=== PATIENT | female | born 1945 | race Caucasian/White ===

== ENCOUNTER 2017-05-15 11:07 | Inpatient (IN) | payer MEDICARE, BC ==
[2017-05-15] MEDS ORDERED: NS 0.9% 1000 ML* 1,000 ML IV ONE (12:02)
--- NOTE | 2017-05-15 13:04 | RAD ---
INDICATION: Weakness COMPARISON: April 24, 2016 TECHNIQUE: PA and lateral dual-energy views were obtained. FINDINGS: Bones/Soft Tissues: There are no acute bony findings. With bilateral shoulder arthroplasty Cardiomediastinal: The cardiomediastinal silhouette is normal. Lungs: There are no infiltrates. Pleura: There are no pleural effusions. Other: None IMPRESSION: NO ACTIVE DISEASE.
[2017-05-15] MEDS ORDERED: Ondansetron INJ* 2 MG/ML VIAL IV ONE (13:22)
[2017-05-15 14:12] LABS: Hematocrit 19 % (35-47); Mean Corpuscular HGB Conc 33 g/dl (31-36); Mean Corpuscular Hemoglobin 25 pg (27-31); Mean Corpuscular Volume 76 fL (80-97); Mean Platelet Volume 5 um3 (7.4-10.4); Red Blood Count 2.55 10^6/ul (4.0-5.4); Red Cell Distribution Width 18 % (10.5-15); White Blood Count 6.8 10^3/ul (3.5-10.8)
[2017-05-15 14:14] LABS: Comments Flag Yes
[2017-05-15 14:18] LABS: Hemoglobin 6.4 g/dl (12.0-16.0)
[2017-05-15 14:19] LABS: Add Diff/Slide Review? Slide Review Added
[2017-05-15 14:26] LABS: ALT 22 U/L (7-52); AST 52 U/L (13-39); Albumin 3.8 g/dL (3.2-5.2); Alkaline Phosphatase 43 U/L (34-104); Blood Urea Nitrogen 17 mg/dL (6-24); C Reactive Protein < 1.00 mg/L (< 5.00); CO2 Carbon Dioxide 29 mmol/L (22-32); Calcium 10.5 mg/dL (8.6-10.3); Chloride 75 mmol/L (101-111); EGFR African American 69.9 (>60); EGFR Non-African American 54.3 (>60); Globulin 2.6 g/dL (2-4); Glucose 103 mg/dL (70-100); Lipase 66 U/L (11.0-82.0); Magnesium 1.2 mg/dL (1.9-2.7); Potassium 3.7 mmol/L (3.5-5.0); Total Protein 6.4 g/dL (6.4-8.9); Troponin I 0.01 ng/mL (<0.04)
[2017-05-15 14:30] LABS: Anion Gap 6 mmol/L (2-11); Sodium 110 mmol/L (133-145)
[2017-05-15] MEDS ORDERED: Iodixanol* (CONTRAST) 320 MG/ML 100 ML SDV IV ONE (14:30)
[2017-05-15 14:45] LABS: Hypochromasia 2+; Neutrophil % 83 % (38-83); Polychromasia 1+
[2017-05-15 15:00] LABS: TSH (Thyroid Stimulating Horm) 0.61 mcIU/mL (0.34-5.60)
--- NOTE | 2017-05-15 15:17 | RAD ---
CLINICAL HISTORY: Vomiting and diarrhea COMPARISON: None TECHNIQUE: Noncontrast CT examination of the abdomen and pelvis from the lung bases through the initial tuberosities. FINDINGS: VISUALIZED LUNG BASES: The visualized lung bases are grossly clear. There is no pleural effusion. ABDOMEN AND PELVIS: Evaluation of the solid organs and vasculature is limited without intravenous contrast. The liver, spleen, pancreas and adrenal glands are grossly normal in appearance. The gallbladder is normal. At the upper pole cortex of the left kidney there is a punctate calcification (axial image 24 and coronal image 79). At the lower pole the left kidney there is a fluid density cyst. Otherwise the kidneys are normal in appearance without focal mass, calcification or signs of hydronephrosis. The urinary bladder measures 14.4 x 9.7 cm in the axial plane and approximately 8 cm in cephalocaudal projection yielding an approximate volume of 905 mL. The oral contrast has progressed as far as the rectosigmoid colon. The small and large bowel are not distended.The patient's normal appendix is identified in the right lower quadrant with a small amount of gas in the lumen (axial image 39 and coronal image 53). There are air-fluid levels throughout many of the loops of small bowel but there is no definite wall thickening or pathologic dilatation. There is no gross retroperitoneal or mesenteric lymphadenopathy. The abdominal aorta and iliac arteries are normal in course and diameter. The right hip prosthesis is anatomically aligned. Incidentally noted is extension of an acetabular screw beyond the posterior cortex of the ilium measuring less than 1 cm. There is no acute inflammatory change or signs of bony fracture. The hip prosthesis creates streak artifact which limits evaluation of the soft tissues of the pelvis. There is levoconvex curvature of the lower thoracic and lumbar spine with the apex at the L1 vertebral body. Degenerative changes on the sagittal view include loss of intervertebral disc height, multilevel vacuum disc phenomenon and endplate sclerosis at multiple levels. IMPRESSION: 1. No evidence of acute inflammatory change of the gastrointestinal tract or other findings that would account for the patient's current presentation. 2. Incidentally noted is a right acetabular screw extending beyond the cortex of the posterior ilium. The clinical significance of this is doubtful. 3. The urinary bladder measures a volume of 905 mL. Please correlate to signs and symptoms of neurogenic bladder or urinary bladder outlet obstruction. 4. Additional chronic, degenerative and postsurgical changes described in the body the report.
[2017-05-15 16:31] LABS: Urine Bilirubin Negative (Negative); Urine Glucose Negative (Negative); Urine Nitrite Negative (Negative)
[2017-05-15] MEDS ORDERED: Dextrose 50% Syringe 50 ML* 25 GM/50 ML SYRINGE IV PUSH PRN (17:44)
[2017-05-15 17:57] LABS: BUN/Creatinine Ratio 16.1 (8-20); Calcium 9.1 mg/dL (8.6-10.3); EGFR Non-African American 59.1 (>60); Potassium 3.2 mmol/L (3.5-5.0)
[2017-05-15 18:11] LABS: Iron 54 ug/dL (50-212); Total Iron Binding Capacity 553 mcg/dL (250-450); Transferrin 395 mg/dL (203-362)
[2017-05-15] MEDS ORDERED: NS 0.9% 1000 ML* 1,000 ML IV SCH (18:15)
[2017-05-15 18:31] LABS: Ferritin 47.3 ng/mL (11-307)
[2017-05-15 18:35] LABS: Folate > 20.00 ng/mL (>3.99)
[2017-05-15 18:36] LABS: Vitamin B12 1120 pg/mL (180-914)
[2017-05-15] MEDS ORDERED: traMADol TAB* 50 MG ONE (19:18)
[2017-05-15] MEDS: traMADol TAB* 50 MG PO PRN (19:25)
[2017-05-15] MEDS: Pantoprazole IV* 40 MG IV SCH (20:37)
[2017-05-15] MEDS: Ropinirole TAB* 0.5 MG TAB PO SCH (20:41)
--- NOTE | 2017-05-15 21:57 | HP ---
HISTORY AND PHYSICAL: * ADDENDUM: Mrs. Valerio is a 71-year-old female with history of atrial fibrillation , on anticoagulation with Xarelto, who presented to the hospital after multiple falls and generalized weakness. The patient was noted to have sodium of 110 and hemoglobin of 6.4. She has a history of iron deficiency anemia in the past. The patient is going to be admitted to the hospital, transfused. Her stool Hemoccult is pending at the time of dictation. So far, no obvious source of bleeding was identified. She is likely hypernatremic from dehydration and possible polydipsia. For further details of the patient's presentation and plan, please see history and physical dictated by Lucy Riddle on 05/15/17 with which I agree. [id number]/[facility] #: [id number] [facility]ITAL[facility]
--- NOTE | 2017-05-15 22:03 | ED ---
Joselin Newsome SooYoung, scribed for Kendall Rollins MD on 05/15/17 at 1154 . GI/ HPI - HPI Summary HPI Summary: A 71 y/o F RANDY presents to ED with c/o n/v/d onset 4 weeks ago. Pt states she takes a pill for restless legs syndrome so that she can sleep at night, and 4 weeks ago, her PCP doubled the dose to 2 pills a night. Since that medication change, she's been having n/v/d. Associated sx: decreased oral intake, weakness. Denies abd pain, melena, feeling dehydrated. Pt saw her PCP last week and had a stool sample test, which was negative for C.diff and food poisoning. She saw her PCP again three days ago who recommended she switch to half tablets , but she hasn't because then she cannot sleep. Pt has a secondary c/o LE pain due to a fall last week due to LE numbness. The numbness spontaneously resolved , but she has lingering hip pain, R and L foot pain. Pt is on Xarelto. Pt lives alone. - History of Current Complaint Chief Complaint: EDNauseaVomitDiarrh Time Seen by Provider: 05/15/17 11:42 Stated Complaint: POSSIBLE ALLERGIC REACTION TO MED Hx Obtained From: Patient Onset/Duration: Started Weeks Ago - 4, Still Present Timing: Constant Severity: Mild Current Severity: Mild Pain Intensity: 0 - out of 10 Associated Signs and Symptoms: Positive: Weakness, Other: - pos: decreased oral intake; neg: feeling dehydrated. Negative: Blood w/Stool, Abdominal Pain - Additional Pertinent History Primary Care Physician: [id number] - Allergy/Home Medications Allergies/Adverse Reactions: Allergies Allergy/AdvReac Type Severity Reaction Status Date / Time Tetracycline Allergy RASH, ITCHY Verified 05/15/17 11:34 Morphine AdvReac N/V Verified 05/15/17 11:34 Home Medications: Home Medications Candesartan (NF) [Atacand (NF)] 16 mg PO BID 05/15/17 [History Confirmed ] DULoxetine DR [place]* [Cymbalta CAP*] 60 mg PO DAILY 05/15/17 [History Confirmed ] Diltiazem XR EXTEND Releas(NF) [Cartia XR (NF)] 120 mg PO DAILY 05/15/17 [ History Confirmed 05/15/17] Furosemide TAB* [Lasix TAB*] 20 mg PO DAILY 05/15/17 [History Confirmed 05/15/17 ] Multiple Vitamins W/ Minerals [One Daily Multivitamin Wo] 1 tab PO DAILY [History Confirmed 05/15/17] Pramipexole TAB* [Mirapex TAB*] 0.5 mg PO BID 05/15/17 [History Confirmed ] Rivaroxaban TAB(*) [Xarelto 20 mg] 20 mg PO QPM 05/15/17 [History Confirmed 08/30] PMH/Surg Hx/FS Hx/Imm Hx Previously Healthy: No Endocrine/Hematology History: Reports: Hx Diabetes - TYPE 2 Cardiovascular History: Reports: Hx Hypertension Denies: Hx Angina, Hx Pacemaker/ICD, Other Cardiovascular Problems/Disorders Respiratory History: Denies: Hx Asthma GI History: Denies: Other GI Disorders History: Denies: Hx Renal Disease Musculoskeletal History: Reports: Hx Arthritis - OSTEOARTHRITIS HIPS, SHOULDERS , ELBOWS, TOES, Denies: Other Musculoskeletal History Sensory History: Reports: Hx Cataracts, Hx Contacts or Glasses Denies: Hx Hearing Aid Opthamlomology History: Reports: Hx Cataracts, Hx Contacts or Glasses Psychiatric History: Reports: Hx Depression Denies: Hx Panic Disorder - Surgical History Surgery Procedure, Year, and Place[place] [facility] [place] [facility]. RIGHT [place]OULD[place], 2009, [facility]. [place] [facility] [place], 2010[place] [facility] Hx Anesthesia Reactions: No Infectious Disease History: No Infectious Disease History: Denies: Traveled Outside the [place] in Last 30 Days - Family History Known Family History: Positive: Cardiac Disease, Hypertension, Diabetes - mother - DM - Social History Occupation: Retired Lives: Alone Alcohol Use: None Alcohol Amount: 5 PER WEEK Hx Substance Use: No Substance Use Type: Reports: None Hx Tobacco Use: No Smoking Status (MU): Never Smoked Tobacco Have You Smoked in the Last Year: No Review of Systems Negative: Other - neg: dehydration Positive: Vomiting, Diarrhea, Nausea, Other - pos: decreased oral intake; neg: melena. Negative: Abdominal Pain Positive: Weakness Psychological: Normal All Other Systems Reviewed And Are Negative: Yes Physical Exam - Summary Physical Exam Summary: Rectal: Dark stool on exam. Triage Information Reviewed: Yes Vital Signs On Initial Exam: Initial Vitals Temp Pulse Resp BP Pulse Ox 99.4 F 65 18 123/47 100 05/15/17 11:15 11 11:15 11 11:15 05/15/17 11:15 05/15/17 11:15 Vital Signs Reviewed: Yes Appearance: Positive: Well-Appearing, No Pain Distress Skin: Positive: Warm, Skin Color Reflects Adequate Perfusion, Dry Head/Face: Positive: Normal Head/Face Inspection Eyes: Positive: EOMI, REBEKAH ENT: Positive: Normal ENT inspection - except oral mucosa dry Neck: Positive: Supple, Nontender Respiratory/Lung Sounds: Positive: Clear to Auscultation, Breath Sounds Present Cardiovascular: Positive: RRR, Murmur, Leg Edema Left, Leg Edema Right Abdomen Description: Positive: Nontender, Soft Bowel Sounds: Positive: Hypoactive Musculoskeletal: Positive: Edema Left, Edema Right, Other - Ecchymosis over R iliac crest with tenderness to palpation. Both LE are bandaged. L great toe ecchymosis with tenderness to palpation. R foot tenderness of proximal 5th metatarsal. Neurological: Positive: Normal, Sensory/Motor Intact, Alert, Oriented to Person Place, Time Psychiatric: Positive: Affect/Mood Appropriate - Gurinder Coma Scale Coma Scale Total: 15 Diagnostics - Vital Signs Vital Signs Temp Pulse Resp BP Pulse Ox 05/15/17 11:15 99.4 F 65 18 123/47 100 - Laboratory Lab Results: Lab Results 05/15/17 05/15/17 05/15/17 Range/Units 13:55 13:55 13:55 WBC (3.5-10.8) 10^3/ul RBC (4.0-5.4) 10^6/ul Hgb (12.0-16.0) g/dl Hct (35-47) % MCV (80-97) fL MCH (27-31) pg MCHC (31-36) g/dl RDW (10.5-15) % Plt Count (150-450) 10^3/ul MPV (7.4-10.4) um3 Neut % (Auto) (38-83) % Lymph % (Auto) (25-47) % [place] % (Auto) (1-9) % Eos % (Auto) (0-6) % Baso % (Auto) (0-2) % Absolute Neuts (auto) (1.5-7.7) 10^3/ul Absolute Lymphs (auto) (1.0-4.8) 10^3/ul Absolute Monos (auto) (0-0.8) 10^3/ul Absolute Eos (auto) (0-0.6) 10^3/ul Absolute Basos (auto) (0-0.2) 10^3/ul Absolute Nucleated RBC 10^3/ul Neutrophils % (38-83) % Lymphocytes % (25-47) % Monocytes % (0-13) % Nucleated RBC % Nucleated RBCs/100 WBC (0-0) Normal RBC Morphology Polychromasia Hypochromasia Elliptocytes INR (Anticoag Therapy) 1.10 (0.89-1.11) APTT 32.2 (26.0-36.3) seconds Sodium 110 L* (133-145) mmol/L Potassium 3.7 (3.5-5.0) mmol/L Chloride 75 L (101-111) mmol/L Carbon Dioxide 29 (22-32) mmol/L Anion Gap 6 (2-11) mmol/L BUN 17 (6-24) mg/dL Creatinine 1.00 H (0.51-0.95) mg/dL Est GFR ( Amer) 69.9 (>60) Est GFR (Non-Af Amer) 54.3 (>60) BUN/Creatinine Ratio 17.0 (8-20) Glucose 103 H (70-100) mg/dL Lactic Acid (0.5-2.0) mmol/L Calcium 10.5 H (8.6-10.3) mg/dL Magnesium 1.2 L (1.9-2.7) mg/dL Iron 54 (50-212) ug/dL TIBC 553 H (250-450) mcg/dL % Saturation 10 L (15-55) % Unsat Iron Binding 499 ug/dL Ferritin 47.3 (11-307) ng/mL Total Bilirubin 1.00 (0.2-1.0) mg/dL AST 52 H (13-39) U/L ALT 22 (7-52) U/L Alkaline Phosphatase 43 (34-104) U/L Troponin I 0.01 (<0.04) ng/mL C-Reactive Protein < 1.00 (< 5.00) mg/L B-Natriuretic Peptide 275 H ( - 100) pg/mL Total Protein 6.4 (6.4-8.9) g/dL Albumin 3.8 (3.2-5.2) g/dL Globulin 2.6 (2-4) g/dL Albumin/Globulin Ratio 1.5 (1-3) Lipase 66 (11.0-82.0) U/L Vitamin B12 1120 H (180-914) pg/mL Folate > 20.00 (>3.99) ng/mL TSH 0.61 (0.34-5.60) mcIU/mL Blood Type Antibody Screen Crossmatch 05/15/17 05/15/17 05/15/17 Range/Units 13:55 13:55 13:55 WBC 6.8 (3.5-10.8) 10^3/ul RBC 2.55 L (4.0-5.4) 10^6/ul Hgb 6.4 L* (12.0-16.0) g/dl Hct 19 L (35-47) % MCV 76 L (80-97) fL MCH 25 L (27-31) pg MCHC 33 (31-36) g/dl RDW 18 H (10.5-15) % Plt Count 357 (150-450) 10^3/ul MPV 5 L (7.4-10.4) um3 Neut % (Auto) 77.5 (38-83) % Lymph % (Auto) 12.8 L (25-47) % [place] % (Auto) 7.7 (1-9) % Eos % (Auto) 1.5 (0-6) % Baso % (Auto) 0.5 (0-2) % Absolute Neuts (auto) 5.3 (1.5-7.7) 10^3/ul Absolute Lymphs (auto) 0.9 L (1.0-4.8) 10^3/ul Absolute Monos (auto) 0.5 (0-0.8) 10^3/ul Absolute Eos (auto) 0.1 (0-0.6) 10^3/ul Absolute Basos (auto) 0 (0-0.2) 10^3/ul Absolute Nucleated RBC 0.02 10^3/ul Neutrophils % 83 (38-83) % Lymphocytes % 13 L (25-47) % Monocytes % 4 (0-13) % Nucleated RBC % 0.3 Nucleated RBCs/100 WBC 1 H (0-0) Normal RBC Morphology Not Reportable Polychromasia 1+ Hypochromasia 2+ Elliptocytes 1+ INR (Anticoag Therapy) (0.89-1.11) APTT (26.0-36.3) seconds Sodium (133-145) mmol/L Potassium (3.5-5.0) mmol/L Chloride (101-111) mmol/L Carbon Dioxide (22-32) mmol/L Anion Gap (2-11) mmol/L BUN (6-24) mg/dL Creatinine (0.51-0.95) mg/dL Est GFR ( Amer) (>60) Est GFR (Non-Af Amer) (>60) BUN/Creatinine Ratio (8-20) Glucose (70-100) mg/dL Lactic Acid 1.4 (0.5-2.0) mmol/L Calcium (8.6-10.3) mg/dL Magnesium (1.9-2.7) mg/dL Iron (50-212) ug/dL TIBC (250-450) mcg/dL % Saturation (15-55) % Unsat Iron Binding ug/dL Ferritin (11-307) ng/mL Total Bilirubin (0.2-1.0) mg/dL AST (13-39) U/L ALT (7-52) U/L Alkaline Phosphatase (34-104) U/L Troponin I (<0.04) ng/mL C-Reactive Protein (< 5.00) mg/L B-Natriuretic Peptide ( - 100) pg/mL Total Protein (6.4-8.9) g/dL Albumin (3.2-5.2) g/dL Globulin (2-4) g/dL Albumin/Globulin Ratio (1-3) Lipase (11.0-82.0) U/L Vitamin B12 (180-914) pg/mL Folate (>3.99) ng/mL TSH (0.34-5.60) mcIU/mL Blood Type A Positive Antibody Screen Negative Crossmatch See Detail Result Diagrams: 05/15/17 13:55 05/15/17 17:31 Lab Statement: Any lab studies that have been ordered have been reviewed, and results considered in the medical decision making process. - Radiology CXR Xray Interpretation: No Acute Changes - IMPRESSION: No active dz. ED physician has reviewed this radiology report and agrees. Radiology Interpretation Completed By: Radiologist - CT A/P CT CT Interpretation: Positive (See Comments) - IMPRESSION: 1. No evidence of acute inflammatory change of the gastrointestinal tract or other findings that would account for the patient's current presentation. 2. Incidentally noted is a right acetabular screw extending beyond the cortex of the posterior ilium. The clinical significance of this is doubtful. 3. The urinary bladder measures a volume of 905 mL. Please correlate to signs and symptoms of neurogenic bladder or urinary bladder outlet obstruction. 4. Additional chronic, degenerative and postsurgical changes described in the body the report. ED physician has reviewed this radiology report and agrees. CT Interpretation Completed By: Radiologist - EKG 1307 EKG Rhythm: Atrial Fibrillation - at 59bpm EKG Interpretation: flipped Ts in III and avF EKG Comparison: Other - afib also present in EKG on 01/03/2016 GIGU Course/Dx - Course Course Of Treatment: A 71 y/o F RANDY presents to ED with c/o n/v/d onset 4 weeks ago. Pt states she takes a pill for restless legs syndrome so that she can sleep at night, and 4 weeks ago, her PCP doubled the dose to 2 pills a night. Since that medication change, she's been having n/v/d. Associated sx: decreased oral intake, weakness. Denies abd pain, melena, feeling dehydrated. Pt saw her PCP last week and had a stool sample test, which was negative for C.diff and food poisoning. She saw her PCP again three days ago who recommended she switch to half tablets, but she hasn't because then she cannot sleep. Pt has a secondary c/o LE pain due to a fall last week due to LE numbness. The numbness spontaneously resolved, but she has lingering hip pain, R and L foot pain. Pt is on Xarelto. Pt lives alone. 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
--- NOTE | 2017-05-15 22:05 | CONS ---
ORTHOPEDIC CONSULTATION NOTE: DATE OF CONSULT: 05/15/17 CONSULTING SERVICE: Orthopedics. REQUESTING CONSULT: Hospitalist service. REASON FOR CONSULT: Right hip. CHIEF COMPLAINT: Diarrhea. HISTORY OF PRESENT ILLNESS: This is a 71-year-old woman, who is admitted to the hospitalist service for diarrhea. She reports that she fell a few days ago and is on Xarelto, said she had a bunch of bruising on her right hip. She has been able to bear weight and move the hip without pain. During the workup for her diarrhea, she had a CT of her abdomen and pelvis, which did show a previous hip replacement on the right and screw with protrusion through the cortex, so the hospitalist service requested my consultation with this. In talking with Ms. Valerio, she reports that she had the right hip replacement years ago, has not had any trouble with it and does not have any pain in her groin at this time. PAST MEDICAL HISTORY: Chronic kidney disease, chronic atrial fibrillation, diabetes, and normocytic anemia. PAST SURGICAL HISTORY: Status post hip arthroplasty, shoulder arthroplasty, and elbow arthroplasty. MEDICATIONS: 1. Tylenol. 2. Atenolol. 3. Duloxetine. 4. Diltiazem. 5. Ferrous sulfate. 6. Rivaroxaban. 7. Zofran. ALLERGIES: TETRACYCLINE, MORPHINE. FAMILY HISTORY: Noncontributory. SOCIAL HISTORY: Lives in [place]. recently . REVIEW OF SYSTEMS: As noted above. PHYSICAL EXAMINATION: Temperature is 99.4, pulse rate is 60, respiratory rate 16, O2 saturation 99%, blood pressure 120/53. She is well appearing and in no apparent distress. Alert and oriented x3. Examination of her right lower extremity reveals ecchymosis laterally at the hip. No focal tenderness to palpation in this region. She is able to perform a straight leg raise and I can range her hip without any pain. Negative heel strike. She is able to range her knee as well without any pain. The thigh is soft without any palpable hematoma. No conservative compartment syndrome. Distally, she does have some decreased sensation in her feet per her baseline, but can feel me touching them. Her feet are warm and well perfused with a palpable DP pulse. IMAGING: CT of her pelvis was reviewed by me. It does show well positioned total hip arthroplasty. There is a screw into the acetabulum, which does just perforate through the ileum, this is normal and does not appear concerning. ASSESSMENT AND PLAN: Silvana Valerio is a 71-year-old woman admitted for diarrhea, who did have a fall a few days ago and has developed ecchymosis in the right lateral hip. There is no evidence on exam today problem with the hip replacement and CT scan does show a well positioned hip replacement. The screw in question is of no concern and has been like that for many years in all likelihood, and is normal after that surgery. From an orthopedic standpoint, she can be weightbearing as tolerated and work with physical therapy as needed for day training. [id number]/[facility] #: [id number] MTDD
[2017-05-15] MEDS ORDERED: Atropine 1MG/ML INJ* 1 ML VIAL IV PUSH PRN (22:34)
[2017-05-15] MEDS ORDERED: HYDROmorphone INJ* 1 MG/ML CARPUJECT SYRINGE IV SLOW PU PRN (22:34)
[2017-05-15] MEDS ORDERED: Ropinirole TAB* 0.5 MG TAB PO ONE (22:35)
[2017-05-15] MEDS ORDERED: oxyCODONE TAB* 5 MG TAB ONE (22:41)
[2017-05-15] MEDS: oxyCODONE TAB* 5 MG TAB PO PRN (22:42)
--- NOTE | 2017-05-15 23:11 | HP ---
ATTENDING PHYSICIAN ADDENDUM INCLUDED ON THIS REPORT CC: Dr. Shaw* HOSPITAL MEDICINE HISTORY AND PHYSICAL: DATE OF ADMISSION: 05/15/17 PRIMARY CARE PHYSICIAN: Dr. Shaw. ATTENDING PHYSICIAN: Dr. Kay Brennan * (dictation provided by Lucy Riddle NP ). CHIEF COMPLAINT: Diarrhea with fall and right hip pain. HISTORY OF PRESENT ILLNESS: Ms. Valerio is a 71-year-old female with a past medical history of chronic anemia attributed to iron deficiency, atrial fibrillation on Xarelto, and diabetes, who presents to the hospital today after having a month of diarrhea, now with a fall and right hip pain with difficulty ambulating. Ms. Valerio states that she has been on Mirapex for restless legs syndrome for some time. She felt that her symptoms were poorly controlled and therefore, her Mirapex was increased to 0.5 mg twice daily. This occurred a month ago and since then she has been reporting diarrhea with nausea. She feels that these symptoms are directly related to the Mirapex. She spoke with her primary care physician and the Mirapex was decreased to one-half tab twice daily, but it seems that her restless legs kept her up through the night and therefore, she would back on the full dose tab b.i.d. The patient states she has had large amount of diarrhea initially about a month ago, but overtime this has decreased and she is only having small episodes of incontinence when she passes gas. She denies any blood or dark tarry stool. She has had nausea, but no vomiting. She has been tolerating oral intake, but she has not had a great appetite. She states that she drinks four 16 ounce bottles of water in addition to seltzer daily to try to stay hydrated. Last week, she felt related to some ongoing weakness to her right leg. She has a history of a right hip replacement. She had a significant bruising to the right hip, which she attributed to the fact that she has been on Xarelto. Since then, she has been having a bit more trouble ambulating. Today, she was very weak and therefore, decided to come into the emergency room for evaluation. In the emergency room, Ms. Valerio had labs, which showed a hemoglobin of 6.4, this is [id number] anemia with her last check back in April showing an hemoglobin of 7.4. She has a new hyponatremia with a sodium of 110, last checked in April, it was 129. She is hypomagnesemic with a magnesium of 1.2. She has a CT abdomen and pelvis, which shows urinary retention and question of incidentally noted right acetabular screw extending down the cortex of the posterior ilium. Her vitals are stable and she has a low-grade temperature to 99.4. PAST MEDICAL HISTORY: 1. Anemia attributed to iron deficiency. 2. History of chronic right lower extremity wound, now healing well [facility]. 3. Atrial fibrillation, on Xarelto. 4. History of CKD stage 3. 5. Type 2 diabetes, non-insulin dependent. 6. Restless legs syndrome. MEDICATIONS: 1. Atenolol 100 mg p.o. daily. 2. Candesartan 16 mg p.o. b.i.d. 3. Diltiazem XR 120 mg p.o. daily. 4. Furosemide 20 mg p.o. day. 5. Multivitamin mineral 1 tab p.o. daily. 6. Pramipexole 0.5 mg p.o. b.i.d. 7. Rivaroxaban 20 mg p.o. q.p.m. 8. Metformin 500 mg p.o. b.i.d. 9. Duloxetine DR 60 mg p.o. daily. ALLERGIES: TETRACYCLINE and MORPHINE. FAMILY HISTORY: The patient states that her mom in her mid 80s. Her dad related to emphysema. She has 2 brothers who are alive and well and she has 2 sons, one of which Uli is her healthcare proxy. SOCIAL HISTORY: The patient has never been a smoker. She used to drink occasionally, but has not done so many years. She denies any drug use. REVIEW OF SYSTEMS: A 14-point review of systems was completed with Ms. Valerio and all those not mentioned above were negative. PHYSICAL EXAMINATION GENERAL: Ms. Valerio is sitting up in the bed. She is in no acute distress. VITAL SIGNS: Temperature 99.4, pulse rate 60, respiratory rate 16, O2 saturation 99% on room air, blood pressure 120/53. LUNGS: Clear to auscultation bilaterally. No accessory muscle use and good aeration. HEART : S1 and S2. No murmur, rub, gallop and regular. ABDOMEN: Soft, but there is tenderness along the lower abdomen. EXTREMITIES: No cyanosis. No edema. SKIN: The patient has a large ecchymosis to her right lateral hip. She has a very small 1 inch x 1 cm long ulceration, chronic wound to her right horvath proximally at about the level of the knee. There is no erythema or drainage there. NEURO: She is alert. She is oriented x3. She moves all extremities equally, although there is decreased range of motion on the right hip due to pain. There is no facial asymmetry or focal weakness. Extraocular movements are intact. DIAGNOSTIC STUDIES/LAB DATA: WBC 6.8, hemoglobin 6.4, hematocrit 19, and platelet count 357. MCV is 76. INR 1.10. Sodium 110, potassium 3.7, chloride 75, BUN 17, creatinine 1.00, glucose 103, lactic acid 1.4, magnesium 1.2. Urine shows no evidence of infection. Abdomen and pelvis CT is read as follows: "No evidence of acute inflammatory change of the gastrointestinal tract or other findings that would account for the patient's current presentation." Incidentally noted, there is a right acetabular screw extending beyond the cortex of the posterior ilium. The clinical significance of this is doubtful. The urinary bladder measures a volume of 905 mL. Please correlate to signs and symptoms of neurogenic bladder or urinary bladder outlet obstruction. Chest x-ray is read as follows: "No active disease." EKG is as follows: Atrial fibrillation with a heart rate of about 60, but no evidence of ischemia. ASSESSMENT: Ms. Valerio is a 71-year-old female with a past medical history of diabetes, chronic iron deficiency anemia, atrial fibrillation, on Xarelto and restless legs syndrome, who reports that she had a change to her Mirapex dose, which she associates with the acute onset of nausea and diarrhea, now with a fall at home and difficulty ambulating. In the emergency room, she has been found to have [id number] anemia and new hyponatremia. Our plans are for inpatient admission as expected length of stay to be greater than 2 days for the followin. Anemia. The patient has a low MCV and history of iron deficiency. Despite the fact that she has not seen dark tarry stools or blood in the stools, she does have a positive guaiac and I have consulted with Dr. Koenig, who will be seeing her tomorrow. She has been started on Protonix b.i.d. Plan to recheck her labs in the a.m. I have checked an iron studies, B12 and folate. She will continue with iron supplementation and I have ordered for 2 units of packed red blood cells. Xarelto will be held. 2. Hyponatremia. The patient's sodium is 110 and I suspect that this is secondary to poor intake with high intake of H2O. The patient was started on normal saline in the emergency room. I am checking a repeat sodium level now at 1800 hours. She is asymptomatic. Plan to check neuro q.4 hours and she will have q.6 hours basic metabolic panel. If the sodium is improving at appropriate rate, we will continue with gentle IV fluids with close monitoring of sodium level. If the sodium has worsened, we will consider fluid restriction , salt tabs and/or 3% saline as needed. 3. Urinary retention. The patient's CT scan shows full bladder. She is stating she has discomfort in the lower abdomen, but she does not feel that she needs to urinate and plan to place a [place] now. 4. Hypomagnesemia. Plan to replete magnesium and recheck in the a.m. 5. Right hip pain. The patient does have significant bruising on the right hip. I have consulted with Orthopedic Surgery to evaluate the incidental CT finding of the screw extending beyond the ilium. I have spoken with Dr. Moss who thinks that this is likely unrelated and chronic finding. 6. Atrial fibrillation. Plan to continue Cardizem. We will continue with a low dose of atenolol with hold parameters. Again, we are holding Xarelto due to anemia. 7. Restless legs syndrome. I question whether or not a restless legs symptoms are related to severe iron deficiency. Iron studies are pending. We will continue with iron supplementation. Given the severity of the patient's symptoms, plan to switch her over to Requip to hopefully avoiding nausea and vomiting. Would also provide her with some comfort through the evening while we look to replete iron as well depending on iron studies. 8. Type 2 diabetes. Plan to hold metformin and the patient had blood glucoses q.a.c. with lispro sliding scale. 9. DVT prophylaxis with SCDs only. 10. Code status is full code. 11. Disposition to intensive care unit for hyponatremia with sodium of 110. TIME SPENT: Approximately 60 minutes were spent on the admission of this patient, more than half time spent with the patient at the bedside reviewing the events leading up to this hospitalization, performing the physical examination and reviewing the plan of care. ULCY RIDDLE NP ADDENDUM: Mrs. Valerio is a 71-year-old female with history of atrial fibrillation, on anticoagulation with Xarelto, who presented to the hospital after multiple falls and generalized weakness. The patient was noted to have sodium of 110 and hemoglobin of 6.4. She has a history of iron deficiency anemia in the past. The patient is going to be admitted to the hospital, transfused. Her stool Hemoccult is pending at the time of dictation. So far, no obvious source of bleeding was identified. She is likely hypernatremic from dehydration and possible polydipsia. For further details of the patient's presentation and plan, please see history and physical dictated by Lucy Riddle on 05/15/17 with which I agree. KAY BRENNAN MD [id number]/[facility] #: [id number]/CPS #: [id number] JUANJOSE
[2017-05-16 00:44] LABS: Hematocrit 24 % (35-47); Hemoglobin 8.3 g/dl (12.0-16.0)
[2017-05-16 00:56] LABS: Calcium 8.7 mg/dL (8.6-10.3); EGFR Non-African American 59.1 (>60); Magnesium 1.9 mg/dL (1.9-2.7); Potassium 3.4 mmol/L (3.5-5.0)
[2017-05-16] MEDS: oxyCODONE TAB* 5 MG TAB PO PRN ×3 (02:54→18:38)
[2017-05-16] MEDS: Pantoprazole IV* 40 MG IV SCH ×2 (05:57→17:39)
[2017-05-16 06:20] LABS: Hematocrit 25 % (35-47); Hemoglobin 8.4 g/dl (12.0-16.0); Mean Corpuscular HGB Conc 34 g/dl (31-36); Mean Corpuscular Hemoglobin 27 pg (27-31); Mean Corpuscular Volume 79 fL (80-97); Mean Platelet Volume 6 um3 (7.4-10.4); Red Blood Count 3.15 10^6/ul (4.0-5.4); Red Cell Distribution Width 18 % (10.5-15); White Blood Count 5.5 10^3/ul (3.5-10.8)
[2017-05-16 06:33] LABS: BUN/Creatinine Ratio 13.8 (8-20); Calcium 8.6 mg/dL (8.6-10.3); EGFR African American 82.1 (>60); EGFR Non-African American 63.8 (>60); Magnesium 1.8 mg/dL (1.9-2.7); Potassium 3.5 mmol/L (3.5-5.0)
[2017-05-16] MEDS ORDERED: NS 0.9% 1000 ML* 1,000 ML IV SCH (07:19)
[2017-05-16] MEDS: Insulin LISPRO* 1 UNITS UNIT SUBCUT SCH ×3 (08:46→17:31)
[2017-05-16] MEDS: DULoxetine DR CAP* 60 MG CAP.DR PO SCH (08:53)
[2017-05-16] MEDS ORDERED: Ferrous Sulfate TAB* 325 MG PO SCH (09:00)
[2017-05-16] MEDS ORDERED: Diltiazem CD CAP* 240 MG PO SCH (09:00)
[2017-05-16] MEDS: Atenolol TAB* 25 MG PO SCH (10:03)
[2017-05-16] MEDS ORDERED: Ondansetron INJ* 2 MG/ML VIAL ONE (10:12)
[2017-05-16] MEDS: Ondansetron INJ* 2 MG/ML VIAL IV PRN (10:14)
[2017-05-16] MEDS ORDERED: Dextrose 50% VIAL 50 ml IV PUSH PRN (11:00)
[2017-05-16] MEDS: Sodium Chloride TAB* 1 GM PO SCH ×2 (12:35→21:32)
[2017-05-16 14:37] LABS: Hematocrit 25 % (35-47); Hemoglobin 8.1 g/dl (12.0-16.0); Mean Corpuscular HGB Conc 33 g/dl (31-36); Mean Corpuscular Hemoglobin 26 pg (27-31); Mean Corpuscular Volume 80 fL (80-97); Mean Platelet Volume 6 um3 (7.4-10.4); Red Blood Count 3.12 10^6/ul (4.0-5.4); Red Cell Distribution Width 18 % (10.5-15); White Blood Count 7.1 10^3/ul (3.5-10.8)
[2017-05-16 14:48] LABS: BUN/Creatinine Ratio 14.5 (8-20); Calcium 7.9 mg/dL (8.6-10.3); EGFR African American 86.7 (>60); EGFR Non-African American 67.4 (>60); Potassium 3.5 mmol/L (3.5-5.0)
--- NOTE | 2017-05-16 16:34 | PN ---
Subjective Date of Service: 05/16/17 Interval History: Ms. Valerio continues to report feeling unwell. She has numerous vague complaints but primarily has complained of nausea with one episode of vomiting, a dry mouth , and feeling "like something isn't right." She denies chest pain or SOB. She does continue to have restless legs that cause her significant distress. Objective Active Medications: Atenolol (Tenormin Tab*) 25 mg PO DAILY MODESTA Dextrose (Dextrose 50% Vial 50 Ml*) 12.5 ml IV PUSH .FOR FS < 60 - SS PRN Duloxetine HCl (Cymbalta Cap*) 60 mg PO DAILY MODESTA Ferrous Sulfate (Ferrous Sulfate Tab*) 325 mg PO BID MODESTA Sodium Chloride (Ns 0.9% 1000 Ml*) 1,000 mls @ 125 mls/hr IV PER RATE MODESTA Insulin Human Lispro (Humalog*) 0 units SUBCUT AC MODESTA Ondansetron HCl (Zofran Inj*) 4 mg IV Q6H PRN Pantoprazole Sodium (Protonix Iv*) 40 mg IV Q12H MODESTA Ropinirole HCl (Requip Tab*) 0.5 mg PO BEDTIME MODESTA Sodium Chloride (Sodium Chloride Tab*) 1 gm PO BID MODESTA Tramadol HCl (Ultram*) 50 mg PO Q6H PRN Vital Signs: Temp Pulse Resp BP Pulse Ox 97.7 F 57 21 131/69 100 05/16/17 16:00 05/16/17 16:00 05/16/17 16:00 05/16/17 16:00 05/16/17 16:00 Oxygen Devices in Use Now: None Appearance: Elderly female lying in bed in NAD Eyes: No Scleral Icterus Ears/Nose/Mouth/Throat: Mucous Membranes Moist Neck: Trachea Midline Respiratory: Symmetrical Chest Expansion and Respiratory Effort, Clear to Auscultation Cardiovascular: NL Sounds; No Murmurs; No JVD, No Edema Abdominal: NL Sounds; No Tenderness; No Distention Lymphatic: No Cervical Adenopathy Extremities: No Edema Skin: No Rash or Ulcers Neurological: Alert and Oriented x 3, NL Muscle Strength and Tone Nutrition: Taking PO's Result Diagrams: 05/16/17 14:00 05/16/17 14:00 Additional Lab and Data: . Assess/Plan/Problems-Billing Assessment: Ms. 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 - Patient Problems (1) Hyponatremia Comment: - Improving slowly. - Appears to at least be in part related to SIADH as urine Na is 31. - NaCl tabs started today. Fluid restriction to 1.5L. - No clear etiology for SIADH, chest xray and CT abd/pelvis unremarkable. Checking CT brain. (2) Anemia Comment: - Improved after 2 units PRBC. - In part iron deficiency, continue ferrous sulfate supplemenation. - GUIAC positive. Hold eliquis. GI consult pending though not good candidate for endoscopy at this point with acute illness. (3) Atrial fibrillation Comment: - Continue low dose atenolol, diltiazem on hold due to relative bradycardia (HR briefly dipped into 30s overnight, generally in 60s). - Holding xarelto. (4) Restless leg syndrome Comment: - Continue requip. - Patient attributes decline with nausea and diarrhea to increase in mirapex. (5) Diabetes mellitus Comment: - BGs well controlled. - Hold metformin and continue lispro SSI coverage with meals. (6) Traumatic ulcer of right lower extremity with infection Comment: - Small healing wound to right horvath, continue local wound care. (7) Full code status (8) DVT prophylaxis Comment: - SCDs only given anemia. Status and Disposition: Inpatient with critical illness. May need rehab depending on clinical course.
[2017-05-16] MEDS ORDERED: diPHENhydraMINE PO* 25 MG PO PRN (17:57)
[2017-05-16] MEDS ORDERED: oxyCODONE TAB* 5 MG TAB ONE (18:31)
[2017-05-16 19:00] LABS: BUN/Creatinine Ratio 13.3 (8-20); Calcium 7.9 mg/dL (8.6-10.3); EGFR African American 86.7 (>60); EGFR Non-African American 67.4 (>60); Potassium 3.6 mmol/L (3.5-5.0)
[2017-05-16] MEDS: Ferrous Sulfate TAB* 325 MG PO SCH (21:32)
[2017-05-16] MEDS: traMADol TAB* 50 MG PO PRN (21:32)
[2017-05-16] MEDS: Ropinirole TAB* 0.5 MG TAB PO SCH (21:32)
--- NOTE | 2017-05-16 21:34 | RAD ---
HISTORY: Anemia, hyponatremia, rule out stroke. No other history is provided COMPARISONS: January 03, 2016 TECHNIQUE: Multiple contiguous axial CT scans were obtained of the head without intravenous contrast. FINDINGS: HEMORRHAGE/INFARCT: There is no hemorrhage or acute infarct. MASSES/SHIFT: There is no mass or shift. EXTRA-AXIAL SPACES: There are no extra-axial fluid collections. SULCI AND VENTRICLES: The sulci and ventricles are normal in size and position for the patient's stated age. CEREBRUM: There are no focal parenchymal abnormalities. BRAINSTEM: There are no focal parenchymal abnormalities. CEREBELLUM: There are no focal parenchymal abnormalities. VESSELS: There is calcification of the cavernous segments of the internal carotid arteries bilaterally. PARANASAL SINUSES: The paranasal sinuses are clear. ORBITS: The orbits are unremarkable. BONES AND SOFT TISSUE: No bone or soft tissue abnormalities are noted. OTHER: None IMPRESSION: NO ACUTE INTRACRANIAL PATHOLOGY.
[2017-05-16] MEDS: diPHENhydraMINE LIQ* 12.5 MG/5 ML UDC PO PRN (21:40)
--- NOTE | 2017-05-16 21:49 | CONS ---
GASTROENTEROLOGY CONSULT: DATE OF CONSULT: REFERRING PHYSICIAN: Jensen Shaw, [place], [place] ; Kay Brennan REASON FOR CONSULTATION: Report of diarrhea and presenting with sodium 110 and hemoglobin in the 8s with a low MCV. HISTORY: This 71-year-old woman with longstanding diabetes on metformin, has been feeling weak. She fell at home. She talked about diarrhea and related that to the dose of Mirapex for restless legs syndrome which was doubled a month ago. She states she has not had chronic gastrointestinal symptoms over her lifetime. She is not on any chronic gastrointestinal prescriptions. She has never had an upper endoscopy or colonoscopy. She has been under a considerable stress as her a year ago. She also fell a little over a year ago and has been [facility] over a year and had a graft. PAST MEDICAL HISTORY: 1. Atrial fibrillation - Xarelto per Dr. Etienne the last 2 years - no overt problems. 2. Type 2 diabetes. 3. Chronic renal disease. 4. Restless legs syndrome. 5. Anemia - on iron and no formal investigations available on the record. 6. Anxiety 7. Right Leg Wound - grafted Dr Thakkar SOCIAL HISTORY: in 2016. She has sons in [place] (disabled patient patient care) and [place]. Dr Harmon reportedly her primary since 1989 or longer. Alcohol abuse was described in a [address] Maxwell REVIEW OF SYSTEMS: No history of seizures, CVA, GA, actual syncope, valvular disease, hepatitis, jaundice, hematuria, renal stones. PHYSICAL EXAMINATION: She is a chronically ill-appearing woman, a little pale. She denies any pain at the moment. HEENT Exam is unremarkable. She has no adenopathy. Her lungs are clear. Heart sounds are irregular. The abdomen is soft and nontender. Rectal: Deferred. Extremities show bandage on the right upper horvath. IMPRESSION: This woman with no longstanding history of gastrointestinal problems, has had antibiotics sporadically over the last couple of years. There is however no clinical evidence for Clostridium difficile at the moment and indeed she's not had a stool since admission. Her diarrhea reported over the last month may indeed be related to Mirapex. It could be other self-limited issues. She has been water loading herself. She does not take any sorbitol containing agents. A probably unrelated issue is her iron deficiency anemia with a large hiatal hernia, or gastric antral vascular ectasia a possibility in addition to the usual colon suspects. Once she has her if sodium stabilized and her capability of cooperating with workups can be established, workup can proceed. Further history from her sons will be of interest. It is reassuring that her albumin is 3.8, this is pretty much rules out small bowel disease / malabsorption. [id number]/[facility] #: [id number] [facility]
[2017-05-17] MEDS: Ondansetron INJ* 2 MG/ML VIAL IV PRN ×2 (04:10→15:16)
[2017-05-17 04:28] LABS: Hematocrit 25 % (35-47); Hemoglobin 8.2 g/dl (12.0-16.0); Mean Corpuscular HGB Conc 33 g/dl (31-36); Mean Corpuscular Hemoglobin 27 pg (27-31); Mean Corpuscular Volume 80 fL (80-97); Mean Platelet Volume 6 um3 (7.4-10.4); Red Cell Distribution Width 18 % (10.5-15); White Blood Count 5.9 10^3/ul (3.5-10.8)
[2017-05-17 04:40] LABS: BUN/Creatinine Ratio 12.3 (8-20); Calcium 7.8 mg/dL (8.6-10.3); EGFR African American 89.1 (>60); EGFR Non-African American 69.3 (>60); Potassium 3.5 mmol/L (3.5-5.0)
--- NOTE | 2017-05-17 04:54 | PN ---
Progress Note - Progress Note Date of Service: 05/17/17 Note: Paged by RN For sodium 112 - no significant change. NO neuro changes. Suspect SIADH. Will discuss with day team, central line and hypertonic saline.
[2017-05-17] MEDS: Pantoprazole IV* 40 MG IV SCH ×2 (05:59→18:08)
[2017-05-17] MEDS: oxyCODONE TAB* 5 MG TAB PO PRN ×3 (07:41→18:20)
--- NOTE | 2017-05-17 08:29 | PN ---
Subjective Date of Service: 05/17/17 Interval History: Ms. Valerio reports feeling that her eyes "feel funny" but she denies any changes to her vision or headache. She further denies chest pain, SOB, nausea or abdominal pain thus far today. She is agreeable to getting out of bed to the chair today. Objective Active Medications: Atenolol (Tenormin Tab*) 25 mg PO DAILY MODESTA Dextrose (Dextrose 50% Vial 50 Ml*) 12.5 ml IV PUSH .FOR FS < 60 - SS PRN Diphenhydramine HCl (Benadryl Liq*) 12.5 mg PO Q12H PRN Duloxetine HCl (Cymbalta Cap*) 60 mg PO DAILY MODESTA Ferrous Sulfate (Ferrous Sulfate Tab*) 325 mg PO BID MODESTA Insulin Human Lispro (Humalog*) 0 units SUBCUT AC MODESTA Ondansetron HCl (Zofran Inj*) 4 mg IV Q6H PRN Oxycodone HCl (Roxycodone Tab*) 5 mg PO Q4H PRN Pantoprazole Sodium (Protonix Iv*) 40 mg IV Q12H MODESTA Ropinirole HCl (Requip Tab*) 0.5 mg PO BEDTIME MODESTA Sodium Chloride (Sodium Chloride Tab*) 1 gm PO TID MODESTA Tramadol HCl (Ultram*) 50 mg PO Q6H ID Vital Signs: Temp Pulse Resp BP Pulse Ox 98.2 F 66 14 128/94 100 05/17/17 07:43 05/17/17 08:00 05/17/17 08:00 05/17/17 08:00 05/17/17 08:00 Oxygen Devices in Use Now: None Appearance: Elderly female lying in bed in NAD Eyes: No Scleral Icterus Ears/Nose/Mouth/Throat: Mucous Membranes Moist Neck: NL Appearance and Movements; NL JVP, Trachea Midline Respiratory: Symmetrical Chest Expansion and Respiratory Effort, Clear to Auscultation Cardiovascular: NL Sounds; No Murmurs; No JVD, No Edema Abdominal: NL Sounds; No Tenderness; No Distention Lymphatic: No Cervical Adenopathy Extremities: No Edema Skin: - - Small ulcer to right proximal horvath, no erythema or drainage Neurological: Alert and Oriented x 3, NL Muscle Strength and Tone Nutrition: Taking PO's Result Diagrams: 05/17/17 04:15 05/17/17 04:15 Additional Lab and Data: . Assess/Plan/Problems-Billing Assessment: Ms. 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 - Patient Problems (1) Hyponatremia Comment: - Improving slowly. - Appears to at least be in part related to SIADH as urine Na is 31. - Increase NaCl tabs today. Continue fluid restriction to 1.5L. - No clear etiology for SIADH, chest xray and CT abd/pelvis unremarkable. CT brain negative. (2) Anemia Comment: - Improved after 2 units PRBC. - In part iron deficiency, continue ferrous sulfate supplemenation. - GUIAC positive. Hold eliquis. GI consult appreciated, consider endoscopy when patient recovers from acute illness. (3) Atrial fibrillation Comment: - Continue low dose atenolol, diltiazem on hold due to relative bradycardia (HR briefly dipped into 30s overnight, generally in 60s). - Hold xarelto. (4) Restless leg syndrome Comment: - Continue requip. - Patient attributes decline with nausea and diarrhea to increase in mirapex. (5) Diabetes mellitus Comment: - BGs well controlled. - Hold metformin and continue lispro SSI coverage with meals. (6) Traumatic ulcer of right lower extremity with infection Comment: - Small healing wound to right horvath, continue local wound care. (7) Full code status (8) DVT prophylaxis Comment: - SCDs only given anemia. Status and Disposition: Inpatient with critical illness. May need rehab depending on clinical course.
[2017-05-17] MEDS: Atenolol TAB* 25 MG PO SCH (08:55)
[2017-05-17] MEDS: Insulin LISPRO* 1 UNITS UNIT SUBCUT SCH ×3 (08:59→18:12)
[2017-05-17] MEDS: Ferrous Sulfate TAB* 325 MG PO SCH ×2 (09:02→21:15)
[2017-05-17] MEDS: Sodium Chloride TAB* 1 GM PO SCH ×3 (09:06→21:15)
[2017-05-17] MEDS: DULoxetine DR CAP* 60 MG CAP.DR PO SCH (09:06)
[2017-05-17] MEDS: Heparin VIAL(*) 5000 UNITS/ML VIAL (FIVE THOUSAND) SUBCUT SCH ×2 (12:39→21:16)
[2017-05-17 15:53] LABS: BUN/Creatinine Ratio 9.6 (8-20); Calcium 7.7 mg/dL (8.6-10.3); EGFR African American 86.7 (>60); EGFR Non-African American 67.4 (>60); Potassium 3.4 mmol/L (3.5-5.0)
[2017-05-17] MEDS: Ropinirole TAB* 0.5 MG TAB PO SCH (21:15)
[2017-05-17] MEDS: traMADol TAB* 50 MG PO PRN (22:27)
[2017-05-17] MEDS: diPHENhydraMINE LIQ* 12.5 MG/5 ML UDC PO PRN (22:30)
[2017-05-18] MEDS: CMCS:Melatonin (NF) 3 MG TAB PO SCH ×2 (01:45→21:41)
[2017-05-18] MEDS: oxyCODONE TAB* 5 MG TAB PO PRN ×5 (01:46→21:35)
[2017-05-18] MEDS: Pantoprazole IV* 40 MG IV SCH ×2 (05:40→18:18)
[2017-05-18] MEDS: Heparin VIAL(*) 5000 UNITS/ML VIAL (FIVE THOUSAND) SUBCUT SCH ×3 (05:40→21:35)
[2017-05-18 06:36] LABS: BUN/Creatinine Ratio 7.4 (8-20); Calcium 7.7 mg/dL (8.6-10.3); EGFR African American 89.1 (>60); EGFR Non-African American 69.3 (>60); Potassium 3.5 mmol/L (3.5-5.0)
[2017-05-18] MEDS: Insulin LISPRO* 1 UNITS UNIT SUBCUT SCH ×3 (07:40→17:52)
--- NOTE | 2017-05-18 08:55 | PN ---
Subjective Date of Service: 05/18/17 Interval History: Ms. Valerio reports feeling a bit better today. She is tolerating oral intake well. She feels more motivated today and is looking to get out of bed to chair. She denies chest pain, SOB, nausea, or abdominal pain. Objective Active Medications: Atenolol (Tenormin Tab*) 25 mg PO DAILY [facility] Dextrose (Dextrose 50% Vial 50 Ml*) 12.5 ml IV PUSH .FOR FS < 60 - SS PRN Diphenhydramine HCl (Benadryl Liq*) 12.5 mg PO Q12H PRN Duloxetine HCl (Cymbalta Cap*) 60 mg PO DAILY [facility] Ferrous Sulfate (Ferrous Sulfate Tab*) 325 mg PO BID [facility] Heparin Sodium (Porcine) (Heparin Vial(*)) 5,000 units SUBCUT Q8HR [facility] Insulin Human Lispro (Humalog*) 0 units SUBCUT AC [facility] Melatonin (Melatonin (Nf)) 3 mg PO BEDTIME [facility] Ondansetron HCl (Zofran Inj*) 4 mg IV Q6H PRN Oxycodone HCl (Roxycodone Tab*) 5 mg PO Q4H PRN Pantoprazole Sodium (Protonix Iv*) 40 mg IV Q12H [facility] Ropinirole HCl (Requip Tab*) 0.5 mg PO BEDTIME [facility] Sodium Chloride (Sodium Chloride Tab*) 1 gm PO TID [facility] Tramadol HCl (Ultram*) 50 mg PO Q6H PRN Vital Signs: Temp Pulse Resp BP Pulse Ox 98.3 F 70 16 128/60 100 05/18/17 07:56 05/18/17 07:56 05/18/17 08:00 05/18/17 07:56 05/18/17 07:56 Oxygen Devices in Use Now: None Appearance: Elderly female sitting up in bed in NAD Eyes: No Scleral Icterus Ears/Nose/Mouth/Throat: Mucous Membranes Moist Neck: NL Appearance and Movements; NL JVP, Trachea Midline Respiratory: Symmetrical Chest Expansion and Respiratory Effort, Clear to Auscultation Cardiovascular: NL Sounds; No Murmurs; No JVD, No Edema Abdominal: NL Sounds; No Tenderness; No Distention Lymphatic: No Cervical Adenopathy Extremities: No Edema Skin: No Rash or Ulcers Neurological: Alert and Oriented x 3, NL Muscle Strength and Tone Nutrition: Taking PO's Result Diagrams: 05/17/17 04:15 05/18/17 06:10 Additional Lab and Data: . Assess/Plan/Problems-Billing Assessment: Ms. 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 - Patient Problems (1) Hyponatremia Comment: - Improving slowly, Na 117 today. - Appears to at least be in part related to SIADH as urine Na is 31. - Continue TID NaCl tabs. Continue fluid restriction to 1.5L. - No clear etiology for SIADH, chest xray and CT abd/pelvis unremarkable. CT brain negative. (2) Anemia Comment: - Improved after 2 units PRBC. - In part iron deficiency, continue ferrous sulfate supplemenation. - GUIAC positive. Hold eliquis. GI consult appreciated, consider endoscopy when patient recovers from acute illness. (3) Atrial fibrillation Comment: - Continue low dose atenolol, diltiazem on hold due to relative bradycardia. - Hold xarelto. (4) Restless leg syndrome Comment: - Continue requip. - Patient attributes nausea and diarrhea prior to admission to increase in mirapex, discontinued. (5) Diabetes mellitus Comment: - BGs well controlled. - Hold metformin and continue lispro SSI coverage with meals. (6) Traumatic ulcer of right lower extremity with infection Comment: - Small healing wound to right horvath, continue local wound care. (7) Full code status (8) DVT prophylaxis Comment: - SCDs only given anemia. Status and Disposition: Inpatient with critical illness. May need rehab depending on clinical course.
[2017-05-18] MEDS: Ferrous Sulfate TAB* 325 MG PO SCH ×2 (09:57→20:43)
[2017-05-18] MEDS: Atenolol TAB* 25 MG PO SCH (09:57)
[2017-05-18] MEDS: Sodium Chloride TAB* 1 GM PO SCH ×3 (09:57→20:44)
[2017-05-18] MEDS: DULoxetine DR CAP* 60 MG CAP.DR PO SCH (09:57)
[2017-05-18] MEDS: Ropinirole TAB* 0.5 MG TAB PO SCH (20:43)
[2017-05-19] MEDS: oxyCODONE TAB* 5 MG TAB PO PRN ×5 (01:42→21:12)
[2017-05-19] MEDS: Pantoprazole IV* 40 MG IV SCH ×2 (06:02→16:59)
[2017-05-19] MEDS: Heparin VIAL(*) 5000 UNITS/ML VIAL (FIVE THOUSAND) SUBCUT SCH ×3 (06:02→22:27)
[2017-05-19] MEDS: Ondansetron INJ* 2 MG/ML VIAL IV PRN (06:02)
[2017-05-19 06:32] LABS: Hematocrit 26 % (35-47); Hemoglobin 8.5 g/dl (12.0-16.0); Mean Corpuscular HGB Conc 33 g/dl (31-36); Mean Corpuscular Hemoglobin 26 pg (27-31); Mean Corpuscular Volume 81 fL (80-97); Mean Platelet Volume 6 um3 (7.4-10.4); Red Blood Count 3.24 10^6/ul (4.0-5.4); Red Cell Distribution Width 18 % (10.5-15); White Blood Count 6.2 10^3/ul (3.5-10.8)
[2017-05-19 06:51] LABS: BUN/Creatinine Ratio 7.1 (8-20); Calcium 8.1 mg/dL (8.6-10.3); EGFR African American 85.5 (>60); EGFR Non-African American 66.5 (>60); Potassium 3.6 mmol/L (3.5-5.0)
--- NOTE | 2017-05-19 07:51 | PN ---
Subjective Date of Service: 05/19/17 Interval History: Ms. Valerio states that she is feeling somewhat better today. She feels less foggy. She has gotten up to the bedside commode with stand by assist. She denies chest pain, SOB, nausea, or abdominal pain. Objective Active Medications: Atenolol (Tenormin Tab*) 25 mg PO DAILY [facility] Dextrose (Dextrose 50% Vial 50 Ml*) 12.5 ml IV PUSH .FOR FS < 60 - SS PRN Diphenhydramine HCl (Benadryl Liq*) 12.5 mg PO Q12H PRN Duloxetine HCl (Cymbalta Cap*) 60 mg PO DAILY [facility] Ferrous Sulfate (Ferrous Sulfate Tab*) 325 mg PO BID [facility] Heparin Sodium (Porcine) (Heparin Vial(*)) 5,000 units SUBCUT Q8HR [facility] Insulin Human Lispro (Humalog*) 0 units SUBCUT AC [facility] Melatonin (Melatonin (Nf)) 3 mg PO BEDTIME [facility] Ondansetron HCl (Zofran Inj*) 4 mg IV Q6H PRN Oxycodone HCl (Roxycodone Tab*) 5 mg PO Q4H PRN Pantoprazole Sodium (Protonix Iv*) 40 mg IV Q12H [facility] Ropinirole HCl (Requip Tab*) 0.5 mg PO BEDTIME [facility] Sodium Chloride (Sodium Chloride Tab*) 1 gm PO TID [facility] Tramadol HCl (Ultram*) 50 mg PO Q6H PRN Vital Signs Vital Signs: Temp Pulse Resp BP Pulse Ox 98.6 F 63 18 150/62 100 05/19/17 07:38 05/19/17 07:38 05/19/17 10:02 05/19/17 07:38 05/19/17 07:38 Oxygen Devices in Use Now: None Appearance: Elderly female lying in bed in NAD Eyes: No Scleral Icterus Ears/Nose/Mouth/Throat: Mucous Membranes Moist Neck: Trachea Midline Respiratory: Symmetrical Chest Expansion and Respiratory Effort, Clear to Auscultation Cardiovascular: NL Sounds; No Murmurs; No JVD, No Edema Abdominal: NL Sounds; No Tenderness; No Distention Lymphatic: No Cervical Adenopathy Extremities: No Edema Skin: - - 1.5 cm x .5 cm ulcer to right horvath Neurological: Alert and Oriented x 3, NL Muscle Strength and Tone Nutrition: Taking PO's Result Diagrams: 05/19/17 06:02 05/19/17 06:02 Additional Lab and Data: . Microbiology and Other Data: . Assess/Plan/Problems-Billing Assessment: Ms. 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 - Patient Problems (1) Hyponatremia Comment: - Improving slowly, Na 122 today. - Appears to at least be in part related to SIADH as urine Na is 31. - Continue TID NaCl tabs. Continue fluid restriction to 1.5L. - No clear etiology for SIADH, chest xray and CT abd/pelvis unremarkable. CT brain negative. (2) Anemia Comment: - Improved after 2 units PRBC. - In part related to chronic iron deficiency, continue ferrous sulfate supplemenation. - GUIAC positive. Hold xarelto. GI consult appreciated, consider endoscopy when patient recovers from acute illness. Patient will need to follow up with PCP on discharge. (3) Atrial fibrillation Comment: - Continue low dose atenolol, diltiazem on hold due to relative bradycardia. - Hold xarelto due to anemia with concern for occult GI bleed. No history of stroke. (4) Restless leg syndrome Comment: - Continue requip. - Patient attributes nausea and diarrhea prior to admission to increase in mirapex, discontinued. (5) Diabetes mellitus Comment: - BGs well controlled. - Hold metformin and continue lispro SSI coverage with meals. (6) Traumatic ulcer of right lower extremity with infection Comment: - Small healing wound to right horvath, continue local wound care. - Wound care consulted today. (7) Full code status (8) DVT prophylaxis Comment: - SCDs only given anemia. Status and Disposition: Inpatient with critical illness. May need rehab depending on clinical course.
[2017-05-19] MEDS: Insulin LISPRO* 1 UNITS UNIT SUBCUT SCH ×3 (07:56→16:52)
[2017-05-19] MEDS: Sodium Chloride TAB* 1 GM PO SCH ×3 (08:03→21:13)
[2017-05-19] MEDS: Ferrous Sulfate TAB* 325 MG PO SCH ×2 (08:03→21:12)
[2017-05-19] MEDS: DULoxetine DR CAP* 60 MG CAP.DR PO SCH (08:03)
[2017-05-19] MEDS: Atenolol TAB* 25 MG PO SCH (08:04)
[2017-05-19] MEDS ORDERED: Docusate CAP* 100 MG PO PRN (09:47)
[2017-05-19] MEDS: Senna TAB PO SCH (12:31)
[2017-05-19] MEDS: Ropinirole TAB* 0.5 MG TAB PO SCH (21:12)
[2017-05-19] MEDS: CMCS:Melatonin (NF) 3 MG TAB PO SCH (21:13)
[2017-05-20] MEDS: Pantoprazole IV* 40 MG IV SCH ×2 (06:31→16:49)
[2017-05-20] MEDS: Heparin VIAL(*) 5000 UNITS/ML VIAL (FIVE THOUSAND) SUBCUT SCH ×3 (06:31→21:08)
[2017-05-20] MEDS: Insulin LISPRO* 1 UNITS UNIT SUBCUT SCH ×3 (07:48→16:37)
[2017-05-20 08:04] LABS: Hematocrit 27 % (35-47); Hemoglobin 8.7 g/dl (12.0-16.0)
[2017-05-20] MEDS: Ferrous Sulfate TAB* 325 MG PO SCH ×2 (08:36→21:07)
[2017-05-20] MEDS: Senna TAB PO SCH (08:36)
[2017-05-20] MEDS: Sodium Chloride TAB* 1 GM PO SCH ×3 (08:36→21:06)
[2017-05-20] MEDS: DULoxetine DR CAP* 60 MG CAP.DR PO SCH (08:37)
[2017-05-20] MEDS: Atenolol TAB* 25 MG PO SCH (08:37)
[2017-05-20 12:47] LABS: BUN/Creatinine Ratio 6.9 (8-20); Calcium 8.1 mg/dL (8.6-10.3); EGFR African American 82.1 (>60); EGFR Non-African American 63.8 (>60); Potassium 4.1 mmol/L (3.5-5.0)
--- NOTE | 2017-05-20 15:22 | PN ---
Subjective Date of Service: 05/20/17 Interval History: This is a 71 yo female who presented with c/o diarrhea and weakness found to be anemic and hyponatremic. She has been tranfused 2U PRBCs and treated for SIADH with fluid restriction and Na tabs. Patient's strength has been improving throughout her hospital stay. Stool positive for occult blood, Xarelto held. No obvious melena. Patient reports diarrhea has resolved. Denies abd pain, n/v. No cough or SOB. Objective Active Medications: Atenolol (Tenormin Tab*) 25 mg PO DAILY [facility] Last Admin: 05/20/17 08:37 Dose: 25 mg Dextrose (Dextrose 50% Vial 50 Ml*) 12.5 ml IV PUSH .FOR FS < 60 - SS PRN PRN Reason: FS < 60 Diphenhydramine HCl (Benadryl Liq*) 12.5 mg PO Q12H PRN PRN Reason: ANXIETY Last Admin: 05/17/17 22:30 Dose: 12.5 mg Docusate Sodium (Colace Cap*) 100 mg PO DAILY PRN PRN Reason: CONSTIPATION Duloxetine HCl (Cymbalta Cap*) 60 mg PO DAILY [facility] Last Admin: 05/20/17 08:37 Dose: 60 mg Ferrous Sulfate (Ferrous Sulfate Tab*) 325 mg PO BID [facility] Last Admin: 05/20/17 08:36 Dose: 325 mg Heparin Sodium (Porcine) (Heparin Vial(*)) 5,000 units SUBCUT Q8HR [facility] Last Admin: 05/20/17 12:40 Dose: 5,000 units Insulin Human Lispro (Humalog*) 0 units SUBCUT AC [facility] PRN Reason: Protocol Last Admin: 05/20/17 12:40 Dose: 1 unit Melatonin (Melatonin (Nf)) 3 mg PO BEDTIME [facility] Last Admin: 05/19/17 21:13 Dose: 3 mg Ondansetron HCl (Zofran Inj*) 4 mg IV Q6H PRN PRN Reason: NAUSEA Last Admin: 05/19/17 06:02 Dose: 4 mg Oxycodone HCl (Roxycodone Tab*) 5 mg PO Q4H PRN PRN Reason: PAIN Last Admin: 05/19/17 21:12 Dose: 5 mg Pantoprazole Sodium (Protonix Iv*) 40 mg IV Q12H [facility] Last Admin: 05/20/17 06:31 Dose: 40 mg Ropinirole HCl (Requip Tab*) 0.5 mg PO BEDTIME [facility] Last Admin: 05/19/17 21:12 Dose: 0.5 mg Senna (Senokot Tab*) 1 tab PO DAILY [facility] Last Admin: 05/20/17 08:36 Dose: 1 tab Sodium Chloride (Sodium Chloride Tab*) 1 gm PO TID [facility] Last Admin: 05/20/17 12:41 Dose: 1 gm Tramadol HCl (Ultram*) 50 mg PO Q6H PRN PRN Reason: PAIN Last Admin: 05/17/17 22:27 Dose: 50 mg Vital Signs: Temp Pulse Resp BP Pulse Ox 98.3 F 74 16 126/55 100 05/20/17 11:07 05/20/17 11:07 05/20/17 11:07 05/20/17 11:07 05/20/17 11:07 Oxygen Devices in Use Now: None Appearance: Elderly female in NAD Respiratory: Symmetrical Chest Expansion and Respiratory Effort, Clear to Auscultation Cardiovascular: NL Sounds; No Murmurs; No JVD, RRR Extremities: - - 2+ LE edema Skin: - - R lower leg is wrapped Neurological: Alert and Oriented x 3 Result Diagrams: 05/20/17 07:53 05/20/17 07:48 Additional Lab and Data: . Microbiology and Other Data: . Assess/Plan/Problems-Billing Assessment: Ms. 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 - Patient Problems (1) Hyponatremia Comment: Improving, Na up to 126 mmol/L today Continue TID NaCl tabs. Continue fluid restriction to 1.5L. No clear etiology for SIADH, chest xray and CT abd/pelvis unremarkable. CT brain negative. No obvious medications contributing (2) Anemia Comment: Improved after 2 units PRBC. In part related to chronic iron deficiency, continue ferrous sulfate supplemenation. GUIAC positive. Holding xarelto. GI consult appreciated, will refer for outpt endoscopy following discharge (3) Restless leg syndrome Comment: Continue requip. Patient attributes nausea and diarrhea prior to admission to increase in mirapex , discontinued. (4) Laceration Comment: RLE injury Wound care consult appreciated She is a current wound care patient Recommendation to apply collagen to wound bed and cover in dry gauze with bandage changed q2-3d (5) Atrial fibrillation Comment: Continue low dose atenolol, diltiazem has been held for mild bradycardia, can likely resume at discharge Hold xarelto due to anemia with concern for occult GI bleed. No history of stroke. (6) Diabetes mellitus Comment: BGs relatively well controlled. Hold metformin and continue lispro SSI coverage with meals. (7) Full code status (8) DVT prophylaxis Comment: SCDs only given anemia and suspected GI bleed Status and Disposition: Inpatient. Anticipate likely dc home tomorrow. No rehab needs, doing well with PT/OT
[2017-05-20] MEDS: oxyCODONE TAB* 5 MG TAB PO PRN ×2 (16:49→21:11)
[2017-05-20] MEDS: CMCS:Melatonin (NF) 3 MG TAB PO SCH (21:06)
[2017-05-20] MEDS: Ropinirole TAB* 0.5 MG TAB PO SCH (21:07)
[2017-05-21] MEDS: oxyCODONE TAB* 5 MG TAB PO PRN ×2 (01:35→19:39)
[2017-05-21] MEDS: Pantoprazole IV* 40 MG IV SCH ×2 (05:43→18:26)
[2017-05-21] MEDS: Heparin VIAL(*) 5000 UNITS/ML VIAL (FIVE THOUSAND) SUBCUT SCH ×2 (05:43→14:26)
[2017-05-21] MEDS: diPHENhydraMINE LIQ* 12.5 MG/5 ML UDC PO PRN (05:44)
[2017-05-21 08:42] LABS: BUN/Creatinine Ratio 6.5 (8-20); Calcium 8.4 mg/dL (8.6-10.3); EGFR Non-African American 59.8 (>60); Potassium 3.9 mmol/L (3.5-5.0)
[2017-05-21] MEDS: Ferrous Sulfate TAB* 325 MG PO SCH ×2 (09:00→19:39)
[2017-05-21] MEDS: Atenolol TAB* 25 MG PO SCH (09:00)
[2017-05-21] MEDS: Insulin LISPRO* 1 UNITS UNIT SUBCUT SCH ×3 (09:09→18:32)
[2017-05-21] MEDS ORDERED: Polyethylene Glycol 3350* 17 GM PACKET PO ONE (09:30)
--- NOTE | 2017-05-21 09:30 | PN ---
Subjective Date of Service: 05/21/17 Interval History: Patient reports some nausea and abdominal cramping with bloating. She states she feels constipated. She had difficultly sleeping because of the abdominal discomfort. Denies cough, SOB, abd pain. Objective Active Medications: Atenolol (Tenormin Tab*) 25 mg PO DAILY [facility] Last Admin: 05/20/17 08:37 Dose: 25 mg Dextrose (Dextrose 50% Vial 50 Ml*) 12.5 ml IV PUSH .FOR FS < 60 - SS PRN PRN Reason: FS < 60 Diphenhydramine HCl (Benadryl Liq*) 12.5 mg PO Q12H PRN PRN Reason: ANXIETY Last Admin: 05/21/17 05:44 Dose: 12.5 mg Docusate Sodium (Colace Cap*) 100 mg PO DAILY PRN PRN Reason: CONSTIPATION Duloxetine HCl (Cymbalta Cap*) 60 mg PO DAILY [facility] Last Admin: 05/20/17 08:37 Dose: 60 mg Ferrous Sulfate (Ferrous Sulfate Tab*) 325 mg PO BID [facility] Last Admin: 05/20/17 21:07 Dose: 325 mg Furosemide (Lasix Tab*) 20 mg PO DAILY [facility] Heparin Sodium (Porcine) (Heparin Vial(*)) 5,000 units SUBCUT Q8HR [facility] Last Admin: 05/21/17 05:43 Dose: 5,000 units Insulin Human Lispro (Humalog*) 0 units SUBCUT AC [facility] PRN Reason: Protocol Last Admin: 05/21/17 09:09 Dose: Not Given Melatonin (Melatonin (Nf)) 3 mg PO BEDTIME [facility] Last Admin: 05/20/17 21:06 Dose: 3 mg Ondansetron HCl (Zofran Inj*) 4 mg IV Q6H PRN PRN Reason: NAUSEA Last Admin: 05/19/17 06:02 Dose: 4 mg Oxycodone HCl (Roxycodone Tab*) 5 mg PO Q4H PRN PRN Reason: PAIN Last Admin: 05/21/17 01:35 Dose: 5 mg Pantoprazole Sodium (Protonix Iv*) 40 mg IV Q12H [facility] Last Admin: 05/21/17 05:43 Dose: 40 mg Polyethylene Glycol/Electrolytes (Miralax*) 17 gm PO ONCE ONE Stop: 05/21/17 09:31 Ropinirole HCl (Requip Tab*) 0.5 mg PO BEDTIME [facility] Last Admin: 05/20/17 21:07 Dose: 0.5 mg Senna (Senokot Tab*) 1 tab PO DAILY [facility] Last Admin: 05/20/17 08:36 Dose: 1 tab Sodium Chloride (Sodium Chloride Tab*) 1 gm PO TID [facility] Last Admin: 05/20/17 21:06 Dose: 1 gm Tramadol HCl (Ultram*) 50 mg PO Q6H PRN PRN Reason: PAIN Last Admin: 05/17/17 22:27 Dose: 50 mg Vital Signs: Temp Pulse Resp BP Pulse Ox 98.5 F 70 13 143/64 97 05/21/17 07:31 05/21/17 07:31 05/21/17 07:31 05/21/17 07:31 05/21/17 07:31 Appearance: Mildly uncomfortable appearing elderly female in NAD Respiratory: Symmetrical Chest Expansion and Respiratory Effort, Clear to Auscultation Cardiovascular: - - irregular rhythm, 3/6 murmur Abdominal: NL Sounds; No Tenderness; No Distention Extremities: - - 1+ LE edema Skin: - - R lower leg with a clean dressing in place Neurological: Alert and Oriented x 3 Result Diagrams: 05/20/17 07:53 05/21/17 08:08 Additional Lab and Data: . Microbiology and Other Data: . Assess/Plan/Problems-Billing Assessment: Ms. 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 - Patient Problems (1) Hyponatremia Comment: Improving, Na up to 128 mmol/L today Continue TID NaCl tabs. Continue fluid restriction to 1.5L. No clear etiology for SIADH, chest xray and CT abd/pelvis unremarkable. CT brain negative. No obvious medications contributing (2) Anemia Comment: Improved after 2 units PRBC. In part related to chronic iron deficiency, continue ferrous sulfate supplemenation. GUIAC positive. Holding xarelto. GI consult appreciated, will refer for outpt endoscopy following discharge (3) Restless leg syndrome Comment: Continue requip. Patient attributes nausea and diarrhea prior to admission to increase in mirapex , discontinued. (4) Laceration Comment: RLE injury Wound care consult appreciated She is a current wound care patient Recommendation to apply collagen to wound bed and cover in dry gauze with bandage changed q2-3d (5) Atrial fibrillation Comment: Continue low dose atenolol, diltiazem has been held for mild bradycardia, can likely resume at discharge Hold xarelto due to anemia with concern for occult GI bleed. No history of stroke. (6) Diabetes mellitus Comment: BGs relatively well controlled. Hold metformin and continue lispro SSI coverage with meals. (7) Full code status (8) DVT prophylaxis Comment: SCDs only given anemia and suspected GI bleed Status and Disposition: Inpatient. Anticipate likely dc home tomorrow. No rehab needs, doing well with PT/OT
[2017-05-21] MEDS: Furosemide TAB* 20 MG PO SCH (09:36)
[2017-05-21] MEDS: DULoxetine DR CAP* 60 MG CAP.DR PO SCH (09:36)
[2017-05-21] MEDS: Senna TAB PO SCH (09:36)
[2017-05-21] MEDS: Sodium Chloride TAB* 1 GM PO SCH ×3 (09:36→19:39)
[2017-05-21] MEDS ORDERED: Bisacodyl SUPP* 10 MG SUPP PR ONE (17:07)
[2017-05-21] MEDS: CMCS:Melatonin (NF) 3 MG TAB PO SCH (19:39)
[2017-05-21] MEDS: Ropinirole TAB* 0.5 MG TAB PO SCH (19:39)
[2017-05-22] MEDS: oxyCODONE TAB* 5 MG TAB PO PRN ×3 (01:03→23:24)
[2017-05-22] MEDS: diPHENhydraMINE LIQ* 12.5 MG/5 ML UDC PO PRN ×2 (01:03→23:23)
[2017-05-22] MEDS: traMADol TAB* 50 MG PO PRN ×2 (03:50→20:18)
[2017-05-22] MEDS: Pantoprazole IV* 40 MG IV SCH ×2 (05:35→18:24)
[2017-05-22 07:06] LABS: Hematocrit 27 % (35-47); Hemoglobin 8.8 g/dl (12.0-16.0)
[2017-05-22] MEDS: Insulin LISPRO* 1 UNITS UNIT SUBCUT SCH ×3 (07:53→18:22)
[2017-05-22 08:39] LABS: BUN/Creatinine Ratio 10.1 (8-20); Calcium 8.3 mg/dL (8.6-10.3); EGFR Non-African American 62.2 (>60)
[2017-05-22] MEDS ORDERED: diPHENhydraMINE PO* 25 MG PO ONE (08:43)
[2017-05-22] MEDS ORDERED: Bisacodyl SUPP* 10 MG SUPP PR ONE (08:43)
[2017-05-22] MEDS: Sodium Chloride TAB* 1 GM PO SCH ×3 (10:02→20:18)
[2017-05-22] MEDS: Atenolol TAB* 25 MG PO SCH (10:02)
[2017-05-22] MEDS: DULoxetine DR CAP* 60 MG CAP.DR PO SCH (10:02)
[2017-05-22] MEDS: Furosemide TAB* 20 MG PO SCH (10:03)
[2017-05-22] MEDS: Senna TAB PO SCH (10:03)
[2017-05-22] MEDS: Ferrous Sulfate TAB* 325 MG PO SCH ×2 (10:03→20:19)
--- NOTE | 2017-05-22 16:44 | PN ---
Subjective Date of Service: 05/22/17 Interval History: Patient reports feeling better after having a large BM. No gross blood noted. No n/v. She has been complaining of intermittent knee pain today without new trauma Objective Active Medications: Atenolol (Tenormin Tab*) 25 mg PO DAILY [facility] Last Admin: 05/22/17 10:02 Dose: 25 mg Dextrose (Dextrose 50% Vial 50 Ml*) 12.5 ml IV PUSH .FOR FS < 60 - SS PRN PRN Reason: FS < 60 Diphenhydramine HCl (Benadryl Liq*) 12.5 mg PO Q12H PRN PRN Reason: ANXIETY Last Admin: 05/22/17 01:03 Dose: 12.5 mg Docusate Sodium (Colace Cap*) 100 mg PO DAILY PRN PRN Reason: CONSTIPATION Last Admin: 05/21/17 19:39 Dose: 100 mg Duloxetine HCl (Cymbalta Cap*) 60 mg PO DAILY [facility] Last Admin: 05/22/17 10:02 Dose: 60 mg Ferrous Sulfate (Ferrous Sulfate Tab*) 325 mg PO BID [facility] Last Admin: 05/22/17 10:03 Dose: 325 mg Furosemide (Lasix Tab*) 20 mg PO DAILY [facility] Last Admin: 05/22/17 10:03 Dose: 20 mg Insulin Human Lispro (Humalog*) 0 units SUBCUT AC [facility] PRN Reason: Protocol Last Admin: 05/22/17 12:23 Dose: Not Given Melatonin (Melatonin (Nf)) 3 mg PO BEDTIME [facility] Last Admin: 05/21/17 19:39 Dose: 3 mg Ondansetron HCl (Zofran Inj*) 4 mg IV Q6H PRN PRN Reason: NAUSEA Last Admin: 05/19/17 06:02 Dose: 4 mg Oxycodone HCl (Roxycodone Tab*) 5 mg PO Q4H PRN PRN Reason: PAIN Last Admin: 05/22/17 14:14 Dose: 5 mg Pantoprazole Sodium (Protonix Iv*) 40 mg IV Q12H [facility] Last Admin: 05/22/17 05:35 Dose: 40 mg Polyethylene Glycol/Electrolytes (Miralax*) 17 gm PO ONCE ONE Stop: 05/23/17 10:01 Ropinirole HCl (Requip Tab*) 0.5 mg PO BEDTIME [facility] Last Admin: 05/21/17 19:39 Dose: 0.5 mg Senna (Senokot Tab*) 1 tab PO DAILY [facility] Last Admin: 05/22/17 10:03 Dose: 1 tab Sodium Chloride (Sodium Chloride Tab*) 1 gm PO TID [facility] Last Admin: 05/22/17 14:14 Dose: 1 gm Tramadol HCl (Ultram*) 50 mg PO Q6H PRN PRN Reason: PAIN Last Admin: 05/22/17 03:50 Dose: 50 mg Vital Signs: Temp Pulse Resp BP Pulse Ox 98.7 F 62 20 127/61 96 05/22/17 11:32 05/22/17 11:32 05/22/17 14:14 05/22/17 11:32 05/22/17 11:32 Oxygen Devices in Use Now: None Appearance: Well appearing 71 yo female in NAD Respiratory: Symmetrical Chest Expansion and Respiratory Effort, Clear to Auscultation Cardiovascular: NL Sounds; No Murmurs; No JVD, RRR Abdominal: NL Sounds; No Tenderness; No Distention Extremities: No Edema Skin: No Rash or Ulcers Neurological: Alert and Oriented x 3 Result Diagrams: 05/22/17 06:43 05/22/17 06:43 Additional Lab and Data: . Microbiology and Other Data: . Assess/Plan/Problems-Billing Assessment: Ms. 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 - Patient Problems (1) Hyponatremia Comment: Resolved, 131 mmol/L today Continue TID NaCl tabs. Continue fluid restriction to 1.5L. No clear etiology for SIADH, chest xray and CT abd/pelvis unremarkable. CT brain negative. No obvious medications contributing (2) Anemia Comment: Improved after 2 units PRBC. In part related to chronic iron deficiency, continue ferrous sulfate supplemenation. GUIAC positive. Holding xarelto. GI consult appreciated, will refer for outpt endoscopy following discharge (3) Restless leg syndrome Comment: Continue requip. Patient attributes nausea and diarrhea prior to admission to increase in mirapex , discontinued. (4) Laceration Comment: RLE injury Wound care consult appreciated She is a current wound care patient Recommendation to apply collagen to wound bed and cover in dry gauze with bandage changed q2-3d (5) Atrial fibrillation Comment: Continue low dose atenolol, diltiazem has been held for mild bradycardia, can likely resume at discharge Hold xarelto due to anemia with concern for occult GI bleed. No history of stroke. (6) Diabetes mellitus Comment: BGs relatively well controlled. Hold metformin and continue lispro SSI coverage with meals. (7) Full code status (8) DVT prophylaxis Comment: SCDs only given anemia and suspected GI bleed Status and Disposition: Inpatient. Patient plans to leave tomorrow, her son can pick her up and stay with her for the weekend. Discharge has been prepared.
[2017-05-22] MEDS: Ropinirole TAB* 0.5 MG TAB PO SCH (20:18)
[2017-05-22] MEDS: CMCS:Melatonin (NF) 3 MG TAB PO SCH (20:19)
--- NOTE | 2017-05-23 02:02 | DS ---
CC: Dr. Shaw; Dr. Hernandez * DISCHARGE SUMMARY: DATE OF ADMISSION: 05/15/17 DATE OF DISCHARGE: 05/23/17 PRIMARY CARE PROVIDER: Dr. Shaw. RN PERITONEAL DIALYSIS: Dr. Hernandez. DISCHARGING PROVIDER: LILY Mcelroy SUPERVISING PHYSICIAN: Dr. Vic Yang * (DICTATED BY LILY MCELROY) PRIMARY DISCHARGE DIAGNOSES: 1. Hyponatremia - appears to be secondary to syndrome of inappropriate antidiuretic hormone secretion with good response to sodium tablets and fluid restriction to 1.5 L daily, but of unclear etiology. 2. Anemia - status post transfusion of 2 units of packed red blood cells with suspected slow gastrointestinal bleed requiring outpatient EGD and colonoscopy. 3. Diarrhea - resolved. 4. Chronic right lower extremity wound - continue to follow with [facility] upon discharge. SECONDARY DISCHARGE DIAGNOSES: 1. Restless leg syndrome - her Mirapex has been discontinued in favor of Requip. 2. Atrial fibrillation - appropriately rate controlled. Previously anticoagulated with Xarelto which has been held due to concern for an occult gastrointestinal bleed. 3. Diabetes - Well controlled. DISCHARGE MEDICATIONS: 1. Atenolol 100 mg p.o. daily. 2. Diltiazem 120 mg p.o. daily. 3. Cymbalta 60 mg p.o. daily. 4. Ferrous sulfate 325 mg p.o. daily. 5. Lasix 20 mg p.o. daily. 6. Metformin 500 mg p.o. twice daily. 7. Multivitamin 1 tablet p.o. daily. 8. Requip 0.5 mg p.o. at bedtime. 9. Sodium chloride tablets 1 g p.o. 3 times daily. Medication changes: 1. Start Requip. 2. Start sodium chloride tablets. 3. Stop Mirapex. 4. Stop Xarelto. 5. Stop candesartan. HOSPITAL IMAGIN. CT of the abdomen and pelvis, there are no acute findings apart from an enlarged urinary bladder. 2. Chest x-ray shows no acute disease. 3. CT brain shows no acute disease. HOSPITAL COURSE: This is a 71-year-old female with history of atrial fibrillation who presented to the emergency department after sustaining a fall at home. The patient has been having intermittent diarrhea for approximately 1 month prior to admission and fell with complaints of weakness on her right hip, which had previously been replaced. The patient had equated her diarrhea to an increase in her Mirapex which was prescribed for control of her restless leg syndrome. The medication seemed to be effective in controlling her restless leg syndrome, but after increasing the dose, she noted diarrhea. Initial labs demonstrated both significant hyponatremia and anemia. Her initial hemoglobin was 6.4 g/dL and her initial sodium was 110 mmol/L. The patient was initially transfused 2 units of packed red blood cells with appropriate response in her hemoglobin up to 8.3 g/dL. The patient received normal saline with minimal response in her sodium. Urine study seemed to be more suggestive of SIADH and the patient was started on free water restriction and sodium tablets with a good response to her sodium up to 131 mmol/L at the time of discharge. The patient's diarrhea resolved shortly after admission. Her Mirapex was discontinued and replaced with Requip which also seemed to be effective in controlling her restless legs. In regards to etiology for her SIADH, it was not entirely clear what was driving this. Her ARB was discontinued. She underwent imaging of her chest and brain which showed no obvious masses. Apart from the ARB potentially inducing a hyponatremia, there was no other obvious offending medication that would be inducing SIADH. The patient was evaluated by Orthopedic Surgery regarding her complaints of hip pain and recent fall in the presence of prior arthroplasty. She was seen by surgeon, Dr. Moss, who felt that the prosthesis appeared to be in appropriate positioning. There was no concerns from an orthopedic perspective. She was also seen by Gastroenterology regarding her anemia. Her stool was tested and noted to be positive for occult blood. Dr. Hernandez, school bus aide, evaluated the patient and felt that, seeing as her hemoglobin was stable, he recommended outpatient endoscopy due to her significant hyponatremia that required correction before endoscopy would be indicated. Her Xarelto was stopped during her hospital stay and recommend continuing to hold that until after her endoscopy procedure. DISPOSITION AND FOLLOWUP PLAN: The patient is being discharged to home with the medication changes as outlined above. She was given instructions to repeat a CBC and a basic metabolic panel in approximately 1 week prior to seeing her primary care provider for further review. An appointment has been made on her behalf with her primary care provider for next week as well as with school bus aide, Dr. Hernandez, for approximately 3 weeks from now to schedule upper and lower endoscopy. TIME SPENT: Please note that greater than 30 minutes was spent on this discharge. LILY MCELROY [id number]/[facility] #: [id number] MTDD
[2017-05-23] MEDS: Pantoprazole IV* 40 MG IV SCH (05:29)
[2017-05-23 07:21] LABS: BUN/Creatinine Ratio 10.5 (8-20); Calcium 8.6 mg/dL (8.6-10.3); EGFR African American 83.2 (>60); EGFR Non-African American 64.7 (>60); Potassium 3.9 mmol/L (3.5-5.0)
[2017-05-23] MEDS: Insulin LISPRO* 1 UNITS UNIT SUBCUT SCH ×2 (07:39→12:48)
[2017-05-23] MEDS: Atenolol TAB* 25 MG PO SCH (08:09)
[2017-05-23] MEDS: Ferrous Sulfate TAB* 325 MG PO SCH (08:09)
[2017-05-23] MEDS: Senna TAB PO SCH (08:09)
[2017-05-23] MEDS: Sodium Chloride TAB* 1 GM PO SCH ×2 (08:09→14:06)
[2017-05-23] MEDS: Furosemide TAB* 20 MG PO SCH (08:10)
[2017-05-23] MEDS: DULoxetine DR CAP* 60 MG CAP.DR PO SCH (08:10)
[2017-05-23] MEDS ORDERED: Polyethylene Glycol 3350* 17 GM PACKET PO ONE (10:00)
[2017-05-23 11:57] VITALS: BP 147/82
== END 2017-05-23 16:35 | disposition home health service (06) | DRG 644 ==
LOC: ED 11:07 → MED 15:51 → ICU 18:05 → MED 05-17 11:29
PROVIDERS: ADMIT Internal Medicine; ATTEND Internal Medicine
PROC: 30233N1 Transfusion of Nonautologous Red Blood Cells into Peripheral Vein, Percutaneous Approach (ICD-10-PCS; principal; 2017-05-15)
DX: E22.2 Syndrome of inappropriate secretion of antidiuretic hormone (principal); K92.2 Gastrointestinal hemorrhage, unspecified; I48.91 Unspecified atrial fibrillation; L97.919 Non-pressure chronic ulcer of unspecified part of right lower leg with unspecified severity; E83.42 Hypomagnesemia; E86.0 Dehydration; D50.9 Iron deficiency anemia, unspecified; E11.9 Type 2 diabetes mellitus without complications; F32.9 Major depressive disorder, single episode, unspecified; G25.81 Restless legs syndrome; N18.3 Chronic kidney disease, stage 3 (moderate); Z96.641 Presence of right artificial hip joint; R33.9 Retention of urine, unspecified; M25.551 Pain in right hip; I12.9 Hypertensive chronic kidney disease with stage 1 through stage 4 chronic kidney disease, or unspecified chronic kidney disease; M16.0 Bilateral primary osteoarthritis of hip; M19.022 Primary osteoarthritis, left elbow; Z96.612 Presence of left artificial shoulder joint; Z96.611 Presence of right artificial shoulder joint; Z96.621 Presence of right artificial elbow joint; R00.1 Bradycardia, unspecified; K59.00 Constipation, unspecified; F41.9 Anxiety disorder, unspecified; R19.7 Diarrhea, unspecified; T42.8X5A Adverse effect of antiparkinsonism drugs and other central muscle-tone depressants, initial encounter; Z88.1 Allergy status to other antibiotic agents; Z88.5 Allergy status to narcotic agent; Z83.6 Family history of other diseases of the respiratory system; Z98.41 Cataract extraction status, right eye; Z82.49 Family history of ischemic heart disease and other diseases of the circulatory system; Z83.3 Family history of diabetes mellitus; Z79.84 Long term (current) use of oral hypoglycemic drugs; Y92.9 Unspecified place or not applicable
CPT/HCPCS: 36415; 70450; 71010; 74176; 80048; 80053; 81003; 82270; 82607; 82728; 82746; 83540; 83550; 83605; 83690; 83735; 83880; 83935; 84300; 84443; 84484; 85014; 85018; 85025; 85027; 85610; 85730; 86140; 86850; 86900; 86901; 86922; 87641; 93005; A9270-GY; J1644; J2405; J3475; P9040

== ENCOUNTER 2018-06-11 00:13 | Emergency (ER) | payer MEDICARE, BC ==
--- NOTE | 2018-06-11 00:22 | ED ---
Throat Pain/Nasal Congestion - HPI Summary HPI Summary: This patient is a 72 year old F presenting to [facility] with a chief complaint of constant nosebleed that drips into her throat since just [employer] IN[employer]. Pt says that the last time she had a nosebleed was five years ago because of drinking, which she has stopped. Pt reports that her left nostril started bleeding first. PMHX Diabetes. - History of Current Complaint Chief Complaint: EDEpistaxis Time Seen by Provider: 06/11/18 00:17 Hx Obtained From: Patient Onset/Duration: Sudden Onset, Lasting Minutes Severity: Severe - Allergies/Home Medications Allergies/Adverse Reactions: Allergies Allergy/AdvReac Type Severity Reaction Status Date / Time MS Tetracycline Allergy RASH, ITCHY Verified 05/15/17 11:34 [Tetracycline] MS Morphine [Morphine] AdvReac N/V Verified 05/15/17 11:34 PMH/Surg Hx/FS Hx/Imm Hx Endocrine/Hematology History: Reports: Hx Diabetes - NIDDM, Hx Anemia Cardiovascular History: Reports: Hx Hypertension Denies: Hx Angina, Hx Pacemaker/ICD, Other Cardiovascular Problems/Disorders Respiratory History: Denies: Hx Asthma GI History: Denies: Other GI Disorders History: Denies: Hx Renal Disease Musculoskeletal History: Reports: Hx Arthritis - OSTEOARTHRITIS HIPS, SHOULDERS , ELBOWS, TOES, Denies: Other Musculoskeletal History Sensory History: Reports: Hx Cataracts, Hx Contacts or Glasses Denies: Hx Hearing Aid Opthamlomology History: Reports: Hx Cataracts, Hx Contacts or Glasses Psychiatric History: Reports: Hx Depression Denies: Hx Panic Disorder - Surgical History Surgery Procedure, Year, and Place: RIGHT CATARACT, 2011, [facility] [place]. RIGHT HIP [facility]PLACED, 2007, [facility]. RIGHT SHOULDER, 2009, [facility]. RIGHT ELBOW, [facility] [place] 2009. LEFT SHOULDER, 2010, [facility] Hx Anesthesia Reactions: No - Family History Known Family History: Positive: Cardiac Disease, Hypertension, Diabetes - mother - DM - Social History Alcohol Use: None Alcohol Amount: 5 PER WEEK Hx Substance Use: No Substance Use Type: Reports: None Hx Tobacco Use: No Smoking Status (MU): Never Smoked Tobacco Have You Smoked in the Last Year: No Review of Systems Negative: Fever Positive: Epistaxis All Other Systems Reviewed And Are Negative: Yes Physical Exam - Summary Physical Exam Summary: Appearance: Well-appearing, Well-nourished, lying in bed comfortable Skin: Warm, dry, no obvious rash Eyes: sclera anicteric, no conjunctival pallor ENT: mucous membranes moist. Signs of fresh nose bleeding Neck: deferred Respiratory: No signs of respiratory distress Cardiovascular: Appears well perfused, pulses are nml Abdomen: deferred Musculoskeletal: Moving all 4 extremities without obvious discomfort Neurological: Awake and alert, mentation is normal, speech is fluent and appropriate Psychiatric: affect is normal, does not appear anxious or depressed Triage Information Reviewed: Yes Vital Signs Reviewed: Yes Procedures - Procedure Summary Procedure Summary: The 5.5cm rhinorocket was not working, so it was removed. I then inserted an 8cm Merocel with antibiotic ointment lubrication. Then I instilled with TSA. Diagnostics - Laboratory Result Diagrams: 06/11/18 01:02 06/11/18 01:02 Lab Statement: Any lab studies that have been ordered have been reviewed, and results considered in the medical decision making process. Re-Evaluation - Re-Evaluation First Eval Re-Evaluation Time: 00:40 Comment: Cautery was used to stop the bleeding Second Eval Re-Evaluation Time: 06:20 Comment: The rhinorocket was not improving the bleeding, will perform an additional procedure with guidance from Dr. Eduardo. Third Eval Re-Evaluation Time: 06:38 Change: Improved Comment: The bleeding appears to have stopped. 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 Test results with no significant abnormalities. In the ED course the patient was given Lidocaine and Lorazepam. I initially cauterized her nose but this did not stop the bleeding. We discussed patient care with Dr. Eduardo and they recommended using Mercel 8cm to try to stop the bleeding. Patient will be discharged with follow up from Dr. Roach. The patient is agreeable with this plan. - Diagnoses Provider Diagnoses: Nosebleed - Provider Notifications Discussed Care Of Patient With: Ezequiel Eduardo Time Discussed With Above Provider: 06:15 - use 8cm merocel with antibiotic ointment to try to stop the bleeding Discharge - Discharge Plan Condition: Improved Disposition: HOME Patient Education Materials: Nosebleed (ED) Referrals: Jensen Shaw MD [Primary Care Provider] - Additional Instructions: Contact your doctor today and see if it is ok to go off your blood thinner for the next week or so. The packing will need to stay in until Friday, at which point you should be seen by Dr. Eduardo to have the packing removed. - Attestation Statements Document Initiated by Jeffibnini: Yes Documenting Scribe: Al Denny Provider For Whom Paco is Documenting (Include Credential): Ag Mariano MD Scribe Attestation: I, Al Denny, scribed for Ag Mariano MD on 06/11/18 at 0643. Status of Scribe Document: Ready
[2018-06-11] MEDS: Lidocaine/Epineph/Tetraca SOL* (LET solution) 4 ML BTL TOPICAL ONE ×2 (00:36→06:11)
[2018-06-11 01:08] LABS: ABS Basophils 0.1 10^3/ul (0-0.2); ABS Eosinophils 0.3 10^3/ul (0-0.6); ABS Monocytes 0.7 10^3/ul (0-0.8); ABS Neutrophils 7.5 10^3/ul (1.5-7.7); ABS Nucleated RBC 0 10^3/ul; Eosinophil % 2.9 %; Hematocrit 30 % (35-47); Hemoglobin 9.8 g/dl (12.0-16.0); Lymphocyte % 10.1 %; Mean Corpuscular HGB Conc 32 g/dl (31-36); Mean Corpuscular Hemoglobin 28 pg (27-31); Mean Corpuscular Volume 87 fL (80-97); Mean Platelet Volume 6.8 fL (7.4-10.4); Nucleated Red Blood Cells % 0; Platelet Count 192 10^3/ul (150-450); Red Blood Count 3.46 10^6/ul (4.00-5.40); Red Cell Distribution Width 15 % (10.5-15); White Blood Count 9.5 10^3/ul (3.5-10.8)
--- OUTSIDE RECORDS SUMMARY | 2018-06-11 01:11 | XMS REPORT | Continuity of Care Document ---
:1945 External Reference #:[id number] Author Name Ezequiel Lawrence M.D. Address [address] [place] [address] Care Team Providers Name Role Phone Jensen Shaw MD Primary Care Physician Unavailable Payers Type Date Identification Numbers Payment Provider Subscriber Policy Number: [id number] Medicare - NGS Silvanasulema Valerio PayID: [id number] [address] [place] [address] Policy Number: [id number] [employer] Silvana Opal Teodoro PayID: [id number] [address] [place] [address] Advance Directives Description No Information Available Problems Date Description Provider Status Onset: Essential hypertension Active Onset: Osteoarthritis Active Onset: Anxiety Active Onset: Type 2 diabetes mellitus Active Onset: 11/11/2016 Iron deficiency anemia Ezequiel Lawrence M.D. Active Onset: 11/11/2016 Mild depression Ezequiel Lawrence M.D. Active Onset: 11/11/2016 Other secondary cataract, left eye Ezequiel Lawrence M.D. Active Onset: 11/11/2016 Presence of intraocular lens Ezequiel Lawrence M.D. Active Onset: 12/01/2017 Epiretinal membrane Ezequiel Lawrence M.D. 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 ETOH Use Has consumed alcohol in the past Tobacco Use Start: Unknown Patient has never smoked Recreational Drug Use Denies Drug Use Smoking Status Reviewed: 05/25/18 Patient has never smoked Allergies, Adverse Reactions, Alerts Date Description Reaction Status Severity Comments 11/05/2016 Tetracycline Active 11/05/2016 Morphine Active 11/25/2016 Cipro Active Medications Medication Date Status Form Strength Qnty SIG Indications Ordering Provider Furosemide 00/00/ Active Tablets 20mg Unknown 0000 Xarelto 00/ Active Tablets 20mg Unknown 0000 Atenolol 00/ Active Tablets 50mg Unknown 0000 Metformin HCL / Active Tablets 500mg Unknown 0000 Multi Vitamin 00/ Active Tablets Unknown Daily 0000 Iron 00/ Active Tablets 28mg Unknown 0000 Vitamin C / Active Capsules 500mg 2 tab by Unknown 0000 mouth every day Diltiazem HCL ER / Active Caps ER 120mg Unknown Coated Beads 0000 24HR Ropinirole HCL / Active Tablets 0.5mg take 1 Unknown 0000 tablet by mouth twice a day Cartia XT / Hx Caps ER 120mg Unknown 0000 - 24HR 2017 Pramipexole / Hx Tablets 0.5mg Unknown Dihydrochloride 0000 - 2017 Candesartan / Hx Tablets 32mg Inder, Cilexetil 0000 - Vic 11/28/ P.A. 2018 Immunizations Description No Information Available Vital Signs Date Vital Result Comment 11/25/2016 3:33pm BP Systolic 126 mmHg BP Diastolic 72 mmHg Heart Rate 72 /min Respiratory Rate 15 /min Results Description No Information Available Procedures Date Code Description Status 12/01/2017 11132 Scanning Computerized Opthalmic Diagnostic Posterior Seg Completed Retina 12/01/2017 29571 Est Patient Comprehensive Exam Completed 11/25/2016 46983 Remove Secondary Cataract, Laser (Yag) Completed 11/11/2016 16838 Est Patient Comprehensive Exam Completed 08/18/2014 519 Eyeglass Glass Blowing Lathe Operator Completed 08/17/2014 89042 Extracapsular Cataract Extraction W/Intraocular Lens Completed 08/08/2014 57784 Ophthalmic Biometry Completed 08/08/2014 33627 Remove Secondary Cataract, Laser (Yag) Completed 07/19/2014 98274 Est Patient Comprehensive Exam Completed 04/06/2012 15877 Est Patient Intermediate Exam Completed 09/24/2011 22851 Extracapsular Cataract Extraction W/Intraocular Lens Completed 09/16/2011 77769 Ophthalmic Biometry Completed 09/02/2011 74447 New Patient Comprehensive Exam Completed Encounters Type Date Location Provider Dx Diagnosis Office Visit 08/08/2014 Ezequiel Lawrence, Ezequiel Lawrence, 366.16 Senile Nuclear 1:15p gerardo BURNS M.D. Sclerosis / Cataract 366.53 After Cataract Obscuring Vision 366.53 After Cataract Obscuring Vision Office Visit 09/16/2011 10:00a Ezequiel Almonte, 366.16 Senile Nuclear MD Lawrence pc MD Sclerosis / Cataract 366.16 Senile Nuclear Sclerosis / Cataract Plan of Treatment 05/25/2018 - Ezequiel Lawrence M.D.H35.373 Puckering of macula, bilateralComments :Smoking can increase the risk of developing or worsening any eye related disease, as well as affect your overall health. If you are a smoker, we strongly recommend that you quit.If you are not a smoker, we strongly recommend that you do not start. A Macular Pucker is a wrinkling of the retina tissue. It can cause distortion in your vision. Please call the office if you notice a decrease or new distortion in your vision before then. ~B_IF YOU ARE HAVING TROUBLE SEEING THINGS UP CLOSE, THE BEST THING TO DO IS TO MAKE SURE YOU HAVE VERY GOOD LIGHTING. ~b_Follow up:1 Year Follow Up OCT MAC You can expect to have your eyes dilated at your next visit. If Dr. Lawrence orders any additional testing, it may require extra time. We recommend that you bring sunglasses, as dilation drops often make you light sensitive until they wear off. We always recommend you bring someone to drive you home if you are uncomfortable driving with your eyes dilated. If you have any questions before your next visit, feel free to call our office at .[id number] Type 2 diabetes mellitus with mild nonproliferative diabetic retinopathy without macular edema, bilateralComments:I can detect diabetic changes in your eyes. Proper control of your diabetes is important for the health of your eyes. It is important that you keep all of your follow up appointments. Dr. Lawrence has sent a report to your primary care doctor, letting them know the current status of your retina.Z96.1 Presence of intraocular lensComments:The artificial lens implants in both eyes appear to be stable at this time.
[2018-06-11 01:27] LABS: EGFR Non-African American 61.2 (>60)
[2018-06-11] MEDS ORDERED: LORazepam TAB(*) 1 MG PO ONE (01:43)
[2018-06-11] MEDS ORDERED: Lidocaine/Epineph/Tetraca SOL* (LET solution) 4 ML BTL ONE (06:09)
[2018-06-11] MEDS ORDERED: Tranexamic Acid 1,000 MG/10 ML SDV IV ONE ×2 (06:14→06:15)
[2018-06-11] MEDS ORDERED: Acetaminophen TAB* 325 MG PO ONE (06:56)
--- NOTE | 2018-06-11 08:35 | PN ---
Progress Note - Progress Note Date of Service: 06/11/18 Note: During the discharge of the patient the nurse brought to my attention the patient was not being sent home with any abx. I will call in a rx for Keflex.
[2018-06-11 08:54] VITALS: BP 158/92
== END 2018-06-11 08:53 | disposition home or self-care (01) ==
LOC: ED 00:13
DX: R04.0 Epistaxis (principal); E11.8 Type 2 diabetes mellitus with unspecified complications; D64.9 Anemia, unspecified
CPT/HCPCS: 36415; 80048; 85025; 96374; 99283; A9270-GY

== ENCOUNTER 2018-07-13 10:30 | Inpatient (IN) | payer MEDICARE, BC ==
--- OUTSIDE RECORDS SUMMARY | 2018-07-13 10:53 | XMS REPORT | Continuity of Care Document ---
:1945 External Reference #:[id number] Author Name Monico Forbes MD Address [address] [place] [address] Care Team Providers Name Role Phone Radha Nelson M.D. Care Team Information Wildlife Policy Professional Unavailable Jensen Roach M.D. Primary Care Physician Unavailable Payers Type Date Identification Numbers Payment Provider Subscriber PayID: [id number] [place] [employer] [employer] Silvana Valerio [address] [place] [address] Policy Number: [id number] [facility] Silvana Valerio PayID: [id number] [address] [address] [place] [address] Advance Directives Description No Information Available Problems Date Description Provider Status Onset: 06/12/2018 Essential hypertension Monico Forbes MD Active Onset: 06/12/2018 Bleeding from nose Monico Forbes MD Active Family History Date Family Member(s) Problem(s) Comments General Cancer General Diabetes Social History Type Date Description Comments Sex Unknown Occupation Retired Tobacco Use Start: Unknown Never Smoked Cigarettes Tobacco Use Start: Unknown Never Smoked Cigars Tobacco Use Start: Unknown Never Smoked A Pipe Smokeless Tobacco Never Used Smokeless Tobacco ETOH Use Currently rarely consumes alcohol Allergies, Adverse Reactions, Alerts Date Description Reaction Status Severity Comments 06/12/2018 Tetracycline Active rash 06/12/2018 Morphine Active vomitting 06/12/2018 Adacel Diarrhea Active Medications Medication Date Status Form Strength Qnty SIG Indications Ordering Provider Furosemide Active Tablets 20mg Jensen Prieto M.D. Sulfamethoxaz Active Tablets 800-160mg take 1 Unknown ole/Trimethop 000 tablet by rim DS mouth twice a day Metformin HCL Active Tablets 500mg Jamesiatjoel 000 , Jensen MMilo Xarelto Active Tablets 20mg Unknown 000 Ropinirole Active Tablets 0.5mg take 1 Unknown HCL 000 tablet by mouth every morning and 2 tablets by mouth every evening Atenolol Active Tablets 50mg Unknown 000 Diltiazem HCL Active Caps ER 120mg Unknown ER Coated 000 24HR Beads Ropinirole Active Tablets 1mg Unknown HCL 000 Gentamicin Active Ointment 0.1% Unknown Sulfate 000 Immunizations Description No Information Available Vital Signs Date Vital Result Comment 06/15/2018 10:23am Weight 172.00 lb Weight 78.019 kg 06/12/2018 11:01am Weight 172.00 lb Weight 78.019 kg Results Description No Information Available Procedures Description No Information Available Encounters Type Date Location Provider Dx Diagnosis Office Visit 06/15/2018 10:45a Bob,After 07/14/07 Monico Forbes MD R04.0 Epistaxis Office Visit 06/12/2018 10:15a Bob,After 07/14/07 Monico Forbes MD R04.0 Epistaxis Plan of Treatment 06/15/2018 - Monico Forbes MDR04.0 EpistaxisComments:The pack was removed. There is no active bleeding. The patient will use a moisturizer in the nose.
--- NOTE | 2018-07-13 11:18 | ED ---
Complex/Multi-Sys Presentation - HPI Summary HPI Summary: A 72 y/o female presents to [facility] with a chief complaint of nausea since . She rates her pain as a 0/10. She reports a severe nose bleed on 06/11/18 which made her come to the hospital. Since then she has had nausea, SOB and worsened leg swelling. She has had trouble with movement. She has a Hx of anemia but reports that when she was hospitalized on 06/11/18 she was not given blood because her hemoglobin was high enough. She usually takes Xarelto but stopped taking it after her nose bleed. She has been seeing Dr. Nelson and will see Dr. Etienne on 07/20/18. - History Of Current Complaint Chief Complaint: EDGeneral Time Seen by Provider: 07/13/18 10:37 Hx Obtained From: Patient, Family/Community Development Coordinator Onset/Duration: Sudden Onset, Lasting Weeks, Still Present Timing: Constant, Weeks Severity Currently: Mild Severity Initially: Mild Character: Unable To Describe Aggravating Factor(s): Nothing Alleviating Factor(s): Nothing Associated Signs And Symptoms: Positive: SOB, Edema, Nausea. Negative: Fever - Allergies/Home Medications Allergies/Adverse Reactions: Allergies Allergy/AdvReac Type Severity Reaction Status Date / Time ciprofloxacin AdvReac See Comment Verified 07/13/18 16:27 morphine AdvReac Nausea And Verified 07/13/18 10:33 Vomiting Tetracyclines AdvReac Rash Verified 07/13/18 10:33 Home Medications: Home Medications Acetaminophen [Tylenol Extra Strength] 500 mg PO Q6H PRN 07/13/18 [History Confirmed 07/13/18] Ascorbic Acid TAB* [Vitamin C TAB*] 500 mg PO DAILY 07/13/18 [History Confirmed 07/13/18] Furosemide TAB* [Lasix TAB*] 20 mg PO 1200 07/13/18 [History Confirmed 07/13/18] L.acidoph,Paracasei, B.lactis [Probiotic] 1 each PO DAILY 07/13/18 [History Confirmed 07/13/18] Ropinirole TAB* [Requip TAB*] 1 mg PO BID 07/13/18 [History Confirmed 07/13/18] oxyCODONE TAB* [Roxycodone TAB 5 mg*] 5 mg PO Q6H PRN 07/13/18 [History Confirmed 07/13/18] PMH/Surg Hx/FS Hx/Imm Hx Endocrine/Hematology History: Reports: Hx Diabetes - NIDDM, Hx Anemia Cardiovascular History: Reports: Hx Hypertension Denies: Hx Angina, Hx Pacemaker/ICD, Other Cardiovascular Problems/Disorders Respiratory History: Denies: Hx Asthma GI History: Denies: Other GI Disorders History: Denies: Hx Renal Disease Musculoskeletal History: Reports: Hx Arthritis - OSTEOARTHRITIS HIPS, SHOULDERS , ELBOWS, TOES, Denies: Other Musculoskeletal History Sensory History: Reports: Hx Cataracts, Hx Contacts or Glasses Denies: Hx Hearing Aid Opthamlomology History: Reports: Hx Cataracts, Hx Contacts or Glasses Psychiatric History: Reports: Hx Depression Denies: Hx Panic Disorder - Surgical History Surgery Procedure, Year, and Place: RIGHT CATARACT, 2011, [facility] [place]. RIGHT HIP REPLACED, 2007, [facility]. RIGHT SHOULDER, 2009, [facility]. RIGHT ELBOW, [facility] 2009. LEFT SHOULDER, 2010, [facility] Hx Anesthesia Reactions: No - Immunization History Date of Influenza Vaccine: NO Infectious Disease History: No Infectious Disease History: Denies: Traveled Outside the [place] in Last 30 Days - Family History Known Family History: Positive: Cardiac Disease, Hypertension, Diabetes - mother - DM - Social History Alcohol Use: Occasionally Alcohol Amount: 5 PER WEEK Hx Substance Use: No Substance Use Type: Reports: None Hx Tobacco Use: No Smoking Status (MU): Never Smoked Tobacco Have You Smoked in the Last Year: No Review of Systems Negative: Fever Positive: Shortness Of Breath Positive: Nausea Positive: Edema - legs bilaterally All Other Systems Reviewed And Are Negative: Yes Physical Exam - Summary Physical Exam Summary: Appearance: The patient is well-nourished in no acute distress and in no acute pain. Skin: The skin is warm and dry and skin color reflects adequate perfusion. HEENT: The head is normocephalic and atraumatic. The pupils are equal and reactive. The conjunctivae are clear and without drainage. Nares are patent and without drainage. Mouth reveals moist mucous membranes and the throat is without erythema and exudate. The external ears are intact. The ear canals are patent and without drainage. The tympanic membranes are intact. Neck: The neck is supple with full range of motion and non-tender. There are no carotid bruits. There is no neck vein distension. Respiratory: Chest is non-tender. Lungs are clear to auscultation and breath sounds are symmetrical and equal. Cardiovascular: Harsh, loud systolic ejection murmur. Heart is regular rate and rhythm. Pulses are symmetrical and equal. Abdomen: The abdomen is soft and non-tender. There are normal bowel sounds heard in all four quadrants and there is no organomegaly palpated. Musculoskeletal: There is no back tenderness noted. Extremities are non-tender with full range of motion. There is good capillary refill. Clean dressing on wounds on legs, Pitting edema. Neurological: Patient is alert and oriented to person, place and time. The patient has symmetrical motor strength in all four extremities. Cranial nerves are grossly intact. Deep tendon reflexes are symmetrical and equal in all four extremities. Psychiatric: The patient has an appropriate affect and does not exhibit any anxiety or depression. Triage Information Reviewed: Yes Vital Signs On Initial Exam: Initial Vitals Temp Pulse Resp BP Pulse Ox 98.1 F 65 18 156/88 97 07/13/18 10:31 07/13/18 10:31 07/13/18 10:31 07/13/18 10:31 07/13/18 10:31 Vital Signs Reviewed: Yes Diagnostics - Vital Signs Vital Signs Temp Pulse Resp BP Pulse Ox 07/13/18 10:31 98.1 F 65 18 156/88 97 - Laboratory Result Diagrams: 07/13/18 11:22 07/13/18 11:22 Lab Statement: Any lab studies that have been ordered have been reviewed, and results considered in the medical decision making process. - Radiology CXR Radiology Interpretation Completed By: Radiologist Summary of Radiographic Findings: NO ACTIVE CARDIOPULMONARY DISEASE. ED provider has reviewed this imaging report. - CT CTA Chest/thorax CT Interpretation Completed By: Radiologist Summary of CT Findings: 1. NO PULMONARY ARTERIAL FILLING DEFECT TO SUGGEST PULMONARY EMBOLISM. 2. RIGHT GREATER THAN LEFT BILATERAL PLEURAL EFFUSIONS WITH ASSOCIATED COMPRESSIVE. ATELECTASIS. 3. CARDIOMEGALY. 4. 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 APPEARING DISLOCATION OF THE RIGHT SHOULDER ARTHROPLASTY. 5. HEPATOMEGALY. ED provider has reviewed this imaging report. Re-Evaluation - Re-Evaluation First Eval Re-Evaluation Time: 15:10 Change: Unchanged Comment: She is feeling fine. Complex Multi-Symp Course/Dx Course Of Treatment: Ms. Valerio has been off her anticoagulants for several weeks secondary to a bad nosebleed. For the last week or so she has been waking up nauseated and feeling short of breath. She was noted at the wound clinic where she is a frequent patient to have worsening peripheral edema. On arrival to the emergency department her pulse ox at rest on room air was about 90 or 91%. Her vitals were other fraire stable and she was nontoxic in appearance. Her lungs were clear and she had no JVD. Her workup was unremarkable however she dropped her pulse ox down into the 70s and we tried to ambulate her. A CTA was ordered to rule out a PE given that she is off her anticoagulants although her d -dimer is negative. The hospitalist were asked to evaluate her for admission. - Diagnoses Provider Diagnoses: Respiratory insufficiency - Physician Notifications Discussed Care Of Patient With: Blanca Boogie Time Discussed With Above Provider: 15:10 Instructed by Provider To: Admit As Inpatient - Critical Care Time Critical Care Time: 30-74 min Discharge - Sign-Out/Discharge Documenting (check all that apply): Patient Departure - admit - Discharge Plan Condition: Fair Disposition: ADMITTED TO [facility] - Billing Disposition and Condition Condition: FAIR Disposition: Admitted to [facility] - Attestation Statements Document Initiated by Scribe: Yes Documenting Scribe: Sharif Infante Provider For Whom Scribe is Documenting (Include Credential): Ag Arcos MD Scribe Attestation: ISharif, scribed for Ag Arcos MD on 07/13/18 at 2125. Scribe Documentation Reviewed: Yes Provider Attestation: The documentation as recorded by the Sharif morgan accurately reflects the service I personally performed and the decisions made by me, Ag Arcos MD Status of Scribe Document: Viewed
[2018-07-13 11:37] LABS: Hematocrit 33 % (35-47); Hemoglobin 10.4 g/dl (12.0-16.0); Mean Corpuscular HGB Conc 32 g/dl (31-36); Mean Corpuscular Hemoglobin 28 pg (27-31); Mean Corpuscular Volume 88 fL (80-97); Mean Platelet Volume 6.9 fL (7.4-10.4); Platelet Count 200 10^3/ul (150-450); Red Blood Count 3.71 10^6/ul (4.00-5.40); Red Cell Distribution Width 16 % (10.5-15); White Blood Count 5.6 10^3/ul (3.5-10.8)
[2018-07-13 11:54] LABS: Albumin 4.1 g/dL (3.2-5.2); Albumin/Globulin Ratio 1.4 (1-3); BUN/Creatinine Ratio 20.2 (8-20); C Reactive Protein 2.48 mg/L (<8.01); Calcium 11.7 mg/dL (8.6-10.3); EGFR Non-African American 42.3 (>60); Potassium 3.9 mmol/L (3.5-5.0); Total Bilirubin 0.9 mg/dL (0.2-1.0); Total Protein 7.1 g/dL (6.4-8.9)
[2018-07-13 12:02] LABS: Lymphocytes % 11 %; Monocytes % 9 %; Neutrophil % 71 %
[2018-07-13 12:05] LABS: ABS Basophils 0.11 10^3/ul (0-0.2); ABS Eosinophils 0.39 10^3/ul (0-0.6); ABS Neutrophils 3.97 10^3/ul (1.5-7.7)
[2018-07-13] MEDS ORDERED: Iodixanol* (CONTRAST) 320 MG/ML 100 ML SDV IV ONE (15:13)
[2018-07-13] MEDS ORDERED: Ondansetron INJ* 2 MG/ML VIAL IV PRN (16:54)
[2018-07-13] MEDS ORDERED: Dextrose 50% Syringe 50 ML* 25 GM/50 ML SYRINGE IV PUSH PRN (17:04)
[2018-07-13] MEDS: Ropinirole TAB* 0.5 MG TAB PO SCH (19:43)
[2018-07-13] MEDS: oxyCODONE TAB* 5 MG TAB PO PRN (19:43)
[2018-07-13] MEDS: Furosemide IV* 10 MG/ML 10 ML VIAL (100 MG) IV SCH (19:43)
[2018-07-13] MEDS: Atenolol TAB* 50 MG PO SCH (19:44)
[2018-07-13] MEDS: Omeprazole CAP (NF) 20 MG CAP.DR PO SCH (19:44)
[2018-07-13] MEDS ORDERED: Atenolol TAB* 50 MG PO SCH (21:00)
--- NOTE | 2018-07-13 21:47 | HP ---
CC: Dr. Shaw; Dr. Etienne * HOSPITAL MEDICINE HISTORY AND PHYSICAL: DATE OF ADMISSION: 07/13/18 PRIMARY CARE PHYSICIAN: Dr. Shaw. DINKEY MOTOR OPERATOR: Dr. Etienne. ATTENDING PHYSICIAN: Blanca Dash MD * (dictation provided by Lucy Riddle NP ). CHIEF COMPLAINT: Shortness of breath at night associated with nausea. HISTORY OF PRESENT ILLNESS: Ms. Valerio is a 72-year-old female with a past medical history of chronic lower extremity wounds who follows at the wound clinic as well as atrial fibrillation, hrn-mpjqdbb-eqkidbqta diabetes, and CKD stage III, who presents to the hospital today with concern for nausea at night associated with shortness of breath. Ms. Valerio states that she has been following regularly at the wound clinic. Today, she was assessed and the physician there told her that she "look tired." The patient related to her that she has been having severe nausea each evening associated with having to get up out of bed. The patient states on returning to bed, after the nausea passes, she will be extremely short of breath. The patient states this has been going on for about 4 weeks. She associates it with a bloody nose that she had that was quite severe and required packing in the emergency room. At that time , she had been on anticoagulation for her AFib. She states that she tried to restart anticoagulation shortly after that under the direction of her open developer operator and ENT physician, but immediately had some drops of blood from her nose and stopped it and has been off of it since then. In terms of this nausea and shortness of breath, she states that otherwise she has been tolerating oral intake well She has lower extremity edema. This is a chronic problemf or her but it seems to be getting somewhat worse. She takes diuretics for this. She did have an echocardiogram in May out of concern for this lower extremity edema and she has not had an opportunity to review that with the open developer operator as of yet. She denies any other complaints. She has had no fevers, no cough, no abdominal pain. She states that she has been urinating normally and is having normal bowel movements. In the emergency room, Ms. Valerio had a chest x-ray that showed no acute process. Her labs were unremarkable really given her history, although her BUN and creatinine were slightly elevated at 25 and 1.24 respectively. She was satting about 90% to 91% on room air; however, when she got up to ambulate, her sat went into the 70s on room air. She therefore went for a CTA of the chest and thorax, which showed bilateral pleural effusions. PAST MEDICAL HISTORY: 1. History of anemia. 2. Lower extremity wounds chronically, followed at the wound clinic, well healing. 3. Restless leg syndrome. 4. Atrial fibrillation, not currently on anticoagulation. 5. Njr-oryueqc-gtgadhgwn type 2 diabetes. 6. CKD, stage III. MEDICATIONS: 1. Probiotic 1 cap p.o. daily. 2. Ascorbic acid 500 mg p.o. daily. 3. Ferrous sulfate 325 mg p.o. daily. 4. Diltiazem XR 120 mg p.o. daily. 5. Atenolol 50 mg p.o. t.i.d. 6. Furosemide 40 mg in the morning and 20 mg at noon. 7. Ropinirole 1 mg p.o. b.i.d. 8. Multivitamin mineral 1 tab p.o. daily. 9. Oxycodone 5 mg p.o. q.6 hours p.r.n. 10. Metformin 500 mg p.o. b.i.d. 11. Tylenol p.r.n. ALLERGIES: CIPROFLOXACIN, MORPHINE, and TETRACYCLINE. FAMILY HISTORY: The patient states her mom in her mid 80s. Dad related to emphysema. She had 2 brothers who are alive and well and has 2 sons , one of which, Uli, is her healthcare proxy. SOCIAL HISTORY: No report of alcohol, tobacco, or drug use. The patient lives alone. She states her son is her healthcare proxy. REVIEW OF SYSTEMS: A 14-point review of systems was completed with Ms. Valerio and all those not mentioned above were negative. PHYSICAL EXAMINATION GENERAL: Ms. Valerio is lying in the bed. She is in no acute distress. VITAL SIGNS: Temperature 98.1, pulse rate 59, respiratory rate 18, O2 saturation 95% on room air, blood pressure 151/77. LUNGS: Diminished in the bases, but clear otherwise. HEART: S1, S2. No murmur, rub, or gallop and regular. ABDOMEN: Soft, nontender with bowel sounds positive x4. EXTREMITIES: No cyanosis. NEURO: She is alert. She is oriented x3. She moves all extremities equally. There is no facial asymmetry or focal weakness. Extraocular movements are intact. SKIN: The patient has just had her wounds redressed prior to my examination. The patient is an excellent historian and reports that on her right leg at the top of the anterior horvath, she has about 1 cm healing wound that is healing very well and on the left leg, she has a very tiny, probably 0.5 cm or less, ulceration to the inner aspect of her left ankle that is also healing well with no drainage or erythema. There is +1 edema at this point. LABORATORY DATA/DIAGNOSTIC STUDIES: Sodium 137, potassium 3.9, chloride 100, serum bicarbonate 30, BUN 25, creatinine 1.24, glucose 146. Troponin 0.01. BNP 383. WBC 5.6, hemoglobin 10.4, hematocrit 33, platelet count 200. INR is 1.10. D-dimer is less than 200. The chest x-ray shows no acute process, but chest thorax CTA shows "no pulmonary arterial filling defect to suggest pulmonary embolism, right greater than left bilateral pleural effusions with associated compressive atelectasis, cardiomegaly, status post bilateral shoulder arthroplasty with hardware failure and chronic- appearing dislocation of the right shoulder arthroplasty, hepatomegaly." ASSESSMENT: Ms. Valerio is a 72-year-old female with a past medical history of chronic lower extremity wounds; chronic lower extremity edema; atrial fibrillation, not on anticoagulation; dna-qlvliah-odbsnqcbf diabetes; and CKD, stage III, who presents to the hospital with concern for what appears to be paroxysmal nocturnal dyspnea and new hypoxia with exertion. Our plans are for observation in the hospital for followin. Paroxysmal nocturnal dyspnea and hypoxia. The patient did have a CT today that shows concern for pleural effusions. I spoke with the patient about the likelihood that this is related to pulmonary hypertension and I note that in 2016, she had moderate pulmonary hypertension, but had had severe pulmonary hypertension before that. When I mentioned this to her, she notes that she had just had an echocardiogram outpatient, which I now reviewed and it does confirm that she has severe pulmonary hypertension. I suspect that she has a component of cor pulmonale causing this fluid retention both in her legs and her pulmonary edema, which is responsible for her hypoxia. The patient is on diuretics at home, but we will dose intravenous diuretics here. We will monitor closely her urine output and her electrolytes and kidney function. The patient will likely need oxygen at the time of discharge and this will be arranged by our care planners. The patient would also benefit greatly from followup with Dr. Rome regarding evaluation of her pulmonary hypertension and for consideration of obstructive sleep apnea. 2. Anemia. The patient's anemia is actually better than we have seen here for some time and chronic, normocytic. 3. Chronic kidney disease, stage III. The patient's BUN and creatinine are elevated today. Question whether or not she has poor forward flow causing this. Plan to diurese and monitor closely. 4. Type 2 diabetes. The patient had blood glucoses q.a.c. with lispro sliding scale. We will hold her metformin. 5. Hypertension. The patient's blood pressure is well controlled. Plan to continue her home atenolol and diltiazem with hold parameters given the need for diuretics. 6. Question of nausea at bedtime. I suspect this is a symptom related to her fluid overload. She denies any nausea during the day. She is tolerating oral intake well. I plan to start omeprazole and we will treat the pulmonary hypertension and hope that with improvement in her pulmonary function with resolution of pleural effusions, she will have resolution of this nausea as well. Otherwise, she can follow up with primary care provider. 7. Restless leg. Continue ropinirole. 8. Chronic wounds. The patient will need followup with her wound care team per routine and a consult has been ordered for her if she remains in the hospital to make sure that we are following their dressing instructions. 9. Disposition: To medical. 10. Code status is DNR. TIME SPENT: Approximately 60 minutes were spent on the admission of this patient, more than half of the time was spent with the patient at the bedside reviewing the events leading up to this hospitalization, performing the physical examination and reviewing my plan of care. LUCY RIDDLE NP [id number]/[facility] #: [id number] JUANJOSE
[2018-07-13] MEDS: Heparin VIAL(*) 5000 UNITS/ML VIAL (FIVE THOUSAND) SUBCUT SCH (21:52)
[2018-07-14] MEDS: Acetaminophen TAB* 325 MG PO PRN (00:34)
[2018-07-14] MEDS: oxyCODONE TAB* 5 MG TAB PO PRN ×3 (06:01→20:21)
[2018-07-14] MEDS: Heparin VIAL(*) 5000 UNITS/ML VIAL (FIVE THOUSAND) SUBCUT SCH ×3 (06:01→20:22)
[2018-07-14 06:23] LABS: BUN/Creatinine Ratio 19.7 (8-20); Calcium 11.1 mg/dL (8.6-10.3); EGFR Non-African American 39.3 (>60); Potassium 3.9 mmol/L (3.5-5.0)
[2018-07-14] MEDS: Insulin LISPRO* 1 UNITS UNIT SUBCUT SCH ×3 (07:53→18:11)
[2018-07-14] MEDS ORDERED: Diltiazem XR EXTEND Releas(NF) 240 MG CAP PO SCH (09:00)
[2018-07-14] MEDS: Furosemide IV* 10 MG/ML 10 ML VIAL (100 MG) IV SCH ×2 (09:25→14:29)
[2018-07-14] MEDS: Ascorbic Acid TAB* 500 MG PO SCH (09:26)
[2018-07-14] MEDS: Atenolol TAB* 50 MG PO SCH ×3 (09:26→20:22)
[2018-07-14] MEDS: Ropinirole TAB* 0.5 MG TAB PO SCH ×2 (09:26→20:21)
[2018-07-14] MEDS: Diltiazem CD CAP* 120 MG PO SCH (09:27)
[2018-07-14] MEDS: Omeprazole CAP (NF) 20 MG CAP.DR PO SCH ×2 (09:27→20:21)
[2018-07-14] MEDS: Ferrous Sulfate TAB* 325 MG PO SCH (09:27)
[2018-07-14] MEDS ORDERED: Ondansetron ODT TAB* 4 MG SL PRN (09:44)
[2018-07-14] MEDS: Gabapentin CAP(*) 100 MG PO SCH ×2 (12:10→20:21)
--- NOTE | 2018-07-14 14:45 | PN ---
Subjective Date of Service: 07/14/18 Interval History: Ms. Valerio is feeling better today. She denies any SOB or cough. Remains on 2L NC. She c/o nausea in the AM which she says is chronic for her. Also c/o pain originating in a wound on her medial LLE which shoots up her leg. Pain only occurs when she moves her leg in a certain way. This has been going on for quite some time. She has been told that her ulcer may be over a nerve. She is frustrated about not being able to leave the hospital today. Denies CP, vomiting , dizziness. Family History: Unchanged from Admission Social History: Unchanged from Admission Past Medical History: Unchanged from Admission Objective Active Medications: Acetaminophen (Tylenol Tab*) 650 mg PO Q6H PRN PAIN Ascorbic Acid (Vitamin C Tab*) 500 mg PO DAILY [facility] Atenolol (Tenormin Tab*) 50 mg PO TID [facility] Dextrose (D50w Syringe 50 Ml*) 12.5 gm IV PUSH .FOR FS < 60 - SS PRN FS < 60 Diltiazem HCl (Cardizem Cd Cap*) 120 mg PO DAILY [facility] Ferrous Sulfate (Ferrous Sulfate Tab*) 325 mg PO DAILY [facility] Furosemide (Lasix Iv*) 60 mg IV 0800,1400 [facility] Gabapentin (Neurontin Cap(*)) 100 mg PO BID [facility] Heparin Sodium (Porcine) (Heparin Vial(*)) 5,000 units SUBCUT Q8HR [facility] Insulin Human Lispro (Humalog*) 0 units SUBCUT AC [facility]; Protocol Omeprazole (Prilosec Cap*) 20 mg PO BID [facility] Ondansetron HCl (Zofran Inj*) 4 mg IV Q6H PRN [facility]USEA Ondansetron HCl (Zofran Odt Tab*) 4 mg SL Q6H PRN NAUSEA/VOMITING Oxycodone HCl (Roxycodone Tab*) 5 mg PO Q6H PRN PAIN Ropinirole HCl (Requip Tab*) 1 mg PO BID [facility] Sodium Chloride (Sodium Chloride 0.65% Nasal [place]*) 1 spray BOTH NARES Q4H PRN DISCOMFORT Vital Signs - 8 hr 07/14/18 07/14/18 07/14/18 07:07 08:00 11:33 Temperature 98.3 F 98.4 F Pulse Rate 69 66 Respiratory 20 17 18 Rate Blood Pressure 118/49 131/67 (mmHg) O2 Sat by Pulse 94 93 Oximetry Oxygen Devices in Use Now: Nasal Cannula - 2L Appearance: Elderly female sitting in bed in NAD Eyes: No Scleral Icterus Ears/Nose/Mouth/Throat: Mucous Membranes Moist Neck: NL Appearance and Movements; NL JVP, Trachea Midline Respiratory: Symmetrical Chest Expansion and Respiratory Effort, - - Fine crackles to bilat bases, otherwise diminished throughout Cardiovascular: NL Sounds; No Murmurs; No JVD, - - Irregular rhythm Abdominal: NL Sounds; No Tenderness; No Distention Extremities: - - +1 pitting to bilat thighs Skin: - - Chronic wounds to bilat LE covered in dressings, CDI Neurological: Alert and Oriented x 3 Lines/Tubes/Other Access: Clean, Dry and Intact Peripheral IV Nutrition: Taking PO's Result Diagrams: 07/13/18 11:22 07/14/18 05:30 Assess/Plan/Problems-Billing Assessment: Ms. Valerio is a 72 yo F with PMH of afib, DM2, CKD stage 3, and chronic lower extremity wounds; who presented to the ED with c/o SOB and was found to be hypoxic and with bilateral pleural effusions. - Patient Problems (1) Pleural effusion Code(s): J90 - PLEURAL EFFUSION, NOT ELSEWHERE CLASSIFIED Comment: - CTA shows bilateral pleural effusions, R>L, with associated compressive atelectasis - Hypoxic, requiring 2L NC at rest - Continue lasix IV; will need to increase home lasix at d/c (2) Paroxysmal nocturnal dyspnea Code(s): R06.00 - DYSPNEA, UNSPECIFIED Comment: - Based on history and clinical presentation - Will need home oxygen set up at d/c and f/u with [facility] for sleep study (3) Pulmonary hypertension Code(s): I27.20 - PULMONARY HYPERTENSION, UNSPECIFIED Comment: - Moderate on last echo, but has been severe in the past - Causing pleural effusions - Will need f/u with [facility] (4) Nausea without vomiting Code(s): R11.0 - NAUSEA Comment: - Unclear etiology, but possibly d/t fluid overload - Continue Zofran as this is very effective at relieving symptoms (5) Diabetes mellitus type 2 with complications Code(s): E11.8 - TYPE 2 DIABETES MELLITUS WITH UNSPECIFIED COMPLICATIONS Comment: - BG 120-140s - Hold metformin - Continue lispro SS (6) Chronic ulcer of leg Code(s): L97.909 - NON-PRS CHRONIC ULC UNSP PRT OF UNSP LOW LEG W UNSP SEVERITY Comment: - Follows with Wound Clinic - Dressing changes per pt (7) Acute on chronic kidney failure Code(s): N17.9 - ACUTE KIDNEY FAILURE, UNSPECIFIED; N18.9 - CHRONIC KIDNEY DISEASE, UNSPECIFIED Comment: - Reported to have CKD stage 3, though this is unclear based on prior labs - Secondary to poor forward flow - Unable to give IVF d/t edema and pleural effusions; continue to trend labs (8) Atrial fibrillation Code(s): I48.91 - UNSPECIFIED ATRIAL FIBRILLATION Comment: - She has not been taking Xarelto d/t epistaxis; plans to f/u with outfitter cabin next week to decide if she will restart - Continue atenolol, diltiazem (9) Edema Code(s): R60.9 - EDEMA, UNSPECIFIED Comment: - Pitting in bilat thighs though pt reports edema is improved from baseline - Continue lasix (10) Restless leg syndrome Comment: - Continue Requip (11) Anemia Code(s): D64.9 - ANEMIA, UNSPECIFIED Comment: - Improved from baseline (12) DVT prophylaxis Comment: - Heparin SQ (13) DNR (do not resuscitate) Status and Disposition: Inpatient. Will need home oxygen at discharge. Plan for d/c home tomorrow. Attending: Tarsha Patton
[2018-07-14] MEDS ORDERED: diPHENhydraMINE PO* 25 MG PO ONE (22:18)
[2018-07-14] MEDS ORDERED: oxyCODONE TAB* 5 MG TAB PO PRN (23:17)
[2018-07-15] MEDS: Heparin VIAL(*) 5000 UNITS/ML VIAL (FIVE THOUSAND) SUBCUT SCH ×3 (05:26→22:21)
[2018-07-15] MEDS: Saline NASAL SPRAY 0.65%* BTL BOTH NARES PRN (05:27)
[2018-07-15] MEDS: Furosemide IV* 10 MG/ML 10 ML VIAL (100 MG) IV SCH ×2 (07:18→14:23)
[2018-07-15] MEDS: Ascorbic Acid TAB* 500 MG PO SCH (07:19)
[2018-07-15] MEDS: Diltiazem CD CAP* 120 MG PO SCH (07:19)
[2018-07-15] MEDS: Atenolol TAB* 50 MG PO SCH ×3 (07:19→21:29)
[2018-07-15] MEDS: Ropinirole TAB* 0.5 MG TAB PO SCH ×2 (07:19→20:03)
[2018-07-15] MEDS: Gabapentin CAP(*) 100 MG PO SCH (07:19)
[2018-07-15] MEDS: Omeprazole CAP (NF) 20 MG CAP.DR PO SCH (07:19)
[2018-07-15] MEDS: Ferrous Sulfate TAB* 325 MG PO SCH (07:19)
[2018-07-15] MEDS: Insulin LISPRO* 1 UNITS UNIT SUBCUT SCH ×3 (07:20→16:11)
[2018-07-15 07:57] LABS: Calcium 10.5 mg/dL (8.6-10.3); Potassium 4.1 mmol/L (3.5-5.0)
[2018-07-15 08:02] LABS: BUN/Creatinine Ratio 20.5 (8-20); EGFR Non-African American 31.3 (>60)
--- NOTE | 2018-07-15 14:47 | PN ---
Subjective Date of Service: 07/15/18 Interval History: Ms. Valerio was feeling fine this morning on my exam. She was anxious to return home and offered no complaints. She felt as though her nausea and leg pain were well controlled. She denied CP, SOB, V/D, dizziness. Around 1400, the patient's nurse reported that she was bradycardic and having pauses and was symptomatic. She was noted to have a few pauses on tele, the longest of which was 2.2 seconds, and that was around the time the nurse called to report her symptoms. According to telemetry, she started to become bradycardic in the 50s around 1300. That is also when her pauses started. The patient reported feeling tired and like she could not stay awake, though on my exam she was awake and sitting on the side of the bed, able to hold a conversation. No CP. She reported some dizziness. She denies ever having episodes like this in the past. Family History: Unchanged from Admission Social History: Unchanged from Admission Past Medical History: Unchanged from Admission Objective Active Medications: Acetaminophen (Tylenol Tab*) 650 mg PO Q6H PRN PAIN Ascorbic Acid (Vitamin C Tab*) 500 mg PO DAILY [facility] Atenolol (Tenormin Tab*) 50 mg PO TID [facility] Dextrose (D50w Syringe 50 Ml*) 12.5 gm IV PUSH .FOR FS < 60 - SS PRN FS < 60 Diltiazem HCl (Cardizem Cd Cap*) 120 mg PO DAILY [facility] Ferrous Sulfate (Ferrous Sulfate Tab*) 325 mg PO DAILY [facility] Furosemide (Lasix Iv*) 60 mg IV 0800,1400 [facility] Heparin Sodium (Porcine) (Heparin Vial(*)) 5,000 units SUBCUT Q8HR [facility] Insulin Human Lispro (Humalog*) 0 units SUBCUT AC [facility]; Protocol Ropinirole HCl (Requip Tab*) 1 mg PO BID [facility] Sodium Chloride (Sodium Chloride 0.65% Nasal [place]*) 1 spray BOTH NARES Q4H PRN DISCOMFORT Vital Signs - 8 hr 07/15/18 07/15/18 07/15/18 07:07 07:18 07:19 Temperature Pulse Rate Respiratory 18 18 Rate Blood Pressure 122/74 (mmHg) O2 Sat by Pulse Oximetry 07/15/18 07/15/18 07/15/18 07:21 07:22 07:40 Temperature 98.1 F Pulse Rate 84 Respiratory 18 18 Rate Blood Pressure 119/65 (mmHg) O2 Sat by Pulse Oximetry 07/15/18 07/15/18 07/15/18 08:18 09:00 10:22 Temperature Pulse Rate 84 Respiratory 18 18 Rate Blood Pressure 119/65 (mmHg) O2 Sat by Pulse 96 88 Oximetry 07/15/18 07/15/18 07/15/18 11:51 12:17 14:22 Temperature 99.4 F Pulse Rate 71 68 Respiratory 18 Rate Blood Pressure 106/53 110/68 (mmHg) O2 Sat by Pulse 100 96 97 Oximetry Oxygen Devices in Use Now: Nasal Cannula - 2L Appearance: Elderly female sitting in bed in NAD Eyes: No Scleral Icterus Ears/Nose/Mouth/Throat: Mucous Membranes Moist Neck: NL Appearance and Movements; NL JVP, Trachea Midline Respiratory: Symmetrical Chest Expansion and Respiratory Effort, Clear to Auscultation Cardiovascular: NL Sounds; No Murmurs; No JVD, - - Irregular rhythm Abdominal: NL Sounds; No Tenderness; No Distention Extremities: - - +2 pitting to bilat thighs Skin: - - Wound to BLE dressed, CDI Neurological: Alert and Oriented x 3, NL Sensation Lines/Tubes/Other Access: Clean, Dry and Intact Peripheral IV Nutrition: Taking PO's Result Diagrams: 07/13/18 11:22 07/15/18 05:12 Assess/Plan/Problems-Billing Assessment: Ms. Valerio is a 72 yo F with PMH of afib, DM2, CKD stage 3, and chronic lower extremity wounds; who presented to the ED with c/o SOB and was found to be hypoxic and with bilateral pleural effusions. - Patient Problems (1) Pleural effusion Code(s): J90 - PLEURAL EFFUSION, NOT ELSEWHERE CLASSIFIED Comment: - Etiology unclear, but effusions were noted on CT back in 2016 - CTA shows bilateral pleural effusions, R>L, with associated compressive atelectasis - Hypoxic, requiring 2L NC at rest - Appreciate Pulmonology consult - Continue lasix IV; will need to increase home lasix at d/c (2) Bradycardia Code(s): R00.1 - BRADYCARDIA, UNSPECIFIED Comment: - Down to the 50s, longest pause 2.2 seconds - Symptomatic with dorwsiness and dizziness - Likely medication-related as she has not been bradycardic or had an pauses until today; do not think this represents tachy-[place]ana syndrome - Continue to monitor on tele - Stop gabapentin and oxycodone; these were both started here in the hospital and have the potential to cause bradycardia and drowsiness (3) Paroxysmal nocturnal dyspnea Code(s): R06.00 - DYSPNEA, UNSPECIFIED Comment: - Based on history and clinical presentation - Will need home oxygen set up at d/c and f/u with [facility] for sleep study (4) Acute on chronic kidney failure Code(s): N17.9 - ACUTE KIDNEY FAILURE, UNSPECIFIED; N18.9 - CHRONIC KIDNEY DISEASE, UNSPECIFIED Comment: - Reported to have CKD stage 3, though this is unclear based on prior labs - Secondary to poor forward flow - Unable to give IVF d/t edema and pleural effusions - Creatinine slightly worse today; will decrease furosemide and recheck BMP in the AM (5) Pulmonary hypertension Code(s): I27.20 - PULMONARY HYPERTENSION, UNSPECIFIED Comment: - Moderate on last echo, but has been severe in the past - Will need f/u with [facility] (6) Nausea without vomiting Code(s): R11.0 - NAUSEA Comment: - Unclear etiology, but possibly d/t fluid overload - Continue Zofran (7) Diabetes mellitus type 2 with complications Code(s): E11.8 - TYPE 2 DIABETES MELLITUS WITH UNSPECIFIED COMPLICATIONS Comment: - BG 110-160s - Hold metformin - Continue lispro SS (8) Chronic ulcer of leg Code(s): L97.909 - NON-PRS CHRONIC ULC UNSP PRT OF UNSP LOW LEG W UNSP SEVERITY Comment: - Follows with Wound Clinic - Dressing changes per pt (9) Atrial fibrillation Code(s): I48.91 - UNSPECIFIED ATRIAL FIBRILLATION Comment: - She has not been taking Xarelto d/t epistaxis; plans to f/u with diabetologist next week to decide if she will restart - Continue atenolol, diltiazem (10) Edema Code(s): R60.9 - EDEMA, UNSPECIFIED Comment: - Pitting in bilat thighs though pt reports edema is improved from baseline - Continue lasix (11) Restless leg syndrome Comment: - Continue Requip (12) Anemia Code(s): D64.9 - ANEMIA, UNSPECIFIED Comment: - Improved from baseline (13) DVT prophylaxis Comment: - Heparin SQ (14) DNR (do not resuscitate) Status and Disposition: Inpatient. Will need home oxygen at discharge. Hopeful d/c tomorrow as long as her bradycardia and pauses resolve. Attending: Blanca Boogie
[2018-07-15] MEDS ORDERED: Ondansetron ODT TAB* 4 MG SL PRN (14:53)
[2018-07-15] MEDS: Acetaminophen TAB* 325 MG PO PRN (20:03)
--- NOTE | 2018-07-15 20:36 | CONS ---
PULMONARY CONSULTATION REPORT: DATE OF CONSULT: 07/15/18 CONSULTATION REQUESTED BY: Gia Brunson NP. REASON FOR CONSULT: Evaluation of pleural effusion. HISTORY OF PRESENT ILLNESS: The patient is a 72-year-old female, nonsmoker, with secondhand smoking history with history of chronic lower extremity edema, lymphedema, and nonhealing lower extremity ulcers, diabetes, atrial fibrillation , chronic kidney disease stage 3, who was admitted to the wound clinic for evaluation of worsening shortness of breath associated with nausea especially happening at night. The patient was found to be weak during her routine wound clinic followup. The patient at that time also reported having severe nausea and was having shortness of breath at night. The patient reports this has been going on for the past 4 weeks. The patient also reports significant lower extremity edema. She has been on diuretics. She was initiated on Xarelto for atrial fibrillation and reports nosebleed since that time. The patient reports using humidifier at home and also using nasal saline spray to help with dryness. She does have a history of dry skin and eczema. The patient reports no change in appetite. The patient denies abdominal pain. The patient had echocardiogram in May that did show evidence of tricuspid regurgitation, evidence of pulmonary hypertension, ejection fraction of 55%. She had bubble study in the past that has not revealed any shunting. The patient had chest x- ray that was personally reviewed by me. The patient with evidence of pleural effusion bilaterally with blunting of costophrenic angle on the left side. The patient had CTA of the chest for further evaluation of the shortness of breath. I personally reviewed the images with the patient today - evidence of bilateral pleural effusion, greater on the right compared to the left. No evidence of airspace opacities otherwise in the lungs. Evidence of basal atelectasis secondary to the pleural effusion. The patient was seen and examined at bedside. The patient reports improvement in her breathing. The patient also reports improvement in lower extremity edema with diuresis. The patient reports having issues since she was started on anticoagulation for her atrial fibrillation. She does have history of chronic normocytic anemia at baseline with hemoglobin of 10.4. She has history of diabetes and chronic nonhealing lower extremity bone spur, for which she is following up with wound clinic. She also has chronic lymphedema of the lower extremities. She has chronic renal insufficiency secondary to diabetes. Her calcium is also mildly elevated. Looking back into her previous lab results, she did have evidence of hypercalcemia in December 2015. Subsequently during recent admission, she had normal calcium levels. As per her medications, she does not appear to be on calcium supplementation. She takes ferrous sulfate tablets. The patient was initiated on IV diuresis with Lasix 20 mg b.i.d. with improvement in her shortness of breath symptoms. PAST MEDICAL HISTORY: 1. Atrial fibrillation. 2. Anemia. 3. Chronic lower extremity ulcers. 4. Restless legs. 5. Vup-moqpkjh-alfronzkx diabetes. 6. Chronic kidney disease stage 3. MEDICATIONS: 1. Probiotic. 2. Ascorbic acid. 3. Ferrous sulfate. 4. Diltiazem. 5. Atenolol. 6. Furosemide. 7. Ropinirole. 8. Multivitamin. 9. Oxycodone. 10. Metformin. 11. Tylenol. ALLERGIES: CIPROFLOXACIN, MORPHINE, TETRACYCLINE. FAMILY HISTORY: Mom in mid 80s. Dad from emphysema. Two brothers that are alive and well. SOCIAL HISTORY: Nonsmoker, secondhand smoking exposure. No alcohol or drug abuse. 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 REVIEW OF SYSTEMS: All 14 systems reviewed and as per HPI. PHYSICAL EXAM: The patient in bed, in no apparent distress. Vital Signs: Temperature 98.9; heart rate 63 per minute; O2 sat 99% on 3 L, 95% on 2 L; blood pressure 112/51. HEENT: Pupils equal and reactive to light. Mucous membranes moist. Lungs: Diminished air entry at bases bilaterally. Cardiovascular: S1, S2 present and regular. Abdomen: Soft, nontender, nondistended. Bowel sounds present. Extremities: Edema and chronic skin changes in the extremities bilaterally, dressings applied to the wounds. Neurological: Alert, awake, oriented x3. No focal deficits. DIAGNOSTIC STUDIES/LAB DATA: WBC count 5.6, hemoglobin 10.4, hematocrit 33, platelet count of 200. Sodium 138, potassium 4.1, chloride 98, bicarb 27, BUN 36, creatinine 1.61. Her blood sugar was mildly elevated. Calcium elevated at 10.05. Prior echocardiogram from 2016 as described in the HPI. CTA as described in HPI. IMPRESSION AND RECOMMENDATIONS: 72-year-old female with a history of atrial fibrillation, chronic lower extremity edema, anemia of chronic kidney disease, admitted with worsening shortness of breath especially at night, and orthopnea. 1. The patient with acute congestive heart failure exacerbation. 2. Acute hypoxemic respiratory failure secondary to fluid overload. 3. Bilateral pleural effusions likely secondary to heart failure, also seen in 2016. 4. History of pulmonary hypertension likely secondary to underlying cardiac disease. The patient also with significant tricuspid regurgitation. 5. Suspicion for obstructive sleep apnea. 6. Anemia of chronic kidney disease and elevated calcium concerning for possible myeloma. 7. Chronic lower extremity wound secondary to diabetes. 8. Pleural effusion seemed to be chronic, likely secondary to underlying heart failure. She has chronic lower extremity edema that improved since diuresis. I do not think she needs thoracentesis for her pleural effusion. As they appear to be chronic, would recommend diuresing her and reassess the response. Evaluate further for multiple myeloma. Hypoxemia could also be from anemia and pulmonary hypertension Pulmonary hypertension likely secondary to valvular insufficiency and atrial fibrillation. We will also need to rule out sleep apnea given her body habitus. Titrate O2 as tolerated. Will need to reassess O2 requirement upon discharge. Recommend echocardiogram for evaluation if not done recently. She is a nonsmoker, however with secondhand smoking exposure. No wheezing on auscultation. Will obtain pulmonary function testing as outpatient. Will schedule PFTs and sleep study as outpatient. Thanks for allowing me to participate in the care of your patient. Will follow up with you. [id number]/[facility] #: [id number] JUANJOSE
[2018-07-15] MEDS: traMADol TAB* 50 MG PO PRN (23:30)
[2018-07-16] MEDS: Heparin VIAL(*) 5000 UNITS/ML VIAL (FIVE THOUSAND) SUBCUT SCH ×3 (05:22→21:29)
[2018-07-16 05:36] LABS: BUN/Creatinine Ratio 22.7 (8-20); Calcium 9.8 mg/dL (8.6-10.3); EGFR Non-African American 28.2 (>60); Potassium 3.9 mmol/L (3.5-5.0)
[2018-07-16] MEDS: Insulin LISPRO* 1 UNITS UNIT SUBCUT SCH ×3 (08:27→17:21)
[2018-07-16] MEDS: Furosemide IV* 10 MG/ML 10 ML VIAL (100 MG) IV SCH ×2 (08:34→13:26)
[2018-07-16] MEDS: Ascorbic Acid TAB* 500 MG PO SCH (08:35)
[2018-07-16] MEDS: Ferrous Sulfate TAB* 325 MG PO SCH (08:35)
[2018-07-16] MEDS: Atenolol TAB* 50 MG PO SCH ×3 (08:35→21:26)
[2018-07-16] MEDS: Diltiazem CD CAP* 120 MG PO SCH (08:35)
[2018-07-16] MEDS: Ropinirole TAB* 0.5 MG TAB PO SCH ×2 (08:35→21:26)
[2018-07-16] MEDS: traMADol TAB* 50 MG PO PRN (11:22)
--- NOTE | 2018-07-16 14:35 | PN ---
Subjective Date of Service: 07/16/18 Interval History: Patient seen and examined. Feeling better per patient report, less difficulty breathing, remains on O2, denies chest pain, no fevers or chills. Anxious to be discharged to home. Family History: Unchanged from Admission Social History: Unchanged from Admission Past Medical History: Unchanged from Admission Objective Active Medications: Acetaminophen (Tylenol Tab*) 650 mg PO Q6H PRN PRN Reason: PAIN Last Admin: 07/15/18 20:03 Dose: 650 mg Ascorbic Acid (Vitamin C Tab*) 500 mg PO DAILY [facility] Last Admin: 07/16/18 08:35 Dose: 500 mg Atenolol (Tenormin Tab*) 50 mg PO TID [facility] Last Admin: 07/16/18 13:27 Dose: 50 mg Dextrose (D50w Syringe 50 Ml*) 12.5 gm IV PUSH .FOR FS < 60 - SS PRN PRN Reason: FS < 60 Diltiazem HCl (Cardizem Cd Cap*) 120 mg PO DAILY [facility] Last Admin: 07/16/18 08:35 Dose: 120 mg Ferrous Sulfate (Ferrous Sulfate Tab*) 325 mg PO DAILY [facility] Last Admin: 07/16/18 08:35 Dose: 325 mg Furosemide (Lasix Iv*) 20 mg IV 0800,1400 [facility] Last Admin: 07/16/18 13:26 Dose: 20 mg Heparin Sodium (Porcine) (Heparin Vial(*)) 5,000 units SUBCUT Q8HR [facility] Last Admin: 07/16/18 13:27 Dose: 5,000 units Insulin Human Lispro (Humalog*) 0 units SUBCUT AC [facility]; Protocol Last Admin: 07/16/18 12:16 Dose: 1 units Ondansetron HCl (Zofran Odt Tab*) 4 mg SL Q6H PRN PRN Reason: NAUSEA/VOMITING Ropinirole HCl (Requip Tab*) 1 mg PO BID [facility] Last Admin: 07/16/18 08:35 Dose: 1 mg Sodium Chloride (Sodium Chloride 0.65% Nasal [place]*) 1 spray BOTH NARES Q4H PRN PRN Reason: DISCOMFORT Last Admin: 07/15/18 05:27 Dose: 1 spr Tramadol HCl (Ultram*) 50 mg PO Q12H PRN PRN Reason: PAIN Last Admin: 07/16/18 11:22 Dose: 50 mg Vital Signs - 8 hr 07/16/18 07/16/18 07/16/18 07:39 08:40 11:22 Temperature 98.7 F Pulse Rate 70 Respiratory 16 18 18 Rate Blood Pressure 132/62 (mmHg) O2 Sat by Pulse 100 Oximetry 07/16/18 07/16/18 07/16/18 11:28 12:31 13:26 Temperature 98.9 F Pulse Rate 68 Respiratory 18 18 Rate Blood Pressure 127/58 122/68 (mmHg) O2 Sat by Pulse 96 Oximetry Oxygen Devices in Use Now: Nasal Cannula Appearance: alert, NAD Eyes: No Scleral Icterus, PERRLA Ears/Nose/Mouth/Throat: NL Teeth, Lips, Gums, Mucous Membranes Moist Neck: NL Appearance and Movements; NL JVP, Trachea Midline Respiratory: Symmetrical Chest Expansion and Respiratory Effort, - - diminished bases, no wheeze or rales Cardiovascular: NL Sounds; No Murmurs; No JVD, RRR, - - bipedal edema, at baseline Abdominal: NL Sounds; No Tenderness; No Distention Skin: - - chronic LE wounds, at baseline Neurological: Alert and Oriented x 3, NL Sensation Nutrition: Taking PO's Result Diagrams: 07/13/18 11:22 07/16/18 05:09 Assess/Plan/Problems-Billing Assessment: Ms. Valerio is a 72 yo F with PMH of afib, DM2, CKD stage 3, and chronic lower extremity wounds; who presented to the ED with c/o SOB and was found to be hypoxic and with bilateral pleural effusions. - Patient Problems (1) Pleural effusion Code(s): J90 - PLEURAL EFFUSION, NOT ELSEWHERE CLASSIFIED SNOMED Code(s): 45969224 Comment: - Etiology likely 2/2 acute on chronic diastolic HF, effusions were noted on CT back in 2016 - CTA shows bilateral pleural effusions, R>L, with associated compressive atelectasis - Persistent hypoxemia, requiring 2L NC at rest, wean as tolerated - Pulmonology consult appreciated - Continue lasix IV; will need to increase home lasix at d/c, responding well to diuresis (2) Acute diastolic (congestive) heart failure Code(s): I50.31 - ACUTE DIASTOLIC (CONGESTIVE) HEART FAILURE SNOMED Code(s): 609435671 Comment: - responding to diuresis and O2 - Preserved EF on last ECHO with mild bump in BNP (383) - Continue lasix and BB (3) Pulmonary hypertension Code(s): I27.20 - PULMONARY HYPERTENSION, UNSPECIFIED SNOMED Code(s): 63424676 Comment: - Moderate on last echo, but has been severe in the past - Continue with pulmonology follow up at discharge with Dr. Rome (4) Chronic kidney disease, stage 3 Code(s): N18.3 - CHRONIC KIDNEY DISEASE, STAGE 3 (MODERATE) SNOMED Code(s): 774715419 Comment: - With WALKER, 2/2 pre-renal state from diuresis - Continue to monitor renal function - May need lasix titrated before discharge (5) Chronic ulcer of leg Code(s): L97.909 - NON-PRS CHRONIC ULC UNSP PRT OF UNSP LOW LEG W UNSP SEVERITY SNOMED Code(s): 57114933 Comment: - Follows with Wound Clinic - Dressing changes per home regimen - No evidence of acute infection (6) Diabetes mellitus type 2 with complications Code(s): E11.8 - TYPE 2 DIABETES MELLITUS WITH UNSPECIFIED COMPLICATIONS SNOMED Code(s): 52623398 Comment: - with chronic diabetic ulcers to LE - BG stable - Hold metformin, continue lispro SS (7) Atrial fibrillation Code(s): I48.91 - UNSPECIFIED ATRIAL FIBRILLATION SNOMED Code(s): 32054253 Comment: - Continue atenolol, diltiazem - currently not on AC 2/2 epistaxis, plans to discuss with cardiology as an outpatient (8) Edema Code(s): R60.9 - EDEMA, UNSPECIFIED SNOMED Code(s): 978650478 Comment: - Mod-severe, though pt reports edema is improved from baseline - Continue lasix IV BID (9) Bradycardia Code(s): R00.1 - BRADYCARDIA, UNSPECIFIED SNOMED Code(s): 22442399 Comment: - Down to the 50s, longest pause 2.2 seconds yesterday - Resolved with stopping oxycodone and gabapentin, whoch were started at this admission - Continue tele, PRN tramadol for leg pain (10) DVT prophylaxis Code(s): [id number] - SNOMED Code(s): 605987462 Comment: - Heparin SQ (11) DNR (do not resuscitate) Comment: Status and Disposition: Inpatient. Bed offer at [facility], will DC in AM if no further events this evening.
--- NOTE | 2018-07-16 18:09 | PN ---
Progress Note - Progress Note Date of Service: 07/16/18 - Pulm f/u note Note: Pt seen and examined at bedside. Pt reports feeling better. Is eager to go home Active Medications Generic Name Dose Route Start Last Admin Trade Name Freq PRN Reason Stop Dose Admin Acetaminophen 650 mg 07/13/18 16:51 07/15/18 20:03 Tylenol Tab* PO 650 mg Q6H PRN Administration PAIN Ascorbic Acid 500 mg 07/14/18 09:00 07/16/18 08:35 Vitamin C Tab* PO 500 mg DAILY [facility] Administration Atenolol 50 mg 07/13/18 21:00 07/16/18 13:27 Tenormin Tab* PO 50 mg TID [facility] Administration Dextrose 12.5 gm 07/13/18 17:04 D50w Syringe 50 Ml* IV PUSH .FOR FS < 60 - SS PRN FS < 60 Diltiazem HCl 120 mg 07/14/18 09:00 07/16/18 08:35 Cardizem Cd Cap* PO 120 mg DAILY [facility] Administration Ferrous Sulfate 325 mg 07/14/18 09:00 07/16/18 08:35 Ferrous Sulfate Tab* PO 325 mg DAILY [facility] Administration Furosemide 20 mg 07/16/18 08:00 07/16/18 13:26 Lasix Iv* IV 20 mg 0800,1400 [facility] Administration Heparin Sodium (Porcine) 5,000 units 07/13/18 22:00 07/16/18 13:27 Heparin Vial(*) SUBCUT 5,000 units Q8HR [facility] Administration Insulin Human Lispro 0 units 07/14/18 07:30 07/16/18 17:21 Humalog* SUBCUT 1 units AC [facility] Administration Protocol Ondansetron HCl 4 mg 07/15/18 14:53 Zofran Odt Tab* SL Q6H PRN NAUSEA/VOMITING Ropinirole HCl 1 mg 07/13/18 21:00 07/16/18 08:35 Requip Tab* PO 1 mg BID [facility] Administration Sodium Chloride 1 spray 07/14/18 09:44 07/15/18 05:27 Sodium Chloride 0.65% Nasal [place]* BOTH NARES 1 spr Q4H PRN Administration DISCOMFORT Tramadol HCl 50 mg 07/15/18 23:09 07/16/18 11:22 Ultram* PO 50 mg Q12H PRN Administration PAIN Vital Signs Temp Pulse Resp BP Pulse Ox 97.8 F 68 20 112/64 97 07/16/18 15:32 07/16/18 15:36 07/16/18 15:32 07/16/18 15:36 07/16/18 15:32 O/E: Pt in NAD HEENT: PERRLA, No JVD Lungs: Decreased air entry at bases, R>L CVS: S1, S2+, regular Abd: Soft, BS+ Ext: Chronic LE wounds, dressing in place Neuro: Alert, awake, no focal deficits Laboratory Results - last 24 hr 07/16/18 07/16/18 07/16/18 05:09 05:09 05:09 Sodium 134 L Potassium 3.9 Chloride 97 L Carbon Dioxide 30 Anion Gap 7 BUN 40 H Creatinine 1.76 H Est GFR ( Amer) 34.2 Est GFR (Non-Af Amer) 28.2 BUN/Creatinine Ratio 22.7 H Glucose 110 H POC Glucose (mg/dL) Calcium 9.8 Ionized Calcium 1.33 H PTH Intact < 1.0 L Calcium (PTH Intact) 9.6 07/16/18 07/16/18 07/16/18 08:10 11:17 16:29 Sodium Potassium Chloride Carbon Dioxide Anion Gap BUN Creatinine Est GFR ( Amer) Est GFR (Non-Af Amer) BUN/Creatinine Ratio Glucose POC Glucose (mg/dL) 108 H 160 H 167 H Calcium Ionized Calcium PTH Intact Calcium (PTH Intact) I/R: 72 y o f with A.fib, chronic LE edema and LE wounds a/w worseinbg SOB, cough, was treated for PNA. Pt found to have b/l pl effusions which were also seen on prior scans Pt responded well to diuresis, FIO2 requirements came down SOB improved Pl effusions sec to CHF, chronic renal failure Thoracentesis not required Pt comfortable and in no distress
[2018-07-16] MEDS: Acetaminophen TAB* 325 MG PO PRN (21:26)
[2018-07-16] MEDS: Saline NASAL SPRAY 0.65%* BTL BOTH NARES PRN (23:11)
[2018-07-17] MEDS: Heparin VIAL(*) 5000 UNITS/ML VIAL (FIVE THOUSAND) SUBCUT SCH ×2 (05:28→13:52)
[2018-07-17] MEDS: traMADol TAB* 50 MG PO PRN (05:31)
[2018-07-17] MEDS: Insulin LISPRO* 1 UNITS UNIT SUBCUT SCH ×2 (08:26→12:11)
[2018-07-17] MEDS: Furosemide IV* 10 MG/ML 10 ML VIAL (100 MG) IV SCH ×2 (08:27→13:50)
[2018-07-17] MEDS: Ascorbic Acid TAB* 500 MG PO SCH (08:27)
[2018-07-17] MEDS: Ropinirole TAB* 0.5 MG TAB PO SCH (08:27)
[2018-07-17] MEDS: Diltiazem CD CAP* 120 MG PO SCH (08:27)
[2018-07-17] MEDS: Ferrous Sulfate TAB* 325 MG PO SCH (08:27)
[2018-07-17] MEDS: Atenolol TAB* 50 MG PO SCH ×2 (08:27→13:50)
[2018-07-17] MEDS: Saline NASAL SPRAY 0.65%* BTL BOTH NARES PRN (12:11)
[2018-07-17 12:35] VITALS: BP 112/58
[2018-07-17] MEDS: Acetaminophen TAB* 325 MG PO PRN (13:50)
--- NOTE | 2018-07-17 16:22 | DS ---
CC: Dr. Shaw; Dr. Etienne; Dr. Hayely Rome * DATE OF ADMISSION: 07/13/2018. DATE OF DISCHARGE: 07/17/2018. PRIMARY CARE PHYSICIAN: Dr. Shaw. TRAFFIC SUPERINTENDENT: Dr. Etienne. ATTENDING PHYSICIAN FOR THIS ADMISSION: Dr. Blanca Dash. MY ATTENDING PHYSICIAN FOR TODAY: Dr. Darren George * (dictated by Janet Hernandez NP). HOSPITAL COURSE: Please refer to admission history and physical by Lucy Riddle NP on 07/13/2018. In short, this is a 72-year-old female with a complex past medical history, including chronic lower extremity edema in wounds, atrial fibrillation, diabetes, and CKD stage 3 who presented to the emergency department with a complaint of nausea and with accompanying shortness of breath. The patient states that she has been more short of breath than usual. She understands that she does have some intolerance of exercise and she does have a low endurance, but that it had been creeping up for about four weeks. The patient did have a CT of the chest which showed no PE; however, it did show that she had bilateral pleural effusions with some compressive atelectasis, the right side being worse than the left. She also had some baseline cardiomegaly, some mild hepatomegaly, and no further acute findings. The patient remained short of breath and being oxygen dependent which was new for her. Dr. Rome was consulted from Pulmonology to assess her pleural effusions. As the patient was not able to wean off of oxygen, Dr. Rome's recommendations did not include having a thoracentesis. She felt that her history of acute congestive heart failure was in exacerbation which is causing her pleural effusions. This also seemed to be chronic, likely secondary to heart failure. The patient also had noted pulmonary hypertension and some valvular insufficiency and underlying A-fib. At that time an echocardiogram was recommended and outpatient follow-up for pulmonary function test. The patient did respond to IV Lasix. We continued her beta keshia. Echocardiogram did not show any acute changes versus her last. Kidney function did bump up a little bit secondary to IV diuresis which was expected that she would be in a prerenal state secondary to IV Lasix. Overall, the patient's presentation improved. Her chronic edema had decreased a bit. Her breathing improved. She was stable on room air. Of significant note, she did have a few episodes of bradycardia with a heart rate down into the 50s. She did have a pause of 2.2 seconds which she was asymptomatic with. The patient had been started on Gabapentin and Oxycodone for her leg pain; however, given her bradycardia and some somnolence, they were discontinued. The patient had a prn Tramadol which seemed to help. However, for discharge, given the patient's advance comorbidities, we felt that continuing her even on a light narcotic like Tramadol would not be in her best interest. The patient did have physical therapy examination which recommended short-term rehab. The patient's respiratory status equalized and overall she felt improved. Decision was made to discharge the patient to [facility] for acute short-term rehab and she was transferred to that facility today. DISCHARGE DIAGNOSES: 1. Pleural effusion, acute on chronic. 2. Acute diastolic heart failure on chronic heart failure. 3. Pulmonary hypertension. 4. Chronic kidney disease, stage 3. 5. Chronic leg edema, vascular insufficiency, and leg wounds. 6. Diabetes mellitus, type 2. 7. Atrial fibrillation, not on anticoagulation. 8. Bradycardia now resolved. DISCHARGE MEDICATIONS: 1. Lasix 40 mg in the morning and 20 mg at 12 noon. 2. Probiotic one tablet daily. 3. Vitamin C 500 mg p.o. daily. 4. Ferrous Sulfate 325 mg p.o. daily. 5. Diltiazem XR extended release 120 mg p.o. daily. 6. Atenolol 50 mg p.o. b.i.d. 7. Requip 1 mg p.o. b.i.d. 8. Multivitamin with mineral one tablet daily. 9. Metformin 500 mg p.o. b.i.d. 10. Tylenol 500 mg q.6 hours as needed. 11. Saline spray to both naris q.4 hours as needed. REVIEW OF SYSTEMS DAY OF DISCHARGE: The patient denies any fever, fatigue or chills. No dizziness, no headache, no acute shortness of breath, no chest pain , no nausea, no vomiting, no urinary complaints, and no further constitutional complaints. PHYSICAL EXAMINATION: General: The patient is awake, alert, in no acute distress. Vital Signs currently: Blood pressure 112/58, heart rate 74, respiratory rate 16, O2 saturation 96 percent on 2 liters nasal cannula, temperature 98.4. HEENT: The patient is atraumatic, normocephalic. PERRLA with nonicteric sclerae. Oral mucosa is moist. Tongue is midline. Neck: Supple, nontender. No JVD noted and no carotid bruit auscultated. Cardiovascular: S1, S2 present. Rate is slightly irregular. No murmurs, gallops or rubs noted. Lungs: Clear at the apices bilaterally, diminished at the bases with no appreciable rhonchi or rales noted. Also no wheeze. Abdomen: Soft, nontender, nondistended. Positive bowel sounds all four quadrants. : Deferred. Musculoskeletal: There is no clubbing, no cyanosis, no edema. She has full range of motion. She has some general weakness. Does use an assistive device in the form of a rolling walker. Neurologic: Grossly intact with no focal deficits. She has gross motor and sensation intact. Psychiatric: She is cooperative and appropriate. LABORATORY DATA: WBC 5.6, RBC 3.71, hemoglobin 10.4, hematocrit 33, platelets 200; sodium 134, potassium 3.9, chloride 97, CO2 30, BUN 40, creatinine 1.76, glucose 110, calcium 9.8, BNP 383 which is around her baseline; INR is 1.10. CT as stated above. DISPOSITION: Patient will be discharged to [facility] for short-term rehab. Discharge medications as listed above. The patient was discharged in stable condition. All questions were answered. The patient stated her understanding of her discharge instructions, medications, and follow-ups. DIET: Heart healthy, diabetic as tolerated. ACTIVITY: With assistance as tolerated. FOLLOW-UP: The patient was instructed to follow-up with her primary care provider after she is released from rehab as needed. She can also follow-up with Pulmonology, Dr. Rome, for pulmonary function test as an outpatient. She may also need a sleep study for obstructive sleep apnea. Dr. Etienne from Cardiology as needed. TIME SPENT: In excess of 35 minutes interfacing with the patient and planning discharge. JANET HERNANDEZ NP [id number]/CPS #: [id number] JUANJOSE
== END 2018-07-17 14:15 | DRG 189 ==
LOC: ED 10:30 → MED 16:34 → OBSVTOIN 07-14 16:00 → MED 07-16 16:35
PROVIDERS: ADMIT Internal Medicine; ATTEND Internal Medicine
DX: J96.01 Acute respiratory failure with hypoxia (principal); E89.2 Postprocedural hypoparathyroidism; E78.00 Pure hypercholesterolemia, unspecified; I10 Essential (primary) hypertension; M81.0 Age-related osteoporosis without current pathological fracture; H54.8 Legal blindness, as defined in USA; L30.9 Dermatitis, unspecified; H91.92 Unspecified hearing loss, left ear; M41.84 Other forms of scoliosis, thoracic region; G80.9 Cerebral palsy, unspecified; J40 Bronchitis, not specified as acute or chronic; B34.9 Viral infection, unspecified; R62.50 Unspecified lack of expected normal physiological development in childhood; G40.909 Epilepsy, unspecified, not intractable, without status epilepticus; F03.90 Unspecified dementia, unspecified severity, without behavioral disturbance, psychotic disturbance, mood disturbance, and anxiety; Z86.14 Personal history of Methicillin resistant Staphylococcus aureus infection; Z82.49 Family history of ischemic heart disease and other diseases of the circulatory system; Z95.0 Presence of cardiac pacemaker; Z88.8 Allergy status to other drugs, medicaments and biological substances; Z86.19 Personal history of other infectious and parasitic diseases
CPT/HCPCS: 36415; 71046; 71275; 80048; 80053; 82330; 83605; 83880; 83970; 84484; 85025; 85060; 85379; 85610; 86140; 93005; 99283; A9270-GY; G0378; G8987-GO-CK; G8988-GO-CI; J1644; J1940; J2405; Q9967

== ENCOUNTER 2018-09-14 20:57 | Inpatient (IN) | payer MEDICARE, BC ==
--- NOTE | 2018-09-14 21:22 | ED ---
Lower Extremity - HPI Summary HPI Summary: Patient is a 72 y/o F presenting to ED via EMS with complaints of left "stinging " leg pain in ankle up to knee. She received a hydrocortisone shot this morning at around [address] Nuñez. Patient has wound at left leg as well, states that she is followed by wound doctor for this. She was started on clindamycin a few days ago for cellulitis. Patient reports that pain onset after wound dressing was changed today. She also states that her leg has been "leaking fluid ". PMHx of diabetes. On triage, pain is rated 10/10. Nothing is noted to aggravate/alleviate Sx. Home medications and allergies are reviewed. - History of Current Complaint Chief Complaint: EDExtremityLower Stated Complaint: LEG PAIN Time Seen by Provider: 09/14/18 21:15 Hx Obtained From: Patient Mechanism Of Injury: Other - pain onset after dressing change Onset of Pain: Hours - onset this morning at around 1030, Prior to Arrival Onset/Duration: Hours - onset this morning at around 1030 Severity Currently: Severe - 10/10 Pain Intensity: 10 Pain Scale Used: 0-10 Numeric - 10/10 Timing: Constant, Lasting Hours - onset 1030 this morning Location: Is Discrete @ - left leg Character Of Pain: Sharp - "stinging" Associated Signs And Symptoms: Positive: Other - "leaking fluid" Aggravating Factor(s): Nothing Alleviating Factor(s): Nothing - Allergies/Home Medications Allergies/Adverse Reactions: Allergies Allergy/AdvReac Type Severity Reaction Status Date / Time ciprofloxacin AdvReac See Comment Verified 07/13/18 16:27 morphine AdvReac Nausea And Verified 07/13/18 10:33 Vomiting Tetracyclines AdvReac Rash Verified 07/13/18 10:33 PMH/Surg Hx/FS Hx/Imm Hx Endocrine/Hematology History: Reports: Hx Diabetes - non insulin dependent, Hx Anemia Cardiovascular History: Reports: Hx Hypertension Denies: Hx Angina, Hx Pacemaker/ICD, Other Cardiovascular Problems/Disorders Respiratory History: Denies: Hx Asthma, Other Respiratory Problems/Disorders GI History: Denies: Other GI Disorders History: Denies: Hx Renal Disease Musculoskeletal History: Reports: Hx Arthritis - OSTEOARTHRITIS HIPS, SHOULDERS , ELBOWS, TOES, Denies: Other Musculoskeletal History Sensory History: Reports: Hx Cataracts, Hx Contacts or Glasses Denies: Hx Hearing Aid Opthamlomology History: Reports: Hx Cataracts, Hx Contacts or Glasses Psychiatric History: Reports: Hx Depression Denies: Hx Panic Disorder - Surgical History Surgery Procedure, Year, and Place: [place] [facility] [place] [facility]. RIGHT [place], 2009, [facility]. [place] [facility]. LEFT [place]OULDER, 2010, [facility] Hx Anesthesia Reactions: No - Immunization History Date of Influenza Vaccine: NO Infectious Disease History: No Infectious Disease History: Denies: Traveled Outside the [place] in Last 30 Days - Family History Known Family History: Positive: Cardiac Disease, Hypertension, Diabetes - mother - DM - Social History Alcohol Use: Occasionally Alcohol Amount: 5 PER WEEK Hx Substance Use: No Substance Use Type: Reports: None Hx Tobacco Use: No Smoking Status (MU): Never Smoked Tobacco Have You Smoked in the Last Year: No Review of Systems Negative: Fever - on vitals, temp is 99 F Musculoskeletal: Other - POSITIVE - PAIN AT LEFT LEG FROM ANKLE TO KNEE Skin: Other - POSITIVE - "LEAKING FLUID" FROM LEFT LEG All Other Systems Reviewed And Are Negative: Yes Physical Exam - Summary Physical Exam Summary: VITAL SIGNS: Reviewed. GENERAL: Patient is a well-developed and nourished female who is lying comfortable in the stretcher. Patient is not in any acute respiratory distress. HEAD AND FACE: No signs of trauma. No ecchymosis, hematomas or skull depressions. No sinus tenderness. EYES: PERRLA, EOMI x 2, No injected conjunctiva, no nystagmus. EARS: Hearing grossly intact. Ear canals and tympanic membranes are within normal limits. MOUTH: Oropharynx within normal limits. NECK: Supple, trachea is midline, no adenopathy, no JVD, no carotid bruit, no c- spine tenderness, neck with full ROM. CHEST: Symmetric, no tenderness at palpation LUNGS: Clear to auscultation bilaterally. No wheezing or crackles. CVS: Regular rate and rhythm, S1 and S2 present, no murmurs or gallops appreciated. ABDOMEN: Soft, non-tender. No signs of distention. No rebound no guarding, and no masses palpated. Bowel sounds are normal. EXTREMITIES: FROM in all major joints, no cyanosis or clubbing. NEURO: Alert and oriented x 3. No acute neurological deficits. Speech is normal and follows commands. SKIN: Dry and warm; left leg is warm, tender, swollen, and red, there is a superficial ulcer at the medial aspect of the left leg as well Triage Information Reviewed: Yes Vital Signs On Initial Exam: Initial Vitals Temp Pulse Resp BP Pulse Ox 99.0 F 105 18 157/97 95 09/14/18 21:00 09/14/18 21:00 09/14/18 21:00 09/14/18 21:00 09/14/18 21:00 Vital Signs Reviewed: Yes Diagnostics - Vital Signs Vital Signs Temp Pulse Resp BP Pulse Ox 09/14/18 21:04 108 95 09/14/18 21:03 93 157/97 95 09/14/18 21:00 99.0 F 105 18 157/97 95 - Laboratory Result Diagrams: 09/15/18 05:51 09/15/18 14:56 Lab Statement: Any lab studies that have been ordered have been reviewed, and results considered in the medical decision making process. - EKG 2318 Cardiac Rate: Other Rate - afib with rate of 73 BPM EKG Rhythm: Atrial Fibrillation Summary of EKG Findings: EKG showed afib with rate of 73 BPM, low voltage. Re-Evaluation - Re-Evaluation First Eval Re-Evaluation Time: 22:37 Comment: Potassium 6.1, lactic 2.6 per charge nurse. Lower Extremity Course/Dx - Course Course Of Treatment: Patient is a 72 y/o F presenting to ED via EMS with complaints of left "stinging" leg pain in ankle up to knee. She received a hydrocortisone shot this morning at around [address] Nuñez. Patient has wound at left leg as well, states that she is followed by wound doctor for this. She was started on clindamycin a few days ago for cellulitis. Patient reports that pain onset after wound dressing was changed today. She also states that her leg has been "leaking fluid". PMHx of diabetes. On physical exam, left leg is swollen, tender, red, and warm. At medial aspect of leg, there is a superficial ulcer. Labs showed RBC 2.93, Hgb 8.1, Hct 25, RDW 18, MPV 6.4, INR 1.56, APTT 40.2, sodium 129, potassium 6.1, chloride 96, BUN 88, creatinine 1.85 , BUN/creatinine 47.6, glucose 319, lactic acid 2.6, CRP 4.6, WBC 7.1. During ED course, patient received fluids, Zofran 8 mg, fentanyl 50 mcg, vancomycin HCl 1000 mg in sodium chloride 250 mls @ 166.667 mls/hr IVPB ED ONCE ONE, fluids , sodium bicarbonate 50 ml IV ED ONCE ONE, insulin 10 units IV PUSH ED ONCE, and dextrose 25 gm IV PUSH ED ONCE ONE. Patient's case was discussed with Dr. Us, Dr. Us accepts for admission. EKG showed afib with rate of 73 BPM, low voltage. - Diagnoses Provider Diagnoses: Hyperkalemia, Renal insufficiency, Left leg cellulitis - Physician Notifications Discussed Care Of Patient With: Janna Us Time Discussed With Above Provider: 22:18 Instructed by Provider To: Other - Patient's case was discussed with Dr. Us at 2218, Dr. Us accepts for admission. - Critical Care Time Critical Care Time: 30-74 min - 40 minutes CCT Discharge - Sign-Out/Discharge Documenting (check all that apply): Patient Departure - admit - Discharge Plan Condition: Good Disposition: ADMITTED TO [facility] - Billing Disposition and Condition Condition: GOOD Disposition: Admitted to [facility] - Attestation Statements Document Initiated by Paco: Yes Documenting Jeffibnini: LYNN LANGE Provider For Whom Paco is Documenting (Include Credential): CAROLINA GONZALEZ MD Scribe Attestation: LYNN Newsome, scribed for CAROLINA GONZALEZ MD on 09/15/18 at 2055. Scribe Documentation Reviewed: Yes Provider Attestation: The documentation as recorded by the LYNN morgan accurately reflects the service I personally performed and the decisions made by me, CAROLINA GONZALEZ MD Status of Scribnini Document: Viewed
--- OUTSIDE RECORDS SUMMARY | 2018-09-14 21:33 | XMS REPORT | Continuity of Care Document ---
:1945 External Reference #:[id number] Author Name Lucrecia Malave Care Team Providers Name Role Phone Jensen Shaw MD Primary Care Physician Unavailable Payers Date Identification Numbers Payment Provider Subscriber Policy Number: [id number] Medicare Silvana Popmp PayID: [id number] [address] [place] [address] Expires: 2018 Policy Number: [id number] Medicare Silvana Joseph Valerio PayID: [id number] [address] [place] [address] Policy Number: [id number] [facility] Silvana Popmp PayID: [id number] [address] [place] [address] Advance Directives Description No Information Available Problems Date Description Provider Status Onset: 01/30/2016 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 Tobacco Use Start: Unknown Never Smoked Cigarettes Smoking Status Reviewed: 09/14/18 Never Smoked Cigarettes ETOH Use Denies alcohol use Tobacco Use Start: Unknown Patient has never smoked Recreational Drug Use Denies Drug Use Exercise Type/Frequency Does not exercise Allergies, Adverse Reactions, Alerts Date Description Reaction Status Severity Comments 11/28/2015 Tetracycline Active rash 11/28/2015 Morphine Active vomiting 09/14/2018 Cefdinir vomitting Active Medications Medication Date Status Form Strength Qnty SIG Indications Ordering Provider Mily Active Tablets 15mg 30tab 1 by I48.2 Zehra S. 9 s mouth [place], every N.P. day Atenolol Active Tablets 50mg 1 po tid Unknown 0 Metformin HCL Active Tablets 500mg 1 by Unknown 0 mouth twice a day One Daily 50 Active Tablets 50Plus 1 po qd Unknown Plus 0 Iron Active Tablets 65mg 1 daily Unknown 0 Vitamin C Active Capsules 500mg 1 by Unknown 0 mouth every day Ropinirole HCL Active Tablets 1mg take 1 Unknown 0 tablet twice daily Diltiazem HCL Active Caps ER 120mg take 1 Unknown ER Coated Beads 0 24HR capsule by mouth once daily Acetaminophen Active Tablets 325mg 2 Unknown 0 tablets by mouth every 6 hours as needed for pain/fev er Probiotic Active Capsules 1 by Unknown 0 mouth every day Lasix Active Tablets 20mg 2 tabs Unknown 0 by mouth in the morning and one tab at noon daily Gabapentin Active Capsules 100mg take 1 Unknown 0 capsule by mouth three times a day Cephalexin Active Capsules 500mg take 1 Unknown 0 capsule by mouth three times a day Torsemide Hx Tablets 20mg 90tab Take 1.5 I50.33 Zehra S. 9 - s tab by [place] mouth N.P. 9 daily Oxycodone HCL Hx Tablets 5mg 14tab 1/2-1 L03.116 Dirk 8 - s tab by Joaquin mouth M.D. 9 every 12 hours as needed Keflex Hx Capsules 500mg 30cap take 1 L03.116 Dirk 8 - s tab by Joaquin mouth M.D. 8 three times a day x 10 days Oxycodone-Aceta Hx Tablets 5-325mg 40tab 1 tablet Brandy minophen 6 - s every [place], 4-6hrs LITHOGRAPHIC PRESS OPERATOR 7 prn Bactrim DS Hx Tablets 800-160mg 14tab take 1 S82.034A Zaneb 6 - s tab MD Macrina twice a 6 day for 7 days [place] Hx Tablets 16mg 1 by Unknown 0 - mouth bid 8 Cipro Hx Tablets 250mg 1 po qd Unknown 0 - [address] 60mg 1 by Unknown 0 - Part mouth every 6 day Diltiazem CD Hx Caps ER 120mg 1 by Unknown 0 - 24HR mouth every 6 day Furosemide Hx Tablets 20mg 2 by Unknown 0 - mouth in the 9 morning and 1 tab at noon daily Tramadol HCL Hx Tablets 50mg 1 po qd Unknown 0 - prn for severe 6 pain Xarelto Hx Tablets 20mg 1 by Unknown 0 - mouth once day 9 Oxycodone-Aceta Hx 1 tablet Unknown minophen 0 - every 4-6hrs 6 prn Sulfamethoxazol Hx Tablets 800-160mg 56tab take 1 Unknown e/Trimethoprim 0 - s tablet DS by mouth 6 twice a day Metronidazole Hx Tablets 500mg 56tab take 1 Unknown 0 - s tablet by mouth 6 twice a day Cipro XR Hx Tablets ER 500mg 1 by Unknown 0 - 24HR mouth twice a 7 day Cartia XT Hx Caps ER 120mg 1 by Unknown 0 - 24HR mouth every 8 day Ibuprofen 200 Hx Tablets 200mg 400-600m Unknown 0 - g every Unknown 6 hours as needed for pain. Keflex Hx Capsules 500mg take 1 L03.116 Unknown 0 - tab by mouth 9 four times a day Gentamicin Hx Ointment 0.1% Unknown Sulfate 0 - 9 Sulfamethoxazol Hx Tablets 800-160mg Unknown e/Trimethoprim 0 - DS 9 Cefdinir Hx Capsules 300mg Van Every, 0 - Radha, M.D. 9 Medications Administered in Office Medication Date Status Form Strength Qnty SIG Indications Ordering Provider Depomedrol Administered Injection Dirk Joaquin, 40MG 019 M.D. Depomedrol Administered Injection Dirk Joaquin, 40MG 018 M.D. Immunizations Description No Information Available Vital Signs Date Vital Result Comment 09/14/2018 9:58am Height 67 inches 5'7" Weight 140.00 lb BP Systolic 122 mmHg BP Diastolic 64 mmHg Respiratory Rate 20 /min Body Temperature 97.6 F Pain Level 0 BMI (Body Mass Index) 21.9 kg/m2 07/20/2018 10:43am Height 67 inches 5'7" Weight 167.50 lb with shoes Heart Rate 86 /min BP Systolic Sitting 134 mmHg lue reg cuff BP Diastolic Sitting 86 mmHg lue reg cuff BMI (Body Mass Index) 26.2 kg/m2 03/23/2018 10:33am Height 67 inches 5'7" Weight 140.00 lb Heart Rate 82 /min BP Systolic 112 mmHg BP Diastolic 82 mmHg Respiratory Rate 20 /min Pain Level 0 BMI (Body Mass Index) 21.9 kg/m2 03/11/2018 3:11pm Height 67 inches 5'7" Weight 140.00 lb Heart Rate 74 /min BP Systolic Sitting 140 mmHg Lue reg cuff BP Diastolic Sitting 70 mmHg Lue reg cuff Respiratory Rate 16 /min BMI (Body Mass Index) 21.9 kg/m2 02/25/2018 9:01am Height 67 inches 5'7" Weight 140.00 lb Heart Rate 80 /min BP Systolic 134 mmHg BP Diastolic 70 mmHg Respiratory Rate 20 /min Body Temperature 99.0 F Pain Level 10 BMI (Body Mass Index) 21.9 kg/m2 12/22/2017 9:31am Height 67 inches 5'7" Weight 177.00 lb Heart Rate 68 /min BP Systolic 144 mmHg BP Diastolic 98 mmHg Body Temperature 24.0 F BMI (Body Mass Index) 27.7 kg/m2 Ejection Fraction 55-60% 03-21-2017 04/07/2017 9:15am Height 67 inches 5'7" Weight 157.50 lb with shoes Heart Rate 76 /min BP Systolic Sitting 156 mmHg Lue reg cuff BP Diastolic Sitting 70 mmHg Lue reg cuff Respiratory Rate 17 /min BMI (Body Mass Index) 24.7 kg/m2 Ejection Fraction 55-60% date 03/31/17 ECHO 01/27/2017 11:12am Height 67 inches 5'7" Weight 140.00 lb Respiratory Rate 14 /min Body Temperature 99.1 F Pain Level 0 BMI (Body Mass Index) 21.9 kg/m2 12/23/2016 10:49am Height 67 inches 5'7" Weight 140.00 lb Heart Rate 72 /min BP Systolic 140 mmHg BP Diastolic 65 mmHg Respiratory Rate 16 /min BMI (Body Mass Index) 21.9 kg/m2 12/02/2016 11:05am Height 67 inches 5'7" Weight 140.00 lb Heart Rate 78 /min BP Systolic 160 mmHg BP Diastolic 80 mmHg Pain Level 0 BMI (Body Mass Index) 21.9 kg/m2 11/14/2016 11:01am Height 67 inches 5'7" Weight 150.00 lb Heart Rate 81 /min BP Systolic 154 mmHg BP Diastolic 85 mmHg Body Temperature 97.3 F BMI (Body Mass Index) 23.5 kg/m2 09/30/2016 10:40am Height 67 inches 5'7" Weight 138.25 lb with shoes Heart Rate 76 /min BP Systolic Sitting 148 mmHg LA reg cuff BP Diastolic Sitting 82 mmHg LA reg cuff BMI (Body Mass Index) 21.7 kg/m2 Ejection Fraction 60% - 65% echo 01/04/16 04/29/2016 2:52pm Height 67 inches 5'7" Weight 143.00 lb Heart Rate 85 /min BP Systolic Sitting 150 mmHg BP Diastolic Sitting 98 mmHg Body Temperature 99.0 F O2 % BldC Oximetry 95 % BMI (Body Mass Index) 22.4 kg/m2 04/23/2016 11:29am Heart Rate 80 /min Respiratory Rate 20 /min Body Temperature 99.3 F Pain Level 0 03/21/2016 8:29am Height 67 inches 5'7" Weight 150.00 lb Pain Level 6 BMI (Body Mass Index) 23.5 kg/m2 03/14/2016 8:50am Height 67 inches 5'7" Respiratory Rate 16 /min Pain Level 9 01/30/2016 10:22am Height 67 inches 5'7" Weight 150.50 lb Heart Rate 84 /min BP Systolic Sitting 180 mmHg BP Diastolic Sitting 96 mmHg Respiratory Rate 16 /min Body Temperature 98.9 F BMI (Body Mass Index) 23.6 kg/m2 11/28/2015 12:49pm Height 67 inches 5'7" Weight 178.75 lb with shoes Heart Rate 64 /min BP Systolic 154 mmHg Ra reg cuff BP Diastolic 84 mmHg Ra reg cuff BMI (Body Mass Index) 28.0 kg/m2 Ejection Fraction 60% - 65% 07/26/15 Yamil 06/21/2015 2:39pm Height 67 inches 5'7" Weight 178.25 lb w/ shoes Heart Rate 60 /min BP Systolic Sitting 150 mmHg LA, reg BP Diastolic Sitting 82 mmHg LA, reg BMI (Body Mass Index) 27.9 kg/m2 Results Description No Information Available Procedures Date Code Description Status 09/14/201804973 Inject/Drain Joint/Bursa Major W/O US Completed 07/15/2018 73688 EKG, Interpretation Only Completed 05/18/2018 95515 ECHO Transthoracic, Real-Time 2D With Doppler And Color Completed Flow 05/18/2018 32224 ECHO Transthoracic, Real-Time 2D With Doppler And Color Completed Flow 04/13/2018 76360 Removal Devitalization Tissue Wound Less Than Equal 20 Completed Square CM 02/25/2018 70093 Inject/Drain Joint/Bursa Major W/O US Completed 12/22/2017 09369 EKG Tracing & Interpretation Completed 05/15/2017 06678 EKG, Interpretation Only Completed 04/07/2017 82379 EKG Tracing & Interpretation Completed 03/31/2017 77406 ECHO Transthoracic, Real-Time 2D With Doppler And Color Completed Flow 11/14/2016 01613 Closed trtmt humeral shaft fx Completed 09/30/2016 67546 EKG Tracing & Interpretation Completed 07/18/2016 04988 Removal Devitalization Tissue Wound Less Than Equal 20 Completed Square CM 07/18/2016 71028 Debridement Muscle/Fascia,Epidermis/Dermis/Tissue,1St 20 Completed SQ CM 07/18/2016 84287 Debridement Skin,& sq Tissue Completed 04/24/2016 18377 I&D deep abscess,bursa or hematoma thigh or knee region Completed 04/04/2016 05086 Removal Devitalized Tissue Wound Greater Than 20 Square CM Completed 04/04/2016 73436 Removal Devitalization Tissue Wound Less Than Equal 20 Completed Square CM 03/14/2016 42797 FX Patella Care Completed 01/18/2016 47567 Removal Devitalization Tissue Wound Less Than Equal 20 Completed Square CM 01/04/2016 42135 ECHO Transthorasic Realtime 2D W Doppler & Color Flow Hosp Completed 12/25/2015 48453 EKG, Interpretation Only Completed 11/28/2015 39620 EKG Tracing & Interpretation Completed 11/22/2015 07023 Treadmill Interp/Report Only Completed 11/22/2015 72034 Stress Test Supervsn W/Out I/R Completed 08/09/2015 06899 Treadmill Interp/Report Only Completed 08/09/2015 31807 Stress Test Supervsn W/Out I/R Completed 07/26/2015 95256 Echocardiography, Transesophageal, Real Time W/Image 2D Completed W/W/O M-M 07/26/2015 62407 Pulse Wave/Continuous-Interp.RPT Completed 07/26/2015 44187 Color Flow Doppler/Interp & Reprt Completed 06/30/2015 86752 ECHO Transthoracic, Real-Time 2D With Doppler And Color Completed Flow 06/28/2015 09320 Holter Monitor Review (24 hr)dr review & interp only Completed 06/21/2015 40108 EKG Tracing & Interpretation Completed 09/29/2007 24183 Treadmill Interp/Report Only Completed 09/29/2007 79061 Stress Test Supervsn W/Out I/R Completed 09/29/2007 84329 Stress Test Supervsn W/Out I/R Completed Encounters Type Date Location Provider Dx Diagnosis Office Visit 07/20/2018 [facility] Zehra Storey, I13.0 Hyp hrt & chr kdny 10:30a N.P. 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 I50.23 Acute on chronic systolic (congestive) heart failure I27.20 Pulmonary hypertension, unspecified N18.3 Chronic kidney disease, stage 3 (moderate) R60.9 Edema, unspecified E11.22 Type 2 diabetes mellitus w diabetic chronic kidney disease I48.91 Unspecified atrial fibrillation Office Visit 07/16/2018 10:14a [facility] Hayley I13.0 Hyp hrt & chr [facility] nely Rome dis w hrt Customer Engagement Specialist fail and stg 1-4/unsp chr kdny I50.9 Heart failure, unspecified E11.22 Type 2 diabetes mellitus w diabetic chronic kidney disease N18.3 Chronic kidney disease, stage 3 (moderate) J91.8 Pleural effusion in other conditions classified elsewhere I48.91 Unspecified atrial fibrillation Office Visit 07/16/2018 10:49a [facility] Ev J90 Pleural effusion , Assoc,pc Beto Hernandez, not elsewhere 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 I50.31 Acute diastolic (congestive) heart failure I27.20 Pulmonary hypertension, unspecified E11.22 Type 2 diabetes mellitus w diabetic chronic kidney disease N18.3 Chronic kidney disease, stage 3 (moderate) I48.91 Unspecified atrial fibrillation R60.9 Edema, unspecified R00.1 Bradycardia, unspecified Office Visit 07/15/2018 10:48a [facility] Gia Nannette, J90 Pleural effusion, Assoc,pc LITHOGRAPHIC PRESS OPERATOR not elsewhere 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 classified R00.1 Bradycardia, unspecified R06.00 Dyspnea, unspecified I27.20 Pulmonary hypertension, unspecified R11.0 Nausea E11.8 Type 2 diabetes mellitus with unspecified complications L97.909 Non-prs chronic ulc unsp prt of unsp low leg w unsp severity I48.91 Unspecified atrial fibrillation R60.9 Edema, unspecified G25.81 Restless legs syndrome Office Visit 07/15/2018 12:54p [facility] I13.0 Hyp hrt & chr [facility] nely [place] dis w hrt Customer Engagement Specialist fail and stg 1-4/unsp chr kdny I50.9 Heart failure, unspecified E11.22 Type 2 diabetes mellitus w diabetic chronic kidney disease N18.3 Chronic kidney disease, stage 3 (moderate) J91.8 Pleural effusion in other conditions classified elsewhere I48.91 Unspecified atrial fibrillation 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 D63.1 Anemia in chronic kidney disease Office Visit 07/14/2018 10:48a [facility] Gia Brunson, J90 Pleural effusion, Assoc,pc LITHOGRAPHIC PRESS OPERATOR not elsewhere 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 classified R06.00 Dyspnea, unspecified D64.9 Anemia, unspecified G25.81 Restless legs syndrome I27.20 Pulmonary hypertension, unspecified R11.0 Nausea E11.22 Type 2 diabetes mellitus w diabetic chronic kidney disease N18.3 Chronic kidney disease, stage 3 (moderate) L97.909 Non-prs chronic ulc unsp prt of unsp low leg w unsp severity I48.91 Unspecified atrial fibrillation R60.9 Edema, unspecified Office Visit 07/13/2018 10:48a [facility] Lucy Riddle, R06.00 Dyspnea, Assoc,pc N.P. 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 knee Office Visit 03/11/2018 Chi Jatinder Gamez L97.812 Non-prs chronic ulcer 3:45p [facility] Lauren Mazariegos M.D. oth prt r low leg w fat layer exposed Office Visit 02/25/2018 Orthopedic Frank Nuñez, M17.12 Unilateral primary 9:15a [facility] osteoarthritis, left C.M.A. knee L03.116 Cellulitis of left lower limb Office Visit 12/22/2017 9:40a [facility] Qutaybeh S. I10 Essential Mary Etienne (primary) hypertension I48.2 Chronic atrial fibrillation I34.0 Nonrheumatic mitral (valve) insufficiency I71.9 Aortic aneurysm of unspecified site, without rupture R60.9 Edema, unspecified R94.31 Abnormal electrocardiogram [ECG] [EKG] Office 05/20/2017 [facility] Neto E87.1 Hypo-osmolality and Visit 11:10a Assoc,pc [place], [place] hyponatremia 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 D50.8 Other iron deficiency anemias E11.9 Type 2 diabetes mellitus without complications I10 Essential (primary) hypertension Office Visit 05/17/2017 11:09a [facility] Russ Riddle, D50.8 Other iron Assoc,pc N.P. deficiency 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 anemias E87.1 Hypo-osmolality and hyponatremia E11.9 Type 2 diabetes mellitus without complications I10 Essential (primary) hypertension Office Visit 05/16/2017 [facility] Lucyryanne Riddle, E87.1 Hypo-osmolality and 11:08a Assoc,pc N.P. hyponatremia 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 D50.8 Other iron deficiency anemias E11.9 Type 2 diabetes mellitus without complications I10 Essential (primary) hypertension Office Visit 05/15/2017 [facility] Lucyryanne Riddle, E87.1 Hypo-osmolality and 11:07a Assoc,pc N.P. hyponatremia 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 D50.8 Other iron deficiency anemias E11.9 Type 2 diabetes mellitus without complications I10 Essential (primary) hypertension Office Visit 05/15/2017 Orthopedic Ke Moss, M25.551 Pain in right hip 10:00a [facility] Griffiths Office Visit 04/07/2017 [facility] Niraj CuongJosie I48.2 Chronic atrial 10:00a Cardiology Mary Etienne fibrillation R94.31 Abnormal electrocardiogram [ECG] [EKG] I10 Essential (primary) hypertension I34.0 Nonrheumatic mitral (valve) insufficiency I71.9 Aortic aneurysm of unspecified site, without rupture Office Visit 01/27/2017 11:15a [facility]opedic Frank Nuñez M76.51 Patellar [facility] tendinitis, right C.M.A. knee M76.52 Patellar tendinitis, left knee Office Visit 12/23/2016 10:45a Orthopedic Frank Nuñez, S76.311A Strain [facility] msl/fasc/tnd post C.M.A. grp at [facility] lev, right thigh, init S76.312A Strain of msl/fasc/tnd post grp at [facility] lev, left thigh, init Office Visit 12/17/2016 8:45a W[facility] Care Ehsan Oliveira L97.812 Non-prs chronic [facility] [place], M.D. 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 biceps, right arm, subs Office Visit 11/25/2016 [facility] Care Neema L97.812 Non-prs chronic 4:46p [facility] MARIA EUGENIA Thomas, ulcer oth prt r low RN, GEAR GRINDING MACHINE OPERATOR-BC leg w fat layer exposed E11.622 Type 2 diabetes mellitus with other skin ulcer I87.311 Chronic venous hypertension w ulcer of r low extrem Office Visit 10/21/2016 12:12p Wound Care Neema Thomas, E11.622 Type 2 diabetes [facility] MARIA EUGENIA, RN, GEAR GRINDING MACHINE OPERATOR-BC mellitus with other skin ulcer I87.311 Chronic venous hypertension w ulcer of r low extrem L97.812 Non-prs chronic ulcer oth prt r low leg w fat layer exposed Office Visit 09/30/2016 10:30a [facility] Lucrecia Bliss, I87.311 Chronic venous [place] hypertension w ulcer of r low extrem I48.2 Chronic atrial fibrillation Office Visit 04/29/2016 3:00p [facility] Raymundo Eng L97.812 Non- prs Infectious Mary Platt chronic ulcer Diseases oth prt r low leg w fat layer exposed L03.115 Cellulitis of right lower limb Office Visit 04/26/2016 Surgical Letty S81.801A Unspecified open 8:37a LILY Eden wound, right Customer Engagement Specialist lower leg, initial encounter D64.9 Anemia, unspecified R19.7 Diarrhea, unspecified K92.1 Melena Office Visit 04/26/2016 [facility] Raymundo Eng S81.801A Unspecified open 2:55p For Infectious Mary Platt wound, right Diseases lower leg, initial encounter B96.20 Unsp Escherichia coli as the cause of diseases classd elswhr B97.10 Unsp enterovirus as the cause of diseases classd elswhr I87.2 Venous insufficiency (chronic) (peripheral) Office Visit 04/26/2016 [facility] Alex S81.801A Unspecified open 4:15p Assoc,gerardo Cornejo MD wound, right 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 lower leg, initial encounter D64.9 Anemia, unspecified R19.7 Diarrhea, unspecified Office Visit 04/25/2016 [facility] Letty S81.801A Unspecified open 8:35a [facility] wound, right Customer Engagement Specialist lower leg, initial encounter D64.9 Anemia, unspecified R19.7 Diarrhea, unspecified K92.1 Melena Office Visit 04/25/2016 [facility] Raymundo Eng S81.801A Unspecified open 2:53p For Infectious Mary Platt wound, right Diseases lower leg, initial encounter L03.115 Cellulitis of right lower limb B96.20 Unsp Escherichia coli as the cause of diseases classd elsr B97.10 Unsp enterovirus as the cause of diseases classd elswhr Office Visit 04/25/2016 4:14p [facility] Alex D64.9 Anemia, Assoc,gerardo Cornejo MD unspecified 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 R19.7 Diarrhea, unspecified S81.801A Unspecified open wound, right lower leg, initial encounter K92.1 Melena Office 04/24/2016 [facility] Neto S81.801A Unspecified Visit 4:13p Assgerardo isaac [place] open wound, 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 right lower leg, initial encounter D64.9 Anemia, unspecified R19.7 Diarrhea, unspecified K92.1 Melena Office Visit 04/23/2016 11:00a Orthopedic Camille Schrader, L97.812 Non-prs Services Of Aye BURNS chronic ulcer oth prt r low leg w fat layer exposed S82.034D Nondisp transverse fx r patella, 7thD Office Visit 01/30/2016 10:50a [facility] Micheal Eng L02.612 Cutaneous Infectious Mary Platt abscess of left Diseases foot M86.172 Other acute osteomyelitis, left ankle and foot Office Visit 01/05/2016 2:16p [facility] Miguel Monsalve, R09.02 Hypoxemia Assoc,gerardo Esparza M.D. S29.9xxA Unspecified injury of thorax, initial encounter K74.60 Unspecified cirrhosis of liver E11.59 Type 2 diabetes mellitus with oth circulatory complications Office Visit 01/04/2016 2:15p [facility] Miguel Monsalve, R09.02 Hypoxemia gerardo Taylor 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 Mary S29.9xxA Unspecified injury of thorax, initial encounter K74.60 Unspecified cirrhosis of liver E11.59 Type 2 diabetes mellitus with oth circulatory complications Office Visit 01/03/2016 2:14p [facility] Amanda Bullard, R09.02 Hypoxemia Assocgerardo LITHOGRAPHIC PRESS OPERATOR 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 S29.9xxA Unspecified injury of thorax, initial encounter K74.60 Unspecified cirrhosis of liver E11.59 Type 2 diabetes mellitus with oth circulatory complications Office Visit 12/27/2015 11:53a [facility] Micheal Eng L02.612 Cutaneous Infectious Mary Platt abscess of left Diseases foot M86.171 Other acute osteomyelitis, right ankle and foot I87.2 Venous insufficiency (chronic) (peripheral) Office Visit 12/27/2015 1:48p [facility] Chris Murguia, L08.9 Local infection of gerardo Taylor M.D. the skin and 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 subcutaneous tissue, unsp E11.69 Type 2 diabetes mellitus with other specified complication I48.91 Unspecified atrial fibrillation D50.9 Iron deficiency anemia, unspecified Office Visit 12/26/2015 11:48a [facility] Micheal Eng L02.612 Cutaneous Infectious Himanshu PlattDJosie abscess of left Diseases foot L97.529 Non-pressure chronic ulcer oth prt left foot w unsp severity I87.2 Venous insufficiency (chronic) (peripheral) Office Visit 12/26/2015 1:47p [facility] Chris Murguia, L08.9 Local infection of gerardo Taylor M.D. the skin and 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 subcutaneous tissue, unsp E11.69 Type 2 diabetes mellitus with other specified complication I48.91 Unspecified atrial fibrillation D50.9 Iron deficiency anemia, unspecified Office Visit 12/25/2015 [facility] Sammie Harden L08.9 Local infection 1:46p Assocgerardo NP of the skin and 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 subcutaneous tissue, unsp E11.69 Type 2 diabetes mellitus with other specified complication I48.91 Unspecified atrial fibrillation D50.9 Iron deficiency anemia, unspecified Office Visit 11/28/2015 Herman White I48.2 Chronic atrial 1:00p Cardiology Mary Etienne fibrillation R94.31 Abnormal electrocardiogram [ECG] [EKG] E11.9 Type 2 diabetes mellitus without complications E66.9 Obesity, unspecified I10 Essential (primary) hypertension Q21.1 Atrial septal defect Office 06/21/2015 Herman Hutchins. R94.31 Abnormal Visit 3:00p Cardiology Mary Etienne electrocardiogram [ECG] [EKG] I10 Essential (primary) hypertension E11.9 Type 2 diabetes mellitus without complications E66.9 Obesity, unspecified F10.10 Alcohol abuse, uncomplicated I48.2 Chronic atrial fibrillation R01.1 Cardiac murmur, unspecified Plan of Treatment 09/14/2018 - Frank Nuñez M.D.M17.12 Unilateral primary osteoarthritis, left kneeFollow up:Follow up: As needed Stay active as able with your walker Our dressing can be removed tomorrow and keep that needle site clean. It may turn black and blue
[2018-09-14] MEDS ORDERED: Vancomycin(*) 1,000 MG in NS 0.9% 250 ML* 250 ML IVPB ONE (21:34)
--- OUTSIDE RECORDS SUMMARY | 2018-09-14 21:34 | XMS REPORT | Continuity of Care Document ---
:1945 External Reference #:[id number] Author Name Ehsan Mariscalinne Care Team Providers Name Role Phone Jensen Shaw MD Primary Care Physician Unavailable Payers Type Date Identification Numbers Payment Provider Subscriber Policy Number: [id number] Medicare Silvana Popmp PayID: [id number] [address] [place] [address] Expires: 2018 Policy Number: [id number] Medicare Silvana Popmp PayID: [id number] [address] [place] [address] Policy Number: [id number] [facility] Silvana Valerio PayID: [id number] [address] [place] [address] Advance Directives Description No Information Available Problems Date Description Provider Status Onset: 01/30/2016 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 Tobacco Use Start: Unknown Never Smoked Cigarettes Smoking Status Reviewed: 07/20/18 Never Smoked Cigarettes ETOH Use Denies alcohol use Tobacco Use Start: Unknown Patient has never smoked Recreational Drug Use Denies Drug Use Exercise Type/Frequency Does not exercise Allergies, Adverse Reactions, Alerts Date Description Reaction Status Severity Comments 11/28/2015 Tetracycline Active rash 11/28/2015 Morphine Active vomiting Medications Medication Date Status Form Strength Qnty SIG Indications Ordering Provider Mily 07/20/ Active Tablets 15mg 30tabs 1 by I48.2 Zehra White 2019 mouth Foster, every day N.P. Atenolol / Active Tablets 50mg 1 po tid Unknown 0000 Metformin HCL / Active Tablets 500mg 1 by Unknown 0000 mouth twice a day One Daily 50 / Active Tablets 50Plus 1 po qd Unknown Plus 0000 Iron / Active Tablets 65mg 1 daily Unknown 0000 Vitamin C / Active Capsules 500mg 1 by Unknown 0000 mouth every day Ropinirole HCL / Active Tablets 1mg take 1 Unknown 0000 tablet twice daily Diltiazem HCL / Active Caps ER 120mg take 1 Unknown ER Coated Beads 0000 24HR capsule by mouth once daily Acetaminophen / Active Tablets 325mg 2 tablets Unknown 0000 by mouth every 6 hours as needed for pain/feve r Probiotic / Active Capsules 1 by Unknown 0000 mouth every day Lasix / Active Tablets 20mg 2 tabs by Unknown 0000 mouth in the morning and one tab at noon daily Torsemide 07/20/ Hx Tablets 20mg 90tabs Take 1.5 I50.33 Zehra White 2019 - tab by [place], 07/23/ mouth N.P. 2019 daily Oxycodone HCL 02/25/ Hx Tablets 5mg 14tabs 1/2-1 tab L03.116 Dirk 2017 - by mouth Joaquin, 07/19/ every 12 M.D. 2019 hours as needed Keflex 02/25/ Hx Capsules 500mg 30caps take 1 L03.116 Dirk 2018 - tab by Joaquin, 03/10/ mouth M.D. 2018 three times a day x 10 days Oxycodone-Aceta 03/14/ Hx Tablets 5-325mg 40tabs 1 tablet Brandy minophen 2015 - every Bordoni, 11/11/ 4-6hrs HYDROCHLORIC ACID OPERATOR 2016 prn Bactrim DS 03/14/ Hx Tablets 800-160mg 14tabs take 1 S82.034A Camille 2015 - tab twice MD Macrina 04/29/ a day for 2015 7 days Atacand 00/00/ Hx Tablets 16mg 1 by Unknown 0000 - mouth bid 2017 Cipro 00/00/ Hx Tablets 250mg 1 po qd Unknown 0000 - 2014 Cymbalta 00/ Hx Caps DR 60mg 1 by Unknown 0000 - Part mouth 01/28/ every day 2015 Diltiazem CD / Hx Caps ER 120mg 1 by Unknown 0000 - 24HR mouth 01/07/ every day 2015 Furosemide 00/ Hx Tablets 20mg 2 by Unknown 0000 - mouth in 07/20/ the 2019 morning and 1 tab at noon daily Tramadol HCL / Hx Tablets 50mg 1 po qd Unknown 0000 - prn for 11/25/ severe 2016 pain Xarelto 00/ Hx Tablets 20mg 1 by Unknown 0000 - mouth 07/20/ once day 2018 Oxycodone-Aceta / Hx 1 tablet Unknown minophen 0000 - every 4-6hrs 2016 prn Sulfamethoxazol /00/ Hx Tablets 800-160mg 56tabs take 1 Unknown e/Trimethoprim 0000 - tablet by DS mouth 2015 twice a day Metronidazole 00/ Hx Tablets 500mg 56tabs take 1 Unknown 0000 - tablet by 01/28/ mouth 2015 twice a day Cipro XR 00/ Hx Tablets ER 500mg 1 by Unknown 0000 - 24HR mouth twice a 2016 day Cartia XT 00/ Hx Caps ER 120mg 1 by Unknown 0000 - 24HR mouth every day 2017 Ibuprofen 200 00/ Hx Tablets 200mg 400-600mg Unknown 0000 every 6 hours as needed for pain. Keflex 00/ Hx Capsules 500mg take 1 L03.116 Unknown 0000 - tab by mouth 2018 four times a day Gentamicin /00/ Hx Ointment 0.1% Unknown Sulfate 0000 - 2018 Sulfamethoxazol /00/ Hx Tablets 800-160mg Unknown e/Trimethoprim 0000 - DS 2018 Medications Administered in Office Medication Date Status Form Strength Qnty SIG Indications Ordering Provider Depomedrol Administered Injection Dirk Joaquin, 40MG 018 M.D. Immunizations Description No Information Available Vital Signs Date Vital Result Comment 07/20/2018 10:43am Height 67 inches 5'7" Weight [...] Information Available Procedures Date Code Description Status 05/18/2018 53987 ECHO Transthoracic, Real-Time 2D With Doppler And Color Completed Flow 05/18/2018 17686 ECHO Transthoracic, Real-Time 2D With Doppler And Color Completed Flow 04/13/2018 45130 Removal Devitalization Tissue Wound Less Than Equal 20 Completed Square CM 02/25/2018 28856 Inject/Drain Joint/Bursa Major W/O US Completed 12/22/2017 24054 EKG Tracing & Interpretation Completed 05/15/2017 40445 EKG, Interpretation Only Completed 04/07/2017 33603 EKG Tracing & Interpretation Completed 03/31/2017 18943 ECHO Transthoracic, Real-Time 2D With Doppler And Color Completed Flow 11/14/2016 13947 Closed trtmt humeral shaft fx Completed 09/30/2016 60455 EKG Tracing & Interpretation Completed 07/18/2016 68692 Removal Devitalization Tissue Wound Less Than Equal 20 Completed Square CM 07/18/2016 48520 Debridement Muscle/Fascia,Epidermis/Dermis/Tissue,1St 20 Completed SQ CM 07/18/2016 16628 Debridement Skin,& sq Tissue Completed 04/24/2016 51214 I&D deep abscess,bursa or hematoma thigh or knee region Completed 04/04/2016 84050 Removal Devitalized Tissue Wound Greater Than 20 Square CM Completed 04/04/2016 62759 Removal Devitalization Tissue Wound Less Than Equal 20 Completed Square CM 03/14/2016 56838 FX Patella Care Completed 01/18/2016 88161 Removal Devitalization Tissue Wound Less Than Equal 20 Completed Square CM 01/04/2016 51565 ECHO Transthorasic Realtime 2D W Doppler & Color Flow Hosp Completed 12/25/2015 43406 EKG, Interpretation Only Completed 11/28/2015 92009 EKG Tracing & Interpretation Completed 11/22/2015 10532 Treadmill Interp/Report Only Completed 11/22/2015 23438 Stress Test Supervsn W/Out I/R Completed 08/09/2015 45031 Treadmill Interp/Report Only Completed 08/09/2015 27628 Stress Test Supervsn W/Out I/R Completed 07/26/2015 54357 Echocardiography, Transesophageal, Real Time W/Image 2D Completed W/W/O M-M 07/26/2015 31132 Pulse Wave/Continuous-Interp.RPT Completed 07/26/2015 53642 Color Flow Doppler/Interp & Reprt Completed 06/30/2015 17256 ECHO Transthoracic, Real-Time 2D With Doppler And Color Completed Flow 06/28/2015 82984 Holter Monitor Review (24 hr)dr review & interp only Completed 06/21/2015 52896 EKG Tracing & Interpretation Completed 09/29/2007 19867 Treadmill Interp/Report Only Completed 09/29/2007 64135 Stress Test Supervsn W/Out I/R Completed 09/29/2007 38594 Stress Test Supervsn W/Out I/R Completed Encounters Type Date Location Provider Dx Diagnosis Office Visit 07/20/2018 [facility] Zehra Storey, I13.0 Hyp hrt & chr kdny 10:30a N.P. dis w hrt fail and stg 1-4/unsp chr kdny I50.33 Acute on chronic diastolic (congestive) heart failure I71.9 Aortic aneurysm of unspecified site, without rupture I48.2 Chronic atrial fibrillation N18.9 Chronic kidney disease, unspecified Office Visit 07/17/2018 10:49a [facility] Ev J90 Pleural effusion , Assoc,[facility], not elsewhere 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 HYDROCHLORIC ACID OPERATOR classified I50.23 Acute on chronic systolic (congestive) heart failure I27.20 Pulmonary hypertension, unspecified N18.3 Chronic kidney disease, stage 3 (moderate) R60.9 Edema, unspecified E11.22 Type 2 diabetes mellitus w diabetic chronic kidney disease I48.91 Unspecified atrial fibrillation Office Visit 07/16/2018 10:14a [facility] Hayley I13.0 Hyp hrt & chr [facility] nely Rome dis w hrt Skiver Machine fail and stg 1-4/unsp chr kdny I50.9 Heart failure, unspecified E11.22 Type 2 diabetes mellitus w diabetic chronic kidney disease N18.3 Chronic kidney disease, stage 3 (moderate) J91.8 Pleural effusion in other conditions classified elsewhere I48.91 Unspecified atrial fibrillation [facility] , [facility], not elsewhere 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 HYDROCHLORIC ACID OPERATOR classified I50.31 Acute diastolic (congestive) heart failure I27.20 Pulmonary hypertension, unspecified E11.22 Type 2 diabetes mellitus w diabetic chronic kidney disease N18.3 Chronic kidney disease, stage 3 (moderate) I48.91 Unspecified atrial fibrillation R60.9 Edema, unspecified R00.1 Bradycardia, unspecified Office Visit 07/15/2018 10:48a [facility] Gia Nannette, J90 Pleural effusion, Assoc,pc HYDROCHLORIC ACID OPERATOR not elsewhere 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 classified R00.1 Bradycardia, [...] Of MD nely Rome dis w hrt Skiver Machine fail and stg 1-4/unsp chr nely I50.9 Heart failure, unspecified E11.22 Type 2 diabetes mellitus w diabetic chronic kidney disease N18.3 Chronic kidney disease, stage 3 (moderate) J91.8 Pleural effusion in other conditions classified elsewhere I48.91 Unspecified atrial fibrillation 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 D63.1 Anemia in chronic kidney disease Office Visit 07/14/2018 10:48a [facility] Gia Nannette, J90 Pleural effusion, Assoc,pc HYDROCHLORIC ACID OPERATOR not elsewhere 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 classified R06.00 Dyspnea, unspecified D64.9 Anemia, unspecified G25.81 Restless legs syndrome I27.20 Pulmonary hypertension, unspecified R11.0 Nausea E11.22 Type 2 diabetes mellitus w diabetic chronic kidney disease N18.3 Chronic kidney disease, stage 3 (moderate) L97.909 Non-prs chronic ulc unsp prt of unsp low leg w unsp severity I48.91 Unspecified atrial fibrillation R60.9 Edema, unspecified Office Visit 07/13/2018 10:48a [facility] Lucy Riddle, R06.00 Dyspnea, Assoc,pc N.P. 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 knee Office Visit 03/11/2018 [facility] Bebeto Gamez L97.812 Non-prs chronic ulcer 3:45p Medicine Of Lauren Mazariegos M.D. oth prt r low leg w fat layer exposed Office Visit 02/25/2018 Orthopedic Frank Nuñez, M17.12 Unilateral primary 9:15a [facility] osteoarthritis, left C.M.A. knee L03.116 Cellulitis of left lower limb Office Visit 12/22/2017 9:40a [facility] Qutaybeh S. I10 Essential Mary Etienne (primary) hypertension I48.2 Chronic atrial fibrillation I34.0 Nonrheumatic mitral (valve) insufficiency I71.9 Aortic aneurysm of unspecified site, without rupture R60.9 Edema, unspecified R94.31 Abnormal electrocardiogram [ECG] [EKG] Office 05/20/2017 [facility] Neto E87.1 Hypo-osmolality and Visit 11:10a Assoc,pc LILY Garcia hyponatremia 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 D50.8 Other iron deficiency anemias E11.9 Type 2 diabetes mellitus without complications I10 Essential (primary) hypertension Office Visit 05/17/2017 11:09a [facility] Lucy Riddle D50.8 Other iron Assoc,pc N.P. deficiency 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 anemias E87.1 Hypo-osmolality and hyponatremia E11.9 Type 2 diabetes mellitus without complications I10 Essential (primary) hypertension Office Visit 05/16/2017 [facility] Lucy Riddle E87.1 Hypo-osmolality and 11:08a Assoc,pc N.P. hyponatremia 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 D50.8 Other iron deficiency anemias E11.9 Type 2 diabetes mellitus without complications I10 Essential (primary) hypertension Office Visit 05/15/2017 [facility] Lucy Riddle E87.1 Hypo-osmolality and 11:07a Assoc,pc N.P. hyponatremia 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 D50.8 Other iron deficiency anemias E11.9 Type 2 diabetes mellitus without complications I10 Essential (primary) hypertension Office Visit 05/15/2017 Orthopedic Ke Moss, M25.551 Pain in right hip 10:00a Services Of MD C.M.A. Office Visit 04/07/2017 Herman White I48.2 Chronic atrial 10:00a Cardiology Mary Etienne [...] Of Mary msl/fasc/tnd post C.M.A. grp at [facility], right thigh, init S76.312A Strain of msl/fasc/tnd post grp at [facility], left thigh, init Office Visit 12/17/2016 8:45a Wound Care Ehsan Oliveira L97.812 Non-prs chronic Center AT [facility] Mary Zapata ulcer oth prt r low leg w [...] subs Office Visit 11/25/2016 Wound Care Neema Walters7.812 Non-prs chronic 4:46p Center AT [facility] MARIA EUGENIA Thomas, ulcer oth prt r low RN, JAY-SEFERINO leg w fat layer exposed E11.622 Type 2 diabetes mellitus with other skin ulcer I87.311 Chronic venous hypertension w ulcer of r low extrem Office Visit 10/21/2016 12:12p Wound Care Neema Thomas, E11.622 Type 2 diabetes Center AT [facility] MARIA EUGENIA RN, JAY-SEFERINO mellitus with other skin ulcer I87.311 Chronic venous hypertension w ulcer of r low extrem L97.812 Non-prs chronic ulcer oth prt r low leg w fat layer exposed Office Visit 09/30/2016 10:30a [facility] Lucrecia Bliss, I87.311 Chronic venous PA hypertension w ulcer of r low extrem I48.2 Chronic atrial fibrillation Office Visit 04/29/2016 3:00p [facility] Micheal Eng L97.812 Non- prs Infectious Mary Platt chronic ulcer Diseases oth prt r low leg w fat layer exposed L03.115 Cellulitis of right lower limb Office Visit 04/26/2016 Surgical Letty S81.801A Unspecified open 8:37a [facility] LILY Bledsoe wound, right Skiver Machine lower leg, initial encounter D64.9 Anemia, unspecified R19.7 Diarrhea, unspecified K92.1 Melena Office Visit 04/26/2016 [facility] Raymundo Eng S81.801A Unspecified open 2:55p For Infectious Mary Platt wound, right Diseases lower leg, initial encounter B96.20 Unsp Escherichia coli as the cause of diseases classd elswhr B97.10 Unsp enterovirus as the cause of diseases classd elsr I87.2 Venous insufficiency (chronic) (peripheral) [facility] Unspecified open 4:15p Assoc,gerardo Cornejo MD wound, right 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 lower leg, initial encounter D64.9 Anemia, unspecified R19.7 Diarrhea, unspecified Office Visit 04/25/2016 Surgical Letty S81.801A Unspecified open 8:35a [facility] LILY Bledsoe wound, right Skiver Machine lower leg, initial encounter D64.9 Anemia, unspecified R19.7 Diarrhea, unspecified K92.1 Melena Office Visit 04/25/2016 [facility] Raymundo Eng S81.801A Unspecified open 2:53p For Infectious Mary Platt wound, right Diseases lower leg, initial encounter L03.115 Cellulitis of right lower limb B96.20 Unsp Escherichia coli as the cause of diseases classd elswhr B97.10 Unsp enterovirus as the cause of diseases classd elswhr Office Visit 04/25/2016 4:14p [facility] Alex D64.9 Anemia, Assoc,gerardo Cornejo MD unspecified 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 R19.7 Diarrhea, unspecified S81.801A Unspecified open wound, right lower leg, initial encounter K92.1 Melena Office 04/24/2016 [facility] Neto S81.801A Unspecified Visit 4:13p Assoc,LILY Valdivia open wound, 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 right lower leg, initial encounter D64.9 Anemia, unspecified R19.7 Diarrhea, unspecified K92.1 Melena Office Visit 04/23/2016 11:00a Orthopedic Camille Schrader, L97.812 Non-prs Services Of Aye BURNS chronic ulcer oth prt r low leg w fat layer exposed S82.034D Nondisp transverse fx r patella, 7thD Office Visit 01/30/2016 10:50a [facility] Micheal Eng L02.612 Cutaneous Infectious Mary Platt abscess of left Diseases foot M86.172 Other acute osteomyelitis, left ankle and foot Office [facility]/05[facility]2016 [facility] R09.02 Hypoxemia Assponcho Vilma Hernandez S29.9xxA Unspecified injury of thorax, initial encounter K74.60 Unspecified cirrhosis of liver E11.59 Type 2 diabetes mellitus with oth circulatory complications Office Visit 01/04/2016 2:15p [facility] Miguel Monsalve, R09.02 Hypoxemia gerardo Taylor M.D. S29.9xxA Unspecified injury of thorax, initial encounter K74.60 Unspecified cirrhosis of liver E11.59 Type 2 diabetes mellitus with oth circulatory complications [facility] Hypoxemia Assoc, HYDROCHLORIC ACID OPERATOR 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 S29.9xxA Unspecified injury of thorax, initial encounter K74.60 Unspecified cirrhosis of liver E11.59 Type 2 diabetes mellitus with oth circulatory complications Office Visit 12/27/2015 11:53a [facility] Micheal Eng L02.612 Cutaneous Infectious Mary Platt abscess of left Diseases foot M86.171 Other acute osteomyelitis, right ankle and foot I87.2 Venous insufficiency (chronic) (peripheral) Office Visit 12/27/2015 1:48p [facility] Chris Murguia, L08.9 Local infection of gerardo Taylor M.D. the skin and 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 subcutaneous tissue, unsp E11.69 Type 2 diabetes mellitus with other specified complication I48.91 Unspecified atrial fibrillation D50.9 Iron deficiency anemia, unspecified Office Visit 12/26/2015 11:48a [facility] Raymundo Eng L02.612 Cutaneous Infectious Mary Platt abscess of left Diseases foot L97.529 Non-pressure chronic ulcer oth prt left foot w unsp severity I87.2 Venous insufficiency (chronic) (peripheral) Office Visit 12/26/2015 1:47p [facility] Chris Murguia, L08.9 Local infection of gerardo Taylor M.D. the skin and 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 subcutaneous tissue, unsp E11.69 Type 2 diabetes mellitus with other specified complication I48.91 Unspecified atrial fibrillation D50.9 Iron deficiency anemia, unspecified Office Visit 12/25/2015 [facility] Sammie Harden L08.9 Local infection 1:46p Assgerardo iasac NP of the skin and 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 subcutaneous tissue, unsp E11.69 Type 2 diabetes mellitus with other specified complication I48.91 Unspecified atrial fibrillation D50.9 Iron deficiency anemia, unspecified Office Visit 11/28/2015 [facility] [place] S. I48.2 Chronic atrial 1:00p Baylee Etienne M.D. fibrillation R94.31 Abnormal electrocardiogram [ECG] [EKG] E11.9 Type 2 diabetes mellitus without complications E66.9 Obesity, unspecified I10 Essential (primary) hypertension Q21.1 Atrial septal defect Office 06/21/2015 [facility] Qujean-pierreybeh S. R94.31 Abnormal Visit 3:00p Baylee Etienne M.D. electrocardiogram [ECG] [EKG] I10 Essential (primary) hypertension E11.9 Type 2 diabetes mellitus without complications E66.9 Obesity, unspecified F10.10 Alcohol abuse, uncomplicated I48.2 Chronic atrial fibrillation R01.1 Cardiac murmur, unspecified Plan of Treatment 07/20/2018 - Zehra Storey, N.P.I13.0 Hypertensive heart and chronic kidney disease with heart faiI50.33 and stage 1 through stage 4 chronic kidney disease , or unspeNew Medication:Torsemide 20 mg - Take 1.5 tab by mouth dailyFollow up: OV SF 3-4 weeks OV QSM 6moRecommendations:STOP Lasix Start Torsemide 1.5tabs ( 20mg) daily Repeat lab work in 2 weeks. Check weights daily andcall if > 2- 3lb weight gain.I71.9 d chronic kidney wrpzkmwT32.2 Chronic atrial fibrillationNew Medication:Xarelto 15 mg - 1 by mouth every dayN18.9 Chronic kidney disease, unspecified
[2018-09-14] MEDS ORDERED: NS 0.9% 1000 ML** 1,000 ML IV ONE ×2 (21:35→22:40)
[2018-09-14] MEDS ORDERED: fentaNYL* 50 MCG/ML 2 ML VIAL (100 MCG VIAL) IV SLOW PU ONE (21:35)
[2018-09-14] MEDS ORDERED: Ondansetron INJ* 2 MG/ML VIAL IV ONE (21:36)
[2018-09-14 21:59] LABS: ABS Basophils 0 10^3/ul (0-0.2); ABS Eosinophils 0 10^3/ul (0-0.6); ABS Lymphocytes 0.4 10^3/ul (1.0-4.8); ABS Monocytes 0.1 10^3/ul (0-0.8); ABS Neutrophils 6.7 10^3/ul (1.5-7.7); ABS Nucleated RBC 0 10^3/ul; Eosinophil % 0.1 %; Hematocrit 25 % (35-47); Hemoglobin 8.1 g/dl (12.0-16.0); Mean Corpuscular HGB Conc 32 g/dl (31-36); Mean Corpuscular Hemoglobin 28 pg (27-31); Mean Corpuscular Volume 86 fL (80-97); Mean Platelet Volume 6.4 fL (7.4-10.4); Nucleated Red Blood Cells % 0; Platelet Count 182 10^3/ul (150-450); Red Blood Count 2.93 10^6/ul (4.00-5.40); Red Cell Distribution Width 18 % (10.5-15); White Blood Count 7.1 10^3/ul (3.5-10.8)
[2018-09-14 22:09] LABS: Activated Partial Thrombo Time 40.2 seconds (26.0-36.3); INR 1.56 (0.77-1.02)
[2018-09-14 22:11] LABS: ALT 14 U/L (7-52); AST 29 U/L (13-39); Albumin/Globulin Ratio 1.3 (1-3); Alkaline Phosphatase 75 U/L (34-104); BUN/Creatinine Ratio 47.6 (8-20); Blood Urea Nitrogen 88 mg/dL (6-24); CO2 Carbon Dioxide 23 mmol/L (22-32); Calcium 9.6 mg/dL (8.6-10.3); Chloride 96 mmol/L (101-111); EGFR African American 32.2 (>60); EGFR Non-African American 26.6 (>60); Globulin 3.1 g/dL (2-4); Glucose 319 mg/dL (70-100); Sodium 129 mmol/L (135-145); Total Protein 7.1 g/dL (6.4-8.9)
[2018-09-14 22:36] LABS: Anion Gap 10 mmol/L (2-11); Potassium 6.1 mmol/L (3.5-5.0)
[2018-09-14] MEDS ORDERED: Sodium Bicarbonate 8.4%* 50 ML SYRINGE IV ONE (22:40)
[2018-09-14] MEDS ORDERED: Calcium Gluconate INJ* 1 GM in NS 0.9% 50 ML* 50 ML IVPB ONE (22:40)
[2018-09-14] MEDS ORDERED: Dextrose 50% Syringe 50 ML* 25 GM/50 ML SYRINGE IV PUSH ONE (22:41)
[2018-09-14] MEDS ORDERED: Insulin REGULAR(*) 1 UNITS UNIT IV PUSH ONE (22:41)
[2018-09-14] MEDS ORDERED: NS 0.9% 50 ML* 50 ML ONE (22:57)
[2018-09-14] MEDS ORDERED: Ondansetron INJ* 2 MG/ML VIAL IV PRN (23:51)
[2018-09-14] MEDS ORDERED: Docusate CAP* 100 MG PO PRN (23:51)
[2018-09-14] MEDS ORDERED: Acetaminophen TAB* 325 MG PO PRN (23:51)
[2018-09-14] MEDS ORDERED: Al Hydrox/Mg Hydrox/Simet LIQ* 30 ML UDC PO PRN (23:51)
[2018-09-14] MEDS ORDERED: Senna TAB PO PRN (23:51)
[2018-09-15] MEDS ORDERED: Insulin GLARGINE(*) 1 UNITS UNIT SUBCUT ONE (00:12)
[2018-09-15] MEDS ORDERED: Dextrose 50% Syringe 50 ML* 25 GM/50 ML SYRINGE IV PUSH PRN (00:12)
[2018-09-15] MEDS ORDERED: fentaNYL* 50 MCG/ML 2 ML VIAL (100 MCG VIAL) IV SLOW PU ONE (00:22)
[2018-09-15 00:35] LABS: % Iron Saturation 8 % (15-55); Iron 35 ug/dL (50-212); Total Iron Binding Capacity 458 mcg/dL (250-450); Transferrin 327 mg/dL (203-362)
[2018-09-15 00:55] LABS: Ferritin 44.9 ng/mL (11-307)
[2018-09-15] MEDS ORDERED: Clindamycin CAP* 150 MG PO SCH (01:00)
[2018-09-15] MEDS ORDERED: Atenolol TAB* 50 MG PO SCH ×2 (01:00→04:00)
[2018-09-15 01:33] LABS: Urine Appearance Clear; Urine Bacteria Absent (Absent); Urine Bilirubin Negative (Negative); Urine Blood 1+ (Negative); Urine Color Yellow; Urine Glucose 1+(50 mg/dL) (Negative); Urine Ketones Negative (Negative); Urine Nitrite Negative (Negative); Urine Protein Negative (Negative); Urine Red Blood Cell 2+(6-10/hpf) (Absent); Urine Specific Gravity 1.013 (1.010-1.030); Urine Squamous Epithelial Cell Present (Absent); Urine Urobilinogen Negative (Negative); Urine White Blood Cell Trace(0-5/hpf) (Absent)
--- NOTE | 2018-09-15 01:48 | HP ---
CC: Dr. Jensen Shaw * HISTORY AND PHYSICAL: DATE OF ADMISSION: 09/14/18 TIME OF EVALUATION: 2330 PRIMARY CARE PHYSICIAN: Jensen Shaw MD CHIEF COMPLAINT: Left lower extremity pain. HISTORY OF PRESENT ILLNESS: This is a 72-year-old female with past medical history of atrial fibrillation, on anticoagulation, and chronic lower extremity wounds, on antibiotics, who went into get her left knee injected by Dr. Nuñez. She said it was swollen. He aspirated fluid out. He said it did not appear need to be tested because it was clear, and he also put a steroid injection and her knee felt better. The swelling went down dramatically. Her [facility] nurses that come in 3 times a week came in today. She was noticing some stinging from the honey adhesives were placed on her wounds, so she asked them to replace it. They replaced it with black silver on it. She has never had black adhesive on her wounds before, and shortly thereafter, she developed acute unbearable pain at the site where the black silver was. She is also stated that last week she was on clindamycin and then they switched her over to what sounds like cephalexin and she was having some vomiting episodes last week. They switched her back on to clindamycin and she has been tolerating that okay. She also states that she was taking gabapentin, she started that 4 days ago. She noticed this morning she was dizzy and weak and she did not take her dose. She also states she started eating bananas again; over the past 10 days, she started this new change in her diet. She states normally her sugars are always in the 120s. They have never been as high as 300. She denies any diarrhea. She states she does have black stools, but she takes iron. No fevers, no chills , no chest pain, no shortness of breath, no recent falls. Otherwise review of systems is negative. In the emergency room, the patient had labs and EKG. She was found to be hyperkalemic. She was given vancomycin, 1 L of fluid, sodium bicarb, Zofran, regular insulin, fentanyl, 25 g of D50, and calcium gluconate and referred to the hospitalist service for further evaluation. PAST MEDICAL HISTORY: 1. Atrial fibrillation, on anticoagulation. 2. History of anemia. 3. History of chronic wounds, followed at the wound care clinic, on antibiotics. 4. Restless legs syndrome. 5. Diabetes. 6. CKD, stage 3. 7. History of pulmonary hypertension. 8. Chronic lymphedema. 9. Chronic pleural effusion. MEDICATIONS: Med reconciliation, this needs to be updated. The patient states she takes: 1. Xarelto daily. 2. Clindamycin 150 mg p.o. t.i.d. 3. Diltiazem XR 120 mg daily. 4. Atenolol 50 mg p.o. b.i.d. 5. Metformin b.i.d. 6. Requip as needed. 7. Ferrous sulfate daily. 8. She just stopped the gabapentin as it was causing her to have dizziness and weakness. ALLERGIES: CIPROFLOXACIN, MORPHINE, and TETRACYCLINE. FAMILY HISTORY: Reviewed and noncontributory. SOCIAL HISTORY: The patient lives alone. She is independent of her ADLs. No tobacco, alcohol, or illicit drug use. 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 Her 2 sons are her healthcare proxy. Code status is full code. REVIEW OF SYSTEMS: A 14-point review of systems as mentioned in the HPI, otherwise negative. PHYSICAL EXAMINATION GENERAL: No acute distress, resting comfortably. VITAL SIGNS: Temp is 99, pulse rate is 81, respiratory rate 18, oxygen saturation 94% on room air, and blood pressure 153/97. HEENT: Head normocephalic. Pupils equal and reactive, anicteric. Oropharynx: Mucous membranes moist. NECK: Supple. No lymphadenopathy. RESPIRATORY: Diminished breath sounds. No wheezes, rhonchi, or rales. CARDIAC: Irregular rate and rhythm. Soft systolic murmur heard throughout. ABDOMEN: Soft, nontender, nondistended. EXTREMITIES: The patient with some left lower extremity edema. She has black silver adhesive to 3 of her lower extremity wounds. Once that was removed, her pain improved. She has chronic wounds on her left lower extremity that appear to be healing well. Some mild erythema. Distant pulses. NEUROLOGIC: Alert and oriented x3. No gross focal neurologic deficits. DIAGNOSTIC STUDIES/LAB DATA: White count 7.1, hemoglobin 8.1, hematocrit 25, platelets 182. INR is 1.56. Sodium 129, potassium 6.1, chloride 96, bicarb 23 , BUN 88, creatinine 1.85, glucose 319, lactic acid 2.6, calcium 9.6. CRP is 4.6. EKG shows AFib with no peak T waves. ASSESSMENT: This is a 72-year-old female with past medical history of chronic lower extremity wounds, on antibiotics, who presents to the emergency room with left lower extremity pain, found to have metabolic derangements. 1. Lower extremity pain. Assessment: Her pain seemed to dramatically improved when I removed the black silver adhesive on her lower extremity. I suspect she was developing an adverse reaction of contact dermatitis from the black silver. I do no think that this is a worsening cellulitis. She is already on clindamycin. She does not have a white count. Her CRP is unremarkable. Plan: Patient should have BLACK SILVER ADHESIVE as an allergy and will have wound care evaluate her to recommend further recommendations and continue her on the clindamycin 150 mg p.o. t.i.d. 2. Metabolic derangement. The patient with hyperkalemia and acute on chronic kidney injury. Assessment: I suspect that the patient with her vomiting last week became a little dry. There was also concern for new onset anemia, so she may be volume depleted from this as well. Does not appear to have any medications contributing to her hyperkalemia. She may have been over diuresed in the setting of volume depletion worsening her renal failure. Plan: We will give her gentle fluids overnight. We will hold her Lasix for now, resume when her renal function stabilizes. Give a dose of patiromer. 3. Anemia. Appears to be a drop in her H and H from her prior admission back in 2018, although she does have a history of anemia, but she did have a GI bleed at one point as well. She is on Xarelto. She does have black stools but states they are brown on the inside. Plan: We will Hemoccult her stool and check H and H in the morning. We will hold her Xarelto for now. If her H and H is stable, then we will resume it in the morning. 4. Hyperglycemia. Assessment: Likely related to the steroid injection she received earlier today. We will give her 1 dose of Lantus as she states she normally has well controlled glucose in the 120s and place her on a lispro sliding scale. If she stays for another night and her glucose still remain elevated, consider continuing the Lantus. 5. FEN. We will continue on a diabetic diet. 6. DVT prophylaxis. Patient scores high risk. She took a dose of Xarelto. We will follow up on her cell counts, and if her H and H is stable then recommend resuming her Xarelto in the morning. 7. Code status: Full code. PATIENT TIME: Greater than 50 minutes spent doing this history and physical, more than half the time spent in direct patient contact. [id number]/[facility] #: [id number] JUANJOSE
[2018-09-15] MEDS ORDERED: Patiromer POWDER* 8.4 GM PAK PO ONE (04:00)
[2018-09-15] MEDS ORDERED: oxyCODONE/Acetamin 5/325 MG* TAB PO PRN (04:46)
[2018-09-15] MEDS: Clindamycin CAP* 150 MG PO SCH ×4 (04:48→22:40)
[2018-09-15 07:07] LABS: ABS Basophils 0 10^3/ul (0-0.2); ABS Eosinophils 0 10^3/ul (0-0.6); ABS Lymphocytes 0.6 10^3/ul (1.0-4.8); ABS Monocytes 0.3 10^3/ul (0-0.8); ABS Nucleated RBC 0 10^3/ul; Eosinophil % 0 %; Hematocrit 25 % (35-47); Hemoglobin 8.2 g/dl (12.0-16.0); Mean Corpuscular HGB Conc 32 g/dl (31-36); Mean Corpuscular Hemoglobin 28 pg (27-31); Mean Corpuscular Volume 87 fL (80-97); Mean Platelet Volume 7.5 fL (7.4-10.4); Nucleated Red Blood Cells % 0; Platelet Count 197 10^3/ul (150-450); Red Blood Count 2.91 10^6/ul (4.00-5.40); Red Cell Distribution Width 18 % (10.5-15); White Blood Count 9.9 10^3/ul (3.5-10.8)
[2018-09-15 07:19] LABS: Calcium 9.3 mg/dL (8.6-10.3); Potassium 5.7 mmol/L (3.5-5.0)
[2018-09-15] MEDS: NS 0.9% 1000 ML** 1,000 ML IV SCH ×2 (07:20→16:42)
[2018-09-15 07:24] LABS: BUN/Creatinine Ratio 50.6 (8-20); EGFR African American 39.3 (>60); EGFR Non-African American 32.4 (>60)
[2018-09-15] MEDS: Diltiazem CD CAP* 120 MG PO SCH (09:45)
[2018-09-15] MEDS: Insulin LISPRO* 1 UNITS UNIT SUBCUT SCH ×4 (09:45→17:47)
[2018-09-15] MEDS: Ferrous Sulfate TAB* 325 MG PO SCH (09:45)
[2018-09-15] MEDS ORDERED: oxyCODONE/Acetamin 5/325 MG* TAB ONE (09:51)
[2018-09-15] MEDS: oxyCODONE/Acetamin 5/325 MG* TAB PO PRN ×4 (09:52→22:39)
--- NOTE | 2018-09-15 11:31 | PN ---
Subjective Date of Service: 09/15/18 Interval History: Patient resting in bed on assessment. Reports left lower inner leg pain is intermittent and intense. She reports this has been going since Jun when she was carried out of her house by ems in a sheet due to a nose bleed. Reports pain become more intense prior to presenting to ED when wounds were being dressed. Denies dizziness, nausea, vomiting, cp, palpitations, sob. Received update from nursing that later in the day patient was on room air and oxygenating well. When she was assisted up to commode she was noted to be short of breath and O2 saturation dipped to 80s, therefore, supplemental oxygen reapplied. Objective Active Medications: Acetaminophen (Tylenol Tab*) 650 mg PO Q4H PRN PRN Reason: FEVER/PAIN Al Hydrox/Mg Hydrox/Simethicone (Maalox Plus*) 30 ml PO Q6H PRN PRN Reason: INDIGESTION Atenolol (Tenormin Tab*) 50 mg PO DAILY [facility] Last Admin: 09/15/18 04:48 Dose: 50 mg Clindamycin HCl (Cleocin Cap*) 150 mg PO Q8HR [facility] Last Admin: 09/15/18 05:30 Dose: 150 mg Dextrose (D50w Syringe 50 Ml*) 12.5 gm IV PUSH .FOR FS < 60 - SS PRN PRN Reason: FS < 60 Diltiazem HCl (Cardizem Cd Cap*) 120 mg PO DAILY [facility] Last Admin: 09/15/18 09:45 Dose: 120 mg Docusate Sodium (Colace Cap*) 100 mg PO BID PRN PRN Reason: CONSTIPATION Ferrous Sulfate (Ferrous Sulfate Tab*) 325 mg PO DAILY [facility] Last Admin: 09/15/18 09:45 Dose: 325 mg Sodium Chloride (Ns 0.9% 1000 Ml) 1,000 mls @ 100 mls/hr IV PER RATE [facility] Last Admin: 09/15/18 07:20 Dose: 100 mls/hr Insulin Human Lispro (Humalog*) 0 units [facility]BCUT [facility]; Protocol Last Admin: 09/15/18 09:45 Dose: 2 unit Ondansetron HCl (Zofran Inj*) 4 mg IV Q4H PRN PRN Reason: NAUSEA/VOMITING Oxycodone/Acetaminophen (Percocet 5/325 Tab*) 1 tab PO Q4H PRN PRN Reason: PAIN Last Admin: 09/15/18 09:52 Dose: 1 tab Senna (Senokot Tab*) 1 tab PO BID PRN PRN Reason: CONSTIPATION Vital Signs - 8 hr 09/15/18 09/15/18 09/15/18 04:30 04:35 04:36 Temperature 97.8 F 97.8 F Pulse Rate 78 93 Respiratory 20 20 22 Rate Blood Pressure 148/92 148/92 (mmHg) O2 Sat by Pulse 96 100 Oximetry 09/15/18 09/15/18 09/15/18 05:29 07:45 07:49 Temperature 98.0 F Pulse Rate 78 Respiratory 20 20 20 Rate Blood Pressure 144/98 (mmHg) O2 Sat by Pulse 100 Oximetry 09/15/18 09:52 Temperature Pulse Rate Respiratory 20 Rate Blood Pressure (mmHg) O2 Sat by Pulse Oximetry Oxygen Devices in Use Now: None Appearance: NAD Eyes: No Scleral Icterus Ears/Nose/Mouth/Throat: Clear Oropharnyx, Mucous Membranes Moist Neck: NL Appearance and Movements; NL JVP Respiratory: Symmetrical Chest Expansion and Respiratory Effort, Clear to Auscultation Cardiovascular: NL Sounds; No Murmurs; No JVD, RRR, - - Trace bilateral LE edema Abdominal: NL Sounds; No Tenderness; No Distention Lymphatic: No Cervical Adenopathy Extremities: No Clubbing, Cyanosis Skin: - - Bilateral leg wounds. See wound care note Neurological: Alert and Oriented x 3, NL Muscle Strength and Tone Nutrition: Taking PO's Result Diagrams: 09/15/18 05:51 09/15/18 14:56 Additional Lab and Data: Laboratory Results - last 24 hr 09/14/18 09/14/18 09/14/18 21:40 21:46 21:46 WBC 7.1 RBC 2.93 L Hgb 8.1 L Hct 25 L MCV 86 MCH 28 MCHC 32 RDW 18 H Plt Count 182 MPV 6.4 L Neut % (Auto) 93.7 Lymph % (Auto) 5.0 [place] % (Auto) 1.0 Eos % (Auto) 0.1 Baso % (Auto) 0.2 Absolute Neuts (auto) 6.7 Absolute Lymphs (auto) 0.4 L Absolute Monos (auto) 0.1 Absolute Eos (auto) 0 Absolute Basos (auto) 0 Absolute Nucleated RBC 0 Nucleated RBC % 0 INR (Anticoag Therapy) 1.56 H APTT 40.2 H Sodium Potassium Chloride Carbon Dioxide Anion Gap BUN Creatinine Est GFR ( Amer) Est GFR (Non-Af Amer) BUN/Creatinine Ratio Glucose POC Glucose (mg/dL) Glucose Meter Confirm Lactic Acid Calcium Magnesium Iron TIBC % Saturation Unsat Iron Binding Transferrin Ferritin Total Bilirubin AST ALT Alkaline Phosphatase C-Reactive Protein Total Protein Albumin Globulin Albumin/Globulin Ratio Urine Color Urine Appearance Urine pH Ur Specific Osteen Urine Protein Urine Ketones Urine Blood Urine Nitrate Urine Bilirubin Urine Urobilinogen Ur Leukocyte Esterase Urine WBC (Auto) Urine RBC (Auto) Ur Squamous Epith Cells Urine Bacteria Hyaline Casts Urine Glucose Urine Ascorbic Acid Blood Type A Positive Antibody Screen Negative 09/14/18 09/14/18 09/15/18 21:46 21:46 01:10 WBC RBC Hgb Hct MCV MCH MCHC RDW Plt Count MPV Neut % (Auto) Lymph % (Auto) [place] % (Auto) Eos % (Auto) Baso % (Auto) Absolute Neuts (auto) Absolute Lymphs (auto) Absolute Monos (auto) Absolute Eos (auto) Absolute Basos (auto) Absolute Nucleated RBC Nucleated RBC % INR (Anticoag Therapy) APTT Sodium 129 L Potassium 6.1 H* Chloride 96 L Carbon Dioxide 23 Anion Gap 10 BUN 88 H Creatinine 1.85 H Est GFR ( Amer) 32.2 Est GFR (Non-Af Amer) 26.6 BUN/Creatinine Ratio 47.6 H Glucose 319 H POC Glucose (mg/dL) Glucose Meter Confirm Lactic Acid 2.6 H* Calcium 9.6 Magnesium Iron 35 L TIBC 458 H % Saturation 8 L Unsat Iron Binding < 443 Transferrin 327 Ferritin 44.9 Total Bilirubin 1.00 AST 29 ALT 14 Alkaline Phosphatase 75 C-Reactive Protein 4.60 Total Protein 7.1 Albumin 4.0 Globulin 3.1 Albumin/Globulin Ratio 1.3 Urine Color Yellow Urine Appearance Clear Urine pH 5.0 Ur Specific Osteen 1.013 Urine Protein Negative Urine Ketones Negative Urine Blood 1+ A Urine Nitrate Negative Urine Bilirubin Negative Urine Urobilinogen Negative Ur Leukocyte Esterase Negative Urine WBC (Auto) Trace(0-5/hpf) Urine RBC (Auto) 2+(6-10/hpf) A Ur Squamous Epith Cells Present A Urine Bacteria Absent Hyaline Casts Present A Urine Glucose 1+(50 mg/dl) A Urine Ascorbic Acid * A Blood Type Antibody Screen 09/15/18 09/15/18 09/15/18 02:49 05:51 05:51 WBC 9.9 RBC 2.91 L Hgb 8.2 L Hct 25 L MCV 87 MCH 28 MCHC 32 RDW 18 H Plt Count 197 MPV 7.5 Neut % (Auto) 90.9 Lymph % (Auto) 6.0 [place] % (Auto) 2.8 Eos % (Auto) 0 Baso % (Auto) 0.3 Absolute Neuts (auto) 9.0 H Absolute Lymphs (auto) 0.6 L Absolute Monos (auto) 0.3 Absolute Eos (auto) 0 Absolute Basos (auto) 0 Absolute Nucleated RBC 0 Nucleated RBC % 0 INR (Anticoag Therapy) APTT Sodium 132 L Potassium 5.7 H Chloride 99 L Carbon Dioxide 25 Anion Gap 8 BUN 79 H Creatinine 1.56 H Est GFR ( Amer) 39.3 Est GFR (Non-Af Amer) 32.4 BUN/Creatinine Ratio 50.6 H Glucose 243 H POC Glucose (mg/dL) 280 H Glucose Meter Confirm Lactic Acid Calcium 9.3 Magnesium 2.2 Iron TIBC % Saturation Unsat Iron Binding Transferrin Ferritin Total Bilirubin AST ALT Alkaline Phosphatase C-Reactive Protein Total Protein Albumin Globulin Albumin/Globulin Ratio Urine Color Urine Appearance Urine pH Ur Specific Osteen Urine Protein Urine Ketones Urine Blood Urine Nitrate Urine Bilirubin Urine Urobilinogen Ur Leukocyte Esterase Urine WBC (Auto) Urine RBC (Auto) Ur Squamous Epith Cells Urine Bacteria Hyaline Casts Urine Glucose Urine Ascorbic Acid Blood Type Antibody Screen 09/15/18 09/15/18 09/15/18 07:47 09:52 11:31 WBC RBC Hgb Hct MCV MCH MCHC RDW Plt Count MPV Neut % (Auto) Lymph % (Auto) [place] % (Auto) Eos % (Auto) Baso % (Auto) Absolute Neuts (auto) Absolute Lymphs (auto) Absolute Monos (auto) Absolute Eos (auto) Absolute Basos (auto) Absolute Nucleated RBC Nucleated RBC % INR (Anticoag Therapy) APTT Sodium Potassium Chloride Carbon Dioxide Anion Gap BUN Creatinine Est GFR ( Amer) Est GFR (Non-Af Amer) BUN/Creatinine Ratio Glucose POC Glucose (mg/dL) 259 H 248 H Glucose Meter Confirm Lactic Acid 1.8 Calcium Magnesium Iron TIBC % Saturation Unsat Iron Binding Transferrin Ferritin Total Bilirubin AST ALT Alkaline Phosphatase C-Reactive Protein Total Protein Albumin Globulin Albumin/Globulin Ratio Urine Color Urine Appearance Urine pH Ur Specific Osteen Urine Protein Urine Ketones Urine Blood Urine Nitrate Urine Bilirubin Urine Urobilinogen Ur Leukocyte Esterase Urine WBC (Auto) Urine RBC (Auto) Ur Squamous Epith Cells Urine Bacteria Hyaline Casts Urine Glucose Urine Ascorbic Acid Blood Type Antibody Screen 09/15/18 09/15/18 14:56 17:04 WBC RBC Hgb Hct MCV MCH MCHC RDW Plt Count MPV Neut % (Auto) Lymph % (Auto) [place] % (Auto) Eos % (Auto) Baso % (Auto) Absolute Neuts (auto) Absolute Lymphs (auto) Absolute Monos (auto) Absolute Eos (auto) Absolute Basos (auto) Absolute Nucleated RBC Nucleated RBC % INR (Anticoag Therapy) APTT Sodium 132 L Potassium 5.5 H Chloride 100 L Carbon Dioxide 24 Anion Gap 8 BUN 79 H Creatinine 1.49 H Est GFR ( Amer) 41.4 Est GFR (Non-Af Amer) 34.2 BUN/Creatinine Ratio 53.0 H Glucose 228 H POC Glucose (mg/dL) Glucose Meter Confirm 224 H Lactic Acid Calcium 9.0 Magnesium Iron TIBC % Saturation Unsat Iron Binding Transferrin Ferritin Total Bilirubin AST ALT Alkaline Phosphatase C-Reactive Protein Total Protein Albumin Globulin Albumin/Globulin Ratio Urine Color Urine Appearance Urine pH Ur Specific Osteen Urine Protein Urine Ketones Urine Blood Urine Nitrate Urine Bilirubin Urine Urobilinogen Ur Leukocyte Esterase Urine WBC (Auto) Urine RBC (Auto) Ur Squamous Epith Cells Urine Bacteria Hyaline Casts Urine Glucose Urine Ascorbic Acid Blood Type Antibody Screen Microbiology and Other Data: Microbiology 09/15/18 11:52 Stool Stool Occult Blood ([facility]) - Final Assess/Plan/Problems-Billing Assessment: 72 yr old female with past medial hx of afib, anemia, chronic wounds, restless leg, diabetes, ckd; who presented to the ED with left leg pain, swelling, and metabolic derangement - Patient Problems (1) Chronic ulcer of leg Comment: - Wound clinic recommendations: While pt is in bed with her legs elevated edema is fairly well controlled. At this point suggest applying bacitracin to wound bases daily, cover with bandage or whatever she prefers (2) Hyperkalemia Comment: - 6.1 in ED and received bicarb, reg insulin and calcium - Received one dose of paterimer - Has been trending down with gentle IVF - Afib on monitor (3) Hyperglycemia Comment: - Received steriod injection yesterday outpatient before presenting to ED - On Metformin at home which is held - Cont sliding scale (4) Anemia Comment: - Slightly lower than patients baseline - Positive stool guaic - Symptomatic - GI consult requested - Held Xarelto for now (5) Dark stools Comment: - Reported dark stools on admission but thought it was due to iron - Stool occult positive - GI consult requesting. See info under section "anemia" (6) Chronic kidney disease, stage 3 Comment: - Acute on chronic suspected to be secondary to dehydration - Continue to monitor renal function - Home lasix held currently (7) DVT prophylaxis Comment: - SCDs until Xarelto can be restarted Status and Disposition: Inpatient. D/C home when medically stable Attending: Brennen Monsalve
[2018-09-15 12:46] LABS: Magnesium 2.2 mg/dL (1.9-2.7)
[2018-09-15] MEDS: Bacitracin OINTMENT* 0.5% 0.5 oz TUBE TOPICAL SCH (14:20)
[2018-09-15 15:48] LABS: EGFR African American 41.4 (>60); EGFR Non-African American 34.2 (>60)
[2018-09-15 15:51] LABS: Potassium 5.5 mmol/L (3.5-5.0)
[2018-09-15] MEDS ORDERED: rOPINIRole TAB* 1 MG PO PRN (18:36)
[2018-09-15] MEDS ORDERED: Ropinirole TAB* 0.5 MG TAB PO PRN (18:36)
[2018-09-15] MEDS: Atenolol TAB* 50 MG PO SCH (20:08)
--- NOTE | 2018-09-15 20:32 | CONS ---
GASTROENTEROLOGY CONSULT: DATE: 09/15/18 REFERRING PHYSICIANS: Dr. Jensen Shaw, Dr. Janna Us, Dr. Niraj Etienne. REASON FOR CONSULT: Anemia with heme-positive stool in a woman previously on Xarelto. HISTORY: This 72-year-old woman with longstanding diabetes, followed in the wound clinic for lower extremity wounds predominantly left leg, became more weak and short of breath. She came to the emergency room. Her hemoglobin yesterday was 8.1, which seemed low compared to 10.4 on 07/13/18. Hemoccult was positive and her Xarelto was held. She was on Xarelto 17 months ago when she was an inpatient because of a low sodium. At that time, her stool was negative for blood twice. A GI workup for chronic microcytic anemia was suggested, but she did not want it done and it never took place. She has been on iron since then. In May 2018, she had a painless nosebleed. It became profuse and she came to the emergency room and ended up having packing. She does not believe cauterization was ever accomplished. Xarelto was held for a couple of weeks and cautiously restarted. She states she never sees any blood in the stool. Her bowels are okay. She is not using laxatives. During this admission, she has been hyperkalemic. She says her only wish is to be stabilized and go home. She is getting visiting nurses to treat her leg wounds. She cannot drive currently. PAST MEDICAL HISTORY: 1. Atrial fibrillation - followed by Dr. Etienne. 2. Type 2 diabetes. 3. Chronic renal disease. 4. Restless legs syndrome. 5. Chronic leg wounds. 6. Chronic heart failure - BNP 383, when last measured 07/13/18. 7. Chronic iron deficiency anemia - never fully worked up. 8. Status post complete hysterectomy more than 20 years ago. OUTPATIENT MEDS: Requip 1 mg h.s.; furosemide 40 a.m., 20 at noon; diltiazem 120 q.a.m.; atenolol 50 two or three times a day. On hold is Xarelto and multiple supplements. SOCIAL HISTORY: She lives alone and cannot drive because of her leg wounds. Dr. Shaw is her primary. There is no known history of alcohol abuse. REVIEW OF SYSTEMS: No history of CA, syncope, seizures, TIA, CVA, gastrointestinal abdominal surgery, hepatitis, jaundice, chronic nosebleeds. PHYSICAL EXAM: She is a pale, very talkative elderly woman, in no overt distress. At this time, afebrile, pulse 78 and irregular, blood pressure 126/ 60. HEENT exam shows no icterus. She has no adenopathy. Breath sounds are intact bilaterally. There are a few rales at both bases. Heart sounds are irregular. The abdomen is rounded, consistent with age with normal bowel sounds , soft, and nontender. Stool specimen was positive for occult blood today noon. IMPRESSION: This 72-year-old woman with diabetes and fairly significant chronic renal disease has a history of atrial fibrillation, is on Xarelto. She has had an iron deficiency pattern over the last couple of years, although while on iron now intriguingly, her CBC is less microcytic. There is probably a mixed picture where her iron is being repleted and yet her renal function is diminished. An erythropoietin level could be helpful. She was anemic when heme negative a year and a half ago while taking Xarelto. A complete workup would be useful though really burdensome for her. Upper endoscopy and observing her course while off Xarelto for a period of time may give us some information and find out what her social supports are. A colonoscopy under these circumstances is not going to be easy and the ability to base treatment decisions based on the results is in question. Her social situation was tenuous a year and a half ago when she was seen and seeing her today alone has not changed that perception. [id number]/[facility] #: [id number] JUANJOSE
[2018-09-15] MEDS ORDERED: rOPINIRole TAB* 1 MG PO SCH (21:00)
[2018-09-16] MEDS: oxyCODONE/Acetamin 5/325 MG* TAB PO PRN ×4 (03:01→21:45)
[2018-09-16] MEDS: NS 0.9% 1000 ML** 1,000 ML IV SCH ×2 (03:02→15:01)
[2018-09-16] MEDS: Clindamycin CAP* 150 MG PO SCH ×3 (06:14→21:45)
[2018-09-16 06:36] LABS: ABS Basophils 0.1 10^3/ul (0-0.2); ABS Eosinophils 0.1 10^3/ul (0-0.6); ABS Monocytes 0.8 10^3/ul (0-0.8); ABS Neutrophils 7.3 10^3/ul (1.5-7.7); ABS Nucleated RBC 0 10^3/ul; Eosinophil % 1.3 %; Hematocrit 24 % (35-47); Hemoglobin 7.8 g/dl (12.0-16.0); Lymphocyte % 10.8 %; Mean Corpuscular HGB Conc 32 g/dl (31-36); Mean Corpuscular Hemoglobin 28 pg (27-31); Mean Corpuscular Volume 88 fL (80-97); Mean Platelet Volume 6.3 fL (7.4-10.4); Nucleated Red Blood Cells % 0.2; Platelet Count 199 10^3/ul (150-450); Red Blood Count 2.79 10^6/ul (4.00-5.40); Red Cell Distribution Width 18 % (10.5-15); White Blood Count 9.2 10^3/ul (3.5-10.8)
[2018-09-16 06:55] LABS: BUN/Creatinine Ratio 50.7 (8-20); Calcium 8.8 mg/dL (8.6-10.3); EGFR African American 44.5 (>60); EGFR Non-African American 36.8 (>60); Potassium 5.3 mmol/L (3.5-5.0)
[2018-09-16] MEDS: Ferrous Sulfate TAB* 325 MG PO SCH (08:53)
[2018-09-16] MEDS: Diltiazem CD CAP* 120 MG PO SCH (08:53)
[2018-09-16] MEDS: Atenolol TAB* 50 MG PO SCH ×3 (08:53→20:22)
[2018-09-16] MEDS: Insulin LISPRO* 1 UNITS UNIT SUBCUT SCH ×3 (08:54→17:49)
[2018-09-16] MEDS: Bacitracin OINTMENT* 0.5% 0.5 oz TUBE TOPICAL SCH (12:19)
--- NOTE | 2018-09-16 14:15 | CONSULT ---
Subjective Date of Service: 09/16/18 Interval History: Ms. Valerio is a 72 yo female with PMH significant for Afib on anticoagulation, DM , CKD-3, pulmonary HTN, RLS, and chronic LE wounds. Ms. Valerio presented to the emergency room with concerns for LE pain after having a dressing change. She had been being treated outpatient with Clindaymycin for a LE cellulitis. She is also being followed by orthopedics and recently has a knee aspiration and steroid injection. There was concern for developing an adverse reaction from the dressings. She has been following with the [facility] for her chronic LE wounds. Patient seen and examined at bedside. Family History: Unchanged from Admission Social History: Unchanged from Admission Past Medical History: Unchanged from Admission Review of Systems - Measurements Intake and Output: Intake and Output Last 24 Hours 09/14/18 09/15/18 09/16/18 09/17/18 06:59 06:59 06:59 06:59 Intake Total 0 2436 2314 Output Total 0 1350 Balance 0 1086 2314 Weight 196 lb Intake: IV Fluids 1216 1805 NS (0.9%) 300 1805 Oral 0 1220 200 Packed Cells 309 Output: Urine 0 1350 Other: Estimated Void Medium # Voids 1 - Review of Systems Constitutional Symptoms: Negative: Fever, Other - Chills Dermatology: Positive: Other - Ulcers to bilateral LEs Musculoskeletal: Positive: Other - Burning pain in the legs Objective Active Medications: Acetaminophen (Tylenol Tab*) 650 mg PO Q4H PRN Reason: FEVER/PAIN Al Hydrox/Mg Hydrox/Simethicone (Maalox Plus*) 30 ml PO Q6H PRN Reason: INDIGESTION Atenolol (Tenormin Tab*) 50 mg PO TID [facility] Bacitracin (Bacitracin Ointment*) 1 applic TOPICAL DAILY [facility] Clindamycin HCl (Cleocin Cap*) 150 mg PO Q8HR [facility] Dextrose (D50w Syringe 50 Ml*) 12.5 gm IV PUSH .FOR FS < 60 - SS PRN Reason: FS < 60 Diltiazem HCl (Cardizem Cd Cap*) 120 mg PO DAILY [facility] Docusate Sodium (Colace Cap*) 100 mg PO BID PRN Reason: CONSTIPATION Ferrous Sulfate (Ferrous Sulfate Tab*) 325 mg PO DAILY [facility] Sodium Chloride (Ns 0.9% 1000 Ml) 1,000 mls @ 100 mls/hr IV PER RATE [facility] Insulin Human Lispro (Humalog*) 0 units SUBCUT AC [facility]; Protocol Ondansetron HCl (Zofran Inj*) 4 mg IV Q4H PRN Reason: NAUSEA/VOMITING Oxycodone/Acetaminophen (Percocet 5/325 Tab*) 1 tab PO Q4H PRN Reason: PAIN Ropinirole HCl (Requip Tab*) 0.5 mg PO DAILY PRN Reason: SPASMS Ropinirole HCl (Requip Tab*) 1 mg PO BEDTIME PRN Reason: SPASMS Senna (Senokot Tab*) 1 tab PO BID PRN Reason: CONSTIPATION Vital Signs - 8 hr 09/16/18 09/16/18 09/16/18 07:45 08:00 08:53 Temperature 97.4 F Pulse Rate 94 Respiratory 18 20 22 Rate Blood Pressure 130/58 (mmHg) O2 Sat by Pulse 95 96 Oximetry 09/16/18 09/16/18 09/16/18 10:24 11:00 11:41 Temperature 98.0 F Pulse Rate 81 92 Respiratory 19 20 20 Rate Blood Pressure 129/75 135/69 (mmHg) O2 Sat by Pulse 94 96 Oximetry 09/16/18 13:39 Temperature Pulse Rate Respiratory 20 Rate Blood Pressure (mmHg) O2 Sat by Pulse Oximetry Oxygen Devices in Use Now: Nasal Cannula Appearance: NAD, laying in bed Ears/Nose/Mouth/Throat: Mucous Membranes Moist Skin: - - See skin note below Neurological: Alert and Oriented x 3 Nutrition: Taking PO's Result Diagrams: 09/16/18 17:32 09/19/18 13:24 Additional Lab and Data: Laboratory Tests 09/14/18 21:46 Albumin 4.0 Microbiology and Other Data: Microbiology 09/15/18 11:52 Stool Stool Occult Blood (GRAHAM) - Final Skin Deviation Note - Skin Deviation Findings Left medial leg ulcer - 4.5 cm x 2.5 cm x 0.1 cm and 1 cm x 1 cm x 0.1 cm. The wound bases have yellow slough. The surrounding skin with mild erythema. There is dry flaky skin to the leg. Right lateral LE ulcer - 3.5 cm x 1.5 cm x 0.2 cm. The wound base with yellow slough. No redness to the surrounding skin. There is some dry flaky skin to the leg. Assessment/Plan: Ms. Valerio is a 72 yo female with PMH significant for Afib on anticoagulation, DM , CKD-3, pulmonary HTN, RLS, and chronic LE wounds. Ms. Valerio presented to the emergency room with concerns for LE pain after having a dressing change. She had been being treated outpatient with Clindaymycin for a cellulitis. She was also being followed by orthopedics and recently has a knee aspiration and steroid injection. There was concern for developing an adverse reaction from the dressings. 1. Bilateral LE ulcers. [facility] patient, followed for the past 2 years with revolving ulcerations to lower legs. Unable to tolerate much compression in the past according to the Wound Clinic. According to the Wound Clinic the right leg ulcer started as a traumatic injury 2 years ago, which she has re- injured several times when she has fallen.04/2017: Right LE MRI without evidence of osteomyelitis. 01/2018 - Normal bilateral LE ABIs. Reported " reaction to silver and honey dressing products" on admission, however on exam pt continues to have discomfort in her legs once these dressings were removed. : Left leg venous doppler study: Mild subcutaneous edema, no DVT. Edema is controlled with patient in bed with her legs elevated. Recommend applying bacitracin to wound bases daily, cover with dry bandage. She should resume following with the Wound Center at discharge 2. Diabetes Mellitus. Maintain good glycemic control to allow for wound healing. 3. Diet. Consistent carb diet. 4. Code Status. Full Code. 5. Disposition. Inpatient. Disposition per primary medicine team. TIME SPENT: Time for this wound consultation was 25 minutes, and 15 minutes was spent with the patient discussing past medical history; assessing, measuring and photographing the wounds. Wound Problem/Plan Is Patient a Wound Clinic Patient: Yes - Follows with Dr. Nelson Current Treatment: Right LE - Black Silver and dry dressing. Left LE - Honey gel, adaptic, and dry dresssing Attending: Alexandria Storey
[2018-09-16 18:03] LABS: Hematocrit 28 % (35-47); Hemoglobin 8.9 g/dl (12.0-16.0)
--- NOTE | 2018-09-16 18:43 | PN ---
Subjective Date of Service: 09/16/18 Interval History: Patient seen and examined. No acute overnight events. However, patient endorses dizziness and difficulty moved her RLE. Symptoms passed in <4 minutes. Denies SOB, no chest pain, no headache, no further complaints. Family History: Unchanged from Admission Social History: Unchanged from Admission Past Medical History: Unchanged from Admission Objective Active Medications: Acetaminophen (Tylenol Tab*) 650 mg PO Q4H PRN PRN Reason: FEVER/PAIN Al Hydrox/Mg Hydrox/Simethicone (Maalox Plus*) 30 ml PO Q6H PRN PRN Reason: INDIGESTION Atenolol (Tenormin Tab*) 50 mg PO TID [facility] Last Admin: 09/16/18 13:39 Dose: 50 mg Bacitracin (Bacitracin Ointment*) 1 applic TOPICAL DAILY [facility] Last Admin: 09/16/18 12:19 Dose: 1 applic Clindamycin HCl (Cleocin Cap*) 150 mg PO Q8HR [facility] Last Admin: 09/16/18 13:39 Dose: 150 mg Dextrose (D50w Syringe 50 Ml*) 12.5 gm IV PUSH .FOR FS < 60 - SS PRN PRN Reason: FS < 60 Diltiazem HCl (Cardizem Cd Cap*) 120 mg PO DAILY [facility] Last Admin: 09/16/18 08:53 Dose: 120 mg Docusate Sodium (Colace Cap*) 100 mg PO BID PRN PRN Reason: CONSTIPATION Ferrous Sulfate (Ferrous Sulfate Tab*) 325 mg PO DAILY [facility] Last Admin: 09/16/18 08:53 Dose: 325 mg Sodium Chloride (Ns 0.9% 1000 Ml) 1,000 mls @ 100 mls/hr IV PER RATE [facility] Last Admin: 09/16/18 15:01 Dose: 100 mls/hr Insulin Human Lispro (Humalog*) 0 units SUBCUT AC [facility]; Protocol Last Admin: 09/16/18 17:49 Dose: 2 units Ondansetron HCl (Zofran Inj*) 4 mg IV Q4H PRN PRN Reason: NAUSEA/VOMITING Oxycodone/Acetaminophen (Percocet 5/325 Tab*) 1 tab PO Q4H PRN PRN Reason: PAIN Last Admin: 09/16/18 13:39 Dose: 1 tab Ropinirole HCl (Requip Tab*) 0.5 mg PO DAILY PRN PRN Reason: SPASMS Ropinirole HCl (Requip Tab*) 1 mg PO BEDTIME PRN PRN Reason: SPASMS Senna (Senokot Tab*) 1 tab PO BID PRN PRN Reason: CONSTIPATION Vital Signs - 8 hr 09/16/18 09/16/18 09/16/18 11:00 11:41 12:23 Temperature 98.9 F Pulse Rate 92 78 Respiratory 20 20 21 Rate Blood Pressure 135/69 127/66 (mmHg) O2 Sat by Pulse 96 Oximetry 09/16/18 09/16/18 09/16/18 13:39 13:46 15:10 Temperature 98.8 F Pulse Rate 80 Respiratory 20 22 24 Rate Blood Pressure 116/53 (mmHg) O2 Sat by Pulse 92 Oximetry Oxygen Devices in Use Now: Nasal Cannula Appearance: alert, NAD Eyes: No Scleral Icterus, PERRLA Ears/Nose/Mouth/Throat: NL Teeth, Lips, Gums, Mucous Membranes Moist Neck: NL Appearance and Movements; NL JVP, Trachea Midline Respiratory: Symmetrical Chest Expansion and Respiratory Effort, Clear to Auscultation Cardiovascular: NL Sounds; No Murmurs; No JVD, No Edema Abdominal: NL Sounds; No Tenderness; No Distention Extremities: No Edema, No Clubbing, Cyanosis Skin: No Rash or Ulcers Neurological: Alert and Oriented x 3 Nutrition: Taking PO's Result Diagrams: 09/16/18 17:32 09/16/18 06:21 Additional Lab and Data: Laboratory Tests 09/14/18 21:46 Albumin 4.0 Microbiology and Other Data: Microbiology 09/15/18 11:52 Stool Stool Occult Blood (GRAHAM) - Final Diagnostic Imaging: Patient Name: SHONDA ISIDRO Medical Record#: [id number] Ordering Physician: Ev Hernandez NP Acct.#: [id number] : 1945 Age: 72 Sex: F Location: [address] [place] [address] MEDICAL/TELEMETRY Exam Date: 09/16/181458 ADM Status: ADM IN Order Information: CT BRAIN WO Accession Number: [id number] CPT: 91642 INDICATION: Dizziness. COMPARISON: Comparison is made with a prior CT of the brain from May 16, 2017. TECHNIQUE: Contiguous axial sections of the brain were obtained from the skull base to the vertex without contrast. FINDINGS: The ventricles, cisterns and sulci are enlarged consistent with diffuse atrophy. No significant focal abnormality or mass effect is seen. There is no evidence for hemorrhage. No significant focal osseous abnormality is seen. The visualized portion of the paranasal sinuses and mastoid air cells appear clear. IMPRESSION: NO EVIDENCE FOR ACUTE INTRACRANIAL ABNORMALITY. Assess/Plan/Problems-Billing Assessment: 72 yr old female with past medial hx of afib, anemia, chronic wounds, restless leg, diabetes, ckd; who presented to the ED with left leg pain, swelling, and metabolic derangement with guaic positive stool. - Patient Problems (1) Anemia Code(s): D64.9 - ANEMIA, UNSPECIFIED SNOMED Code(s): 012248485 Comment: - Slightly lower than patients baseline - Positive stool guaic - Symptomatic, requiring O2 - GI consult requested however patient has declined intervention in the past - Hold xarelto - Transfuse 1 unit PRBCs given cardiac hx (2) Atrial fibrillation Code(s): I48.91 - UNSPECIFIED ATRIAL FIBRILLATION SNOMED Code(s): 70039425 Comment: - Continue atenolol, diltiazem - Hx of epistaxis on xarelto, now with low H&H and guaic pos stool - AC needs follow up re: benefit vs risk (3) Dark stools Code(s): R19.5 - OTHER FECAL ABNORMALITIES SNOMED Code(s): 64269167 Comment: - Reported dark stools on admission but thought it was due to iron - Stool occult positive - Needs scope, but patient has declined to follow up with this in the past - Will discuss with GI tomorrow (4) Diabetes mellitus Code(s): E11.9 - TYPE 2 DIABETES MELLITUS WITHOUT COMPLICATIONS SNOMED Code(s) : 94858029 Comment: - BGs with good control - Continue SSI coverage with glargine daily (5) Chronic ulcer of leg Code(s): L97.909 - NON-PRS CHRONIC ULC UNSP PRT OF UNSP LOW LEG W UNSP SEVERITY SNOMED Code(s): 09694140 Comment: - Would consult STAFF TOXICOLOGIST in for evaluation - Please see local wound care recs (6) Hyperkalemia Code(s): E87.5 - HYPERKALEMIA SNOMED Code(s): 67565756 Comment: - 6.1 in ED and received bicarb, reg insulin and calcium - Received one dose of paterimer - Has been trending down with gentle IVF - Resolved (7) DVT prophylaxis Code(s): JVO3046 - SNOMED Code(s): 334850043 Comment: - ambulate, SCDs if tolerated (8) Full code status Code(s): Z78.9 - OTHER SPECIFIED HEALTH STATUS SNOMED Code(s): 433074635 Status and Disposition: Inpatient. D/C home when medically stable.
[2018-09-17] MEDS: Ropinirole TAB* 0.5 MG TAB PO PRN ×2 (00:25→20:28)
[2018-09-17] MEDS: NS 0.9% 1000 ML** 1,000 ML IV SCH ×2 (01:21→13:19)
[2018-09-17] MEDS: Clindamycin CAP* 150 MG PO SCH ×3 (05:37→22:01)
[2018-09-17] MEDS: Insulin LISPRO* 1 UNITS UNIT SUBCUT SCH ×3 (08:12→17:26)
[2018-09-17] MEDS: Bacitracin OINTMENT* 0.5% 0.5 oz TUBE TOPICAL SCH (08:12)
[2018-09-17] MEDS: oxyCODONE/Acetamin 5/325 MG* TAB PO PRN ×3 (08:13→20:24)
[2018-09-17] MEDS: Ferrous Sulfate TAB* 325 MG PO SCH (08:13)
[2018-09-17] MEDS: Atenolol TAB* 50 MG PO SCH ×3 (08:13→20:24)
[2018-09-17] MEDS: Diltiazem CD CAP* 120 MG PO SCH (08:14)
--- NOTE | 2018-09-17 17:10 | PN ---
Subjective Date of Service: 09/17/18 Interval History: Patient seen and examined. States she is winded when walking, required O2 today for desaturations to 87% with ambulation. CXR ordered, denies chest pain, no acute dyspnea. No fever or chills. Family History: Unchanged from Admission Social History: Unchanged from Admission Past Medical History: Unchanged from Admission Objective Active Medications: Acetaminophen (Tylenol Tab*) 650 mg PO Q4H PRN PRN Reason: FEVER/PAIN Al Hydrox/Mg Hydrox/Simethicone (Maalox Plus*) 30 ml PO Q6H PRN PRN Reason: INDIGESTION Atenolol (Tenormin Tab*) 50 mg PO TID [facility] Last Admin: 09/17/18 13:17 Dose: 50 mg Bacitracin (Bacitracin Ointment*) 1 applic TOPICAL DAILY [facility] Last Admin: 09/17/18 08:12 Dose: 1 applic Clindamycin HCl (Cleocin Cap*) 150 mg PO Q8HR [facility] Last Admin: 09/17/18 13:17 Dose: 150 mg Dextrose (D50w Syringe 50 Ml*) 12.5 gm IV PUSH .FOR FS < 60 - SS PRN PRN Reason: FS < 60 Diltiazem HCl (Cardizem Cd Cap*) 120 mg PO DAILY [facility] Last Admin: 09/17/18 08:14 Dose: 120 mg Docusate Sodium (Colace Cap*) 100 mg PO BID PRN PRN Reason: CONSTIPATION Ferrous Sulfate (Ferrous Sulfate Tab*) 325 mg PO DAILY [facility] Last Admin: 09/17/18 08:13 Dose: 325 mg Sodium Chloride (Ns 0.9% 1000 Ml) 1,000 mls @ 100 mls/hr IV PER RATE [facility] Last Admin: 09/17/18 13:19 Dose: 100 mls/hr Insulin Human Lispro (Humalog*) 0 units SUBCUT AC [facility]; Protocol Last Admin: 09/17/18 13:17 Dose: 3 units Ondansetron HCl (Zofran Inj*) 4 mg IV Q4H PRN PRN Reason: NAUSEA/VOMITING Oxycodone/Acetaminophen (Percocet 5/325 Tab*) 1 tab PO Q4H PRN PRN Reason: PAIN Last Admin: 09/17/18 13:17 Dose: 1 tab Ropinirole HCl (Requip Tab*) 0.5 mg PO DAILY PRN PRN Reason: SPASMS Ropinirole HCl (Requip Tab*) 1 mg PO BEDTIME PRN PRN Reason: SPASMS Last Admin: 09/17/18 00:25 Dose: 1 mg Senna (Senokot Tab*) 1 tab PO BID PRN PRN Reason: CONSTIPATION Vital Signs - 8 hr 09/17/18 09/17/18 09/17/18 10:58 11:42 13:17 Temperature 98.2 F Pulse Rate 77 Respiratory 18 16 18 Rate Blood Pressure 112/68 (mmHg) O2 Sat by Pulse 96 Oximetry 09/17/18 09/17/18 15:20 15:36 Temperature 97.9 F Pulse Rate 61 Respiratory 14 18 Rate Blood Pressure 126/67 (mmHg) O2 Sat by Pulse 95 Oximetry Oxygen Devices in Use Now: Nasal Cannula Appearance: alert, NAD Eyes: No Scleral Icterus, PERRLA Ears/Nose/Mouth/Throat: NL Teeth, Lips, Gums, Mucous Membranes Moist Neck: NL Appearance and Movements; NL JVP, Trachea Midline Respiratory: Symmetrical Chest Expansion and Respiratory Effort, - - diminshed bases Cardiovascular: NL Sounds; No Murmurs; No JVD, - Abdominal: NL Sounds; No Tenderness; No Distention Extremities: No Clubbing, Cyanosis, - - chronic LE wounds, dressings CDI Neurological: Alert and Oriented x 3, NL Sensation, - - general weakness, unsteady gait Nutrition: Taking PO's Result Diagrams: 09/16/18 17:32 09/16/18 06:21 Additional Lab and Data: Laboratory Tests 09/14/18 21:46 Albumin 4.0 Microbiology and Other Data: Microbiology 09/15/18 11:52 Stool Stool Occult Blood (GRAHAM) - Final Diagnostic Imaging: Patient Name: SHONDA ISIDRO Medical Record#: [id number] Ordering Physician: Ev Hernandez NP Acct.#: [id number] : 1945 Age: 72 Sex: F Location: [address] [place] [address] - MEDICAL/TELEMETRY Exam Date: 09/16/181458 ADM Status: ADM IN Order Information: CT BRAIN WO Accession Number: [id number] CPT: 20227 INDICATION: Dizziness. COMPARISON: Comparison is made with a prior CT of the brain from May 16, 2017. TECHNIQUE: Contiguous axial sections of the brain were obtained from the skull base to the vertex without contrast. FINDINGS: The ventricles, cisterns and sulci are enlarged consistent with diffuse atrophy. No significant focal abnormality or mass effect is seen. There is no evidence for hemorrhage. No significant focal osseous abnormality is seen. The visualized portion of the paranasal sinuses and mastoid air cells appear clear. IMPRESSION: NO EVIDENCE FOR ACUTE INTRACRANIAL ABNORMALITY. Assess/Plan/Problems-Billing Assessment: 72 yr old female with past medial hx of afib, anemia, chronic wounds, restless leg, diabetes, ckd; who presented to the ED with left leg pain, swelling, and metabolic derangement with guaic positive stool. - Patient Problems (1) Anemia Code(s): D64.9 - ANEMIA, UNSPECIFIED SNOMED Code(s): 948982325 Comment: - Slightly lower than patients baseline with new O2 requirement - Positive stool guaic - GI consult requested however patient has declined intervention in the past - Hold xarelto - s/p 1 unit PRBCs, remains O2 dependent with desaturations (2) Atrial fibrillation Code(s): I48.91 - UNSPECIFIED ATRIAL FIBRILLATION SNOMED Code(s): 66986312 Comment: - Continue atenolol, diltiazem - Hx of epistaxis on xarelto, now with low H&H and guaic pos stool - AC needs follow up re: benefit vs risk (3) Dark stools Code(s): R19.5 - OTHER FECAL ABNORMALITIES SNOMED Code(s): 68093116 Comment: - Reported dark stools on admission but thought it was due to iron - Stool occult positive - Needs scope, but patient has declined to follow up with this in the past - Hold xarelto (4) Diabetes mellitus Code(s): E11.9 - TYPE 2 DIABETES MELLITUS WITHOUT COMPLICATIONS SNOMED Code(s) : 73176987 Comment: - BGs with good control - Continue SSI coverage with glargine daily (5) Hypoxia Code(s): R09.02 - HYPOXEMIA SNOMED Code(s): 615914112 Comment: - Chest xray with hazy changes at bases, does not appear to be consolidation, atelectasis vs stigmata of COPD - Pulmonary toilet with IS - Ambulate as tolerated - Wean O2 as tolerated - Pending ECHO to eval for failure/LV function and valves (6) Chronic ulcer of leg Code(s): L97.909 - NON-PRS CHRONIC ULC UNSP PRT OF UNSP LOW LEG W UNSP SEVERITY SNOMED Code(s): 55761810 Comment: - Would consult CONTRACT ASSISTANT in for evaluation - Please see local wound care recs (7) Hyperkalemia Code(s): E87.5 - HYPERKALEMIA SNOMED Code(s): 15519842 Comment: - 6.1 in ED and received bicarb, reg insulin and calcium - Received one dose of paterimer - Has been trending down with gentle IVF - Resolved (8) DVT prophylaxis Code(s): KEC9440 - SNOMED Code(s): 254793188 Comment: - ambulate, SCDs if tolerated (9) Full code status Code(s): Z78.9 - OTHER SPECIFIED HEALTH STATUS SNOMED Code(s): 805551718 Status and Disposition: Inpatient. D/C home when medically stable if no acute PT needs noted. likely in AM after ECHO.
[2018-09-18] MEDS: oxyCODONE/Acetamin 5/325 MG* TAB PO PRN ×4 (03:01→21:11)
[2018-09-18] MEDS ORDERED: oxyCODONE TAB* 5 MG TAB PO ONE (04:37)
[2018-09-18] MEDS: Clindamycin CAP* 150 MG PO SCH ×3 (05:27→21:06)
[2018-09-18] MEDS: Atenolol TAB* 50 MG PO SCH ×3 (08:51→21:05)
[2018-09-18] MEDS: Diltiazem CD CAP* 120 MG PO SCH (08:51)
[2018-09-18] MEDS: Ferrous Sulfate TAB* 325 MG PO SCH (08:51)
[2018-09-18] MEDS: Insulin LISPRO* 1 UNITS UNIT SUBCUT SCH ×3 (08:52→18:00)
[2018-09-18] MEDS: Bacitracin OINTMENT* 0.5% 0.5 oz TUBE TOPICAL SCH (09:00)
--- NOTE | 2018-09-18 09:27 | ECHO ---
Patient: SHONDA ISIDRO [facility] Rec#: [id number] : 1945 Date: 09/18/2018 Age: 72y Height: 172.7 cm / 68.0 in Weight: 89.1 kg / 196.4 lbs Sex: F BSA: 2.03 Room#: [facility] Admit Date#: 09/15/2018 Type: Inpatient Referring: Harper Nina Reading: Casper Shane MD Visual Basic Programmer: Sammie Raman RDCS CC: Niraj Etienne MD CC: Jensen Shaw MD Transthoracic Echocardiogram Indication: Shortness of breath BP: 129/50 HR: 103 Rhythm: A-Fib Findings History: A-fib, DM, HTN, former ETOH use. Technical Comments: The study quality is fair. Completed at 0845. Left Ventricle: The left ventricular chamber size is normal. There is no left ventricular hypertrophy. There is normal left ventricular systolic function. The estimated ejection fraction is greater than 65%. There is septal flattening of the interventricular septum consistent with right ventricular volume or pressure overload. The assessment of diastolic function is non-diagnostic. Left Atrium: The left atrium is moderately dilated. Right Ventricle: Moderator Band present. The right ventricle is mild to moderately dilated. The right ventricle wall thickness is moderately increased.RV 8-9 mm in the subcostal. The right ventricular global systolic function is mildly to moderately reduced. Right Atrium: The right atrium is moderate to severely dilated. Aortic Valve: The aortic valve is trileaflet. The aortic valve leaflets are mildly thickened. There is a trace of aortic regurgitation. There is no evidence of aortic stenosis. Mitral Valve: The mitral valve leaflets are mildly thickened. There is mild mitral regurgitation. There is no evidence of mitral stenosis. Tricuspid Valve: The tricuspid valve leaflets are mildly thickened. There is moderate to severe tricuspid regurgitation. The right ventricular systolic pressure is estimated at 70 mmHg. There is evidence of severe pulmonary hypertension. There is no tricuspid stenosis. Pulmonic Valve: The pulmonic valve appears normal. There is a trace pulmonic regurgitation. There is no pulmonic stenosis. Pericardium: There is no significant pericardial effusion. A pericardial fat pad is visualized. A left pleural effusion is present. Aorta: There is no dilatation of the ascending aorta. There is no dilatation of the aortic arch. The aortic root is normal in size. Pulmonary Artery: The main pulmonary artery appears normal. Venous: The inferior vena cava is dilated. There is less than 50% respiratory change in the inferior vena cava dimension. Conclusions The estimated ejection fraction is greater than 65%. There is septal flattening of the interventricular septum consistent with right ventricular volume or pressure overload. The left atrium is moderately dilated. The right ventricle is mild to moderately dilated. The right ventricular global systolic function is mildly to moderately reduced. The right ventricle wall thickness is moderately increased. The right atrium is moderate to severely dilated. The aortic valve leaflets are mildly thickened. There is a trace of aortic regurgitation. There is mild mitral regurgitation. There is moderate to severe tricuspid regurgitation. A left pleural effusion is present. There is less than 50% respiratory change in the inferior vena cava dimension. The inferior vena cava is dilated. The right ventricular systolic pressure is estimated at 70 mmHg. There is evidence of severe pulmonary hypertension. The PASP has increased from 49 mmhg on 01/04/16 to 70 mmhg now but is similar to the pasp of 68 noted 05/2018. The 2018 reports a PFO and the 2016 study quotes a DANIELLE that reported an ASD.The ASD was not confirmed on this study. Consider chronic cor pulmonale or pulmonary hypertension related to an intracardiac shunt. Measurements Name Value Normal Range RVIDd (AP) 2D 3 cm (0.9 - 2.6) RVDdMajor (2D) 4.9 cm (2.2 - 4.4) RAd ISD 4CH 6.9 cm (3.4 - 4.9) RA (A4C)W 6.6 cm (2.9 - 4.6) IVSd (2D) 1 cm (0.6 - 1) LVPWd (2D) 0.9 cm (0.6 - 1) LVIDd (2D) 4.1 cm (3.6 - 5.4) LVIDs (2D) 3.2 cm - LV FS (2D) 22 % (25 - 45) Aortic Annulus 1.9 cm (1.4 - 2.6) Ao root diameter (2D) 2.8 cm (2.1 - 3.5) Ascending Ao 3.3 cm (2.1 - 3.4) Aortic arch 2.4 cm (1.8 - 3.4) LA dimension (AP) 2D 4.7 cm (2.3 - 3.8) LAd ISD 4CH 6.7 cm (2.9 - 5.3) LA ISD 4CH W 4.1 cm (2.5 - 4.5) Name Value Normal Range LA ESV BP (A/L) index 37 ml/m2 - Name Value Normal Range MV E-wave Vmax 1.2 m/sec - MV deceleration time 188 msec - LV septal e' Vmax 0.11 m/sec - LV lateral e' Vmax 0.13 m/sec - LV E:e' septal ratio 11 ratio - LV E:e' lateral ratio 9.2 ratio - Name Value Normal Range AV Vmax 1.3 m/sec - AV VTI 26 cm - AV peak gradient 7 mmHg - AV mean gradient 3 mmHg - LVOT diameter 2 cm - LVOT Vmax 0.9 m/sec - LVOT VTI 17 cm - LVOT peak gradient 3 mmHg - LVOT mean gradient 2 mmHg - GERHARD Vmax 0.5 m/sec - Name Value Normal Range TR Vmax 3.7 m/sec - TR peak gradient 55 mmHg - RAP 15 mmHg - RVSP 70 mmHg - IVC diameter 2.5 cm - Name Value Normal Range PV Vmax 0.8 m/sec - PV peak gradient 2 mmHg -
[2018-09-18] MEDS: Gabapentin CAP(*) 100 MG PO SCH ×2 (12:28→21:06)
--- NOTE | 2018-09-18 14:04 | PN ---
Subjective Date of Service: 09/18/18 Interval History: Patient seen and examined. Still not able to come off oxygen. Desaturations noted on room air. Discussed ECHO findings. Denies chest pain, no abdominal pain , no fevers or chills, exhibits improved endurance on O2 with no acute SOB. States leg pain increased last 24 hours. Family History: Unchanged from Admission Social History: Unchanged from Admission Past Medical History: Unchanged from Admission Objective Active Medications: Acetaminophen (Tylenol Tab*) 650 mg PO Q4H PRN PRN Reason: FEVER/PAIN Al Hydrox/Mg Hydrox/Simethicone (Maalox Plus*) 30 ml PO Q6H PRN PRN Reason: INDIGESTION Atenolol (Tenormin Tab*) 50 mg PO TID [facility] Last Admin: 09/18/18 13:30 Dose: 50 mg Bacitracin (Bacitracin Ointment*) 1 applic TOPICAL DAILY [facility] Last Admin: 09/18/18 09:00 Dose: 1 applic Clindamycin HCl (Cleocin Cap*) 150 mg PO Q8HR [facility] Last Admin: 09/18/18 13:30 Dose: 150 mg Dextrose (D50w Syringe 50 Ml*) 12.5 gm IV PUSH .FOR FS < 60 - SS PRN PRN Reason: FS < 60 Diltiazem HCl (Cardizem Cd Cap*) 120 mg PO DAILY [facility] Last Admin: 09/18/18 08:51 Dose: 120 mg Docusate Sodium (Colace Cap*) 100 mg PO BID PRN PRN Reason: CONSTIPATION Ferrous Sulfate (Ferrous Sulfate Tab*) 325 mg PO DAILY [facility] Last Admin: 09/18/18 08:51 Dose: 325 mg Gabapentin (Neurontin Cap(*)) 100 mg PO BID [facility] Last Admin: 09/18/18 12:28 Dose: 100 mg Insulin Human Lispro (Humalog*) 0 units SUBCUT [facility]; Protocol Last Admin: 09/18/18 12:27 Dose: 1 units Ondansetron HCl (Zofran Inj*) 4 mg IV Q4H PRN PRN Reason: NAUSEA/VOMITING Oxycodone/Acetaminophen (Percocet 5/325 Tab*) 1 tab PO Q4H PRN PRN Reason: PAIN Last Admin: 09/18/18 13:31 Dose: 1 tab Ropinirole HCl (Requip Tab*) 0.5 mg PO DAILY PRN PRN Reason: SPASMS Last Admin: 09/18/18 03:00 Dose: 0.5 mg Ropinirole HCl (Requip Tab*) 1 mg PO BEDTIME PRN PRN Reason: SPASMS Last Admin: 09/17/18 20:28 Dose: 1 mg Senna (Senokot Tab*) 1 tab PO BID PRN PRN Reason: CONSTIPATION Vital Signs - 8 hr 09/18/18 09/18/18 09/18/18 07:52 08:00 08:45 Temperature 96.4 F Pulse Rate 97 Respiratory 16 18 20 Rate Blood Pressure 134/70 (mmHg) O2 Sat by Pulse 98 96 Oximetry 09/18/18 09/18/18 09/18/18 08:51 11:20 11:53 Temperature Pulse Rate Respiratory 22 18 Rate Blood Pressure (mmHg) O2 Sat by Pulse 86 Oximetry 09/18/18 09/18/18 12:28 13:31 Temperature Pulse Rate Respiratory 18 18 Rate Blood Pressure (mmHg) O2 Sat by Pulse Oximetry Oxygen Devices in Use Now: Nasal Cannula Appearance: alert, NAD Eyes: No Scleral Icterus, PERRLA Ears/Nose/Mouth/Throat: NL Teeth, Lips, Gums, Mucous Membranes Moist Neck: NL Appearance and Movements; NL JVP, Trachea Midline Respiratory: Symmetrical Chest Expansion and Respiratory Effort, Clear to Auscultation, - - diminshed bases Cardiovascular: RRR, No Edema Abdominal: NL Sounds; No Tenderness; No Distention Extremities: No Edema, No Clubbing, Cyanosis Skin: No Rash or Ulcers Neurological: Alert and Oriented x 3, NL Sensation, - - general weakness LE 2/2 pain Nutrition: Taking PO's Result Diagrams: 09/16/18 17:32 09/16/18 06:21 Additional Lab and Data: Laboratory Tests 09/14/18 21:46 Albumin 4.0 Microbiology and Other Data: Microbiology 09/15/18 11:52 Stool Stool Occult Blood ([facility]) - Final Diagnostic Imaging: Patient Name: SHONDA ISIDRO Medical Record#: [id number] Ordering Physician: Ev Hernandez NP Acct.#: [id number] : 1945 Age: 72 Sex: F Location: [address] [place] [address] - MEDICAL/TELEMETRY Exam Date: 09/16/181458 ADM Status: ADM IN Order Information: CT BRAIN WO Accession Number: [id number] CPT: 32984 INDICATION: Dizziness. COMPARISON: Comparison is made with a prior CT of the brain from May 16, 2017. TECHNIQUE: Contiguous axial sections of the brain were obtained from the skull base to the vertex without contrast. FINDINGS: The ventricles, cisterns and sulci are enlarged consistent with diffuse atrophy. No significant focal abnormality or mass effect is seen. There is no evidence for hemorrhage. No significant focal osseous abnormality is seen. The visualized portion of the paranasal sinuses and mastoid air cells appear clear. IMPRESSION: NO EVIDENCE FOR ACUTE INTRACRANIAL ABNORMALITY. Assess/Plan/Problems-Billing Assessment: 72 yr old female with past medial hx of afib, anemia, chronic wounds, restless leg, diabetes, ckd; who presented to the ED with left leg pain, swelling, and metabolic derangement - Patient Problems (1) Anemia Code(s): D64.9 - ANEMIA, UNSPECIFIED SNOMED Code(s): 064764685 Comment: - Slightly lower than patients baseline with new O2 requirement - Positive stool guaic - GI consult requested however patient has declined intervention (also declined to follow up outpatient with GI) - Hold xarelto, patient has appointment with her flight deck officer on Friday, should discuss outpatient GI workup and utility of restarting xarelto with cardiology - s/p 1 unit PRBCs, remains O2 dependent with desaturations (2) Atrial fibrillation Code(s): I48.91 - UNSPECIFIED ATRIAL FIBRILLATION SNOMED Code(s): 76661136 Comment: - Continue atenolol, diltiazem - Hx of epistaxis on xarelto, now with low H&H and guaic pos stool - AC needs follow up re: benefit vs risk as above (3) Diabetes mellitus Code(s): E11.9 - TYPE 2 DIABETES MELLITUS WITHOUT COMPLICATIONS SNOMED Code(s) : 44553562 Comment: - BGs with good control - Continue SSI coverage with glargine daily (4) Hypoxia Code(s): R09.02 - HYPOXEMIA SNOMED Code(s): 062669100 Comment: - Chest xray with hazy changes at bases, does not appear to be consolidation, atelectasis vs stigmata of COPD - Cardiac ECHO as above, RV overload/cor pulmonale and possible pulmonary HTN - Continue IS, ambulate and home O2 - Ambulate as tolerated - Wean O2 as tolerated - Pending ECHO to eval for failure/LV function and valves (5) Chronic ulcer of leg Code(s): L97.909 - NON-PRS CHRONIC ULC UNSP PRT OF UNSP LOW LEG W UNSP SEVERITY SNOMED Code(s): 18094029 Comment: - Would consult WE[employer] COMMUNICATIONS SPECIALIST in for evaluation - Please see local wound care recs (6) Hyperkalemia Code(s): E87.5 - HYPERKALEMIA SNOMED Code(s): 86192137 Comment: - 6.1 in ED and received bicarb, reg insulin and calcium - Received one dose of paterimer - Recheck BMP today (7) DVT prophylaxis Code(s): LRR5734 - SNOMED Code(s): 809027669 Comment: - ambulate, SCDs if tolerated (8) Full code status Code(s): Z78.9 - OTHER SPECIFIED HEALTH STATUS SNOMED Code(s): 297854450 Status and Disposition: Inpatient. D/C home today if O2 can be arranged. Coordinated with case mgmt.
[2018-09-18 16:07] LABS: BUN/Creatinine Ratio 39.6 (8-20); Calcium 8.8 mg/dL (8.6-10.3); EGFR African American 61.3 (>60); EGFR Non-African American 50.7 (>60)
[2018-09-18 16:08] LABS: Potassium 5.1 mmol/L (3.5-5.0)
[2018-09-18] MEDS: Ropinirole TAB* 0.5 MG TAB PO PRN (21:38)
[2018-09-19] MEDS: oxyCODONE/Acetamin 5/325 MG* TAB PO PRN ×3 (03:10→15:45)
[2018-09-19] MEDS: Clindamycin CAP* 150 MG PO SCH ×2 (07:42→13:04)
[2018-09-19] MEDS: Insulin LISPRO* 1 UNITS UNIT SUBCUT SCH ×2 (08:32→12:05)
[2018-09-19] MEDS: Ferrous Sulfate TAB* 325 MG PO SCH (08:33)
[2018-09-19] MEDS: Atenolol TAB* 50 MG PO SCH ×2 (08:33→13:04)
[2018-09-19] MEDS: Diltiazem CD CAP* 120 MG PO SCH (08:33)
[2018-09-19] MEDS: Gabapentin CAP(*) 100 MG PO SCH (08:33)
[2018-09-19] MEDS: Bacitracin OINTMENT* 0.5% 0.5 oz TUBE TOPICAL SCH (08:44)
[2018-09-19 12:27] VITALS: BP 125/60
[2018-09-19 13:49] LABS: BUN/Creatinine Ratio 31.6 (8-20); Calcium 8.8 mg/dL (8.6-10.3); EGFR African American 54.7 (>60); EGFR Non-African American 45.2 (>60)
[2018-09-19 13:50] LABS: Potassium 5.2 mmol/L (3.5-5.0)
[2018-09-19] MEDS ORDERED: Patiromer POWDER* 8.4 GM PAK PO SCH (15:00)
--- NOTE | 2018-09-20 06:37 | DS ---
CC: Dr. Shaw; Dr. Etienne * DISCHARGE SUMMARY: DATE OF ADMISSION: 09/15/18 DATE OF DISCHARGE: 09/19/18 PRIMARY CARE PROVIDER: Dr. Shaw. VP PUBLIC RELATIONS: Dr. Etienne. MY ATTENDING: Dr. Twila Wright.* (DICTATED BY JANET ESPOSITO NP) HOSPITAL COURSE: Please refer to admitting H and P on 09/15/[address] Us. However, in short, this is a 72-year-old female patient, who was quite debilitated, who lives at home and has in-home care, however, the patient came to the emergency department after seeing Dr. Nuñez for her knee pain. She had some fluid aspirated. However, she felt that her lower extremities continued to have pain. She does have chronic wounds on the lower extremities. She felt that her skin was getting worse and then she was concerned she was having a reaction to the topical applications that we are using for her wound care. She had also been started on a short course of antibiotics and then started vomiting. Ultimately, this culminated in the patient feeling dizzy and weak, and also admitted to dietary indiscretion. The patient is supposed to have low- sodium and low-potassium diet; however, she stated she was eating bananas and potatoes and all the things she is not supposed to eat. She also had some hyperglycemia and elevated potassium at admission. The patient was seen by Wound Care for her lower extremity pain. She did not appear to have a full- blown cellulitis, it seemed to be more of a contact dermatitis in the presence of her topical applications. She was treated with bacitracin and wrappings, which seemed to improve her skin condition. For her metabolic disorder, she was given several doses of patiromer. She was given IV fluids over the course of 48 hours. Her electrolytes improved. She did have a bump up in her potassium again today. She was given an additional dose of patiromer and given dietary instructions. For her hyperglycemia, she was hyperglycemic, likely in the presence of a steroid injection to her knee with orthopedics. She had Lantus and lispro sliding scale and fluids and again this normalized. She did have ongoing chronic pain of the lower extremities, for which we started gabapentin and some low-dose Percocet, which seemed to do well. Also of significant note during this time, she did not have new oxygen requirement. We did do an echocardiogram of her heart. She was also guaiac positive. The patient had anemia, which initially was attributed to her chronic kidney disease , however, with her guaiac-positive stool, her Xarelto was held. However, the patient declined having GI intervention. It was also our understanding that the patient has declined colonoscopy in the past when she was referred for a similar episode of potential lower GI bleeding. The patient did receive 1 unit of packed red blood cells to which she responded very well; however, her echocardiogram did show some changes. Her EF is 65%. There was septal flattening in the interventricular septum consistent with right ventricular volume pressure overload. Her PAFP has increased from 49 mmHg on 01/04/16 to 70 mmHg now, but it was similar to the PAFP of 68 noted in May of 2018. The 2018 echo report also reported a PFO and that the DANIELLE she had in the past reported an ASD; however, the ASD cannot be confirmed on this current echocardiogram. Essentially, after reviewing the echocardiogram with Dr. Gilmore of Cardiology, her persistent hypoxia was likely secondary to her increasing severity of pulmonary hypertension. She did have pulmonary hypertension in the past that was ruled moderate before and is now moderate to severe. Her chest x-ray also had some pleural effusions with the left worse than the right. Again, all of these things could be contributing to her need for home O2, for which she did qualify. Her O2 sats did drop to the mid 80s with ambulation on room air, which qualified her for home oxygen. Overall, the patient seemed reluctant to have additional workup in the hospital; however, she was stabilized and feeling well and it was determined she could return to home on 09/19/18. The patient promised to follow up with Cardiology on Friday. She states she already has an appointment with the electronics technology department chair and also follow up with her primary care provider in the next week. She was instructed to have lab work as an outpatient to continue to follow her potassium and sodium levels. DISCHARGE DIAGNOSES: 1. Anemia secondary to anticoagulation with Xarelto and lower gastrointestinal bleeding and likely also secondary to anemia of chronic disease. 2. History of atrial fibrillation, on atenolol and diltiazem, which was stable. 3. Diabetes mellitus with hyperglycemia, now stable. 4. New hypoxia in presence of right ventricular overload, pulmonary hypertension, pleural effusion, and chronic kidney disease. 5. History of chronic ulcers of the legs bilaterally, for which she follows up with wound care services as an outpatient. 6. Hyperkalemia, which was corrected, likely secondary to chronic kidney disease and dietary indiscretion. DISCHARGE MEDICATIONS: Include: 1. Bacitracin topical daily. 2. Colace 100 mg p.o. b.i.d. 3. Gabapentin 100 mg p.o. b.i.d. 4. Percocet 1 tablet q.6 hours as needed for 3 days. 5. Atenolol 50 mg p.o. b.i.d. 6. Diltiazem XR 120 mg daily. 7. Tylenol 500 mg p.o. q.6 hours as needed. 8. Lasix 40 mg in the morning and 20 mg in the afternoon. 9. Vitamin C 500 mg daily. 10. ReQuip 0.5 mg daily as needed. 11. Ferrous sulfate 325 mg p.o. daily. 12. Probiotic 1 tablet daily. 13. Multivitamin 1 tablet daily. 14. Metformin 500 mg p.o. b.i.d. 15. Xarelto, she was instructed to hold her Xarelto until she sees her electronics technology department chair and determines the need for additional anticoagulation in the presence of the patient's refusal to have GI workup for GI bleeding and anemia. FOLLOWUPS: The patient was instructed to follow up with her primary care provider, Dr. Shaw, Dr. Niraj Etienne from Cardiology, wound care clinic for her wounds, [facility] [place] for her oxygen, [facility] for her in- home services. DIET: Renal diet, low potassium, diabetic as tolerated. ACTIVITY: Progress activity as tolerated. TIME SPENT: Approximately 45 minutes counseling the patient, coordinating discharge plan of care. JANET ESPOSITO, [place] [id number]/CPS #: [id number] MTDD
== END 2018-09-19 16:43 | disposition home health service (06) | DRG 812 ==
LOC: ED 20:57 → MEDTELE 23:51 → OBSVTOIN 09-15 15:00
PROVIDERS: ADMIT Pediatrics; ATTEND Internal Medicine
PROC: 30233N1 Transfusion of Nonautologous Red Blood Cells into Peripheral Vein, Percutaneous Approach (ICD-10-PCS; principal; 2018-09-16)
DX: D64.9 Anemia, unspecified (principal); N17.9 Acute kidney failure, unspecified; J90 Pleural effusion, not elsewhere classified; I13.0 Hypertensive heart and chronic kidney disease with heart failure and stage 1 through stage 4 chronic kidney disease, or unspecified chronic kidney disease; L97.929 Non-pressure chronic ulcer of unspecified part of left lower leg with unspecified severity; K92.1 Melena; E11.65 Type 2 diabetes mellitus with hyperglycemia; E87.5 Hyperkalemia; I27.20 Pulmonary hypertension, unspecified; E11.22 Type 2 diabetes mellitus with diabetic chronic kidney disease; I50.9 Heart failure, unspecified; I08.1 Rheumatic disorders of both mitral and tricuspid valves; N18.3 Chronic kidney disease, stage 3 (moderate); I48.91 Unspecified atrial fibrillation; T45.515A Adverse effect of anticoagulants, initial encounter; D63.8 Anemia in other chronic diseases classified elsewhere; L25.1 Unspecified contact dermatitis due to drugs in contact with skin; D50.9 Iron deficiency anemia, unspecified; I89.0 Lymphedema, not elsewhere classified; R09.02 Hypoxemia; G25.81 Restless legs syndrome; Y92.9 Unspecified place or not applicable; Z79.01 Long term (current) use of anticoagulants; Z79.84 Long term (current) use of oral hypoglycemic drugs; Z79.899 Other long term (current) drug therapy; Z88.1 Allergy status to other antibiotic agents; Z88.5 Allergy status to narcotic agent; Z88.8 Allergy status to other drugs, medicaments and biological substances
CPT/HCPCS: 36415; 70450; 71045; 80048; 80053; 81003; 81015; 82272; 82668; 82728; 82947; 83540; 83550; 83605; 83735; 83880; 85014; 85018; 85025; 85610; 85730; 86140; 86850; 86900; 86901; 86922; 87040; 87086; 93005; 93306; 99285; A9270-GY; G8978-GP-CJ; G8979-GP-CI; J0610; J2405; J3010; J3370; P9040

== ENCOUNTER 2019-03-19 16:28 | Inpatient (IN) | payer MEDICARE, BC ==
--- OUTSIDE RECORDS SUMMARY | 2019-03-19 17:18 | XMS REPORT | Summary of Care ---
:1945 Author Organization [facility] Address [address] [facility] [place] [address] Care Team Providers Name Role Phone Jensen Shaw MD Primary Care Provider Reason for Visit Reason Comments Wound Encounter Details Date Type Department Care Team Description 03/04/2019 Office Visit [facility] Wound Care & Robbie Nair, Ulcers of both lower legs (HCC) (Primary Dx); Hyperbaric Medicine Diabetes mellitus with skin ulcer (HCC); [address] Venous insufficiency [place] [id number] [place] [address] Allergies Active Allergy Reactions Severity Noted Date Comments Keflex GI Reaction 01/19/2010 Morphine GI Reaction 12/27/2008 "loopy" Tetracycline Rash 10/27/2007 documented as of this encounter (statuses as of 03/08/2019) Medications Medication Sig Dispensed Refills Start Date End Date Status ATENOLOL PO Take 50 mg by 0 Active mouth THREE TIMES DAILY. Ferrous Sulfate (IRON) Take 325 mcg by 0 Active 325 (65 Fe) MG Oral Tab mouth DAILY. Ascorbic Acid (VITAMIN Take 1 Tab by 0 Active C) 500 MG Oral Cap mouth DAILY. ropinirole (REQUIP) 0.5 Take 1 mg by 0 Active MG Oral Tab mouth EVERY BEDTIME NEEDED. rivaroxaban (XARELTO) Take 1 Tab by 12 Tab 0 12/31/2018 Active 10 MG Oral Tab mouth DAILY. bumetanide (BUMEX) 2 MG Take 2 mg by 30 Tab 0 01/07/2019 Active Oral Tab mouth DAILY. metFORMIN (GLUCOPHAGE) Take 500 mg by 0 Active 500 MG Oral Tab mouth TWICE DAILY. diltiazem (CARDIZEM CD) Take 240 mg by 0 Active 240 MG Oral CAPSULE SR mouth DAILY. 24 HR Multiple Take 1 Tab by 30 Tab 0 01/25/2019 Active Vitamins-Minerals mouth DAILY. (MULTIVITAMIN WOMEN) Oral Tab candesartan (ATACAND) 8 Take 8 mg by 0 01/25/2019 Active MG Oral Tab mouth TWICE DAILY. ciprofloxacin (CIPRO) Take 1 Tab by 20 Tab 0 03/01/2019 Active 500 MG Oral Tab mouth TWICE DAILY. documented as of this encounter (statuses as of 03/08/2019) Active Problems Problem Noted Date Ulcers of both lower legs 01/15/2019 Diabetes mellitus with skin ulcer 01/15/2019 Venous insufficiency 01/15/2019 Cyst of left kidney 01/04/2019 Overview: Per Reteroperitoneal US on 12/30, Patient will need outpatient follow up with possible repeat imaging. Pruritus 12/30/2018 Overview: Patient complaints of constant itching all over her body, states that she could rip her skin off - resolved DDx: fluids, medications induced -Atarax 10mg TID PRN WALKER (acute kidney injury) 12/28/2018 Overview: Patient's creatinine has improved to 1.9 with Bumex diuresis WALKER developed after aggressive diuresis, and vancomycin - unclear etiology Hold nephrotoxic medications: Caldesartan, Vancomycin, Morphine Transition to PO BUmex BID starting this evening, Removal of [place] planned Patient will need another US for follow up on renal cyst in an outpatient setting Chronic respiratory failure 12/28/2018 Overview: Pt chronically on 2L NC at all times, but no prior records to indicate reason for Oxygen Pending notes from patient's outpatient clinic DDx: PE, pulmonary fibrosis, CHF, COPD V/Q scan unremarkable Acute CHF (congestive heart failure) 12/27/2018 Overview: - No prior record of last EF, as patient does not follow in our system, however , had previously been diagnosed with acute on chronic combined systolic and diastolic HF in the past per OSH records. CXR w ith right sided pleural effusion and NT pro BNP was 2780 on admission. - TTE shows LVEF 65-70% with right heart strain - Troponin negative, Continue home medications of atenolol, diltiazem, aspirin - ARBs held due to WALKER - Monitor daily weights and strict I&Os, Daily labs - Nephrology following patient at this time, Patient will need continued OP Cardiology follow up - VTE proph with heparin Cellulitis of left lower extremity 12/27/2018 Overview: - Discontinue Vanc and Zosyn, Continue Ancef - Wound culture positive for Rare Enterobacter cloacae complex - Percocet 5/ 325 Q4H PRN pain - director of services consult - Patient has a spot at [place] at this time for STR post discharge from hospital. - Skin care following Chronic cutaneous venous stasis ulcer 12/27/2018 Overview: -Wound care consulted and following Paroxysmal atrial fibrillation 12/27/2018 Overview: -Continue atenolol - Hold Xarelto per Nephrology RLS (restless legs syndrome) 12/27/2018 Overview: - C/w Requip Chronic dislocation of right shoulder 12/27/2018 Overview: Orthopedic consult- No intervention indicated Shoulder arthritis 11/08/2009 Type 2 diabetes mellitus without complication, without long-term current 07/19 use of insulin Overview: Hold home medications of metformin - Accu checks AC/HS and ISS Essential hypertension 07/19/2008 Overview: Continue home meds of Atenolol, Diltiazem Osteoarthrosis, unspecified whether generalized or localized, shoulder 2007 region Osteoarthrosis, unspecified whether generalized or localized, pelvic 2006 region and thigh Disturbance of skin sensation 09/04/2006 Primary localized osteoarthrosis, pelvic region and thigh 08/13/2006 Primary localized osteoarthrosis, shoulder region 08/13/2006 documented as of this encounter (statuses as of 03/08/2019) Social History Tobacco Use Types Packs/Day Years Used Date Never Smoker Smokeless Tobacco: Never Used Alcohol Use Drinks/Week oz/Week Comments Yes rarely Sex Assigned at Date Recorded Not on file Job Start Date Occupation Industry Not on file Not on file Not on file Travel History Travel Start Travel End No recent travel history available. documented as of this encounter Last Filed Vital Signs Vital Sign Reading Time Taken Comments Blood Pressure 129/62 03/04/2019 9:45 AM EDT Pulse 84 03/04/2019 9:45 AM EDT Temperature 35.5 03/04/2019 9:45 AM EDT C (95.9 F) Respiratory Rate 16 03/04/2019 9:45 AM EDT Oxygen Saturation - - Inhaled Oxygen Concentration - - Weight - - Height - - Body Mass Index - - documented in this encounter Progress Notes Robbie Nair MD - 03/04/2019 10:00 AM EDT PATIENT: Silvana Valerio : 1945 DATE OF SERVICE: 03/04/2019 REFERRING PRACTITIONER: Samuel PRIMARY CARE PROVIDER: Jensen Shaw CHIEF COMPLAINT: Wound HISTORY OF PRESENT ILLNESS: Silvana Valeriois a 73-y.o.femalewho presents to clinic forfollow upwound consultation.She was admitted from 12/26 to 01/07/19 for WALKER,CHF and bilateral leg edema, cellulitis associated with 1-2 year old leg Ulcers. Previously she was attending [facility] wound care. Shewas treated by ID with vancomycin and Zosyn and discharged on Clindamycin. [facility], now [facility] home. Prior to admission, she had compression stockings and had started using Venous pumps. Has lost 65 lbs in weight with diuresis, starting PT now. No wound related new symptoms since last visit.Has been using Pumps once a day. First Visit :01/15/19 Risk Factors :DM, CHF, RLS,A-Fib Smoking :Never Hemostatic History :ASA, Xarelto Antibiotic :None Dressing : EndoformAquacel Ag Comp/offLoading :Tubigrip, Venous pumps Procedures :None Past Medical History: Diagnosis Date LOC PRIM OSTEOART-PELVIS 08/13/2006 LOC PRIM OSTEOART-SHLDER 08/13/2006 OSTEOARTHROSIS HIP 12/10/2006 Osteoarthrosis, unspecified whether generalized or localized, shoulder region 10/26/2007 Phlebitis and thrombophlebitis SKIN SENSATION DISTURB 09/04/2006 Type II or unspecified type diabetes mellitus without mention of complication, not stated as uncontrolled 07/19/2008 Unspecified essential hypertension 07/19/2008 Past Surgical History: Procedure Laterality Date OPEN FX REDUCTION NEC right elbow OTHER AND UNSPECIFIED HYSTERECTOMY NV RECONSTRUCT PROX HUMERAL IMPLANT 11.03.2007 Arthroplasty, Shoulder right revision Family History Problem Relation Age of Onset Heart Disease Mother at age 85 Diabetes Mother Pulmonary Father smoker Social History Socioeconomic History Marital status: Spouse name: Not on file Number of children: Not on file Years of education: Not on file Highest education level: Not on file Occupational History Not on file Social Needs Financial resource strain: Not on file Food insecurity: Worry: Not on file Inability: Not on file Transportation needs: Medical: Not on file Non-medical: Not on file Tobacco Use Smoking status: Never Smoker Smokeless tobacco: Never Used Substance and Sexual Activity Alcohol use: Yes Comment: rarely Drug use: No Sexual activity: Not on file Lifestyle Physical activity: Days per week: Not on file Minutes per session: Not on file Stress: Not on file Relationships Social connections: Talks on phone: Not on file Gets together: Not on file Attends restoration service: Not on file Active member of club or organization: Not on file Attends meetings of clubs or organizations: Not on file Relationship status: Not on file Intimate partner violence: Fear of current or ex partner: Not on file Emotionally abused: Not on file Physically abused: Not on file Forced sexual activity: Not on file Other Topics Concern Not on file Social History Narrative Employment: [employer] Marital status: Children: 2 sons Family history was reviewed and was negative Current Outpatient Medications Medication Sig Ascorbic Acid (VITAMIN C) 500 MG Oral Cap Take 1 Tab by mouth DAILY. ATENOLOL PO Take 50 mg by mouth THREE TIMES DAILY. bumetanide (BUMEX) 2 MG Oral Tab Take 2 mg by mouth DAILY. candesartan (ATACAND) 8 MG Oral Tab Take 8 mg by mouth TWICE DAILY. ciprofloxacin (CIPRO) 500 MG Oral Tab Take 1 Tab by mouth TWICE DAILY. diltiazem (CARDIZEM CD) 240 MG Oral CAPSULE SR 24 HR Take 240 mg by mouth DAILY. Ferrous Sulfate (IRON) 325 (65 Fe) MG Oral Tab Take 325 mcg by mouth DAILY. metFORMIN (GLUCOPHAGE) 500 MG Oral Tab Take 500 mg by mouth TWICE DAILY. Multiple Vitamins-Minerals (MULTIVITAMIN WOMEN) Oral Tab Take 1 Tab by mouth DAILY. rivaroxaban (XARELTO) 10 MG Oral Tab Take 1 Tab by mouth DAILY. ropinirole (REQUIP) 0.5 MG Oral Tab Take 1 mg by mouth EVERY BEDTIME NEEDED. No current facility-administered medications for this visit. Allergies Allergen Reactions Keflex GI Reaction Morphine GI Reaction "loopy" Tetracycline Rash All history was reviewed with the patient. REVIEW OF SYSTEMS: A comprehensive review of systems was negative except for as noted in the history of present illness/subjective. PHYSICAL EXAMINATION: VITALS: BP 129/62 | Pulse 84 | Temp (!) 95.9 F (35.5 C) (Temporal) | Resp 16 Constitutional: In no acute distress. HEENT: Grossly intact.No obvious focus of infection. Skin:Warm, Turgor normal Neck :No palpable Thyromegaly or masses Cardiovascular: Sinus rhythm. No murmurs. Respiratory: Clear to auscultation. GI: Abdomen soft, non-tender, no organomegaly. Extremities:Edema ++ Vascular:Pedal pulses palpable Neurologic: Alert oriented x 3.Grossly intact. WOUND EXAMINATION: Wound # 1Left leg medial proximal 4.9x 1.5x 0.2cm better granulation,slough, Wound # 2Left leg medial distal 1.2x 1x 0.2 cm granulation,slough , Wound # 3Left leg anterior1.2x 0.8x 0.2 cm granulation, slough Wound #4 Right leg 3.3x 1.3x Granulation,slough All larger DIAGNOSTIC STUDY A1c 7 12/26/18 [id number] - NH- within normalrange Wound Culture 02/25/19 treated Frequent Enterobacter cloacae complex Occasional to Frequent Pseudomonas aeruginosa Occasional Enterococcus species (group D) Wound Biopsy X-ray Left leg 12/26/18 No acute osseous or articular abnormality is otherwise evident Vascular Lab03/04/19 ASSESSMENT:Bilateral leg ulcers, CVI, DM PROCEDURE: The wound and bossman-wound was cleaned.Open Debridement was then carriedunder topical anesthesia using curette. Hemostasis was secured with pressure Patient tolerated the debridement well. shewas given instructions about dressing change. TREATMENT PLAN:Aquacel Ag A/D Tubigrip, Elevation, Venous pumps BID DM control -A1c 7 Punch biopsy report pending, , ABIs Get notes from [facility] FOLLOWUP:1 week Author: Robbie Nair MD 03/04/2019; 10:03 documented in this encounter Plan of Treatment Date Type Specialty Care Team Description 03/11/2019 Ancillary Procedure Radiology 03/11/2019 Office Visit Wound Care/Hyperbaric Robbie Nair MD [address] [place] [id number] [phone] 03/30/2019 Office Visit Cardiology Chino Kenney MD [address] [place] [address] [phone] Health Maintenance Due Date Last Done Comments Diabetic Eye Exam 1945 MEDICARE ANNUAL WELLNESS VISIT 1945 DEPRESSION SCREENING 1955 HIV SCREENING 10/06/1958 FOOT EXAM 10/06/1961 LIPID DISORDER SCREENING 10/06/1961 MAMMOGRAM (SCREENING) 1983 COLONOSCOPY SCREENING 10/06/1993 ZOSTER IMMUNIZATION SERIES (1 of 10/06/1993 2) FALL RISK ASSESSMENT 10/06/2008 OSTEOPOROSIS SCREENING 10/06/2008 PNEUMOCOCCAL 65+YRS (1 of 2 - 10/06/2008 PCV13) INFLUENZA VACCINE (#1) 2019 HEMOGLOBIN A1C 03/28/2019 12/26/2018 HPV IMMUNIZATION SERIES Aged Out No longer eligible based on patient's age to complete this topic MENINGOCOCCAL VACCINE IMM Aged Out No longer eligible based on patient's age to complete this topic documented as of this encounter Goals Goal Patient Goal Associated Recent Patient-Stated? Author Type Problems Progress Blood Pressure Blood Pressure 129/62 No [place], < 140/90 (03/04/2019 Rachel 9:45 AM EDT) Note: This is an individualized treatment (blood pressure) goal for Silvana Valerio: Displayed above (on the left) is your goal for blood pressure control. Your most recent blood pressure is also shown above, on the right. You should try to achieve blood pressures that are lower than your goal listed above (on the left). Weight increase vs. 18 mo min CHF 0 (01/25/2019 2:12 PM EDT) No Rachel Heard (lbs) < 5 Note: This is an individualized treatment (congestive heart failure, CHF) goal for Silvana Valerio: Displayed above (on the right) is how many pounds you are in excess of your lowest weight over the past 18 months. Note that lower numbers are better. Excessive weight gain often indicates fluid reten tion and worsening heart failure. You should contact your doctor immediately if the above number is too high (above your goal, the number on the left). Glycohemoglobin A1c < 7.0 Diabetes 7.0 (12/26/2018 8:40 PM No Rachel Heard EDT) Note: This is an individualized treatment (diabetes control, HgbA1C) goal for Silvana Valerio: Displayed above is your progress towards your HgbA1C goal. Your goal is shown above (on the left); your most recent HgbA1C is shown on the right. Note that lower numbers are better. Keep immunizations current Lifestyle No Rachel Heard Note: This is an individualized lifestyle goal for Silvana Valerio: Please be sure to keep up-to-date on recommended immunizations. For example, this would include a yearly influenza vaccine. Immunization status can be seen by looking at the Health Maintenance sections of your e[facility], Plan of Care, and any After Visit Summaries. Consume a [id number] diet Lifestyle No Rachel Heard Note: This is an individualized lifestyle goal for Silvana Valerio: Please do not add additional salt to your food. Additional salt may lead to fluid retention and worsen your congestive heart failure. Take all prescribed medications as directed Self-management No Rachel Heard Note: This is an individualized self-management goal for Silvana Valerio: Please take all prescribed medications as directed. 1. Do not skip doses. If you cannot afford your medications, talk with your doctor. 2. Use a pill reminder system such as a pill box if needed. Your pharmacist can help you with this. 3. Contact your Pharmacy 5 days before your medication runs out. If you cannot take your medications for any reasons, talk with your doctor. 4. Please bring all of your medication bottles and inhalers (or a list of all your medications/inhalers) with you to every visit. Potential barriers to meeting all of your care plan goals will continue to be addressed on an ongoing basis. Check your weight daily Self-management No Rachel Heard Note: This is an individualized self-management goal for Silvana Valerio: Please check your weight daily. Refer to the accompanying CHF treatment goal and call your doctor immediately for further instructions on how to respond to unexpected weight gain. documented as of this encounter Implants Implanted Type Area Fagot Heater Device Shelf Model / Identifier Expiration Serial / Date Lot Juanjose Rodriguez Shell 60mm - [id number] Right: Hip AMNA CUCO 6200- 060-22 / Implanted: Qty: 1 on 01/10/2009 at [facility] / [id number] Trilogy Long Std Liner [id number] - [id number] Right: Hip AMNA NORWOOD [id number] / Implanted: Qty: 1 on 01/10/2009 at [facility] / [id number] Bone Screw, Trilogy 6.5*30mm - [id number] Right: Hip AMNA NORWOOD 6250 -65-30 / Implanted: Qty: 1 on 01/10/2009 at [facility] / [id number] 06/26 Femoral Head -3.5x40mm - [id number] Right: Hip AMNA NORWOOD 8018 -40-01 / Implanted: Qty: 1 on 01/10/2009 at [facility] / [id number] Versys Beaded Stem 14 X 160mm - [id number] Right: Hip AMNA NORWOOD / Implanted: Qty: 1 on 01/10/2009 at [facility] / [id number] Bone Cement, 40gm Full Dose - [id number] Left: DEPUY [id number] / Implanted: Qty: 1 on 11/22/2009 at [facility] / [id number] Hybrid Glenoid Base Left: BIOMET [id number] / Implanted: Qty: 1 on 11/22/2009 at [facility] / [id number] Biomet Humeral Stem 11 X 115 - [id number] Left: BIOMET [id number] / Implanted: Qty: 1 on 11/22/2009 at [facility] / [id number] Biomet Humeral Head 48 X 19 - [id number] Left: BIOMET [id number] / Implanted: Qty: 1 on 11/22/2009 at [facility] / [id number] documented as of this encounter Results Not on filedocumented in this encounter Visit Diagnoses Diagnosis Ulcers of both lower legs (HCC) - Primary Ulcer of lower limb, unspecified Diabetes mellitus with skin ulcer (HCC) Type II or unspecified type diabetes mellitus with other specified manifestations, not stated as uncontrolled Venous insufficiency Unspecified venous (peripheral) insufficiency documented in this encounter Insurance Payer Benefit Plan / Subscriber ID Effective Dates Phone Address Type Group MEDICARE MEDICARE PART A xxxxxxxxxxx 2008-Present Medicare & B BCBS EMPIRE BCBS EMPIRE PPO xxxxxxxxxxxx 2018-Present Blue Cross/Blue Shield Guarantor Name Account Type Relation to Date of Phone Billing Address Patient Silvana Valerio Personal/Family 1945 [address] (Home) [facility] [phone] [place] [id number] (Work) documented as of this encounter Advance Directives Code Status Date Activated Date Inactivated Comments DNR/DNI 12/27/2018 12:21 AM Does the patient have decision making capacity? Yes Order was discussed with: Patient I discussed all options and patient/surrogate requested and agreed to: DNR/ DNI
--- OUTSIDE RECORDS SUMMARY | 2019-03-19 17:19 | XMS REPORT | Summary of Care ---
:1945 Author Organization [facility] Address [address] [address] Care Team Providers Name Role Phone Jensen Shaw MD Primary Care Provider Reason for Referral MRI/CAT/PET Scan (Routine) Status Reason Specialty Diagnoses / Procedures Referred By Referred To Contact Contact Authorized Diagnoses Ulcers of both lower legs (HCC) Diabetes mellitus with skin ulcer (HCC) Venous insufficiency Robbie Nair, Procedures VL BODY MEASURE ZENOBIA MULTIPLE MD [address] [place] [id number] MRI/CAT/PET Scan (Routine) Status Reason Specialty Diagnoses / Procedures Referred By Referred To Contact Contact Authorized Diagnoses Ulcers of both lower legs (HCC) Diabetes mellitus with skin ulcer (HCC) Venous insufficiency Robbie Nair, Procedures VL LOWER EXTREMITY DUPLEX VEINS BILATERAL [address] [address] Reason for Visit Reason Comments Wound Encounter Details Date Type Department Care Team Description 02/25/2019 Office Visit [facility] Wound Care & Robbie Nair, Ulcers of both lower legs (HCC) (Primary Dx); Hyperbaric Medicine Diabetes mellitus with skin ulcer (HCC); 1 Sylvia Barajas 1 SYLVIA BARAJAS Venous insufficiency [place] [address] [place] [address] Allergies Active Allergy Reactions Severity Noted Date Comments Keflex GI Reaction 01/19/2010 Morphine GI Reaction 12/27/2008 "loopy" Tetracycline Rash 10/27/2007 documented as of this encounter (statuses as of 02/26/2019) Medications Medication Sig Dispensed Refills Start Date End Date Status ATENOLOL PO Take 50 mg by 0 Active mouth THREE TIMES DAILY. Ferrous Sulfate (IRON) Take 325 mcg by 0 Active 325 (65 Fe) MG Oral mouth DAILY. Tab Ascorbic Acid (VITAMIN Take 1 Tab by 0 Active C) 500 MG Oral Cap mouth DAILY. ropinirole (REQUIP) Take 1 mg by mouth 0 Active 0.5 MG Oral Tab EVERY BEDTIME NEEDED. rivaroxaban (XARELTO) Take 1 Tab by 12 Tab 0 12/31/2018 Active 10 MG Oral Tab mouth DAILY. bumetanide (BUMEX) 2 Take 2 mg by mouth 30 Tab 0 01/07/2019 Active MG Oral Tab DAILY. metFORMIN (GLUCOPHAGE) Take 500 mg by 0 Active 500 MG Oral Tab mouth TWICE DAILY. diltiazem (CARDIZEM Take 240 mg by 0 Active CD) 240 MG Oral mouth DAILY. CAPSULE SR 24 HR Multiple Take 1 Tab by 30 Tab 0 01/25/2019 Active Vitamins-Minerals mouth DAILY. (MULTIVITAMIN WOMEN) Oral Tab candesartan (ATACAND) Take 8 mg by mouth 0 01/25/2019 Active 8 MG Oral Tab TWICE DAILY. documented as of this encounter (statuses as of 02/26/2019) Active Problems Problem Noted Date Ulcers of [...] Percocet 5/ 325 Q4H PRN pain - representative phlebotomy services consult - Patient has a spot at [place] at this time for STR post discharge [...] as of this encounter (statuses as of 02/26/2019) Social History Tobacco Use Types Packs/Day Years [...] Sign Reading Time Taken Comments Blood Pressure 128/64 02/25/2019 9:45 AM EDT Pulse 82 02/25/2019 9:45 AM EDT Temperature 36.6 02/25/2019 9:45 AM EDT C (97.8 F) Respiratory Rate 18 02/25/2019 9:45 AM EDT Oxygen Saturation - - Inhaled Oxygen Concentration - - Weight - - Height - - Body Mass Index - - documented in this encounter Progress Notes Robbie Nair MD - 02/25/2019 10:00 AM EDT PATIENT: Silvana Valerio : 1945 DATE OF SERVICE: 02/25/2019 REFERRING PRACTITIONER: Asher Todd PRIMARY CARE PROVIDER: Jensen Shaw CHIEF COMPLAINT: Wound HISTORY OF PRESENT ILLNESS: Silvana Valeriois a 73-y.o.femalewho presents to clinic forfollow upwound consultation.She was admitted from 12/26 to 01/07/19 for WALKER,CHF and bilateral leg edema, cellulitis associated with 1-2 year old leg Ulcers. Previously she was attending [facility] wound care. Shewas treated by ID with vancomycin and Zosyn and discharged on Clindamycin. She wasat [facility], now discharged home. Prior to admission, she had compression stockings and had started using Venous pumps. Has lost 65 lbs in weight with diuresis, starting PT now. No wound related new symptoms since last visit. First Visit :01/15/19 Risk Factors :DM, CHF, RLS,A-Fib Smoking :Never Hemostatic History :ASA, Xarelto Antibiotic :None Dressing : EndoformAquacel Ag Comp/offLoading :Tubigrip, Venous pumps Procedures :None Past Medical History: Diagnosis Date LOC PRIM OSTEOART-PELVIS 08/13/2006 LOC PRIM OSTEOART-SHLDER 08/13/2006 OSTEOARTHROSIS HIP 12/10/2006 Osteoarthrosis, unspecified whether generalized or localized, shoulder region 10/26/2007 SKIN SENSATION DISTURB 09/04/2006 Type II or unspecified type diabetes mellitus without mention of complication, not stated as uncontrolled 07/19/2008 Unspecified essential hypertension 07/19/2008 Past Surgical History: Procedure Laterality Date OPEN FX REDUCTION NEC right elbow OTHER AND UNSPECIFIED HYSTERECTOMY RI RECONSTRUCT PROX HUMERAL IMPLANT 11.03.2007 Arthroplasty, Shoulder [...] file Gets together: Not on file Attends mormonism service: Not on file Active member of [...] Not on file Social History Narrative Employment: [employer] Marital status: Children: 2 sons Family [...] Take 8 mg by mouth TWICE DAILY. diltiazem (CARDIZEM CD) [...] of present illness/subjective. PHYSICAL EXAMINATION: VITALS: BP 128/64 | Pulse 82 | Temp 97.8 F (36.6 C) (Temporal) | Resp 18 Constitutional: In no acute distress. HEENT: Grossly intact.No obvious focus of infection. Skin:Warm, Turgor normal Neck :No palpable Thyromegaly or masses Cardiovascular: Sinus rhythm. No murmurs. Respiratory: Clear to auscultation. GI: Abdomen soft, non-tender, no organomegaly. Extremities:Edema ++ Vascular:Pedal pulses palpable Neurologic: Alert oriented x 3.Grossly intact. WOUND EXAMINATION: Wound # 1Left leg medial proximal 4.4x 1.5x 0.2cm better granulation,slough, Wound # 2Left leg medial distal 1x 0.8 x 0.2 cm granulation,slough, smaller Wound # 3Left leg [id number] 0.5x 0.2 cm granulation, slough Wound #4 Right leg2.9x 1.2x 0.3 cm granulation,slough DIAGNOSTIC STUDY A1c 7 12/26/18 [id number] - [place]- within normalrange Wound Culture Wound Biopsy X-ray Left leg 12/26/18 No acute osseous or articular abnormality is otherwise evident Vascular Lab12/29/18 Venous duplex and compressions of the bilateral lower extremities shows no evidence for deep or superficial venous thrombosis. Calf veins could not be imaged due to wound bandaging that could not be removed for todays exam. ASSESSMENT:Bilateral leg ulcers, CVI, DM PROCEDURE: The wound and bossman-wound was cleaned.Open Debridement was then carriedunder topical anesthesia using curette. Hemostasis was secured with pressure Patient tolerated the debridement well. shewas given instructions about dressing change. TREATMENT PLAN:Aquacel Ag A/D Tubigrip , Elevation, Venous pumps BID DM control -A1c 7 Punch biopsy, C & S, Venous Duplex, ABIs Get notes from [facility] FOLLOWUP:1 week Author: Robbie Nair MD 02/25/2019; 09:56 documented in this encounter Plan of Treatment Date Type Specialty Care Team Description 03/04/2019 Office Visit Wound Care/Hyperbaric Robbie Nair MD [address] [address] [phone] 03/30/2019 Office Visit Cardiology Chino Kenney MD [address] [address] Name Type Priority Associated Diagnoses Date/Time TISSUE CULTURE (AER/ALBERT) Lab Routine 02/25/2019 10:40 AM EDT C&S TISSUE EXAM Lab Routine 02/25/2019 10:40 AM EDT Name Type Priority Associated Diagnoses Order Schedule VL LOWER EXTREMITY Imaging Routine Ulcers of both lower legs Expected: , DUPLEX VEINS (HCC) Expires: 04/25/2020 BILATERAL Diabetes mellitus with skin ulcer (HCC) Venous insufficiency VL BODY MEASURE ZENOBIA Imaging Routine Ulcers of both lower legs Expected: , MULTIPLE (HCC) Expires: 04/25/2020 Diabetes mellitus with skin ulcer (HCC) Venous insufficiency TISSUE EXAM Lab Routine ONE TIME for 1 Occurrences starting 02/25/2019 until 02/25/2019, 1 completed Health Maintenance Due Date Last Done Comments [...] Type Problems Progress Blood Pressure Blood Pressure 128/64 No [place], < 140/90 (02/25/2019 Rachel 9:45 AM EDT) Note: This is [...] and any After Visit Summaries. Consume a qo-haxvj-dbfi diet Lifestyle No Rachel Heard Note: This [...] of this encounter Implants Implanted Type Area Pattern Vault Clerk Device Shelf Model / Identifier Expiration Serial / Date Lot Trilogy Cluster Shell 60mm - [id number] Right: Hip AMNA CUCO 6200- 060-22 / Implanted: Qty: 1 on 01/10/2009 at [facility] / [id number] Trilogy Long Std Liner [id number] - [id number] Right: Hip AMNA CUCO 6305-060-40 / Implanted: Qty: 1 on 01/10/2009 at [facility] / [id number] Bone Screw, Trilogy 6.5*30mm - [id number] Right: Hip AMNA CUCO 6250 -65-30 / Implanted: Qty: 1 on 01/10/2009 at [facility] / [id number] 06/26 Femoral Head -3.5x40mm - [id number] Right: Hip AMNA CUCO 8018 -40-01 / Implanted: Qty: 1 on 01/10/2009 at [facility] / [id number] Versys Beaded Stem 14 X 160mm - [id number] Right: Hip [facility] / Implanted: Qty: 1 on 01/10/2009 at [facility] / [id number] Bone Cement, 40gm Full Dose - [id number] Left: DEPUY [id number] / Implanted: Qty: 1 on 11/22/2009 at [facility] / [id number] Hybrid Glenoid Base Left: BIOMET [id number] / Implanted: Qty: 1 on 11/22/2009 at [facility] / [id number] Biomet Humeral Stem 11 X 115 - [id number] Left: BIOMET [id number] / Implanted: Qty: 1 on 11/22/2009 at [facility]er / [id number] Biomet Humeral Head 48 X 19 - [id number] Left: BIOMET [id number] / Implanted: Qty: 1 on 11/22/2009 at [facility] / [id number] documented as of this encounter Procedures Procedure Name Priority Date/Time Associated Diagnosis Comments TISSUE CULTURE Routine 02/25/2019 10:40 AM EDT (AER/ALBERT) C&S documented in this encounter Results Not on filedocumented in [...] EMPIRE PPO xxxxxxxxxxxx 2018-Present Blue [employer]/Blue [employer] (Work) documented as of this encounter Advance Directives Code Status Date Activated Date Inactivated Comments DNR/DNI 12/27/2018 12:21 AM Does the patient have decision making capacity? Yes Order was discussed with: Patient I discussed all options and patient/surrogate requested and agreed to: DNR/ DNI
--- OUTSIDE RECORDS SUMMARY | 2019-03-19 17:19 | XMS REPORT | Summary of Care ---
:1945 Author Organization [facility] Address [address] [facility] [place] [address] Care Team Providers Name Role Phone Jensen Shaw MD Primary Care Provider Reason for Visit Reason Comments Wound Encounter Details Date Type Department Care Team Description 02/18/2019 Office Visit [facility] Wound Care & Robbie Nair, Ulcers of both lower legs (HCC) (Primary Dx); Hyperbaric Medicine Diabetes mellitus with skin ulcer (HCC); [address] Venous insufficiency [place] [address] [place] [address] Allergies Active Allergy Reactions Severity Noted Date Comments Keflex GI Reaction 01/19/2010 Morphine GI Reaction 12/27/2008 "loopy" Tetracycline Rash 10/27/2007 documented as of this encounter (statuses as of 02/19/2019) Medications Medication Sig Dispensed Refills Start Date End Date Status ATENOLOL PO Take 50 mg by 0 Active mouth THREE TIMES DAILY. Ferrous Sulfate Take 325 mcg by 0 Active (IRON) 325 (65 Fe) mouth DAILY. MG Oral Tab Ascorbic Acid Take 1 Tab by 0 Active (VITAMIN C) 500 MG mouth DAILY. Oral Cap ropinirole Take 1 mg by 0 Active (REQUIP) 0.5 MG mouth EVERY Oral Tab BEDTIME NEEDED. rivaroxaban Take 1 Tab by 12 Tab 0 12/31/2018 Active (XARELTO) 10 MG mouth DAILY. Oral Tab bumetanide (BUMEX) Take 2 mg by 30 Tab 0 01/07/2019 Active 2 MG Oral Tab mouth DAILY. metFORMIN Take 500 mg by 0 Active (GLUCOPHAGE) 500 mouth TWICE MG Oral Tab DAILY. diltiazem Take 240 mg by 0 Active (CARDIZEM CD) 240 mouth DAILY. MG Oral CAPSULE SR 24 HR Multiple Take 1 Tab by 30 Tab 0 01/25/2019 Active Vitamins-Minerals mouth DAILY. (MULTIVITAMIN WOMEN) Oral Tab candesartan Take 8 mg by 0 01/25/2019 Active (ATACAND) 8 MG mouth TWICE Oral Tab DAILY. silver by Apply 0 01/07/2019 02/19/20 Discontinued antimicrobial externally 19 (Therapy (SILVASORB) Apply route NEEDED Completed) externally Gel (Wound care). documented as of this encounter (statuses as of 02/19/2019) Active Problems Problem Noted Date Ulcers of [...] Percocet 5/ 325 Q4H PRN pain - nutrition services associate consult - Patient has a spot at [place] at this time for STR post discharge [...] as of this encounter (statuses as of 02/19/2019) Social History Tobacco Use Types Packs/Day Years [...] Sign Reading Time Taken Comments Blood Pressure 122/80 02/18/2019 9:00 AM EDT Pulse 84 02/18/2019 9:00 AM EDT Temperature 36.2 02/18/2019 9:00 AM EDT C (97.2 F) Respiratory Rate 18 02/18/2019 9:00 AM EDT Oxygen Saturation - - Inhaled Oxygen Concentration - - Weight - - Height - - Body Mass Index - - documented in this encounter Patient Instructions Patient InstructionsAshley Good RN - 02/18/2019 9:00 AM EDTPATIENT: Silvana Valerio : 1945 DATE OF SERVICE: 02/18/2019 Left leg is wrap, please keep it clean and dry. Right leg, change Endoform and Aquacel Ag on 03/01/19. Tubigrip for right leg daily. Follow up in 1 week. Author: Ashley Good RN 02/18/2019 10:05 documented in this encounter Progress Notes Robbie Nair MD - 02/18/2019 9:00 AM EDT PATIENT: Silvana Valerio : 1945 DATE OF SERVICE: 02/18/2019 REFERRING PRACTITIONER: Asher Todd PRIMARY CARE PROVIDER: Jensen Shaw CHIEF COMPLAINT: Wound HISTORY OF PRESENT ILLNESS: Silvana Valeriois a 73-y.o.femalewho presents to clinic forfollow upwound consultation.She was admitted from 12/26 to 01/07/19 for WALKER,CHF and bilateral leg edema, cellulitis associated with 1-2 year old leg Ulcers. Previously she was attending [facility] wound care. Shewas treated by ID with vancomycin and Zosyn and discharged on Clindamycin. She wasat [facility], now discharged home. Prior to admission, she had compression stockings and had started using Venous pumps. Has lost 65 lbs in weight with diuresis, starting PT now. No wound related new symptoms since last visit. First Visit :01/15/19 Risk Factors :DM, CHF, RLS,A-Fib Smoking :Never Hemostatic History :ASA, Xarelto Antibiotic :None Dressing : Endoform Aquacel Ag Comp/offLoading :Tubigrip, Venous pumps Procedures :None [...] NEC right elbow OTHER AND UNSPECIFIED HYSTERECTOMY OR RECONSTRUCT PROX HUMERAL IMPLANT 11.03.2007 Arthroplasty, Shoulder [...] file Gets together: Not on file Attends tenriism service: Not on file Active member of [...] Not on file Social History Narrative Employment: [employer] Marital status: Children: 2 sons Family [...] 1 mg by mouth EVERY BEDTIME NEEDED. silver antimicrobial (SILVASORB) Apply externally Gel by Apply externally route NEEDED (Wound care). No current facility-administered medications for this visit. Allergies Allergen Reactions Keflex GI Reaction Morphine GI Reaction "loopy" Tetracycline Rash All history was reviewed with the patient. REVIEW OF SYSTEMS: A comprehensive review of systems was negative except for as noted in the history of present illness/subjective. PHYSICAL EXAMINATION: VITALS: BP 122/80 | Pulse 84 | Temp 97.2 F (36.2 C) (Temporal) | Resp 18 Constitutional: In [...] cm granulation,slough, smaller Wound # 3Left leg [id number] 0.5x 0.2 cm granulation, slough Wound #4 Right leg 2.9x 1.2x 0.3 cm granulation,slough DIAGNOSTIC STUDY A1c 7 12/26/18 [id number] - [place]- within normalrange Wound Culture Wound [...] shewas given instructions about dressing change. TREATMENT PLAN:Endoform,Aquacel Ag A/D [place] wrap left Tubigrip Right , Elevation, Venous pumps BID DM control -A1c 7 If no improvement- biopsy FOLLOWUP:1 week Author: Robbie Nair MD 02/18/2019; 09:13 documented in this encounter Plan of Treatment Date Type Specialty Care Team Description 02/22/2019 Office Visit Wound Care/Hyperbaric Robbie Nair MD [address] [place] [address] 02/23/2019 Office Visit Cardiology Chino Kenney MD [address] [place] [address] 02/25/2019 Office Visit Wound Care/Hyperbaric Robbie Nair MD [address] [place] [address] Health Maintenance Due Date Last Done Comments [...] Type Problems Progress Blood Pressure Blood Pressure 122/80 No [place], < 140/90 (02/18/2019 Rachel 9:00 AM EDT) Note: This is an individualized [...] treatment (diabetes control, HgbA1C) goal for Silvana Joseph Valerio: Displayed above is your progress towards your HgbA1C goal. Your goal is shown above (on the left); your most recent HgbA1C is shown on the right. Note that lower numbers are better. Keep immunizations current Lifestyle No Rachel Heard Note: This is an individualized lifestyle goal for Silvana Opal Teodoro: Please be sure to keep up-to-date on recommended immunizations. For example, this would include a yearly influenza vaccine. Immunization status can be seen by looking at the Health Maintenance sections of your e[facility], Plan of Care, and any After Visit Summaries. Consume a sk-nczgf-nakj diet Lifestyle No Rachel Heard Note: This is an individualized lifestyle goal for Silvana Opal Valerio: Please do not add additional salt [...] ongoing basis. Check your weight daily Self-management Rachel Escamilla Note: This is an individualized self-management goal for Silvana Valerio: Please check your weight daily. Refer to the accompanying CHF treatment goal and call your doctor immediately for further instructions on how to respond to unexpected weight gain. documented as of this encounter Implants Implanted Type Area Scale Tank Operator Device Shelf Model / Identifier Expiration Serial / Date Lot Trilogy Cluster Shell 60mm - [id number] Right: Hip AMNA CUCO 6200- 060-22 / Implanted: Qty: 1 on 01/10/2009 at [facility] / [id number] Trilogy Long Std Liner [id number] - [id number] Right: Hip AMNA CUCO 6305-060-40 / Implanted: Qty: 1 on 01/10/2009 at [facility] / [id number] Bone Screw, Trilogy 6.5*30mm - [id number] Right: Hip AMNA CUCO 6250 -65-30 / Implanted: Qty: 1 on 01/10/2009 at [facility] / [id number] 06/26 Femoral Head -3.5x40mm - [id number] Right: Hip AMNA CUCO 8018 -40-01 / Implanted: Qty: 1 on 01/10/2009 at [facility] / [id number] Versys Beaded Stem 14 X 160mm - [id number] Right: Hip AMNA CUCO / Implanted: Qty: 1 on 01/10/2009 at [facility] / [id number] Bone Cement, 40gm Full Dose - [id number] Left: DEPUY [id number] / Implanted: Qty: 1 on 11/22/2009 at [facility] / [id number] Hybrid Glenoid Base Left: BIOMET [id number] / Implanted: Qty: 1 on 11/22/2009 at [facility] / [id number] Biomet Humeral Stem 11 X 115 - [id number] Left: BIOMET [id number] / Implanted: Qty: 1 on 11/22/2009 at [facility] / [id number] Biomet Humeral Head 48 X 19 - [id number] Left: BIOMET [id number] / Implanted: Qty: 1 on 11/22/2009 at [facility] / [id number] documented as of this encounter Results Not [...]
[2019-03-19 17:39] LABS: ABS Basophils 0.1 10^3/ul (0-0.2); ABS Eosinophils 0.4 10^3/ul (0-0.6); ABS Lymphocytes 0.6 10^3/ul (1.0-4.8); ABS Monocytes 0.6 10^3/ul (0-0.8); ABS Neutrophils 4.5 10^3/ul (1.5-7.7); Eosinophil % 5.9 %; Hematocrit 23 % (35-47); Hemoglobin 6.8 g/dL (12.0-16.0); Mean Corpuscular HGB Conc 30 g/dL (31-36); Mean Corpuscular Hemoglobin 29 pg (27-31); Mean Corpuscular Volume 95 fL (80-97); Mean Platelet Volume 6.1 fL (7.4-10.4); Nucleated Red Blood Cells % 0.2; Platelet Count 265 10^3/uL (150-450); Red Blood Count 2.36 10^6 /uL (3.70-4.87); Red Cell Distribution Width 18 % (10-15); White Blood Count 6.1 10^3/uL (3.5-10.8)
--- NOTE | 2019-03-19 17:47 | ED ---
Dizziness - HPI Summary HPI Summary: Pt is a 73 y/o F presenting to the ED with a chief complaint of weakness onset over the last couple of days. She was placed on diuretics in December of this year, and has experienced increased weakness and feeling out of it. She also notes dark stool that she attributes to taking Iron, constipation, increased bruising that she attributes to taking Xarelto, and SOB with minimal exertion. She denies any fever, chills, erythema of eyes, sore throat, CP, cough, abdominal pain, N/V, dysuria, hematuria, myalgia, edema, rash, or dizziness. Her diuretic dosage was decreased recently. - History Of Current Complaint Chief Complaint: EDWeakness Stated Complaint: WEAKNESS/ABNORMAL LABS PER PT Time Seen by Provider: 03/19/19 16:45 Hx Obtained From: Patient Onset/Duration: Still Present, Gradually Timing: Days Severity Initially: Moderate Severity Currently: Moderate Character: Weak Aggravating Factor(s): Nothing Alleviating Factor(s): Nothing Associated Signs And Symptoms: Positive: SOB, Change In Medication - diuretic decrease. Negative: Nausea, Vomiting, Chest Pain, Fever, Chills - Allergies/Home Medications Allergies/Adverse Reactions: Allergies Allergy/AdvReac Type Severity Reaction Status Date / Time ciprofloxacin AdvReac See Comment Verified 03/19/19 16:35 morphine AdvReac Nausea And Verified 03/19/19 16:35 Vomiting Tetracyclines AdvReac Rash Verified 03/19/19 16:35 Home Medications: Home Medications Bumetanide TAB* [Bumex 2 MG TAB*] 1 mg PO DAILY 03/19/19 [History Confirmed 12/30] Multivitamins/Minerals TAB* [Theragran/minerals TAB*] 1 tab PO DAILY 03/19/19 [ History Confirmed 03/19/19] rOPINIRole TAB* [Requip TAB*] 1 mg PO QAM 03/19/19 [History Confirmed 03/19/19] rOPINIRole TAB* [Requip TAB*] 1.5 mg PO BEDTIME 03/19/19 [History Confirmed 12/30] PMH/Surg Hx/FS Hx/Imm Hx Previously Healthy: Yes Endocrine/Hematology History: Reports: Hx Diabetes - non insulin dependent, Hx Anemia Cardiovascular History: Reports: Hx Congestive Heart Failure, Hx Hypertension, Hx Peripheral Vascular Disease Denies: Hx Angina, Hx Pacemaker/ICD, Other Cardiovascular Problems/Disorders Respiratory History: Denies: Hx Asthma, Other Respiratory Problems/Disorders GI History: Reports: Hx Gastrointestinal Bleed Denies: Other GI Disorders History: Denies: Hx Renal Disease Musculoskeletal History: Reports: Hx Arthritis - OSTEOARTHRITIS HIPS, SHOULDERS , ELBOWS, TOES, Denies: Other Musculoskeletal History Sensory History: Reports: Hx Cataracts, Hx Contacts or Glasses Denies: Hx Hearing Aid Opthamlomology History: Reports: Hx Cataracts, Hx Contacts or Glasses Psychiatric History: Reports: Hx Depression Denies: Hx Panic Disorder - Surgical History Surgery Procedure, Year, and Place: RIGHT CATARACT, 2011, [facility] [place]. RIGHT HIP REPLACED, 2007, [facility]. RIGHT SHOULDER, 2009, [facility]. RIGHT ELBOW, [facility] 2009. LEFT SHOULDER, 2010, [facility] Hx Anesthesia Reactions: No - Immunization History Date of Influenza Vaccine: NO Infectious Disease History: No Infectious Disease History: Denies: Hx Clostridium Difficile, Hx Hepatitis, Hx of Known/Suspected MRSA, Hx Shingles, Hx Tuberculosis, Traveled Outside the [place] in Last 30 Days - Family History Known Family History: Positive: Cardiac Disease, Hypertension, Diabetes - mother - DM - Social History Alcohol Use: None Alcohol Amount: 5 PER WEEK Hx Substance Use: No Substance Use Type: Reports: None Hx Tobacco Use: No Smoking Status (MU): Never Smoked Tobacco Have You Smoked in the Last Year: No Review of Systems Negative: Fever, Chills Negative: Erythema Negative: Sore Throat Negative: Chest Pain Positive: Shortness Of Breath. Negative: Cough Positive: Other - constipation, dark stool. Negative: Abdominal Pain, Vomiting , Nausea Negative: dysuria, hematuria Negative: Myalgia, Edema Positive: Bruising. Negative: Rash Neurological: Negative - dizziness Positive: Weakness All Other Systems Reviewed And Are Negative: Yes Physical Exam - Summary Physical Exam Summary: Constitutional: Well-developed, Well-nourished, Alert. (-) Distressed Skin: Warm, Dry HENT: Normocephalic; Atraumatic Eyes: Conjunctiva normal Neck: Musculoskeletal ROM normal neck. (-) JVD, (-) Stridor, (-) Tracheal deviation Cardio: Rhythm regular, rate normal, Heart sounds normal; Intact distal pulses; The pedal pulses are 2+ and symmetric. Radial pulses are 2+ and symmetric. (-) Murmur Pulmonary/Chest wall: Effort normal. (-) Respiratory distress, (-) Wheezes, (-) Rales Abd: Soft, (-) tenderness, (-) Distension, (-) Guarding, (-) Rebound Musculoskeletal: Bilateral pitting edema with full strength/ROM. Lymph: (-) Cervical adenopathy Neuro: Alert, Oriented x3, neurological deficits. Psych: Mood and affect Normal Rectal: External hemorrhoids, melenotic stool Triage Information Reviewed: Yes Vital Signs On Initial Exam: Initial Vitals Temp Pulse Resp BP Pulse Ox 98.1 F 91 20 118/68 100 03/19/19 16:31 03/19/19 16:31 03/19/19 16:31 03/19/19 16:31 03/19/19 16:31 Vital Signs Reviewed: Yes Diagnostics - Vital Signs Vital Signs Temp Pulse Resp BP Pulse Ox 03/19/19 17:00 17 03/19/19 16:45 80 18 93 03/19/19 16:41 83 18 119/68 96 03/19/19 16:31 98.1 F 91 20 118/68 100 - Laboratory Lab Results: Lab Results 03/19/19 03/19/19 Range/Units 17:15 17:15 WBC 6.1 (3.5-10.8) 10^3/uL RBC 2.36 L (3.70-4.87) 10^6 /uL Hgb 6.8 L (12.0-16.0) g/dL Hct 23 L (35-47) % MCV 95 (80-97) fL MCH 29 (27-31) pg MCHC 30 L (31-36) g/dL RDW 18 H (10-15) % Plt Count 265 (150-450) 10^3/uL MPV 6.1 L (7.4-10.4) fL Neut % (Auto) 74.1 % Lymph % (Auto) 10.0 % [place] % (Auto) 9.1 % Eos % (Auto) 5.9 % Baso % (Auto) 0.9 % Absolute Neuts (auto) 4.5 (1.5-7.7) 10^3/ul Absolute Lymphs (auto) 0.6 L (1.0-4.8) 10^3/ul Absolute Monos (auto) 0.6 (0-0.8) 10^3/ul Absolute Eos (auto) 0.4 (0-0.6) 10^3/ul Absolute Basos (auto) 0.1 (0-0.2) 10^3/ul Absolute Nucleated RBC 0.0 10^3/ul Nucleated RBC % 0.2 Blood Type A Positive Antibody Screen Pending Result Diagrams: 03/19/19 17:15 03/19/19 17:54 Lab Statement: Any lab studies that have been ordered have been reviewed, and results considered in the medical decision making process. - EKG 1653 Cardiac Rate: Other Rate - 98bpm EKG Rhythm: Atrial Fibrillation ST Segment: Normal Ectopy: None Summary of EKG Findings: EKG at 1653 shows atrial fibrillation at 98bpm with no STEMI. Re-Evaluation - Re-Evaluation 1st re-eval Re-Evaluation Time: 18:27 Change: Unchanged Comment: I spoke with the patient about the plan for admission, she is stable and agreeale. She notes that she feels slightly better and she is resting comfortably. Dizzy Course/Dx - Course Course Of Treatment: Pt is a 73 y/o F presenting to the ED with a chief complaint of weakness onset over the last couple of days. She has experienced increased weakness and feeling out of it. She also notes dark stool that she attributes to taking Iron, constipation, increased bruising that she attributes to taking Xarelto, and SOB with minimal exertion. She denies any fever, chills, erythema of eyes, sore throat, CP, SOB, cough, abdominal pain, N/V, dysuria, hematuria, myalgia, edema, rash, or dizziness. On exam, the pt has bilateral pitting edema with full strength/ROM. On rectal exam, the pt has external hemorrhoids and melanotic stool. EKG at 1653 shows atrial fibrillation at 98bpm with no STEMI. 1827 - I spoke with Dr. Boogie who will be admitting the pt to [facility]. I discussed the results with the pt and she is stable and agreeable with this plan. Her dx will include symptomatic anemia and anemia of chronic disease. - Diagnoses Provider Diagnoses: Symptomatic anemia, Anemia of chronic disease Discharge ED - Sign-Out/Discharge Documenting (check all that apply): Patient Departure - Discharge Plan Condition: Stable Disposition: ADMITTED TO [facility] Referrals: Jensen Shaw MD [Primary Care Provider] - - Attestation Statements Document Initiated by Scribe: Yes Documenting Scribe: Janna Combs Provider For Whom Scribe is Documenting (Include Credential): Wesley Cancino MD. Scribe Attestation: Janna Newsome, scribed for Wesley Cancino MD. on 03/19/19 at 1827. Status of Scribe Document: Ready
[2019-03-19 18:18] LABS: Albumin 3.8 g/dL (3.2-5.2); Albumin/Globulin Ratio 1.1 (1-3); BUN/Creatinine Ratio 36.1 (8-20); EGFR African American 26.9 (>60); EGFR Non-African American 22.2 (>60); Globulin 3.6 g/dL (2-4); Magnesium 2.3 mg/dL (1.9-2.7); Potassium 4.2 mmol/L (3.5-5.0); Total Bilirubin 0.4 mg/dL (0.2-1.0); Total Protein 7.4 g/dL (6.4-8.9)
[2019-03-19 18:23] LABS: TSH (Thyroid Stimulating Horm) 1.38 mcIU/mL (0.34-5.60)
[2019-03-19] MEDS ORDERED: Magnesium Hydroxide LIQ* 30 ML UDC PO PRN (19:33)
[2019-03-19] MEDS ORDERED: Ondansetron INJ* 2 MG/ML VIAL IV PRN (19:33)
[2019-03-19] MEDS ORDERED: Senna TAB 8.6 mg* TAB PO PRN (19:33)
[2019-03-19] MEDS ORDERED: Dextrose 50% VIAL 50 ml IV PUSH PRN (19:51)
[2019-03-19 20:01] LABS: Hematocrit for Retic CNT 22 % (35-47); RBC Retic Count 2.36 10^6/uL (3.70-4.87)
[2019-03-19 20:08] LABS: % Iron Saturation 6 % (15-55); Iron 33 ug/dL (50-212); Total Iron Binding Capacity 518 mcg/dL (250-450); Transferrin 370 mg/dL (203-362)
[2019-03-19 20:16] LABS: Corrected Retic Count 2.8 % (0.5-1.5)
[2019-03-19 20:28] LABS: Ferritin 44.9 ng/mL (11-307)
[2019-03-19] MEDS ORDERED: Gabapentin CAP(*) 400 MG PO SCH ×2 (21:00)
[2019-03-19] MEDS ORDERED: Atenolol TAB* 50 MG PO SCH (21:00)
[2019-03-19] MEDS: Atenolol TAB* 25 MG PO SCH (22:03)
[2019-03-19] MEDS: Acetaminophen TAB* 325 MG PO PRN (22:06)
--- NOTE | 2019-03-19 22:10 | HP ---
HISTORY AND PHYSICAL: DATE OF ADMISSION: 03/19/19 PRIMARY CARE PROVIDER: Dr. Shaw at [facility]. PROVIDER: LILY Hernandez ATTENDING PHYSICIAN: Dr. Josias Nicolas * (dictated by LILY Hernandez). CHIEF COMPLAINT: Shortness of breath on exertion. HISTORY OF PRESENT ILLNESS: Silvana Valerio is a 73-year-old white female with past medical history significant for atrial fibrillation, on anticoagulation; chronic anemia; chronic wounds; restless legs syndrome; CKD, stage 3; diabetes mellitus type 2; and chronic lower extremity edema, who presents to the emergency department today upon direction of her primary care provider. Her regular home wound nurse was at her house today and thought that the patient was not looking well, so called her primary care provider, who ordered some basic labs. Her PCP told her to report to the emergency department due to low blood counts. The patient tells me that she has been feeling generally weak over the last week. She also tells me she has been having shortness of breath with exertion over the last week. She denies chest pain, dizziness, lightheadedness, abdominal pain, nausea, vomiting, hematuria. She tells me she has black stools, but that has been going on for a long time, as long as she has been taking iron supplements. She denies bright red blood per stool. She tells me every time she wipes after a bowel movement, it is brown. She tells me she has been on Bumex 2 mg daily for the last several months, which has been diuresing her very well. She tells me she has lost 70 pounds over the last 2 to 3 months due to diuresis and her legs are the thinnest they have been in years. She additionally tells me she has never had a colonoscopy. EMERGENCY DEPARTMENT COURSE: When the patient presented to the emergency department, her vital signs were 98.1 degrees Fahrenheit, pulse 91 beats per minute, respiratory rate 20, oxygen saturation 100% on room air, and blood pressure of 118/68. In the emergency department, the patient was not given any medication. Her labs demonstrated an anemia with hemoglobin of 6.8 and hematocrit of 23, and the hospitalists were asked to evaluate the patient for admission. PAST MEDICAL HISTORY: 1. Atrial fibrillation, on anticoagulation. 2. Anemia, unclear etiology, though likely iron deficiency given the patient's supplements. 3. Chronic wounds. 4. Restless legs syndrome. 5. CKD stage 3. 6. Diabetes mellitus type 2. 7. Pulmonary hypertension. 8. Lymphedema. 9. History of chronic pleural effusions. 10. Prolapsed bladder. 11. Hypertension. PAST SURGICAL HISTORY: 1. Hysterectomy. 2. Bilateral shoulder replacements. 3. Left hip replacement. 4. Right arm surgery after multiple fractures. 5. Right cataract surgery. HOME MEDICATIONS: 1. Bumex 2 mg p.o. daily. 2. Ferrous sulfate 325 p.o. daily. 3. Diltiazem 120 mg p.o. daily. 4. Atenolol 50 mg p.o. t.i.d. 5. Ascorbic acid 500 mg p.o. daily. 6. Multivitamin 1 tab p.o. daily. 7. Requip 1 mg p.o. q.a.m. 8. Requip 1.5 mg p.o. at bedtime. 9. Metformin 500 mg p.o. b.i.d. with meals. 10. Xarelto 10 mg p.o. daily. ALLERGIES: 1. Achilles pain, adverse reaction to CIPROFLOXACIN. 2. Nausea and vomiting to MORPHINE. 3. Rash to TETRACYCLINE. FAMILY HISTORY: Father at age 80 of COPD. He was a smoker. Mother at age 86 of unknown causes to the patient. She had a history of diabetes. SOCIAL HISTORY: The patient lives alone. She is a . She has 2 children. She is frequently checked on by home health aides. 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 She has never been a smoker. She admits to heavy drinking for approximately 2 to 3 years over 10 years ago and now tells me she only drinks occasionally, less than once per month. Denies illicit drug use. The patient' s son, Uli Valerio, is her healthcare proxy and she would like him to make her medical decisions for her should she need that. REVIEW OF SYSTEMS: An 11-point review of systems was completed and all pertinent positives and negatives are above in the HPI. All other systems are negative. PHYSICAL EXAMINATION GENERAL: A thin elderly white female, lying in hospital bed, appearing comfortable, in no acute distress. HEENT: Head: Normocephalic, atraumatic. Eyes: PERRL. Sclerae anicteric. ENT: Lips are dry. NECK: Supple without JVD. LUNGS: Clear to auscultation throughout. CARDIO: Regular rate and rhythm without murmurs, rubs, or gallops. ABDOMEN: Normoactive bowel sounds x4 quadrants. Abdomen is soft, nontender, nondistended. No hepatosplenomegaly. EXTREMITIES: +2 pitting edema pretibially on the right lower extremity up to the knee and +1 pitting edema pretibially up to the knee on the left side. No clubbing or cyanosis. NEURO: The patient is alert and oriented x3. No focal deficits. Strength 5/5 in all extremities. DIAGNOSTIC STUDIES/LAB DATA: White blood cell count 6.1, hemoglobin 6.8, hematocrit 23, platelet count 265,000. Sodium 132, potassium 4.2, chloride 102 , carbon dioxide 20, anion gap 10, BUN 78, creatinine 2.16, BUN/creatinine ratio 36.1, glucose 177, calcium 9. Troponin 0. LFTs unremarkable. Chest x-ray, impression: Mild cardiomegaly. No active cardiopulmonary disease. EKG: Irregularly irregular rhythm, consistent with atrial fibrillation, rate 98 beats per minute. No ST elevations or depression. Normal axis. Flattened T -waves in V5, V6, V3 and aVF, which are consistent with prior EKG. ASSESSMENT AND PLAN: Silvana Valerio is a 73-year-old white female with past medical history significant for atrial fibrillation, on anticoagulation; anemia ; restless legs syndrome; chronic kidney disease, stage 3; diabetes, who presented to the emergency department today with shortness of breath with exertion, found to have anemia. The patient will be admitted inpatient for: 1. Anemia. The patient is known to have a chronic anemia; however, it is severe today with hemoglobin of 6.8. It appears in the past that she has had normal ferritins with low iron and it is possible that she may have an anemia of chronic disease related to longstanding diabetes, which may be masking true iron-deficiency anemia that is elevating her ferritin. Regardless, I will order an iron panel to be added to the labs that were drawn in the hospital today as well as reticulocytes and erythropoietin. The patient will be given 1 unit of PRBCs and her H and H will be monitored. The patient has a negative Hemoccult that was collected in the emergency department. The patient does tell me that she has never had a colonoscopy, which does raise my suspicion for a possible colon cancer given that she has lost so much weight over the last 2 to 3 months. A lot of this weight loss I am sure is due to diuresis; however, it does seem significant and suspicious in the setting of this anemia. The fact that her stool Hemoccult is negative is reassuring. An outpatient colonoscopy would very much be of benefit to this patient unless inpatient colonoscopy is deemed necessary if there is further worsening of anemia despite PRBC transfusion. The patient is not having chest pain and her EKG is normal and troponin is negative. I will order repeat EKG for the morning and the patient will be placed on telemetry. 2. Acute kidney injury. The patient does have chronic kidney disease. It appears that her baseline creatinine is around 1.5. It is 2.16 today. I believe this is related to loop diuretic use. I will hold the patient's Bumex. She has had good control with the Bumex in the recent past; however, she may need decrease of the Bumex or switching back to Lasix after this hospitalization. It is also possible this kidney injury has been going on for quite some time. It may be of benefit to receive recent labs from her primary care office. Given this thought, I do believe it is possible that this is the cause of her anemia today. In the setting of the patient's chronic lower extremity edema, I will give only 25 cc per hour of fluids, which should be discontinued if the patient is showing signs of heart failure decompensation. 3. History of diabetes. I will hold the patient's metformin. Give her lispro sliding scale. 4. Atrial fibrillation. I will hold the patient's home Xarelto given there is a possibility that this may be a GI bleed despite my low suspicion. I will continue the patient's home diltiazem. I am reducing her dose of atenolol given that it is renally cleared to 2.5 mg p.o. t.i.d. The patient normally takes 50 mg p.o. t.i.d. 5. Hypertension. Atenolol dose adjustment as previously discussed. 6. Restless legs syndrome. The patient takes Requip, she has been telling me, for her restless legs, which is worsened in the setting of this anemia; however , there is no data on dose adjustment for decreased creatinine clearance less than 30, so I will give gabapentin 300 mg p.o. b.i.d. 7. FEN: The patient may have a carbohydrate consistent diet. Electrolytes are overall normal, though sodium is minimally decreased which I suspect is likely related to diuretics. Fluids as described above. 8. DVT prophylaxis: The patient will be getting SCDs in the setting of her acute anemia. 9. Code status: The patient is DNR, though would be okay with intubation for a trial period. TIME SPENT: Approximately 50 minutes were spent on this admission, approximately half this time was spent at bedside evaluating the patient. This case has been reviewed by my attending, Dr. Josias Nicolas, and he agrees with this plan of care. LILY HERNANDEZ [id number]/[facility] #: [id number] MTDOpal
[2019-03-19] MEDS: Gabapentin CAP(*) 300 MG PO SCH (22:53)
[2019-03-20] MEDS: NS 0.9% 1000 ML** 1,000 ML IV SCH ×2 (01:20→21:08)
[2019-03-20] MEDS ORDERED: rOPINIRole TAB* 1 MG PO ONE (01:50)
[2019-03-20 07:01] LABS: ABS Eosinophils 0.4 10^3/ul (0-0.6); ABS Lymphocytes 0.6 10^3/ul (1.0-4.8); ABS Monocytes 0.6 10^3/ul (0-0.8); ABS Neutrophils 3.8 10^3/ul (1.5-7.7); Eosinophil % 6.5 %; Hematocrit 25 % (35-47); Hemoglobin 7.8 g/dL (12.0-16.0); Lymphocyte % 11.3 %; Mean Corpuscular HGB Conc 31 g/dL (31-36); Mean Corpuscular Hemoglobin 29 pg (27-31); Mean Corpuscular Volume 92 fL (80-97); Mean Platelet Volume 5.7 fL (7.4-10.4); Platelet Count 242 10^3/uL (150-450); Red Blood Count 2.71 10^6 /uL (3.70-4.87); Red Cell Distribution Width 18 % (10-15); White Blood Count 5.4 10^3/uL (3.5-10.8)
[2019-03-20 07:15] LABS: BUN/Creatinine Ratio 39.8 (8-20); Calcium 8.9 mg/dL (8.6-10.3); EGFR Non-African American 25.6 (>60); Potassium 4.5 mmol/L (3.5-5.0)
[2019-03-20] MEDS: Insulin LISPRO* 1 UNITS UNIT SUBCUT SCH ×3 (08:38→18:48)
--- NOTE | 2019-03-20 10:08 | PN ---
Subjective Date of Service: 03/20/19 Interval History: Ms. Valerio reports that she is very tired as she did not sleep well last night. She denies chest pain, SOB, nausea, or abdominal pain. Objective Active Medications: Acetaminophen (Tylenol Tab*) 650 mg PO Q4H PRN Ascorbic Acid (Vitamin C Tab*) 500 mg PO QAM [facility] Atenolol (Tenormin Tab*) 12.5 mg PO TID [facility] Dextrose (Dextrose 50% Vial 50 Ml*) 25 ml IV PUSH .FOR FS < 60 - SS PRN Diltiazem HCl (Cardizem Cd Cap*) 120 mg PO DAILY [facility] Ferrous Sulfate (Ferrous Sulfate Tab*) 325 mg PO DAILY [facility] Gabapentin (Neurontin Cap(*)) 600 mg PO BEDTIME [facility] Sodium Chloride (Ns 0.9% 1000 Ml) 1,000 mls @ 25 mls/hr IV PER RATE MO[facility] Insulin Human Lispro (Humalog*) 0 units SUBCUT AC MODESTA; Protocol Magnesium Hydroxide (Milk Of Magnesia Liq*) 30 ml PO Q4H PRN Multivitamins/Minerals (Theragran/Minerals Tab*) 1 tab PO DAILY [facility] Ondansetron HCl (Zofran Inj*) 4 mg IV Q4H PRN Ropinirole HCl (Requip Tab*) 1 mg PO QAM [facility] Ropinirole HCl (Requip Tab*) 1 mg PO BEDTIME MODETSA Ropinirole HCl (Requip Tab*) 0.5 mg PO BEDTIME MODESTA Senna (Senokot 8.6 Mg Tab*) 1 tab PO BID PRN Vital Signs: Temp Pulse Resp BP Pulse Ox 97.4 F 100 16 107/56 98 03/20/19 07:16 03/20/19 07:16 03/20/19 08:00 03/20/19 07:16 03/20/19 07:16 Oxygen Devices in Use Now: None Appearance: Female sitting up in bed in NAD Eyes: No Scleral Icterus Ears/Nose/Mouth/Throat: Mucous Membranes Moist Respiratory: Symmetrical Chest Expansion and Respiratory Effort, Clear to Auscultation Cardiovascular: NL Sounds; No Murmurs; No JVD Abdominal: NL Sounds; No Tenderness; No Distention Skin: - - ulcer to right upper horvath without erythema or drainage, multiple ulcers to left inner ankle without drainage or erythema Neurological: Alert and Oriented x 3, NL Muscle Strength and Tone Nutrition: Taking PO's Result Diagrams: 03/20/19 06:51 03/20/19 06:51 Additional Lab and Data: . Microbiology and Other Data: . Assess/Plan/Problems-Billing Assessment: Ms. Valerio is a 73 yo F with a PMH of afib on chronic anticoagulation, chronic anemia, chronic wounds, CKD Stage 3, Type 2 DM, and lymphedema who was admitted on 03/20/19 with dyspnea on exertion and generalized weakness found to have severe anemia. - Patient Problems (1) Anemia Comment: - Acute on chronic anemia of chronic disease with component of iron deficiency - Hgb baseline 8. 6.8 on arrival ->7.8 after one unit PRBC - GUIAC negative, monitor closely (2) Acute on chronic kidney failure Comment: - Creatinine improved overnight - S/P one unit PRBC - Suspected pre-renal in setting of aggressive outpatient diuresis (3) Atrial fibrillation Comment: - Continue atenolol, diltiazem - Hold xarelto due to worsening anemia (4) Diabetes mellitus type 2 with complications Comment: - with chronic diabetic ulcers to LE - BG stable - Hold metformin, continue lispro SS (5) Pulmonary hypertension Comment: - Severe - Continue with pulmonology follow up at discharge with Dr. Rome (6) Restless leg syndrome Comment: - Continue Requip (7) Chronic ulcer of leg Comment: - Follows with [facility]. - No evidence of infection. (8) DVT prophylaxis Comment: - ambulate, SCDs if tolerated (9) DNR (do not resuscitate) Comment: Status and Disposition: Inpatient
[2019-03-20] MEDS: Atenolol TAB* 25 MG PO SCH ×3 (10:37→21:05)
[2019-03-20] MEDS: rOPINIRole TAB* 1 MG PO SCH ×2 (10:37→21:05)
[2019-03-20] MEDS: Diltiazem CD CAP* 120 MG PO SCH (10:38)
[2019-03-20] MEDS: Multivitamins/Minerals TAB PO SCH (10:38)
[2019-03-20] MEDS: Ferrous Sulfate TAB* 325 MG PO SCH (10:38)
[2019-03-20] MEDS: Ascorbic Acid TAB* 500 MG PO SCH (10:38)
[2019-03-20] MEDS: Acetaminophen TAB* 325 MG PO PRN (16:23)
[2019-03-20] MEDS: Ropinirole TAB* 0.5 MG TAB PO SCH (21:05)
[2019-03-20] MEDS: Gabapentin CAP(*) 300 MG PO SCH (21:07)
[2019-03-21] MEDS: Acetaminophen TAB* 325 MG PO PRN (01:04)
[2019-03-21 07:51] LABS: Hematocrit 24 % (35-47); Hemoglobin 7.5 g/dL (12.0-16.0)
[2019-03-21] MEDS: Insulin LISPRO* 1 UNITS UNIT SUBCUT SCH ×3 (09:00→16:55)
[2019-03-21 09:15] LABS: ABS Basophils 0.1 10^3/ul (0-0.2); ABS Eosinophils 0.3 10^3/ul (0-0.6); ABS Lymphocytes 0.8 10^3/ul (1.0-4.8); ABS Monocytes 0.7 10^3/ul (0-0.8); ABS Neutrophils 3.8 10^3/ul (1.5-7.7); Lymphocyte % 13.4 %; Mean Corpuscular HGB Conc 31 g/dL (31-36); Mean Corpuscular Hemoglobin 29 pg (27-31); Mean Corpuscular Volume 92 fL (80-97); Mean Platelet Volume 5.9 fL (7.4-10.4); Nucleated Red Blood Cells % 0.1; Platelet Count 240 10^3/uL (150-450); Red Blood Count 2.64 10^6 /uL (3.70-4.87); Red Cell Distribution Width 18 % (10-15); White Blood Count 5.6 10^3/uL (3.5-10.8)
[2019-03-21 09:28] LABS: BUN/Creatinine Ratio 38.9 (8-20); Calcium 8.5 mg/dL (8.6-10.3); EGFR African American 33.2 (>60); EGFR Non-African American 27.4 (>60); Potassium 4.5 mmol/L (3.5-5.0)
[2019-03-21] MEDS: Diltiazem CD CAP* 120 MG PO SCH (11:20)
[2019-03-21] MEDS: rOPINIRole TAB* 1 MG PO SCH ×2 (11:20→21:31)
[2019-03-21] MEDS: Multivitamins/Minerals TAB PO SCH (11:20)
[2019-03-21] MEDS: Ferrous Sulfate TAB* 325 MG PO SCH ×2 (11:20→21:31)
[2019-03-21] MEDS: Ascorbic Acid TAB* 500 MG PO SCH (11:20)
[2019-03-21] MEDS: Atenolol TAB* 25 MG PO SCH ×3 (11:23→21:31)
[2019-03-21 14:29] LABS: Hematocrit 26 % (35-47)
--- NOTE | 2019-03-21 15:17 | PN ---
Subjective Date of Service: 03/21/19 Interval History: Patient tells me she feels anxious to walk, so she hasn't walked around the unit much. She didn't feel short of breath when transferring from bed to chair, but did feel tired "like it took a lot out of me." She denies SOB at rest, chest pain, abd pain, dizziness/lightheadedness. She has not had a BM since admission. Objective Active Medications: Acetaminophen (Tylenol Tab*) 650 mg PO Q4H PRN PRN Reason: MILD PAIN or TEMP > 100.4 Last Admin: 03/21/19 01:04 Dose: 650 mg Ascorbic Acid (Vitamin C Tab*) 500 mg PO QAM [facility] Last Admin: 03/21/19 11:20 Dose: 500 mg Atenolol (Tenormin Tab*) 12.5 mg PO TID [facility] Last Admin: 03/21/19 11:23 Dose: 12.5 mg Dextrose (Dextrose 50% Vial 50 Ml*) 25 ml IV PUSH .FOR FS < 60 - SS PRN PRN Reason: FS < 60 Diltiazem HCl (Cardizem Cd Cap*) 120 mg PO DAILY [facility] Last Admin: 03/21/19 11:20 Dose: 120 mg Ferrous Sulfate (Ferrous Sulfate Tab*) 325 mg PO DAILY [facility] Last Admin: 03/21/19 11:20 Dose: 325 mg Gabapentin (Neurontin Cap(*)) 600 mg PO BEDTIME [facility] Last Admin: 03/20/19 21:07 Dose: 600 mg Sodium Chloride (Ns 0.9% 1000 Ml) 1,000 mls @ 25 mls/hr IV PER RATE [facility] Last Admin: 03/20/19 21:08 Dose: 25 mls/hr Insulin Human Lispro (Humalog*) 0 units SUBCUT AC [facility]; Protocol Last Admin: 03/21/19 12:56 Dose: 1 units Magnesium Hydroxide (Milk Of Magnesia Liq*) 30 ml PO Q4H PRN PRN Reason: CONSTIPATION Multivitamins/Minerals (Theragran/Minerals Tab*) 1 tab PO DAILY [facility] Last Admin: 03/21/19 11:20 Dose: 1 tab Ondansetron HCl (Zofran Inj*) 4 mg IV Q4H PRN PRN Reason: NAUSEA/VOMITING Ropinirole HCl (Requip Tab*) 1 mg PO QAM [facility] Last Admin: 03/21/19 11:20 Dose: 1 mg Ropinirole HCl (Requip Tab*) 1 mg PO BEDTIME [facility] Last Admin: 03/20/19 21:05 Dose: 1 mg Ropinirole HCl (Requip Tab*) 0.5 mg PO BEDTIME [facility] Last Admin: 03/20/19 21:05 Dose: 0.5 mg Senna (Senokot 8.6 Mg Tab*) 1 tab PO BID PRN PRN Reason: CONSTIPATION Vital Signs - 8 hr 03/21/19 03/21/19 03/21/19 07:36 08:00 11:26 Temperature 97.6 F 97.1 F Pulse Rate 125 104 Respiratory 20 20 18 Rate Blood Pressure 116/52 111/52 (mmHg) O2 Sat by Pulse 92 97 Oximetry 03/21/19 14:41 Temperature 98.4 F Pulse Rate 108 Respiratory 20 Rate Blood Pressure 114/56 (mmHg) O2 Sat by Pulse 100 Oximetry Oxygen Devices in Use Now: None Appearance: Elderly white female, sitting in chair, appearing in NAD Eyes: No Scleral Icterus, PERRLA Ears/Nose/Mouth/Throat: Mucous Membranes Moist Neck: NL Appearance and Movements; NL JVP Respiratory: Symmetrical Chest Expansion and Respiratory Effort, Clear to Auscultation Cardiovascular: NL Sounds; No Murmurs; No JVD, - - irregularly irregular rhythm Abdominal: - - abd soft, nontender, nondistended Extremities: No Clubbing, Cyanosis, - - +2 pitting edema of right leg pretibially; +1 pitting edema of left leg pretibially Skin: No Rash or Ulcers Neurological: Alert and Oriented x 3, NL Muscle Strength and Tone Result Diagrams: 03/21/19 14:21 03/21/19 07:18 Additional Lab and Data: . Microbiology and Other Data: . Assess/Plan/Problems-Billing Assessment: Ms. Valerio is a 73 yo F with a PMH of afib on chronic anticoagulation, chronic anemia, chronic wounds, CKD Stage 3, Type 2 DM, and lymphedema who was admitted on 03/20/19 with dyspnea on exertion and generalized weakness found to have severe anemia. - Patient Problems (1) Anemia Current Visit: No Status: Acute Code(s): D64.9 - ANEMIA, UNSPECIFIED SNOMED Code(s): 840020272 Comment: - Acute on chronic anemia of chronic disease with component of iron deficiency - Hgb baseline 8. 6.8 on arrival ->7.8 after one unit PRBC. Today 7.5 which is likely dilutional. Will repeat H&H - GUIAC negative, monitor closely. Cannot completely rule out GI bleed given patient has had recent admission with GI bleed where she refused GI workup. Patient has never had a colonoscopy and would benefit from one outpatient. Holding xarelto for now. - Increasing iron supplementation to TID - Discussed taking iron supplement with vitamin C and from calcium supplement (2) Acute on chronic kidney failure Current Visit: No Status: Acute Code(s): N17.9 - ACUTE KIDNEY FAILURE, UNSPECIFIED; N18.9 - CHRONIC KIDNEY DISEASE, UNSPECIFIED SNOMED Code(s): 395870519 Comment: - Creatinine continues to improve - Continue IVF, will change to LR to avoid electrolyte abnormality. 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 -no signs of decompensation at this time (4) Atrial fibrillation Current Visit: No Status: Acute Code(s): I48.91 - UNSPECIFIED ATRIAL FIBRILLATION SNOMED Code(s): 94888947 Comment: - Continue atenolol, diltiazem - Holding xarelto for now (5) Diabetes mellitus type 2 with complications Current Visit: No Status: Acute Code(s): E11.8 - TYPE 2 DIABETES MELLITUS WITH UNSPECIFIED COMPLICATIONS SNOMED Code(s): 75157554 Comment: - with chronic diabetic ulcers to LE - Hold metformin, continue lispro SS (6) Chronic ulcer of leg Current Visit: No Status: Acute Code(s): L97.909 - NON-PRS CHRONIC ULC UNSP PRT OF UNSP LOW LEG W UNSP SEVERITY SNOMED Code(s): 51347974 Comment: - Follows with [place] [facility]. - No evidence of infection. (7) Pulmonary hypertension Current Visit: No Status: Acute Code(s): I27.20 - PULMONARY HYPERTENSION, UNSPECIFIED SNOMED Code(s): 01178283 Comment: - Severe - Continue with pulmonology follow up at discharge with Dr. Rome (8) DNR (do not resuscitate) Current Visit: No Status: Acute Comment: (9) DVT prophylaxis Current Visit: No Status: Acute Code(s): OPY8485 - SNOMED Code(s): 392335680 Comment: - ambulate, SCDs if tolerated - no chemoprophylaxis in setting of severe anemia Status and Disposition: Inpatient
[2019-03-21] MEDS ORDERED: Lactated Ringers 1000 ML Bag* 1,000 ML IV SCH (16:00)
[2019-03-21] MEDS: Ropinirole TAB* 0.5 MG TAB PO SCH (21:30)
[2019-03-21] MEDS: Gabapentin CAP(*) 300 MG PO SCH (21:30)
[2019-03-22] MEDS: Acetaminophen TAB* 325 MG PO PRN (00:03)
[2019-03-22] MEDS ORDERED: Simethicone TAB* 80 MG TAB.CHEW PO PRN (08:08)
[2019-03-22] MEDS: Ferrous Sulfate TAB* 325 MG PO SCH ×3 (08:39→20:12)
[2019-03-22] MEDS: Multivitamins/Minerals TAB PO SCH (08:39)
[2019-03-22] MEDS: Ascorbic Acid TAB* 500 MG PO SCH (08:39)
[2019-03-22] MEDS: Diltiazem CD CAP* 120 MG PO SCH (08:39)
[2019-03-22] MEDS: Insulin LISPRO* 1 UNITS UNIT SUBCUT SCH ×3 (08:39→18:03)
[2019-03-22] MEDS: Atenolol TAB* 25 MG PO SCH ×2 (08:40→20:12)
[2019-03-22] MEDS: rOPINIRole TAB* 1 MG PO SCH ×2 (08:51→20:17)
[2019-03-22 09:06] LABS: ABS Basophils 0.1 10^3/ul (0-0.2); ABS Eosinophils 0.3 10^3/ul (0-0.6); ABS Lymphocytes 0.7 10^3/ul (1.0-4.8); ABS Monocytes 0.7 10^3/ul (0-0.8); Eosinophil % 5.7 %; Hematocrit 25 % (35-47); Hemoglobin 7.7 g/dL (12.0-16.0); Lymphocyte % 12.4 %; Mean Corpuscular HGB Conc 30 g/dL (31-36); Mean Corpuscular Hemoglobin 28 pg (27-31); Mean Corpuscular Volume 93 fL (80-97); Platelet Count 216 10^3/uL (150-450); Red Blood Count 2.73 10^6 /uL (3.70-4.87); Red Cell Distribution Width 17 % (10-15); White Blood Count 5.8 10^3/uL (3.5-10.8)
[2019-03-22 09:26] LABS: BUN/Creatinine Ratio 35.8 (8-20); Calcium 8.7 mg/dL (8.6-10.3); EGFR African American 38.3 (>60); EGFR Non-African American 31.7 (>60); Potassium 4.8 mmol/L (3.5-5.0)
--- NOTE | 2019-03-22 10:52 | PN ---
Subjective Date of Service: 03/22/19 Interval History: Early this AM, ZORA Soto notified me that patient c/o abdominal discomfort. Patient had BM last night. Ordered prn simethicone and patient tells me at time of my eval later that abd discomfort is resolved. She has eaten breakfast and has no further abdominal discomfort. Denies nausea. Denies chest pain, difficulty breathing at rest or with exertion, dizziness/lightheadedness. Worked with Physical Therapy today and determined would benefit from [facility]. Patient agreeable. Objective Active Medications: Acetaminophen (Tylenol Tab*) 650 mg PO Q4H PRN PRN Reason: MILD PAIN or TEMP > 100.4 Last Admin: 03/22/19 00:03 Dose: 650 mg Ascorbic Acid (Vitamin C Tab*) 500 mg PO QAM [facility] Last Admin: 03/22/19 08:39 Dose: 500 mg Atenolol (Tenormin Tab*) 12.5 mg PO TID [facility] Last Admin: 03/22/19 08:40 Dose: Not Given Dextrose (Dextrose 50% Vial 50 Ml*) 25 ml IV PUSH .FOR FS < 60 - SS PRN PRN Reason: FS < 60 Diltiazem HCl (Cardizem Cd Cap*) 120 mg PO DAILY [facility] Last Admin: 03/22/19 08:39 Dose: 120 mg Ferrous Sulfate (Ferrous Sulfate Tab*) 325 mg PO TID [facility] Last Admin: 03/22/19 08:39 Dose: 325 mg Gabapentin (Neurontin Cap(*)) 600 mg PO BEDTIME [facility] Last Admin: 03/21/19 21:30 Dose: 600 mg Lactated Ringer's (Lactated Ringers 1000 Ml Bag*) 1,000 mls @ 25 mls/hr IV PER RATE [facility] Last Admin: 03/21/19 16:04 Dose: 25 mls/hr Insulin Human Lispro (Humalog*) 0 units SUBCUT AC [facility]; Protocol Last Admin: 03/22/19 08:39 Dose: 1 units Magnesium Hydroxide (Milk Of Magnesia Liq*) 30 ml PO Q4H PRN PRN Reason: CONSTIPATION Multivitamins/Minerals (Theragran/Minerals Tab*) 1 tab PO DAILY [facility] Last Admin: 03/22/19 08:39 Dose: 1 tab Ondansetron HCl (Zofran Inj*) 4 mg IV Q4H PRN PRN Reason: NAUSEA/VOMITING Ropinirole HCl (Requip Tab*) 1 mg PO QAM [facility] Last Admin: 03/22/19 08:51 Dose: 1 mg Ropinirole HCl (Requip Tab*) 1 mg PO BEDTIME [facility] Last Admin: 03/21/19 21:31 Dose: 1 mg Ropinirole HCl (Requip Tab*) 0.5 mg PO BEDTIME [facility] Last Admin: 03/21/19 21:30 Dose: 0.5 mg Senna (Senokot 8.6 Mg Tab*) 1 tab PO BID PRN PRN Reason: CONSTIPATION Simethicone (Mylicon Tab*) 80 mg PO Q6H PRN PRN Reason: abdominal pain Last Admin: 03/22/19 08:51 Dose: 80 mg Oxygen Devices in Use Now: None Appearance: Elderly white female, sitting in chair, appearing in NAD Eyes: No Scleral Icterus, PERRLA Ears/Nose/Mouth/Throat: Mucous Membranes Moist Neck: NL Appearance and Movements; NL JVP Respiratory: Symmetrical Chest Expansion and Respiratory Effort, - - faint crackles in right lower lung base Cardiovascular: NL Sounds; No Murmurs; No JVD, RRR Abdominal: NL Sounds; No Tenderness; No Distention Extremities: - - +1 pitting edema to bilateraly LEs pretibially Skin: No Rash or Ulcers Neurological: Alert and Oriented x 3, NL Muscle Strength and Tone Result Diagrams: 03/22/19 08:33 03/22/19 08:33 Additional Lab and Data: . Microbiology and Other Data: . Assess/Plan/Problems-Billing Assessment: Ms. Valerio is a 73 yo F with a PMH of afib on chronic anticoagulation, chronic anemia, chronic wounds, CKD Stage 3, Type 2 DM, and lymphedema who was admitted on 03/20/19 with dyspnea on exertion and generalized weakness found to have severe anemia. - Patient Problems (1) Anemia Current Visit: No Status: Acute Code(s): D64.9 - ANEMIA, UNSPECIFIED SNOMED Code(s): 929917707 Comment: - Acute on chronic anemia of chronic disease with component of iron deficiency - H&H stable - GUIAC negative, monitor closely. Cannot completely rule out GI bleed given patient has had recent admission with GI bleed where she refused GI workup. Patient has never had a colonoscopy and would benefit from one outpatient. Holding xarelto for now. - continue TID ferrous sulfate (2) Acute on chronic kidney failure Current Visit: No Status: Acute Code(s): N17.9 - ACUTE KIDNEY FAILURE, UNSPECIFIED; N18.9 - CHRONIC KIDNEY DISEASE, UNSPECIFIED SNOMED Code(s): 503912280 Comment: - Creatinine continues to improve - Patient beginning to have faint crackles in lung bases so will d/c IVF - Suspected pre-renal in setting of aggressive outpatient diuresis (3) Abdominal pain Current Visit: Yes Status: Acute Code(s): R10.9 - UNSPECIFIED ABDOMINAL PAIN SNOMED Code(s): 55317353 Comment: -c/o abdominal discomfort to nursing this morning. Resolved with simethicone. -continue prn simethicone. 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 Discontinued IVF as previously discussed. Ordered incentive spirometry. -LE edema unchanged from admission (5) Atrial fibrillation Current Visit: No Status: Acute Code(s): I48.91 - UNSPECIFIED ATRIAL FIBRILLATION SNOMED Code(s): 13887321 Comment: - Continue diltiazem - Holding xarelto for now - With improving CrCl, increased atenolol from 12.5 mg TID to 50 mg BID ( patient takes 50 mg TID at home) (6) Diabetes mellitus type 2 with complications Current Visit: No Status: Acute Code(s): E11.8 - TYPE 2 DIABETES MELLITUS WITH UNSPECIFIED COMPLICATIONS SNOMED Code(s): 28535301 Comment: - with chronic diabetic ulcers to LE - Hold metformin, continue lispro SS (7) Chronic ulcer of leg Current Visit: No Status: Acute Code(s): L97.909 - NON-PRS CHRONIC ULC UNSP PRT OF UNSP LOW LEG W UNSP SEVERITY SNOMED Code(s): 43561525 Comment: - Follows with [place] [facility]. - No evidence of infection. (8) Pulmonary hypertension Current Visit: No Status: Acute Code(s): I27.20 - PULMONARY HYPERTENSION, UNSPECIFIED SNOMED Code(s): 44367305 Comment: - Severe - Continue with pulmonology follow up at discharge with Dr. Rome (9) DNR (do not resuscitate) Current Visit: No Status: Acute Comment: (10) DVT prophylaxis Current Visit: No Status: Acute Code(s): QRG8479 - SNOMED Code(s): 937565130 Comment: - ambulate, SCDs if tolerated - no chemoprophylaxis in setting of severe anemia Status and Disposition: Inpatient
[2019-03-22] MEDS: Ropinirole TAB* 0.5 MG TAB PO SCH (20:12)
[2019-03-22] MEDS: Gabapentin CAP(*) 300 MG PO SCH (20:13)
--- NOTE | 2019-03-23 01:26 | DS ---
CC: Dr. Shaw at [facility] * DISCHARGE SUMMARY: DATE OF ADMISSION: 03/19/19 DATE OF DISCHARGE: 03/23/19 PROVIDER: LILY Hernandez. ATTENDING PROVIDER: Laura Mistry MD * (DICTATED BY LILY HERNANDEZ) PRIMARY CARE PROVIDER: Dr. Shaw at [facility]. PRIMARY DIAGNOSES: 1. Severe anemia, likely combination of anemia of chronic disease and possibly iron deficiency anemia. 2. Acute on chronic kidney injury. SECONDARY DIAGNOSES: 1. Known anemia. 2. Atrial fibrillation, on anticoagulation. 3. Restless legs syndrome. 4. Chronic kidney disease stage 3. 5. Diabetes mellitus type 2. 6. Pulmonary hypertension. 7. Lymphedema. 8. History of chronic pleural effusions in the past. 9. Prolapsed bladder. 10. Hypertension. HISTORY OF PRESENT ILLNESS/HOSPITAL COURSE: Silvana Valerio is a 73-year-old white female with past medical history significant for hypertension; atrial fibrillation, on Xarelto; anemia; chronic wound; CKD stage 3 and diabetes, who presents to the emergency department due to shortness of breath on exertion and abnormal labs per her primary care provider. The patient was found to have anemia with hemoglobin of 6.8. For further information regarding the events leading up to her admission, please see the history and physical written by myself on 03/19/19. The patient was given 1 unit of PRBCs and had good response in H and H, which was then stable throughout her hospital stay. After transufion, she was then asymptomatic as her shortness of breath on exertion resolved. Ultimately, the patient continued to feel weak despite this resolution, but this did improve. However, she was feeling quite unsteady on her feet. Physical Therapy did find her to have some acute need for subacute rehab. The patient was agreeable to this. The patient additionally was found to be in WALKER during her hospital stay at admission, which resolved during her hospital stay with gentle IV hydration. The patient ultimately returned to near baseline creatinine and her IV fluids were stopped. Her Bumex was held during her hospital stay considering this is likely the cause of her WALKER. It is possible that she may have had some longstanding increase in her BUN and creatinine and may be this was the cause of her anemia in the context of her chronic anemia that she already has, appears to have a baseline of a low hemoglobin around 8 to 9. The patient's oral iron was increased during her hospital stay as well. Her Xarelto was held during her hospital stay given the possibility of GI bleed. However, because her H and H remained stable after receiving 1 unit and she did have negative stool Hemoccult during hospital stay , the Xarelto was restarted on the day prior to discharge. DISCHARGE PLAN: Diet: Carbohydrate consistent diet. Activity: The patient may return to her normal activity as tolerated. I do recommend that the patient have colonoscopy in the outpatient setting as the patient has never had a colonoscopy before. It may be possible that she has been having intermittent small bleeding from a colon mass, though she did not have any acute bleeding during her hospital stay. She additionally should have wound care followup and while she is at subacute rehab for chronic wounds. The patient uses KAVEH hose as well, which should be continued. Her BMP should be rechecked in 3 to 4 days to ensure that her creatinine does continue to decrease. Otherwise, she should follow up with her primary care provider regarding this hospital stay. She should return to the emergency department if is experiencing shortness of breath, fatigue, bright red blood per rectum, chest pain, difficulty breathing. DISCHARGE MEDICATIONS: Discontinued home medications: 1. Bumex 2 mg p.o. daily. New medications: 1. Lasix 40 mg p.o. daily. 2. Ferrous sulfate 325 mg p.o. t.i.d. Continued home medications: 1. Xarelto 10 mg p.o. daily. 2. Diltiazem 120 mg p.o. daily. 3. Atenolol 50 mg p.o. t.i.d. 4. Ascorbic acid 500 mg p.o. daily. 5. Multivitamin 1 tab p.o. daily. 6. Requip 1 mg p.o. q.a.m. 7. Requip 1.5 mg p.o. at bedtime. 8. Metformin 500 mg p.o. b.i.d. CONDITION ON DISCHARGE: Stable. DISPOSITION: [facility] in [place], [place]. TIME SPENT: Approximately 35 minutes was spent on this discharge. LILY HERNANDEZ [id number]/[facility] #: [id number] MTDD
[2019-03-23] MEDS: Acetaminophen TAB* 325 MG PO PRN (02:09)
[2019-03-23] MEDS ORDERED: Rivaroxaban TAB(*) 10 MG PO SCH (09:00)
[2019-03-23] MEDS: Insulin LISPRO* 1 UNITS UNIT SUBCUT SCH (09:09)
[2019-03-23] MEDS: Ascorbic Acid TAB* 500 MG PO SCH (09:10)
[2019-03-23] MEDS: rOPINIRole TAB* 1 MG PO SCH (09:10)
[2019-03-23] MEDS: Ferrous Sulfate TAB* 325 MG PO SCH (09:10)
[2019-03-23] MEDS: Atenolol TAB* 25 MG PO SCH (09:10)
[2019-03-23] MEDS: Diltiazem CD CAP* 120 MG PO SCH (09:10)
[2019-03-23] MEDS: Multivitamins/Minerals TAB PO SCH (09:10)
[2019-03-23 09:14] VITALS: BP 116/66
== END 2019-03-23 11:00 | DRG 812 ==
LOC: ED 16:28 → MED 19:33
PROVIDERS: ADMIT Internal Medicine; ATTEND Internal Medicine
PROC: 30233N1 Transfusion of Nonautologous Red Blood Cells into Peripheral Vein, Percutaneous Approach (ICD-10-PCS; principal; 2019-03-19)
DX: D50.9 Iron deficiency anemia, unspecified (principal); N17.9 Acute kidney failure, unspecified; I50.30 Unspecified diastolic (congestive) heart failure; I13.0 Hypertensive heart and chronic kidney disease with heart failure and stage 1 through stage 4 chronic kidney disease, or unspecified chronic kidney disease; K92.2 Gastrointestinal hemorrhage, unspecified; L97.909 Non-pressure chronic ulcer of unspecified part of unspecified lower leg with unspecified severity; E11.22 Type 2 diabetes mellitus with diabetic chronic kidney disease; N18.3 Chronic kidney disease, stage 3 (moderate); G25.81 Restless legs syndrome; I27.20 Pulmonary hypertension, unspecified; I89.0 Lymphedema, not elsewhere classified; N81.10 Cystocele, unspecified; I48.2 Chronic atrial fibrillation; D63.8 Anemia in other chronic diseases classified elsewhere; Z66 Do not resuscitate; E11.622 Type 2 diabetes mellitus with other skin ulcer; Z96.612 Presence of left artificial shoulder joint; Z96.611 Presence of right artificial shoulder joint; Z96.642 Presence of left artificial hip joint; Z86.711 Personal history of pulmonary embolism; Z79.01 Long term (current) use of anticoagulants; Z79.84 Long term (current) use of oral hypoglycemic drugs; Z79.899 Other long term (current) drug therapy; Z88.1 Allergy status to other antibiotic agents; Z88.5 Allergy status to narcotic agent; Z88.8 Allergy status to other drugs, medicaments and biological substances
CPT/HCPCS: 36415; 71045; 80048; 80053; 82270; 82668; 82728; 83540; 83550; 83605; 83735; 83880; 84443; 84484; 85014; 85018; 85025; 85045; 86850; 86900; 86901; 86922; 93005; 99284; A9270-GY; G8978-GP-CK; G8979-GP-CI; J2405; P9040